=== PATIENT | female | born 1950 | race Caucasian/White ===

== ENCOUNTER → 2017-11-07 07:17 | Outpatient (CLI) | payer BC, SELFPAY ==
--- NOTE | 2017-11-07 07:19 | EKG12_ITS ---
Test Reason : PALPS Blood Pressure : / mmHG Vent. Rate : 070 BPM Atrial Rate : 070 BPM P-R Int : 160 ms QRS Dur : 090 ms QT Int : 410 ms P-R-T Axes : 060 031 083 degrees QTc Int : 442 ms Normal sinus rhythm Normal ECG Confirmed by CHELO FOOTE, KALPESH ([id number]), editor farm journal AMANDA MELÉNDEZ ([id number]) on 11/09/2017 2:32:27 PM Referred By: Shannan Chauhan Confirmed By:KALPESH WHITNEY MD
[2017-11-07 08:51] LABS: Anion Gap 5 (5-15); BUN 19 mg/dL (7-18); BUN/Creat Ratio 23.8 RATIO (10-20); Chloride 104 mmol/L (98-107); Cholesterol 280 mg/dL (200); EST Glomerular Filtration Rate 77 mL/min (>60); Est Glom Filt Rate - Afr Amer 93 mL/min (>60); Glucose 94 mg/dL (74-106); High Density Lipoprotein 59 mg/dL; Potassium 3.8 mmol/L (3.5-5.1); Sodium Level 140 mmol/L (136-145); Triglycerides 159 mg/dL; Very Low Density Lipoprotein 32 mg/dL (5-40)
== END ==
PROVIDERS: Family Provider Internal Medicine; PCP Internal Medicine; Visit Provider Internal Medicine
DX: E87.6 Hypokalemia (principal); E78.5 Hyperlipidemia, unspecified; R00.2 Palpitations
CPT/HCPCS: 36415; 80048; 80061; 93005

== ENCOUNTER → 2017-11-10 12:52 | Outpatient (CLI) | payer BC, SELFPAY ==
--- NOTE | 2017-11-10 12:54 | EKG12_ITS ---
Test Reason : SYNCOPE/NEAR SYNCOPE Blood Pressure : / mmHG Vent. Rate : 066 BPM Atrial Rate : 066 BPM P-R Int : 168 ms QRS Dur : 096 ms QT Int : 442 ms P-R-T Axes : 054 022 087 degrees QTc Int : 463 ms Normal sinus rhythm Normal ECG Confirmed by CHELO FOOTE, KALPESH ([id number]), commissioning editor AMANDA MELÉNDEZ ([id number]) on 11/15/2017 2:52:52 PM Referred By: Chris Martinez Confirmed By:KALPESH WHITNEY MD
== END ==
PROVIDERS: Family Provider Internal Medicine; PCP Internal Medicine; Visit Provider Nurse Practitioner Family
DX: R55 Syncope and collapse (principal)
CPT/HCPCS: 93005

== ENCOUNTER → 2017-11-22 13:47 | Outpatient (CLI) | payer BC, SELFPAY ==
[2017-11-10 13:26] LABS: Absolute Lymphocyte Count 2.15 X10^3/ul (0.83-4.51); Absolute Neutrophil Count 4.7 X10^3/uL (2.0-7.7); Basophil# 0.03 X10^3/uL; Basophil% 0.4 % (0-1); Eosinophil# 0.27 X10^3/uL; Eosinophils% 3.5 % (0-5); Hematocrit 40.6 % (37-47); Hemoglobin 13.5 g/dl (12.0-15.0); Lymphocyte # 2.15 X10^3/ul (4.0); Lymphocyte % 27.6 % (19-41); Mean Corp Hgb Conc 33.3 g/gl (32-36); Mean Corpuscular Hgb 29.1 pg (27.0-32.0); Mean Corpuscular Volume 87.5 fL (81-99); Mean Platelet Vol. 10.1 fl (6.2-12.0); Monocyte# 0.61 X10^3/uL; Monocyte% 7.8 % (0-10); Neutrophil # 4.71 X10^3/uL (2.7-7.7); Neutrophil % 60.6 % (47-70); POSITIVE COUNT NO; POSITIVE DIFFERENTIAL NO; POSITIVE MORPHOLOGY NO; Platelet Count 250 K/mm3 (150-450); RBC Distribution Width CV 12.7 % (11.6-14.6); RBC Distribution Width SD 40.6 fl (35.1-43.9); Red Blood Count 4.64 M/mm3 (4.2-5.4); White Blood Count 7.8 K/mm3 (4.4-11.0)
[2017-11-10 13:56] LABS: Anion Gap 7 (5-15); BUN 15 mg/dL (7-18); BUN/Creat Ratio 20.9 RATIO (10-20); Chloride 100 mmol/L (98-107); Creatinine, Serum 0.72 mg/dL (0.55-1.02); EST Glomerular Filtration Rate 87 mL/min (>60); Est Glom Filt Rate - Afr Amer 105 mL/min (>60); Glucose 86 mg/dL (74-106); Potassium 3.6 mmol/L (3.5-5.1); Sodium Level 137 mmol/L (136-145)
--- NOTE | 2017-11-22 13:53 | CDU_ITS ---
Reason For Study: syncope Rt. Velocities/BP Lt. Velocities/BP Prox CCA 107/31.1 cm/sec. Prox CCA 106/29.3 cm/sec. Mid CCA 97.9/29.9 cm/sec. Mid CCA 96.7/28.1 cm/sec. Dist CCA 86.2/29.3 cm/sec. Dist CCA 96.2/35.8 cm/sec. Prox ICA 53.4/22.3 cm/sec. Prox ICA 60.4/18.2 cm/sec. Mid ICA 89.1/32.2 cm/sec. Mid ICA 93.8/32.2 cm/sec. Dist ICA 60.9/22.5 cm/sec. Dist ICA 73.8/24.9 cm/sec. Rt. ICA/CCA = .9. Lt. ICA/CCA = 1.0. Prox ECA 84.4/21.1 cm/sec. Prox ECA 95.0/18.8 cm/sec. Rt. Vert. 46.3/14.7 cm/sec. Lt. Vert. 47.9/16.5 cm/sec. Right Extracranial There is homogeneous, smooth atherosclerotic plaque noted in the right common carotid artery. There is intimal thickening but no significant atherosclerotic plaque noted in the right internal carotid artery. There is intimal thickening but no significant atherosclerotic plaque noted in the right external carotid artery. Antegrade flow is noted in the right vertebral artery. Left Extracranial There is intimal thickening but no significant atherosclerotic plaque noted in the left common carotid artery. There is heterogeneous, smooth atherosclerotic plaque noted in the left internal carotid artery. There is intimal thickening but no significant atherosclerotic plaque noted in the left external carotid artery. Antegrade flow is noted in the left vertebral artery. Procedure Carotid Duplex 88822. The exam was diagnostic. Exam performed in department. Interpretation Summary No significant atherosclerotic plaque or stenosis noted in the right internal carotid artery. Mild (<50%) stenosis left extracranial internal carotid. Flow within the vertebral arteries is antegrade bilaterally. Ordering Physician: Chris Martinez Performed By: Aftab Donahue RVT
== END ==
PROVIDERS: Family Provider Internal Medicine; PCP Internal Medicine; Visit Provider Nurse Practitioner Family
DX: R55 Syncope and collapse (principal)
CPT/HCPCS: 36415; 80048; 83735; 85025; 93880

== ENCOUNTER → 2018-01-11 11:14 | Outpatient (CLI) | payer BC, SELFPAY ==
[2018-01-11 14:39] LABS: ALB/GLOB Ratio 1.2 RATIO (0.9-2.4); AST(SGOT) 25 U/L (15-37); Alanine Aminotransfer ALT/SGPT 30 U/L (13-56); Albumin, Serum 3.8 g/dL (3.2-5.0); Alkaline Phosphatase 81 U/L (45-117); Anion Gap 7 (5-15); BUN 19 mg/dL (7-18); BUN/Creat Ratio 19.3 RATIO (10-20); Calcium,Total 9.2 mg/dL (8.5-10.1); Chloride 102 mmol/L (98-107); Creatinine, Serum 0.99 mg/dL (0.55-1.02); EST Glomerular Filtration Rate 60 mL/min (>60); Est Glom Filt Rate - Afr Amer 73 mL/min (>60); Globulin 3.2 g/dL (2.2-4.2); Glucose 80 mg/dL (74-106); Sodium Level 136 mmol/L (136-145)
== END ==
PROVIDERS: Family Provider Internal Medicine; PCP Internal Medicine; Visit Provider Nurse Practitioner Family
DX: E78.5 Hyperlipidemia, unspecified (principal)
CPT/HCPCS: 36415; 80053

== ENCOUNTER → 2018-02-23 06:48 | Outpatient (CLI) | payer BC, SELFPAY ==
[2018-02-23 07:39] LABS: Cholesterol 157 mg/dL (200); High Density Lipoprotein 66 mg/dL; Thyroid Stim Hormone (TSH) 1.01 uIU/mL (0.358-3.74); Triglycerides 73 mg/dL; Very Low Density Lipoprotein 15 mg/dL (5-40)
== END ==
PROVIDERS: Family Provider Internal Medicine; PCP Internal Medicine; Visit Provider Nurse Practitioner Family
DX: E78.5 Hyperlipidemia, unspecified (principal); E03.9 Hypothyroidism, unspecified
CPT/HCPCS: 36415; 80061; 84439; 84443

== ENCOUNTER → 2018-05-16 16:19 | Outpatient (CLI) | payer BC, SELFPAY | PROVIDERS: Family Provider Internal Medicine; PCP Internal Medicine; Visit Provider Internal Medicine | DX: Z12.31 Encounter for screening mammogram for malignant neoplasm of breast (principal) | CPT/HCPCS: 77063; 77067 ==

== ENCOUNTER → 2018-05-24 16:33 | Outpatient (CLI) | payer BC, SELFPAY ==
[2018-05-24 18:14] LABS: Anion Gap 8 (5-15); BUN 16 mg/dL (7-18); BUN/Creat Ratio 17.8 RATIO (10-20); Calcium,Total 9.5 mg/dL (8.5-10.1); Chloride 103 mmol/L (98-107); EST Glomerular Filtration Rate 67 mL/min (>60); Est Glom Filt Rate - Afr Amer 81 mL/min (>60); Glucose 93 mg/dL (74-106); Potassium 3.1 mmol/L (3.5-5.1); Sodium Level 139 mmol/L (136-145)
== END ==
PROVIDERS: Family Provider Internal Medicine; PCP Internal Medicine; Visit Provider Internal Medicine
DX: I10 Essential (primary) hypertension (principal)
CPT/HCPCS: 36415; 80048

== ENCOUNTER → 2018-07-10 12:43 | Outpatient (CLI) | payer BC, SELFPAY ==
[2018-07-10 13:21] LABS: Absolute Lymphocyte Count 1.87 X10^3/ul (0.83-4.51); Absolute Neutrophil Count 5.3 X10^3/uL (2.0-7.7); Basophil# 0.03 X10^3/uL; Basophil% 0.4 % (0-1); Eosinophil# 0.24 X10^3/uL; Hematocrit 44.8 % (37-47); Hemoglobin 15.2 g/dl (12.0-15.0); Lymphocyte # 1.87 X10^3/ul (4.0); Mean Corp Hgb Conc 33.9 g/gl (32-36); Mean Corpuscular Hgb 30.1 pg (27.0-32.0); Mean Corpuscular Volume 88.7 fL (81-99); Monocyte# 0.64 X10^3/uL; Monocyte% 7.9 % (0-10); Neutrophil # 5.33 X10^3/uL (2.7-7.7); Neutrophil % 65.5 % (47-70); Platelet Count 283 K/mm3 (150-450); RBC Distribution Width SD 42.2 fl (35.1-43.9); Red Blood Count 5.05 M/mm3 (4.2-5.4); White Blood Count 8.1 K/mm3 (4.4-11.0)
[2018-07-10 13:24] LABS: POSITIVE COUNT NO; POSITIVE DIFFERENTIAL NO; POSITIVE MORPHOLOGY NO
[2018-07-10 13:46] LABS: Anion Gap 8 (5-15); BUN 15 mg/dL (7-18); Calcium,Total 9.5 mg/dL (8.5-10.1); Chloride 103 mmol/L (98-107); Creatinine, Serum 0.88 mg/dL (0.55-1.02); EST Glomerular Filtration Rate 68 mL/min (>60); Est Glom Filt Rate - Afr Amer 82 mL/min (>60); Glucose 100 mg/dL (74-106); Potassium 3.8 mmol/L (3.5-5.1); Sodium Level 141 mmol/L (136-145)
[2018-07-10 13:57] LABS: Thyroid Stim Hormone (TSH) 0.99 uIU/mL (0.358-3.74)
[2018-07-10 14:01] LABS: Vitamin B12 375 pg/mL (211-911); Vitamin D,25 Hydroxy 29.6 ng/mL (29.95-100.01)
== END ==
PROVIDERS: Nurse Practitioner Family; Family Provider Internal Medicine; PCP Internal Medicine; Referring Provider Internal Medicine; Visit Provider Internal Medicine
DX: E87.6 Hypokalemia (principal); E03.9 Hypothyroidism, unspecified; E55.9 Vitamin D deficiency, unspecified; F41.8 Other specified anxiety disorders; R53.83 Other fatigue
CPT/HCPCS: 36415; 80048; 82306; 82607; 84443; 85025

== ENCOUNTER 2018-08-21 15:03 | Emergency (ER) | payer BC, SELFPAY ==
[2018-08-11 09:57] VITALS: BMI 31.1
[2018-08-21 15:04] VITALS: BP 129/91; PULSE 72; RESP 16; TEMP 36.9; O2SAT 97; BMI 32.1
[2018-08-21 15:11] VITALS: PULSE 74; RESP 17; O2SAT 98
--- NOTE | 2018-08-21 15:15 | EKG12_ITS ---
Test Reason : Blood Pressure : / mmHG Vent. Rate : 068 BPM Atrial Rate : 068 BPM P-R Int : 178 ms QRS Dur : 098 ms QT Int : 450 ms P-R-T Axes : 048 008 075 degrees QTc Int : 478 ms Normal sinus rhythm Normal ECG Confirmed by KALPESH WHITNEY MD ([id number]), video effects editor AMANDA MELÉNDEZ ([id number]) on 08/25/2018 10:47:22 AM Referred By: KATRIN Confirmed By:KALPESH WHITNEY MD
--- NOTE | 2018-08-21 15:15 | RAD_ITS ---
STUDY: X-RAY CHEST REASON FOR EXAM: Female, 68 years old. Sternal chest pain. TECHNIQUE: Single AP portable view of the chest. COMPARISON: None. FINDINGS: EKG electrodes are seen. Mild elevation of the right hemidiaphragm. There is no demonstrated pleural abnormality. Normal size heart. Normal mediastinum and brandt. Normal visualized pulmonary arteries. There is atherosclerotic tortuosity of the aortic arch and descending thoracic aorta. There is a levoscoliosis of the thoracic spine. There is degenerative osteoarthritis of the bilateral shoulders. There is no demonstrated abnormality of the visualized soft tissue structures of the upper abdomen. RAD/Chest 1 View (Portable) IMPRESSION: No acute abnormality is seen. Electronically Signed: Aston Cabezas MD at 15:32 EST Tel [phone], Service support ,
--- NOTE | 2018-08-21 15:16 | ED.VISSUMM ---
- ER Visit Summary Date of Service: 08/21/18 Chief Complaint: [] Chest pain today History of Present Illness: The patient is a 68 F [] history of hypertension high cholesterol began having chest pressure today at 230 per suddenly was quite intense pressure discomfort to her chest make her short of breath would not go away per medics were called she was brought and they gave her 4 of aspirin on arrival she is pain-free her vital signs within normal range, she has no history of OR PE DVT no fever no cough or paresthesias this occurred suddenly unexpectedly Physical Examination: [] 122/80 afebrile General, no distress resting comfortably HEENT is generally unremarkable The neck is supple no adenopathy Cardiovascular, regular rate and rhythm Lungs, clear bilateral Abdomen, soft nontender Extremities, no clubbing cyanosis or edema Neurologic, awake alert answering questions appropriately moving all 4 extremities Test Results: [] Emergency Department Course and Treatment: [] EKG shows a sinus rhythm nothing acute this time given all the above screening labs are obtained further management The patient's EKG troponin chest x-ray are all unremarkable on reevaluation during period of observation she is remained pain-free I discussed differential with her and the the concept of occult cardiac disease sudden etc. we recommended admission, however she understands all the above was able to read back to me the concerns but reports she would prefer outpatient management does not feel she would do well if she were admitted, she has agreed to take aspirin every day follow-up with her doctors for the outpatient management return for change in symptoms Treatment Plan: [] Disposition: [] Home stable declined admission Impression: [] Chest pain etiology unclear This note was generated with [employer] dictation software. It may contain incorrect words, spelling, and punctuation that were not noted in review of the chart prior to signing ED Disposition - Plan for ED Patient: Chief Complaint: Chest Pain Referrals: Shannan Chauhan MD [Primary Care Provider] -
[2018-08-21 15:17] VITALS: O2SAT 97
--- NOTE | 2018-08-21 15:19 | ED.DCSUM_ITS ---
- ER Visit Summary Date of Service: 08/21/18 Chief Complaint: [] Chest pain today History of Present Illness: The patient is a 68 F [] history of hypertension high cholesterol began having chest pressure today at 230 per suddenly was quite intense pressure discomfort to her chest make her short of breath would not go away per medics were called she was brought and they gave her 4 of aspirin on arrival she is pain-free her vital signs within normal range, she has no history of NE PE DVT no fever no cough or paresthesias this occurred suddenly unexpectedly Physical Examination: [] 122/80 afebrile General, no distress resting comfortably HEENT is generally unremarkable The neck is supple no adenopathy Cardiovascular, regular rate and rhythm Lungs, clear bilateral Abdomen, soft nontender Extremities, no clubbing cyanosis or edema Neurologic, awake alert answering questions appropriately moving all 4 extremities Test Results: [] Emergency Department Course and Treatment: [] EKG shows a sinus rhythm nothing acute this time given all the above screening labs are obtained further management The patient's EKG troponin chest x-ray are all unremarkable on reevaluation during period of observation she is remained pain-free I discussed differential with her and the the concept of occult cardiac disease sudden etc. we recommended admission, however she understands all the above was able to read back to me the concerns but reports she would prefer outpatient management does not feel she would do well if she were admitted, she has agreed to take aspirin every day follow-up with her doctors for the outpatient management return for change in symptoms Treatment Plan: [] Disposition: [] Home stable declined admission Impression: [] Chest pain etiology unclear This note was generated with [employer] dictation software. It may contain incorrect words, spelling, and punctuation that were not noted in review of the chart prior to signing ED Disposition - Plan for ED Patient: Chief Complaint: Chest Pain Referrals: Shannan Chauhan MD [Primary Care Provider] -
[2018-08-21 15:34] LABS: Absolute Lymphocyte Count 2.17 X10^3/ul (0.83-4.51); Absolute Neutrophil Count 5.4 X10^3/uL (2.0-7.7); Basophil# 0.02 X10^3/uL; Basophil% 0.2 % (0-1); Eosinophil# 0.24 X10^3/uL; Eosinophils% 2.8 % (0-5); Hematocrit 45.4 % (37-47); Hemoglobin 15.3 g/dl (12.0-15.0); Lymphocyte # 2.17 X10^3/ul (4.0); Lymphocyte % 25.3 % (19-41); Mean Corp Hgb Conc 33.7 g/gl (32-36); Mean Corpuscular Hgb 29.4 pg (27.0-32.0); Mean Corpuscular Volume 87.3 fL (81-99); Mean Platelet Vol. 10.1 fl (6.2-12.0); Monocyte# 0.76 X10^3/uL; Monocyte% 8.8 % (0-10); Neutrophil # 5.38 X10^3/uL (2.7-7.7); Neutrophil % 62.7 % (47-70); Platelet Count 261 K/mm3 (150-450); RBC Distribution Width CV 12.7 % (11.6-14.6); White Blood Count 8.6 K/mm3 (4.4-11.0)
[2018-08-21 15:41] LABS: Anion Gap 7 (5-15); BUN 19 mg/dL (7-18); BUN/Creat Ratio 19.8 RATIO (10-20); Calcium,Total 9.5 mg/dL (8.5-10.1); Chloride 104 mmol/L (98-107); Creatinine, Serum 0.96 mg/dL (0.55-1.02); EST Glomerular Filtration Rate 62 mL/min (>60); Est Glom Filt Rate - Afr Amer 75 mL/min (>60); Estimated Creatinine Clearance 53.96 ml/min; Glucose 103 mg/dL (74-106); Potassium 3.5 mmol/L (3.5-5.1); Sodium Level 138 mmol/L (136-145)
[2018-08-21 15:42] LABS: POSITIVE COUNT NO; POSITIVE DIFFERENTIAL NO; POSITIVE MORPHOLOGY NO
[2018-08-21 16:18] LABS: BNP,B-Type NATRIURETIC PEPTIDE 5.1 pg/mL (0-100)
[2018-08-21 17:03] VITALS: BP 158/95; PULSE 68; RESP 19
[2018-08-21 17:15] LABS: D-Dimer Quantitative (DVT/PE) < 0.27 FEU/ug/m (0.27-0.49)
--- NOTE | 2018-08-21 18:52 | ED.DEP ---
ED Disposition - Plan for ED Patient: Chief Complaint: Chest Pain Instructions: ED Chest Pain Atypical Unkn Cause Referrals: Shannan Chauhan MD [Primary Care Provider] - Additional Instructions: Please follow-up with your doctors as soon as possible, please take a full strength adult aspirin or 4 baby aspirin every day until you follow-up with your doctors return immediately for symptoms
[2018-08-21 18:58] VITALS: BP 144/83; PULSE 71; RESP 15; O2SAT 96
--- OUTSIDE RECORDS SUMMARY | 2018-10-07 21:55 | XMS RPT_ITS ---
:1950 Author Organization OHIP Support Name Relationship Address Phone HAMPTONINN Unavailable [address] + [place] [address] ANI TSANG Unavailable [address] + [place] [address] HAMPTONINN Unavailable [address] + [place] [address] ANI TSANG Unavailable [address] + [place] [address] HAMPTONINN Unavailable [address] + [place] [address] ANI TSANG Unavailable [address] + [place] [address] HAMPTONINN Unavailable [address] + [place] [address] ANI TSANG Unavailable [address] + [place] [address] HAMPTONINN Unavailable [address] + [place] [address] ANI TSANG Unavailable [address] + [place] [address] HAMPTONINN Unavailable [address] + [place] [address] ANI TSANG Unavailable [address] + [place] [address] HAMPTONINN Unavailable [address] + [place] [address] ANI TSANG Unavailable [address] + [place] [address] HAMPTONINN Unavailable [address] + [place] [address] SCHWARTFIGURE, ANI Unavailable [address] + [place] [address] HAMPTONINN Unavailable [address] + [place] [address] SCHWARTFIGURE, ANI Unavailable [address] + [place] [address] HAMPTONINN Unavailable [address] + [place] [address] SCHWARTFIGURE, ANI Unavailable [address] + [place] [address] HAMPTONINN Unavailable [address] + [place] [address] SCHWARTFIGURE, ANI Unavailable [address] + [place] [address] HAMPTONINN Unavailable [address] + [place] [address] SCHWARTFIGURE, ANI Unavailable [address] + [place] [address] HAMPTONINN Unavailable [address] + [place] [address] SCHWARTFIGURE, ANI Unavailable [address] + [place] [address] HAMPTONINN Unavailable [address] + [place] [address] SCHWARTFIGURE, ANI Unavailable [address] + [place] [address] HAMPTONINN Unavailable [address] + [place] [address] SCHWARTFIGURE, ANI Unavailable [address] + [place] [address] HAMPTONINN Unavailable [address] + [place] [address] SCHWARTFIGURE, ANI Unavailable [address] + [place] [address] HAMPTONINN Unavailable [address] + [place] [address] SCHWARTFIGURE, ANI Unavailable [address] + [place] [address] HAMPTONINN Unavailable [address] + [place] [address] SCHWARTFIGURE, ANI Unavailable [address] + [place] [address] HAMPTONINN Unavailable [address] + [place] [address] SCHWARTFIGURE, ANI Unavailable [address] + [place] [address] HAMPTONINN Unavailable [address] + [place] [address] SCHWARTFIGURE, ANI Unavailable [address] + [place] [address] HAMPTONINN Unavailable [address] + [place] [address] SCHWARTFIGURE, ANI Unavailable [address] + [place] [address] HAMPTONINN Unavailable [address] + [place] [address] SCHWARTFIGURE, ANI Unavailable [address] + [place] [address] HAMPTONINN Unavailable [address] + [place] [address] SCHWARTFIGURE, ANI Unavailable [address] + [place] [address] HAMPTONINN Unavailable [address] + [place] [address] SCHWARTFIGURE, ANI Unavailable [address] + [place] [address] HAMPTONINN Unavailable [address] + [place] [address] SCHWARTFIGURE, ANI Unavailable [address] + [place] [address] HAMPTONINN Unavailable [address] + [place] [address] SCHWARTFIGURE, ANI Unavailable [address] + [place] [address] HAMPTONINN Unavailable [address] + [place] [address] SCHWARTFIGURE, ANI Unavailable [address] + [place] [address] HAMPTONINN Unavailable [address] + [place] [address] SCHWARTFIGURE, ANI Unavailable [address] + [place] [address] HAMPTONINN Unavailable [address] + [place] [address] SCHWARTFIGURE, ANI Unavailable [address] + [place] [address] HAMPTONINN Unavailable [address] + [place] [address] SCHWARTFIGURE, ANI Unavailable [address] + [place] [address] Care Team Providers Name Role Phone Oleghe, Efewongbe Primary Care Unavailable Truong Marrero Attending Unavailable Oleghe, Efewongbe Attending Unavailable Oleghe, Efewongbe Referring Unavailable Oleghe, Efewongbe Attending Unavailable Oleghe, Efewongbe Referring Unavailable Oleghe, Efewongbe Primary Care Unavailable Oleghe, Efewongbe Attending Unavailable Oleghe, Efewongbe Referring Unavailable Oleghe, Efewongbe Primary Care Unavailable Oleghe, Efewongbe Attending Unavailable Oleghe, Efewongbe Referring Unavailable Oleghe, Efewongbe Primary Care Unavailable Oleghe, Efewongbe Attending Unavailable Oleghe, Efewongbe Referring Unavailable Oleghe, Efewongbe Primary Care Unavailable MartinezChris MACHINE WIPER-C Attending Unavailable Oleghe, Efewongbe Referring Unavailable Oleghe, Efewongbe Primary Care Unavailable MartinezChris MACHINE WIPER-C Attending Unavailable Oleghe, Efewongbe Referring Unavailable MartinezChris MACHINE WIPER-C Attending Unavailable MartinezChris MACHINE WIPER-C Referring Unavailable Oleghe, Efewongbe Primary Care Unavailable Liseth Hernandez Attending Unavailable Oleghe, Efewongbe Referring Unavailable Hussein Cabello Attending Unavailable Truong Marrero Referring Unavailable Kojo Law Attending Unavailable Oleghe, Efewongbe Referring Unavailable Martinez, Chris MACHINE WIPER-C Attending Unavailable Martinez, Chris MACHINE WIPER-C Referring Unavailable Oleghe, Efewongbe Primary Care Unavailable Oleghe, Efewongbe Attending Unavailable Oleghe, Efewongbe Referring Unavailable Oleghe, Efewongbe Primary Care Unavailable Martinez, Chris MACHINE WIPER-C Attending Unavailable Oleghe, Efewongbe Referring Unavailable Martinez, Chris MACHINE WIPER-C Attending Unavailable Oleghe, Efewongbe Referring Unavailable Oleghe, Efewongbe Primary Care Unavailable IrineoLuisitoHussein Attending Unavailable Martinez, Chris MACHINE WIPER-C Referring Unavailable Oleghe, Efewongbe Attending Unavailable Oleghe, Efewongbe Referring Unavailable Oleghe, Efewongbe Primary Care Unavailable Irineo Hussein Attending Unavailable Oleghe, Efewongbe Referring Unavailable Martinez, Chris MACHINE WIPER-C Attending Unavailable Oleghe, Efewongbe Primary Care Unavailable Martinez, Chris MACHINE WIPER-C Attending Unavailable Martinez, Chris MACHINE WIPER-C Referring Unavailable Oleghe, Efewongbe Primary Care Unavailable Oleghe, Efewongbe Attending Unavailable Oleghe, Efewongbe Referring Unavailable Oleghe, Efewongbe Attending Unavailable Oleghe, Efewongbe Referring Unavailable Oleghe, Efewongbe Primary Care Unavailable Oleghe, Efewongbe Attending Unavailable Oleghe, Efewongbe Primary Care Unavailable Oleghe, Efewongbe Attending Unavailable Oleghe, Efewongbe Referring Unavailable Oleghe, Efewongbe Primary Care Unavailable Martinez, Chris MACHINE WIPER-C Attending Unavailable Oleghe, Efewongbe Referring Unavailable Oleghe, Efewongbe Primary Care Unavailable Oleghe, Efewongbe Attending Unavailable Oleghe, Efewongbe Referring Unavailable Oleghe, Efewongbe Primary Care Unavailable Oleghe, Efewongbe Attending Unavailable Oleghe, Efewongbe Referring Unavailable Oleghe, Efewongbe Attending Unavailable Oleghe, Efewongbe Referring Unavailable Oleghe, Efewongbe Attending Unavailable Oleghe, Efewongbe Referring Unavailable PROBLEMS PROBLEMS DATE TYPE CONDITION / CODE ATTENDING STATUS SOURCE 09/15/2018 Unknown G47.33 - Mary, Michel Rangel Obstructive sleep 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[facility]C Community unspecified / Hospital E03.9(ICD-10) Repository 05/26/2018 Unknown F41.8 - Other Martinez, Chris Active [facility] specified anxiety [facility] Community disorders / Hospital F41.8(ICD-10) Repository 05/26/2018 Unknown R53.83 - Other Martinez, Chris Active [facility] fatigue / [facility] Community R53.83(ICD-10) Hospital Repository 05/26/2018 Unknown E55.9 - Vitamin D Martinez, Chris Active [facility] [place] deficiency, [facility] Community unspecified / Hospital E55.9(ICD-10) Repository 05/26/2018 Unknown Z23 - Encounter for MartinezChris newell Active [place] immunization / [facility] Community Z23(ICD-10) Hospital Repository 03/14/2018 Unknown Z12.31 - Encounter Tien, Active [facility] for screening [facility] mammogram for Hospital malignant neoplasm Repository of breast / Z12.31(ICD-10) 02/23/2018 Unknown E78.5 - Martinez, Chris Active [facility] Hyperlipidemia, [facility] Community unspecified / Hospital E78.5(ICD-10) Repository 12/06/2017 Unknown I87.2 - Venous Martinez, Chris Active [facility] insufficiency [facility] Community (chronic) Hospital (peripheral) / Repository I87.2(ICD-10) 12/09/2017 Unknown R55 - Syncope and Irineo, Hussein Active [facility] collapse / Community R55(ICD-10) Hospital Repository 11/07/2017 Unknown E87.6 - Hypokalemia Oleghe, Active [facility] / E87.6(ICD-10) [facility] Hospital Repository 12/19/2017 Unknown R00.2 - Hussein Cabello Active [facility] Palpitations / Community R00.2(ICD-10) Hospital Repository PROCEDURES PROCEDURES No Procedure Records FoundRESULTS RESULTS PULMONARY VISIT REPORT Observed: 09/15/2018 Status: F Source: [place] 1:54 PM [facility] REPOSITORY [facility] [address] [place] [address] OFFICE VISIT Date of Service: 09/15/18 MR#: [id number] Acct: [id number] Name: JASMIN TSANG Rep #: [id number] : 1950 Provider: Liseth Hernandez Age/Sex: 68/F Location: [facility] Status: Signed Assessment AND Plan 1. VIELKA (obstructive sleep apnea) G47.33 Plan New. Lengthy discussion about the pathophysiology of obstructive sleep apnea, the benefits of treatment and the risks of improved sleep apnea. Sending the patient for a titration study. Initial goal will be that when she wear the device at least 4 hours nightly, ultimately the device should be worn anytime spent sleeping. She will follow- up with Dr. Harris in 2 months, at which time anticipate she will be on therapy for 4-6 weeks. She has been encouraged to contact the office with any difficulties acclimating to therapy in the meantime. She is highly motivated to be compliant with therapy, would advise staying away from a full facemask. Orders Orders: 2. Obesity (BMI 30.0-34.9) E66.9 Plan Discussed the relationship between obesity and obstructive sleep apnea. Encourage weight loss. 3. Depression with anxiety F41.8 Plan Complicates exam, plan, care and prognosis. Plan Detail Follow Up 2 Months (DMB) HPI Sleep concern: Chief Complaint: daytime hypersomnia HPI Comments Details: This patient presents the office today for initial consultation regarding concern for obstructive sleep apnea. She is ambulatory and currently in room air. The patient states that approximately 5 years ago she did have a sleep study that recommended that she be treated with CPAP therapy. At the time she was suffering from restless leg syndrome secondary to anemia from an internal blood loss problem. She subsequently had a surgery which corrected the blood loss, therefore correcting the restless leg. At the time she was unable to tolerate the full facemask and was unable to maintain enough compliance for the insurance company to continue to pay for her rental of CPAP. She reports that at the time she was going through a lot of medical problems and the compounding medical problems made it difficult to acclimate to therapy. She is unsure if she snores but she knows that she does not feel rested upon arising in the morning. She is taking naps 5 out of 7 days/week that last between 1 and 2 hours. She is experiencing nocturia approximately once per week. She denies any dry mouth or frequent headaches. 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 Her work requires her to arise about 3 AM on workdays, she typically gets up at 4 AM on nonwork days. 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 STOP-BANG Assessment: 1. Do you snore? Y 2. Are you frequently tired during the day? Y 3. Have you been observed gasping or choking while asleep? N 4. Do you have high blood pressure? Y 5. BMI - greater than 35kg/m2? N 6. Age - over 50 years old? Y 7. Neck Circumference - greater than 37 cm for females or 40 cm for males? N 8. Gender - male? N Total STOP-BANG score = 4 which indicates HIGH risk for obstructive sleep apnea (yes to 3 or more questions = high risk of sleep apnea). Polysomnogram completed on September 01, 2018 showing an overall AHI of 31.8 events per hour, noted to be significantly higher in the supine position at 55.8 events per hour. Impression is severe obstructive sleep apnea. Also noted PLMS index of 0.6 events per hour. A CPAP titration study has been recommended. Intake Vital Signs09/15/18 Height 5 ft 6 in 09/15/18 Weight: 188 lb Intake Visit Reasons: Sleep problems Accompanied by: Self Allergies cefaclor [From Ceclor] Allergy (Verified 09/15/18 12:03) Rash erythromycin base Adverse Reaction (Verified 09/15/18 12:03) Vomiting Fiempjv-Bug-Phh Reductase Inhibitor Adverse Reaction (Verified 09/15/18 12:03) Pain in joints trazodone Adverse Reaction (Verified 09/15/18 12:03) syncope green peppers Allergy (Mild, Uncoded 09/15/18 12:03) Swelling Medications Biotin 5,000 mcg PO DAILY 05/26/15 [History Confirmed 09/15/18] Daylin 1 tab PO DAILY 05/29/15 [History Confirmed 09/15/18] cholecalciferol (vitamin D3) 1,000 unit tablet 2,000 unit PO DAILY tab 08/18/17 [History Confirmed 09/15/18] compression stocking, knee high,regular length,medium See Dose Instructions .ROUTE .MEDSUPPLY #2 ea 12/06/17 [Rx Confirmed 09/15/18] aspirin 81 mg tablet,delayed release 81 mg PO QDAY 03/14/18 [History Confirmed 09/15/18] omeprazole 20 mg capsule,delayed release 20 mg PO QDAY 03/14/18 [History Confirmed 09/15/18] metoprolol succinate ER 50 mg tablet,extended release 24 hr 50 mg PO QDAY #90 tab 04/13/18 [Rx Confirmed 09/15/18] rosuvastatin 10 mg tablet 10 mg PO QDAY #90 tab 04/13/18 [Rx Confirmed 09/15/18] amlodipine 5 mg tablet 5 mg PO QDAY #90 tab 04/14/18 [Rx Confirmed 09/15/18] levothyroxine 75 mcg tablet 75 mcg PO .QD #90 tab 04/18/18 [Rx Confirmed 09/15/18] triamterene 37.5 mg-hydrochlorothiazide 25 mg capsule 1 cap PO QAM #90 cap 04/28/18 [Rx Confirmed 09/15/18] potassium chloride ER 20 mEq tablet,extended release 20 meq PO DAILY #30 tab 05/25/18 [Rx Confirmed 09/15/18] duloxetine 30 mg capsule,delayed release 30 mg PO DAILY #60 cap 08/11/18 [Rx Confirmed 09/15/18] duloxetine 60 mg capsule,delayed release 60 mg PO DAILY #90 cap 08/11/18 [Rx Confirmed 09/15/18] lorazepam 0.5 mg tablet 0.5 mg PO DAILY PRN PRN #30 tab 08/11/18 [Rx Confirmed 09/15/18] [facility] Medical History Anemia (Acute) GERD (gastroesophageal reflux disease) (Acute) H/O: hysterectomy (Acute) Hyperlipidemia (Acute) Hypothyroidism (Acute) Anxiety (Chronic) Depression (Chronic) Hypertension (Chronic) Seasonal allergies (Chronic) Surgical History H/O breast biopsy (Acute) H/O hemorrhoidectomy (Acute) gallbladder removal (Acute) Family History Mother Arthritis Hypertension CVA (cerebral vascular accident) Father Heart disease Myocardial infarction Had his first at 50, lived to be 80. Hypertension Kidney disease Grandfather Cancer stomach CA Social History Smoking Status: Former smoker how long ago did patient quit smokin, 1ppd second hand exposure: Yes alcohol intake: current alcohol intake frequency: holidays/special occasions only Alcohol type: wine substance use type: does not use what type of physical activity do you participate in: none Review of Systems Const CONSTITUTIONAL: Positive daytime sleepiness and fatigue; negative anorexia, body ache, chills, fever(s), night sweats, oral thrush, stops breathing during sleep, weight loss, sleeping in chair, weight loss, weight gain, frequent colds, seasonal allergies, other, headache(s) or orthopnea EETM Ear Nose Throat Mouth: Positive hearing normal; negative hard of hearing, hoarseness, dry mouth in morning, change in vision, itchy eyes, eye pain, swallowing Difficulty, ear pain, nose bleed, headache(s), mouth pain, nasal congestion, nasal discharge, post nasal drip, sinus pain, sinus pressure, sore throat or other Cardio Cardiovascular: Negative chest pain, chest pain at rest, chest pain with activity, irregular heart rhythm, edema, shortness of breath when lying down, palpitations, murmur or other Resp Respiratory: Positive as per HPI; negative shortness of breath, pain with cough, wheezing, chest congestion, cough, chest tightness, pain on inspiration, inhalers, increase use of rescue inhalers, snoring, apnea or other Gastro Gastrointestional: Negative bloody stools, change in appetite, difficulty swallowing, reflux, hematemesis, melena stool, loose stool, constipation or other Genitourinary: Negative blood in urine, nocturia, pain with urination or other Musc Musculoskeletal: Negative body pain, back pain, neck pain or other Skin/Breast Skin/Breast: Negative dry skin, itching, rash, unusual bruising, breast lump or other Neuro Neurological: Negative restless legs, confusion, weakness or other Psych Psychocological: Negative abnormal sleep pattern, anxiety, thoughts of hurting self/others, hopelessness or other Lymph Lymphatic: Negative easy bleeding, easy bruising, swollen lymph nodes or other Exam Const Constitutional: Positive conversant, cooperative, in no acute respiratory distress, healthy appearing, well developed, well nourished and good hygiene Head Head: Positive normocephalic and atraumatic; negative cyanosis of lips/distal nose Eyes Eye: Positive clear conjunctiva; negative nystagmus or scleral abnormality Ears Ear: Positive hearing normal and external ears normal; negative hard of hearing Nose Nose: Positive external nose normal and no nasal discharge; negative epistaxis Mouth Mouth: Positive oral mucosae normal, no lesions, good dentition and crowded posterior oropharynx; negative post nasal drip, malodorous breath or oral thrush present Mallampati Score: III: Mallampati Score Neck Neck: Positive normal visual inspection, full ROM, trachea midline and thick neck; negative lymphadenopathy, JVD or tender Chest Wall Chest: Positive normal inspection of the chest and symmetric chest movement; negative increased A/P diameter Resp lung sounds: Positive clear to auscultation, good air exchange, normal expiratory time and normal respiratory effort; negative diminished, wheezes, rhonchi, rales, dullness to percussion or wheeze present on forced exhalation Cardio Cardiac: Positive regular rate, regular rhythm, S1 normal and S2 normal; negative murmur GI GI: Positive normal to inspection; negative distended Genitourinary: Positive deferred Musc Musculoskeletal: Positive steady gait and ROM normal; negative kyphosis or scoliosis Skin Pulmonary Skin Exam: Positive intact; negative rash Pulses Pulse: Yes pulses normal x4 extremities Extremities Extremities: Yes capillary refill normal, No clubbing, No cyanosis, No edema Neuro Neurologic: Yes conversant, Yes no focal neuro deficits, Yes normal concentration, Yes understands questions, Yes cooperative, Yes normal cognition, Yes normal coordination, No tremor Lymph Lymphatic: No lymphadenopathy, No tenderness, No cervical adenopathy Psych Appearance: Positive grossly normal, eye contact and well kempt Mental Status: Positive mental status grossly normal Mood: Positive congruent mood Affect: Positive normal affect Coding Level of Care Code Off vis,new,level 4 Diagnoses VIELKA (obstructive sleep apnea) G47.33 Obesity (BMI 30.0-34.9) E66.9 Depression with anxiety F41.8 09/15/18 1354 <Electronically signed by Liseth CABEZAS> Date Liseth CABEZAS Cosigner Signature: Date (if applicable) CC: Shannan Chauhan MD STRESS REPORT Observed: 09/08/2018 Status: F Source: [place] 2:40 PM [facility] REPOSITORY [facility] Cardi[facility] Services [address] [place] [id number] MR#: [id number] Acct: [id number] Name: JASMIN TSANG Rep #: [id number] : 1950 68 From: Kojo Law MD Primary Care: Shannan Chauhan MD Status: REG CLI Ordering Dr: Lucero: Irma Treadwell Stress Test Report Date: 09/08/2018 Procedure: Pharmacologic stress nuclear imaging study Indications: Chest pain Consent: Per the patient Procedure: The patient underwent pharmacologic (Regadenoson) evaluation with a peak heart rate of 84 beats per minute (54 predicted maximal heart rate) and a peak blood pressure of 132/74 mmHg. The baseline ECG demonstrated normal sinus rhythm. The peak pharmacologic ECG demonstrated no obvious ECG changes. There were no cardiac dysrhythmias pretest, during pharmacologic infusion, or recovery. There was no complaint of chest discomfort during pharmacologic infusion or recovery. The examination was discontinued secondary to completion of protocol. Impression: 1. Pharmacologic (Regadenoson) evaluation 2. Peak pharmacologic ECG with no obvious ECG changes. 3. There were no cardiac dysrhythmias pretest, during pharmacologic infusion, or recovery. 4. Nuclear images pending Myocardial perfusion imaging study: Technique: The patient was injected with 11.8 millicuries of technetium 99m Cardiolite and subsequently rest SPECT Cardiolite nuclear imaging was obtained in the horizontal long, vertical long, and short axis views. The patient underwent pharmacologic (Regadenoson) evaluation with a peak heart rate of 84 beats per minute (54 % percent predicted maximal heart rate) and a peak blood pressure of 132/74 mmHg. The patient was injected with 33.9 millicuries of technetium 99m Cardiolite and subsequently stress SPECT Cardiolite nuclear imaging was obtained in the horizontal long, vertical long, and short axis views. A gated Cardiolite study at peak stress was obtained. Interpretation: Rest and stress SPECT Cardiolite nuclear imaging status post realignment, normalization, and attenuation correction demonstrate a lot of uniform tracer uptake in myocardial perfusion appearing within normal limits. There is end systolic thickening and brightening. The gated Cardiolite study demonstrates myocardial thickening and inward wall motion. The reported LVEF is 82 %. Impression: 1. Rest and stress SPECT Cardiolite nuclear imaging demonstrate relative uniform tracer uptake and myocardial perfusion appearing within normal limits. 2. The gated Cardiolite study reports an LVEF of 82 %. This note was generated with [employer] software. It may contain incorrect words, spelling, and punctuation that were not noted in checking the note before signing. 09/08/18 1440 <Electronically signed by Kojo Law MD> Date Kojo Law MD CC: Shannan Chauhan MD Date Dictated: 09/08/188 Date Transcribed: 09/08/181437 Cardiology Physician: PM Signed INTERNAL MEDICINE Observed: 08/29/2018 Status: F Source: [place] OFFICE VISIT 8:41 AM [facility] [address] [place], [place] [address] OFFICE VISIT Date of Service: 08/24/18 MR#: [id number] Acct: [id number] Name: JASMIN TSANG Rep #: [id number] : 1950 Provider: Shannan Chauhan MD Age/Sex: 68/F Location: [facility] Status: Signed Intake Vital Signs08/24/18 Body Mass Index (BMI) 32.1 08/24/18 Height 5 ft 6 in 08/24/18 Weight: 187 lb 08/24/18 Body Mass Index (BMI) 30.2 08/24/18 Blood Pressure 129/79 H Intake Visit Reasons: S/P [facility] ED FOR CP Chief Complaint: FU [facility] ER Chest pain Is patient in pain?: No Allergies cefaclor [From Ceclor] Allergy (Verified 08/24/18 15:07) Rash erythromycin base Adverse Reaction (Verified 08/24/18 15:07) Vomiting Ufoxscf-Qci-Zor Reductase Inhibitor Adverse Reaction (Verified 08/24/18 15:07) Pain in joints trazodone Adverse Reaction (Verified 08/24/18 15:07) syncope green peppers Allergy (Mild, Uncoded 08/24/18 15:07) Swelling Medications Biotin 5,000 mcg PO DAILY 05/26/15 [History Confirmed 08/24/18] Daylin 1 tab PO DAILY 05/29/15 [History Confirmed 08/24/18] cholecalciferol (vitamin D3) 1,000 unit tablet 2,000 unit PO DAILY tab 08/18/17 [History Confirmed 08/24/18] compression stocking, knee high,regular length,medium See Dose Instructions .ROUTE .MEDSUPPLY #2 ea 12/06/17 [Rx Confirmed 08/24/18] aspirin 81 mg tablet,delayed release 81 mg PO QDAY 03/14/18 [History Confirmed 08/24/18] omeprazole 20 mg capsule,delayed release 20 mg PO QDAY 03/14/18 [History Confirmed 08/24/18] metoprolol succinate ER 50 mg tablet,extended release 24 hr 50 mg PO QDAY #90 tab 04/13/18 [Rx Confirmed 08/24/18] rosuvastatin 10 mg tablet 10 mg PO QDAY #90 tab 04/13/18 [Rx Confirmed 08/24/18] amlodipine 5 mg tablet 5 mg PO QDAY #90 tab 04/14/18 [Rx Confirmed 08/24/18] levothyroxine 75 mcg tablet 75 mcg PO .QD #90 tab 04/18/18 [Rx Confirmed 08/24/18] triamterene 37.5 mg-hydrochlorothiazide 25 mg capsule 1 cap PO QAM #90 cap 04/28/18 [Rx Confirmed 08/24/18] potassium chloride ER 20 mEq tablet,extended release 20 meq PO DAILY #30 tab 05/25/18 [Rx Confirmed 08/24/18] duloxetine 30 mg capsule,delayed release 30 mg PO DAILY #60 cap 08/11/18 [Rx Confirmed 08/24/18] duloxetine 60 mg capsule,delayed release 60 mg PO DAILY #90 cap 08/11/18 [Rx Confirmed 08/24/18] lorazepam 0.5 mg tablet 0.5 mg PO DAILY PRN PRN #30 tab 08/11/18 [Rx Confirmed 08/24/18] [facility] Medical History Anemia (Acute) GERD (gastroesophageal reflux disease) (Acute) H/O: hysterectomy (Acute) Hyperlipidemia (Acute) Hypothyroidism (Acute) Anxiety (Chronic) Depression (Chronic) Hypertension (Chronic) Seasonal allergies (Chronic) Surgical History H/O breast biopsy (Acute) H/O hemorrhoidectomy (Acute) gallbladder removal (Acute) Family History Mother Arthritis Hypertension CVA (cerebral vascular accident) Father Heart disease Myocardial infarction Had his first at 50, lived to be 80. Hypertension Kidney disease Grandfather Cancer stomach CA Social History Smoking Status: Former smoker alcohol intake: current alcohol intake frequency: holidays/special occasions only Alcohol type: wine substance use type: does not use what type of physical activity do you participate in: none HPI HPI Chief Complaint: [facility] ER Chest pain Details: JASMIN TSANG, is a 68yo F who presents to the office today for follow-up of recent ER visit for chest pain. Patient states she was at rest and noted a sudden onset of crushing midsternal pain with radiation to her back and neck. Pain was said to be over 10 minutes and only improved totally after administration of aspirin in the ER. Denies any similar history in the past. She denied syncopal or near syncopal episodes, palpitations or increased sweating during this episode. She had a stress test about 10 years ago but she states that she can remember the indication for this. Initially started out with a treadmill but this was aborted due to inability to complete subsequently had a pharmacologic stress test. She has felt well since her visit to the ER and denies recurrence of chest pain. ROS Const Constitutional: Positive for fatigue; no chills, fever(s), frequent falls, malaise, weakness, sleep problems or change in appetite Eyes Eyes: No blurry vision, change in vision, double vision, discharge or visual disturbances ENT ENT: No abnormal hearing, ear pain, ear pressure, tinnitus or dizziness/vertigo Resp Respiratory: No cough, shortness of breath or wheezing Cardio Cardiology: No chest pain at rest, chest pain with exertion, shortness of breath, dyspnea on exertion, generalized swelling, irregular heart rhythm, lightheadedness, orthopnea, fast heart rate or palpitations Gastro GI: No abdominal pain, change in bowel habits, constipation, diarrhea, nausea/dyspepsia or vomiting Genitourinary-Female: No difficulty urinating, burning urination, painful urination, urinary incontinence, urinary frequency, urinary urgency, urinary hesitancy, urinary retention, Frequent nighttime urination/ nocturia, sexual problems, genital lesions, abnormal vaginal bleeding, pelvic pain, vaginal dryness, vaginal odor or Vaginal Itching Musc Musculoskeletal: No joint pain, back pain, joint swelling, limited range of motion, numbness or tingling Skin Skin: No change in skin color, itching, rash or wounds Breast Breast: No breast lump or breast pain Neuro Neurology: No frequent falls, weakness, visual disturbances, abnormal hearing, numbness, tingling, unsteady gait/balance, dizziness, loss of vision or memory loss Psych Psychiatric: No change in appetite, No memory loss, No anxiety, No depression, No Thoughts of harming yourself/Others Endo Endocrine: Positive for fatigue; no heat intolerance, increased thirst/drinking, increased hunger or increased urination Aller/Imm Allergy/Immunologic: No wheezing, itchy eyes or seasonal allergy symptoms Benson/Lymp Hematologic/Lymphatic: No easy bleeding, easy bruising or enlarged lymph nodes Exam Const General: cooperative, no acute distress Orientation: alert, awake, oriented x3 HENMT Head: atraumatic, normal to inspection, normocephalic Ears: hearing grossly normal bilaterally Resp Effort AND Inspection: normal respiratory effort, able to speak in complete sentences Auscultation: Bilateral: Clear to Auscultation Cardio Rate: regular rate Rhythm: regular rhythm Heart Sounds: S1 normal, S2 normal GI Palpation: soft, no hepatosplenomegaly Neuro General: alert, awake, oriented x3, moves all extremities, CN's II-XI intact bilaterally Extrem General: no clubbing, cyanosis or edema Psych Appearance: grossly normal Mood: dysthymic mood Affect: sad Speech and Movement: speech and movement normal Assessment AND Plan 1. Chest pain R07.9 Plan Status post recent ER visit. No further episodes. Investigations done during that visit without any significant abnormalities. No known history of coronary artery disease. History of hypertension which is well controlled. Nuclear stress test ordered, has not done well with an exercise stress test in the past. Advised to go to the ER if she notes any recurrence. Otherwise follow-up as previously scheduled. This note was generated with [employer] dictation software. It may contain incorrect words, spelling, and punctuation that were not noted in checking the note before signing. Orders Orders: Coding Level of Care Code Off vis,est,level 3 Diagnoses Chest pain R07.9 08/29/18 0841 <Electronically signed by Shannan Chauhan MD> Date Shannan Chauhan MD Cosigner Signature: Date (if applicable) CC: 12 LEAD ELECTROCARDIOGRAM Observed: 08/25/2018 Status: F Source: [facility] 10:47 AM [facility] REPOSITORY [facility] Cardiovascular Services [address] [place] [address] 12 Lead EKG 08/21/18 1647 MR#: [id number] Acct: [id number] Name: JASMIN TASNG Rep #: [id number] : 1950 68 From: Hussein Cabello MD Attending Dr: Status: DEP ER Ordering Dr: Truong Marrero MD Date: 08/21/18 Location: ED Sex: F C Admitted: Test Reason : Blood Pressure : / mmHG Vent. Rate : 068 BPM Atrial Rate : 068 BPM P-R Int : 178 ms QRS Dur : 098 ms QT Int : 450 ms P-R-T Axes : 048 008 075 degrees QTc Int : 478 ms Normal sinus rhythm Normal ECG Confirmed by HUSSEIN CBAELLO MD ([id number]), editorial manager AMANDA MELÉNDEZ ([id number]) on 08/25/2018 10:47:22 AM Referred By: Confirmed By:HUSSEIN CABELLO MD 08/25/18 1047 Date Hussein Cabello MD CC: MD Javier Marrero; Shannan Chauhan MD Signed EMERGENCY DEPARTMENT Observed: 08/21/2018 Status: F Source: [place] SUMMARY 11:00 PM [facility] REPOSITORY [facility] Medical Records Department [address] [place] [id number] Emergency Department Summary 08/21/18 1516 MR#: [id number] Acct: [id number] Name: JASMIN TSANG Rep #: [id number] : 1950 68 From: Truong Marrero MD PCP: Shannan Chauhan MD Status: DEP ER - ER Visit Summary Date of Service: 08/21/18 Chief Complaint: [] Chest pain today History of Present Illness: The patient is a 68 F [] history of hypertension high cholesterol began having chest pressure today at 230 per suddenly was quite intense pressure discomfort to her chest make her short of breath would not go away per medics were called she was brought and they gave her 4 of aspirin on arrival she is pain-free her vital signs within normal range, she has no history of OK PE DVT no fever no cough or paresthesias this occurred suddenly unexpectedly Physical Examination: [] 122/80 afebrile General, no distress resting comfortably HEENT is generally unremarkable The neck is supple no adenopathy Cardiovascular, regular rate and rhythm Lungs, clear bilateral Abdomen, soft nontender Extremities, no clubbing cyanosis or edema Neurologic, awake alert answering questions appropriately moving all 4 extremities Test Results: [] Emergency Department Course and Treatment: [] EKG shows a sinus rhythm nothing acute this time given all the above screening labs are obtained further management The patient's EKG troponin chest x-ray are all unremarkable on reevaluation during period of observation she is remained pain-free I discussed differential with her and the the concept of occult cardiac disease sudden etc. we recommended admission, however she understands all the above was able to read back to me the concerns but reports she would prefer outpatient management does not feel she would do well if she were admitted, she has agreed to take aspirin every day follow-up with her doctors for the outpatient management return for change in symptoms Treatment Plan: [] Disposition: [] Home stable declined admission Impression: [] Chest pain etiology unclear This note was generated with [employer] dictation software. It may contain incorrect words, spelling, and punctuation that were not noted in review of the chart prior to signing ED Disposition - Plan for ED Patient: Chief Complaint: Chest Pain Referrals: Shannan Chauhan MD [Primary Care Provider] - What to do if you have Problems For any increased pain, shortness of breath, bleeding, nausea or vomiting, chest pain, or any unexpected problems, contact your Primary Care Provider. Call [facility] ([phone]) or report to the closest Emergency Room. Call 911 if necessary. 08/21/18 2300 <Electronically signed by Truong Marrero MD> Date Truong Marrero MD Cosigner Signature (If Indicated): Date CC: Shannan Chauhan MD DISCHARGE INSTRUCTION Observed: 08/21/2018 Status: F Source: [place] 6:53 PM [facility] REPOSITORY [facility] Medical Records Department [address] [place] [address] Discharge Instruction 08/21/18 1852 MR#: [id number] Acct: [id number] Name: JASMIN TSANG Rep #: [id number] : 1950 68 From: Truong Marrero MD PCP: Shannan Chauhan MD Status: REG ER ED Disposition - Plan for ED Patient: Chief Complaint: Chest Pain Instructions: ED Chest Pain Atypical Unkn Cause Referrals: Shannan Chauhan MD [Primary Care Provider] - Additional Instructions: Please follow-up with your doctors as soon as possible, please take a full strength adult aspirin or 4 baby aspirin every day until you follow-up with your doctors return immediately for symptoms What to do if you have Problems For any increased pain, shortness of breath, bleeding, nausea or vomiting, chest pain, or any unexpected problems, contact your Primary Care Provider. Call [facility] ([phone]) or report to the closest Emergency Room. Call 911 if necessary. 08/21/18 1853 <Electronically signed by Truong Marrero MD> Date Truong Marrero MD Cosigner Signature (If Indicated): Date CC: Shannan Chauhan MD D-DIMER QUANTITATIVE Collected: 08/21/2018 Status: F Source: [place] (DVT/PE) 4:10 PM [facility] REPOSITORY TYPE CODE TESTS RESULT OUT OF RANGE REFERENCE UNITS LAB L300.8000 0.27-0.49 FEU/ug/m Low D-DIMER < 0.27 QUANT Result Comment: NORMAL D-Dimer level (<0.50) indicates no DVT or PE. NORMAL D-Dimer level (<0.50) indicates no DVT or PE. Performed By: #### L300.8000 #### [facility] [address] [place], [address] CHEST 1 VIEW Observed: 08/21/2018 Status: F Source: [place] (PORTABLE) 3:16 PM [facility] REPOSITORY [facility] Imaging Services [address] [place] [address] Chest 1 View (Portable) MR#: [id number] Acct: [id number] Name: JASMIN TSANG Rep #: [id number] : 1950 F 68 From: Aston Cabezas MD PCP: Shannan Chauhan MD Status: REG ER Study: Chest 1 View (Portable) Date of Exam: 08/21/18 Exam# [id number] Ordering Dr: Truong Marrero MD STUDY: X-RAY CHEST REASON FOR EXAM: Female, 68 years old. Sternal chest pain. TECHNIQUE: Single AP portable view of the chest. COMPARISON: None. FINDINGS: EKG electrodes are seen. Mild elevation of the right hemidiaphragm. There is no demonstrated pleural abnormality. Normal size heart. Normal mediastinum and brandt. Normal visualized pulmonary arteries. There is atherosclerotic tortuosity of the aortic arch and descending thoracic aorta. There is a levoscoliosis of the thoracic spine. There is degenerative osteoarthritis of the bilateral shoulders. There is no demonstrated abnormality of the visualized soft tissue structures of the upper abdomen. RAD/Chest 1 View (Portable) IMPRESSION: No acute abnormality is seen. Electronically Signed: Aston Cabezas MD at 15:32 EST Tel [phone], Service support , CC: MD Javier Marrero; Shannan Chauhan MD Cardiology Physician: Signed BASIC METABOLIC Collected: 08/21/2018 Status: F Source: [place] PROFILE (BMP) 3:15 PM [facility] REPOSITORY TYPE CODE TESTS RESULT OUT OF RANGE REFERENCE UNITS LAB L501.0100 74-106 mg/dL Normal GLU 103 Result Comment: Fasting Glucose result from 100 to 125 mg/dL suggests IMPAIRED HOMEOSTASIS per A.D.A. criteria. Please note revised GLUCOSE reference range effective 2017. LAB L501.1000 7-18 mg/dL High BUN 19 LAB L501.1100 0.55-1.02 mg/dL Normal CREAT,SERUM 0.96 Result Comment: The validity of the calculated GFR AND GFRAA in patients over 70 years has not been determined. Clinical correlation is essential. LAB L501.1110 >60 mL/min Normal EST GFR 62 Result Comment: Non- GFR Calc LAB L501.1115 >60 mL/min Normal EST GFR - AA 75 Result Comment: GFR Calc LAB L501.1255 ml/min Normal Estimated CRCL 53.96 LAB L501.1300 10-20 RATIO Normal BUN/CRE 19.8 LAB L501.2200 8.5-10 mg/dL Normal .1 CA 9.5 LAB L501.5300 136-14 mmol/L Normal 5 NA 138 LAB L501.5600 3.5-5. mmol/L Normal 1 K 3.5 LAB L501.5900 98-107 mmol/L Normal CL 104 LAB L501.6100 21.0-3 mmol/L Normal 2.0 CO2 27.0 LAB L501.6200 5-15 Normal GAP 7 Performed By: #### L500.2500, L501.4010 #### [facility] [address] [place], [address] TROPONIN-I Collected: 08/21/2018 Status: F Source: [place] 3:15 PM [facility] REPOSITORY TYPE CODE TESTS RESULT OUT OF RANGE REFERENCE UNITS LAB L501.4010 <0.045 ng/mL Normal < 0.015 TROPONIN-I Result Comment: TROPONIN-I EXPECTED VALUES <0.045 Negative 0.045 - 0.590 Consistent with Cardiac Damage > OR = 0.600 Critical Value Not every elevated troponin is indicative of OK. These values should be used with clinical judgement in examining the patient's clinical picture for diagnosis. To establish a diagnosis of OK versus myocardial injury, there must be a demonstrated rise and/or fall in the troponin values, in addition to ischemic symptoms, EKG changes, new regional wall motion abnormality, and/or angiographical evidence. PLEASE NOTE: REFERENCE RANGES EDITED 18 Performed By: #### L500.2500, L501.4010 #### [facility] [address] [place], [address] CBC W/DIFF, AUTOMATED Collected: 08/21/2018 Status: F Source: [place] 3:15 PM [facility] REPOSITORY TYPE CODE TESTS RESULT OUT OF RANGE REFERENCE UNITS LAB L100.1000 4.4-11.0 K/mm3 Normal WBC 8.6 LAB L100.1200 4.2-5.4 M/mm3 Normal RBC 5.20 LAB L100.1300 12.0-15.0 g/dl High HGB 15.3 LAB L100.1400 37-47 % Normal HCT 45.4 LAB L100.1500 81-99 fL Normal MCV 87.3 LAB L100.1600 27.0-32.0 pg Normal MCH 29.4 LAB L100.1700 32-36 g/gl Normal MCHC 33.7 LAB L100.1810 11.6-14.6 % Normal RDW CV 12.7 LAB L100.1820 35.1-43.9 fl Normal RDW SD 40.0 LAB L100.1900 150-450 K/mm3 Normal PLT 261 LAB L100.2000 6.2-12.0 fl Normal MPV 10.1 LAB L100.2100 47-70 % Normal NEUT% 62.7 LAB L100.2200 19-41 % Normal LY% 25.3 LAB L100.2300 0-10 % Normal MONO% 8.8 LAB L100.2400 0-5 % Normal EO% 2.8 LAB L100.2500 0-1 % Normal BASO% 0.2 LAB L100.2550 0.0-0.9 % Normal IM GRAN % 0.200 Result Comment: IG% - Immature Granulocytes (promyelocytes, myelocytes and metamyelocytes) > 1% indicates that a LEFT SHIFT is Present. LAB L100.2620 2.0-7.7 X10 3/uL Normal Absolute Neut 5.4 LAB L100.2720 0.83-4.51 X10 3/ul Normal Absolute Lymph 2.17 Performed By: #### L100.0100 #### [facility] [address] [place], [address] BNP,B-TYPE NATRIURETIC Collected: 08/21/2018 Status: F Source: [place] PEPTIDE 3:15 PM [facility] REPOSITORY TYPE CODE TESTS RESULT OUT OF RANGE REFERENCE UNITS LAB L503.6620 0-100 pg/mL Normal B-TYPE 5.1 TODD PEP Performed By: #### L503.6620 #### [facility] [address] [place], [address] INTERNAL MEDICINE Observed: 08/11/2018 Status: F Source: [place] OFFICE VISIT 1:26 PM [facility] REPOSITORY [facility] [address] [place] [address] OFFICE VISIT Date of Service: 08/11/18 MR#: [id number] Acct: [id number] Name: JASMIN TSANG Rep #: [id number] : 1950 Provider: Shannan Chauhan MD Age/Sex: 68/F Location: [facility] Status: Signed Intake Vital Signs08/11/18 Height 5 ft 5 in Intake Visit Reasons: 4 wk f/u Chief Complaint: Depression. Is patient in pain?: No Allergies cefaclor [From Ceclor] Allergy (Verified 08/11/18 10:01) Rash erythromycin base Adverse Reaction (Verified 08/11/18 10:01) Vomiting Tibtvni-Tez-Oip Reductase Inhibitor Adverse Reaction (Verified 08/11/18 10:01) Pain in joints trazodone Adverse Reaction (Verified 08/11/18 10:01) syncope green peppers Allergy (Mild, Uncoded 08/11/18 10:01) Swelling Medications Biotin 5,000 mcg PO DAILY 05/26/15 [History Confirmed 08/11/18] Daylin 1 tab PO DAILY 05/29/15 [History Confirmed 08/11/18] cholecalciferol (vitamin D3) 1,000 unit tablet 2,000 unit PO DAILY tab 08/18/17 [History Confirmed 08/11/18] compression stocking, knee high,regular length,medium See Dose Instructions .ROUTE .MEDSUPPLY #2 ea 12/06/17 [Rx Confirmed 08/11/18] aspirin 81 mg tablet,delayed release 81 mg PO QDAY 03/14/18 [History Confirmed 08/11/18] lorazepam 0.5 mg tablet 0.5 mg PO DAILY PRN PRN #20 tab 03/14/18 [Rx Confirmed 08/11/18] omeprazole 20 mg capsule,delayed release 20 mg PO QDAY 03/14/18 [History Confirmed 08/11/18] metoprolol succinate ER 50 mg tablet,extended release 24 hr 50 mg PO QDAY #90 tab 04/13/18 [Rx Confirmed 08/11/18] rosuvastatin 10 mg tablet 10 mg PO QDAY #90 tab 04/13/18 [Rx Confirmed 08/11/18] amlodipine 5 mg tablet 5 mg PO QDAY #90 tab 04/14/18 [Rx Confirmed 08/11/18] levothyroxine 75 mcg tablet 75 mcg PO .QD #90 tab 04/18/18 [Rx Confirmed 08/11/18] triamterene 37.5 mg-hydrochlorothiazide 25 mg capsule 1 cap PO QAM #90 cap 04/28/18 [Rx Confirmed 08/11/18] potassium chloride ER 20 mEq tablet,extended release 20 meq PO DAILY #30 tab 05/25/18 [Rx Confirmed 08/11/18] duloxetine 30 mg capsule,delayed release 30 mg PO DAILY #14 cap 07/12/18 [Rx Confirmed 08/11/18] duloxetine 30 mg capsule,delayed release 30 mg PO DAILY #60 cap 08/11/18 [Rx Confirmed 08/11/18] Post menopausal: Yes Nurse's Note: Pt presents today for an evaluation of depression with anxiety. [facility] Medical History Anemia (Acute) GERD (gastroesophageal reflux disease) (Acute) H/O: hysterectomy (Acute) Hyperlipidemia (Acute) Hypothyroidism (Acute) Anxiety (Chronic) Depression (Chronic) Hypertension (Chronic) Seasonal allergies (Chronic) Surgical History H/O breast biopsy (Acute) H/O hemorrhoidectomy (Acute) gallbladder removal (Acute) Family History Mother Arthritis Hypertension CVA (cerebral vascular accident) Father Heart disease Myocardial infarction Had his first at 50, lived to be 80. Hypertension Kidney disease Grandfather Cancer stomach [place] Social History Smoking Status: Former smoker alcohol intake: current alcohol intake frequency: holidays/special occasions only Alcohol type: wine substance use type: does not use what type of physical activity do you participate in: none HPI HPI Chief Complaint: Depression. Details: JASMIN TSANG, is a 68yo F who presents to the office today for follow-up and depression. During her last visit we had attempted to taper off Cymbalta and start Effexor however patient poorly tolerant of infection. She is generally poorly tolerant of a lot of medications. She is back on Cymbalta as previously noted, her depression is poorly controlled with increased lack of interest in previously pleasurable activities. She denies suicidal or homicidal ideations or attempts. ROS Const Constitutional: Positive for abnormal sleep pattern (Excessive sleeping ); no anorexia, body ache, chills, fever(s), decreased energy, malaise, night sweats, weight change, sleep problems, other, snoring, weakness, frequent falls, headache(s), change in appetite, excessive sweating or fatigue Eyes Eyes: No blurry vision, change in vision, double vision, discharge, dry eyes, bulging eyes, floaters, eye pain, light sensitivity, spots in vision, tunnel vision, other or visual disturbances ENT ENT: No ear pain, ear discharge, ear pressure, hearing loss, tinnitus, dizziness/vertigo, balance problems, nosebleed/epistaxis, nasal congestion, nasal obstruction, nose pain, sinus pressure, sinus pain, nasal discharge, post nasal drip, facial pain, dental pain, dry mouth, bad breath, hoarseness, mouth lesions, mouth pain, sore throat, difficulty swallowing, neck pain, abnormal hearing, headache(s), other, lip swelling, throat swelling or tongue swelling Resp Respiratory: No cough, change in phlegm color, chest congestion, excessive phlegm production, hemoptysis, pain on inspiration, shortness of breath, pain with cough, snoring, stridor, other or wheezing Cardio Cardiology: No chest pain at rest, chest pain with exertion, leg pain with exertion, shortness of breath, dyspnea on exertion, generalized swelling, irregular heart rhythm, lightheadedness, orthopnea, radiating jaw, neck or arm pain, fast heart rate, slow heart rate, palpitations, other or excessive sweating Gastro GI: No abdominal pain, belching, bloating, change in bowel habits, change in stool character, coffee ground emesis, constipation, cramping, diarrhea, heartburn, difficulty swallowing, feeling full early, excessive flatus, incontinent of stools, Vomiting blood/hematemesis, blood in stool, loose stools, Black,tarry stools, nausea/dyspepsia, pain with swallowing, vomiting or other Genitourinary-Female: No difficulty urinating, burning urination, painful urination, urinary incontinence, urinary frequency, urinary urgency, urinary hesitancy, urinary retention, blood in urine, Frequent nighttime urination/ nocturia, post void dribbling, suprapubic fullness, side pain, sexual problems, genital lesions, genital itching, hot flashes, abnormal periods, abnormal vaginal bleeding, absent period, painful periods, light periods, heavy periods, difficulty getting , painful intercourse, pelvic pain, vaginal dryness, vaginal odor, Vaginal Itching or other Musc Musculoskeletal: No joint pain, back pain, deformity, joint swelling, limited range of motion, loss of height, muscle cramps, decreased muscle mass, body aches, neck pain, radiating pain into limb, stiffness, other, abnormal walking, numbness or tingling Skin Skin: No acne, hair loss, change in hair, nail changes, boil, change in skin color, dry skin, redness, excessive hair growth, yellowing of the skin, lesions, rash, skin pain, skin ulcer, sores, skin swelling, wounds, other or itching Breast Breast: No change in breast shape, breast lump, breast pain, breast skin changes, breast swelling, nipple discharge or other Neuro Neurology: No abnormal walking, abnormal hearing, abnormal movements, abnormal speech, unsteady gait/balance, dizziness, weakness, frequent falls, headache(s), lack of coordination, loss of vision, numbness, tingling, visual disturbances, restless legs, fainting, tremor(s), other, behavioral changes, confusion or memory loss Psych Psychiatric: Positive for abnormal sleep pattern (Excessive sleeping ), Positive for lack of enjoyment, Positive for anxiety, No behavioral changes, No change in appetite, No confusion, No depression, Positive for difficulty concentrating, No hopelessness, Positive for irritability, No memory loss, No mood swings, No panic attacks, No paranoia, No Thoughts of harming yourself/Others, No hallucinations, No other Endo Endocrine: No change in body appearance, cold intolerance, excessive sweating, fatigue, flushing, heat intolerance, increased thirst/drinking, increased hunger, increased urination or other Aller/Imm Allergy/Immunologic: No food intolerance, itchy eyes, lip swelling, seasonal allergy symptoms, throat swelling, tongue swelling, hives, wheezing or other Benson/Lymp Hematologic/Lymphatic: No easy bleeding, easy bruising, enlarged lymph nodes or other Exam Const General: cooperative, no acute distress Orientation: alert, awake, oriented x3 HENMT Head: atraumatic, normal to inspection, normocephalic Ears: hearing grossly normal bilaterally Resp Effort AND Inspection: normal respiratory effort, able to speak in complete sentences Auscultation: Bilateral: Clear to Auscultation Cardio Rate: regular rate Rhythm: regular rhythm Heart Sounds: S1 normal, S2 normal GI Palpation: soft, no hepatosplenomegaly Neuro General: alert, awake, oriented x3, moves all extremities, CN's II-XI intact bilaterally Extrem General: no clubbing, cyanosis or edema Psych Appearance: grossly normal Mood: dysthymic mood Affect: sad Speech and Movement: speech and movement normal Assessment AND Plan 1. Depression with anxiety F41.8 Plan Poorly controlled. Attempt to switch from Cymbalta to Effexor not very successful. poorly tolerant of a lot of medications. She also discontinued counseling after the months due to perceived poor benefits. Increase Cymbalta to 90 mg daily. Refer to psychiatry. Orders Referrals: 2. Hypersomnolence G47.10 Plan Ongoing with associated fatigue. ? Possibility of sleep apnea which could worsen underlying depression. Sleep study ordered. Orders Orders: 3. Eye abnormality Q15.9 Plan During her last visit she had presented with acute floaters and visual abnormalities. She did follow-up with ophthalmology and no acute concerns. No retinal detachment. Scheduled for another visit in September. This note was generated with Moviestormation software. It may contain incorrect words, spelling, and punctuation that were not noted in checking the note before signing. Plan Detail Other Medications New: duloxetine Take with 60 mg capsule for a daily total of 90m30 mg PO DAILY 60 caps 2RF g of duloxetine. Coding Level of Care Code Off vis,est,level 3 Diagnoses Depression with anxiety F41.8 Hypersomnolence G47.10 Eye abnormality Q15.9 08/11/18 1326 <Electronically signed by Shannan Chauhan MD> Date Shannan Chauhan MD Cosigner Signature: Date (if applicable) CC: INTERNAL MEDICINE Observed: 07/27/2018 Status: F Source: [facility] OFFICE VISIT 2:25 PM [facility] [address] [place] [address] [address] [place] [address] OFFICE VISIT Date of Service: 07/24/18 MR#: [id number] Acct: [id number] Name: JASMIN TSANG Rep #: [id number] : 1950 Provider: Shannan Chauhan MD Age/Sex: 67/F Location: [facility] Status: Signed Intake Vital Signs07/24/18 Height 5 ft 5 in Intake Visit Reasons: lightning bolts in eye Chief Complaint: Flasing light in Rt. eye Is patient in pain?: No Allergies cefaclor [From Ceclor] Allergy (Verified 03/14/18 14:53) Rash erythromycin base Adverse Reaction (Verified 03/14/18 14:53) Vomiting Rpesqkm-Rsv-Yeo Reductase Inhibitor Adverse Reaction (Verified 03/14/18 14:53) Pain in joints trazodone Adverse Reaction (Verified 03/14/18 14:53) syncope green peppers Allergy (Mild, Uncoded 03/14/18 14:53) Swelling Medications Biotin 5,000 mcg PO DAILY 05/26/15 [History Confirmed 03/14/18] Daylin 1 tab PO DAILY 05/29/15 [History Confirmed 03/14/18] cholecalciferol (vitamin D3) 1,000 unit tablet 2,000 unit PO DAILY tab 08/18/17 [History Confirmed 03/14/18] compression stocking, knee high,regular length,medium See Dose Instructions .ROUTE .MEDSUPPLY #2 ea 12/06/17 [Rx Confirmed 03/14/18] aspirin 81 mg tablet,delayed release 81 mg PO QDAY 03/14/18 [History Confirmed 03/14/18] lorazepam 0.5 mg tablet 0.5 mg PO DAILY PRN PRN #20 tab 03/14/18 [Rx Confirmed 03/14/18] omeprazole 20 mg capsule,delayed release 20 mg PO QDAY 03/14/18 [History Confirmed 03/14/18] metoprolol succinate ER 50 mg tablet,extended release 24 hr 50 mg PO QDAY #90 tab 04/13/18 [Rx] rosuvastatin 10 mg tablet 10 mg PO QDAY #90 tab 04/13/18 [Rx] amlodipine 5 mg tablet 5 mg PO QDAY #90 tab 04/14/18 [Rx] levothyroxine 75 mcg tablet 75 mcg PO .QD #90 tab 04/18/18 [Rx] triamterene 37.5 mg-hydrochlorothiazide 25 mg capsule 1 cap PO QAM #90 cap 04/28/18 [Rx] potassium chloride ER 20 mEq tablet,extended release 20 meq PO DAILY #30 tab 05/25/18 [Rx] duloxetine 30 mg capsule,delayed release 30 mg PO DAILY #14 cap 07/12/18 [Rx Confirmed 07/12/18] venlafaxine ER 37.5 mg capsule,extended release 24 hr 37.5 mg PO DAILY #60 cap 07/12/18 [Rx Confirmed 07/12/18] Post menopausal: Yes PFSH Medical History Anemia (Acute) GERD (gastroesophageal reflux disease) (Acute) H/O: hysterectomy (Acute) Hyperlipidemia (Acute) Hypothyroidism (Acute) Anxiety (Chronic) Depression (Chronic) Hypertension (Chronic) Seasonal allergies (Chronic) Surgical History H/O breast biopsy (Acute) H/O hemorrhoidectomy (Acute) gallbladder removal (Acute) Family History Mother Arthritis Hypertension CVA (cerebral vascular accident) Father Heart disease Myocardial infarction Had his first at 50, lived to be 80. Hypertension Kidney disease Grandfather Cancer stomach CA Social History Smoking Status: Former smoker alcohol intake: current alcohol intake frequency: holidays/special occasions only Alcohol type: wine substance use type: does not use what type of physical activity do you participate in: none HPI HPI Chief Complaint: Flasing light in Rt. eye Details: JASMIN TSANG, is a 67yo F who presents to the office today due to concerns about her right eye. She was in a stable state of health until sometime yesterday when she initially noted what she describes as a spider web covering over her right eye which was said to be transient and subsequently has been experiencing flashing lights in her right side. Denies any known similar history. She also denies any known precipitating aggravating or relieving factors. Last eye check was over a year ago. Mild headache which is said to be in the right otherwise denies any change in her mental status, dizziness, nausea, vomiting, weakness of any extremities or otherwise feeling of unwell. ROS Const Constitutional: Positive for headache(s); no weight change, body ache, chills, fatigue, sleep problems, fever(s), change in appetite, snoring, weakness, frequent falls or excessive sweating Eyes Eyes: Positive for floaters and other (Flashing lights in Rt. eye since yesterday. ); no change in vision, eye pain, light sensitivity or blurry vision ENT ENT: Positive for headache(s); no abnormal hearing, ear pain, tinnitus, nasal congestion, sore throat or neck pain Resp Respiratory: No snoring, cough, shortness of breath or wheezing Cardio Cardiology: No excessive sweating, chest pain at rest, chest pain with exertion, shortness of breath, dyspnea on exertion, palpitations, orthopnea or lightheadedness Gastro GI: No abdominal pain, change in bowel habits, constipation, diarrhea, vomiting, nausea/dyspepsia or cramping Genitourinary-Female: No burning urination, painful urination, urinary incontinence, urinary frequency, abnormal vaginal bleeding, pelvic pain or other Musc Musculoskeletal: No neck pain, abnormal walking, joint pain, back pain, limited range of motion, numbness or tingling Skin Skin: No redness, dry skin, itching, lesions, wounds or rash Neuro Neurology: Positive for headache(s); no weakness, frequent falls, abnormal hearing, abnormal walking, numbness, tingling, abnormal speech, dizziness or memory loss Psych Psychiatric: No change in appetite, No memory loss, No anxiety, No depression, No Thoughts of harming yourself/Others Endo Endocrine: No fatigue, excessive sweating, cold intolerance, increased thirst/drinking, heat intolerance, flushing or increased hunger Aller/Imm Allergy/Immunologic: No wheezing, itchy eyes, hives or seasonal allergy symptoms Benson/Lymp Hematologic/Lymphatic: No easy bleeding, easy bruising or enlarged lymph nodes Exam Const General: cooperative, no acute distress Orientation: alert, awake, oriented x3 [facility] Head: atraumatic, normal to inspection, normocephalic Ears: hearing grossly normal bilaterally Eyes General: appearance normal, both eyes and all related structures Periorbital: periorbital findings normal Pupils: PERRL EOM: EOM intact bilaterally Resp Effort AND Inspection: normal respiratory effort, able to speak in complete sentences Auscultation: Bilateral: Clear to Auscultation Cardio Rate: regular rate Rhythm: regular rhythm Heart Sounds: S1 normal, S2 normal GI Palpation: soft, no hepatosplenomegaly Neuro General: alert, awake, oriented x3, moves all extremities, CN's II-XI intact bilaterally Extrem General: no clubbing, cyanosis or edema Psych Appearance: grossly normal Mood: anxious mood Affect: sad Assessment AND Plan 1. Eye abnormality Q15.9 Plan Has noted flashing lights in the right eye. No other visual abnormalities. Mild headache. No other neurological deficits. Vitals within normal. Referred to ophthalmology for an origin her eye examination. Scheduled to see Dr. Nicolas at 330 today. Advised to call or go to the ER with any worsening symptoms. This note was generated with Mark[employer] dictation software. It may contain incorrect words, spelling, and punctuation that were not noted in checking the note before signing. Coding Level of Care Code Off vis,est,level 3 Diagnoses Eye abnormality Q15.9 07/27/18 1425 <Electronically signed by Shannan Chauhan MD> Date Shannan Chauhan MD Cosigner Signature: Date (if applicable) CC: INTERNAL MEDICINE Observed: 07/14/2018 Status: F Source: [facility] OFFICE VISIT 12:13 PM [facility] [address] [place] [address] OFFICE VISIT Date of Service: 07/12/18 MR#: [id number] Acct: [id number] Name: JASMIN TSANG Rep #: [id number] : 1950 Provider: Shannan Chauhan MD Age/Sex: 67/F Location: [facility] Status: Signed Intake Vital Signs07/12/18 Height 5 ft 5 in Intake Visit Reasons: FU Chief Complaint: FU visit Is patient in pain?: Yes (rt wrist with movement) Pain scale (1-10): 7 Allergies cefaclor [From Ceclor] Allergy (Verified 03/14/18 14:53) Rash erythromycin base Adverse Reaction (Verified 03/14/18 14:53) Vomiting Fbybnjr-Fbl-Tyj Reductase Inhibitor Adverse Reaction (Verified 03/14/18 14:53) Pain in joints trazodone Adverse Reaction (Verified 03/14/18 14:53) syncope green peppers Allergy (Mild, Uncoded 03/14/18 14:53) Swelling Medications Biotin 5,000 mcg PO DAILY 05/26/15 [History Confirmed 03/14/18] Daylin 1 tab PO DAILY 05/29/15 [History Confirmed 03/14/18] cholecalciferol (vitamin D3) 1,000 unit tablet 2,000 unit PO DAILY tab 08/18/17 [History Confirmed 03/14/18] compression stocking, knee high,regular length,medium See Dose Instructions .ROUTE .MEDSUPPLY #2 ea 12/06/17 [Rx Confirmed 03/14/18] aspirin 81 mg tablet,delayed release 81 mg PO QDAY 03/14/18 [History Confirmed 03/14/18] lorazepam 0.5 mg tablet 0.5 mg PO DAILY PRN PRN #20 tab 03/14/18 [Rx Confirmed 03/14/18] omeprazole 20 mg capsule,delayed release 20 mg PO QDAY 03/14/18 [History Confirmed 03/14/18] metoprolol succinate ER 50 mg tablet,extended release 24 hr 50 mg PO QDAY #90 tab 04/13/18 [Rx] rosuvastatin 10 mg tablet 10 mg PO QDAY #90 tab 04/13/18 [Rx] amlodipine 5 mg tablet 5 mg PO QDAY #90 tab 04/14/18 [Rx] levothyroxine 75 mcg tablet 75 mcg PO .QD #90 tab 04/18/18 [Rx] triamterene 37.5 mg-hydrochlorothiazide 25 mg capsule 1 cap PO QAM #90 cap 04/28/18 [Rx] potassium chloride ER 20 mEq tablet,extended release 20 meq PO DAILY #30 tab 05/25/18 [Rx] duloxetine 30 mg capsule,delayed release 30 mg PO DAILY #14 cap 07/12/18 [Rx Confirmed 07/12/18] venlafaxine ER 37.5 mg capsule,extended release 24 hr 37.5 mg PO DAILY #60 cap 07/12/18 [Rx Confirmed 07/12/18] Post menopausal: Yes PFSH Medical History Anemia (Acute) GERD (gastroesophageal reflux disease) (Acute) H/O: hysterectomy (Acute) Hyperlipidemia (Acute) Hypothyroidism (Acute) Anxiety (Chronic) Depression (Chronic) Hypertension (Chronic) Seasonal allergies (Chronic) Surgical History H/O breast biopsy (Acute) H/O hemorrhoidectomy (Acute) gallbladder removal (Acute) Family History Mother Arthritis Hypertension CVA (cerebral vascular accident) Father Heart disease Myocardial infarction Had his first at 50, lived to be 80. Hypertension Kidney disease Grandfather Cancer stomach [place] Social History Smoking Status: Former smoker alcohol intake: current alcohol intake frequency: holidays/special occasions only Alcohol type: wine substance use type: does not use what type of physical activity do you participate in: none HPI HPI Chief Complaint: FU visit Details: JASMIN TSANG, is a 67 F who presents to the office today for follow-up of depression management. Wellbutrin was added during her last visit due to concerns for persistent depression however patient did not tolerate this well. She reports significant difficulty with everyday activities due to persistence depression. She denies any suicidal ideations or attempt. She also reports right wrist pain which has been ongoing for some weeks. Said to have been precipitated by mild trauma. She denies numbness or tingling. ROS Const Constitutional: Positive for fatigue; no weight change, body ache, chills, sleep problems, fever(s), change in appetite, snoring, weakness, frequent falls, headache(s) or excessive sweating Eyes Eyes: No change in vision, eye pain, light sensitivity or blurry vision ENT ENT: No headache(s), abnormal hearing, ear pain, tinnitus, nasal congestion, sore throat or neck pain Resp Respiratory: No snoring, cough, shortness of breath or wheezing Cardio Cardiology: No excessive sweating, chest pain at rest, chest pain with exertion, shortness of breath, dyspnea on exertion, palpitations, orthopnea or lightheadedness Gastro GI: No abdominal pain, change in bowel habits, constipation, diarrhea, vomiting, nausea/dyspepsia or cramping Genitourinary-Female: No burning urination, painful urination, urinary incontinence, urinary frequency, abnormal vaginal bleeding, pelvic pain or other Musc Musculoskeletal: Positive for other (right wrist pain); no neck pain, abnormal walking, joint pain, back pain, limited range of motion, numbness or tingling Skin Skin: No redness, dry skin, itching, lesions, wounds or rash Neuro Neurology: No weakness, frequent falls, headache(s), abnormal hearing, abnormal walking, numbness, tingling, abnormal speech, dizziness or memory loss Psych Psychiatric: No change in appetite, No memory loss, No anxiety, Positive for depression (worsening), No Thoughts of harming yourself/Others Endo Endocrine: Positive for fatigue; no excessive sweating, cold intolerance, increased thirst/drinking, heat intolerance, flushing or increased hunger Aller/Imm Allergy/Immunologic: No wheezing, itchy eyes, hives or seasonal allergy symptoms Benson/Lymp Hematologic/Lymphatic: No easy bleeding, easy bruising or enlarged lymph nodes Exam Const General: cooperative, no acute distress Orientation: alert, awake, oriented x3 HENMT Head: atraumatic, normal to inspection, normocephalic Ears: hearing grossly normal bilaterally Resp Effort AND Inspection: normal respiratory effort, able to speak in complete sentences Auscultation: Bilateral: Clear to Auscultation Cardio Rate: regular rate Rhythm: regular rhythm Heart Sounds: S1 normal, S2 normal GI Palpation: soft, no hepatosplenomegaly Neuro General: alert, awake, oriented x3, moves all extremities, CN's II-XI intact bilaterally Extrem General: no clubbing, cyanosis or edema Psych Appearance: grossly normal Mood: anxious mood Affect: sad Immunizations Prevnar 13 (PF) Performing Provider: Shannan Chauhan MD Administered by: Lisa [place] on 07/12/18 18:15 Dose Route Admin Location Lot Number Expiration Date NDC General Ophthalmologist 0.5 mL IM Right Deltoid [id number] 03/01/20 3423-1494-30 [facility] VIS Given Date VIS Publication Date 07/12/18 07/12/18 Eligibility Eligibility Date Assessment AND Plan 1. Depression with anxiety F41.8 Plan Still very poorly controlled. She has used several medications in the past and has had some issues with most. She also reports using Effexor in the past but does not remember having any problems with it. Titrate off Cymbalta and cross taper with Effexor as detailed instructions. Follow-up in 1 month. Advised to call with any questions or concerns. 2. Right wrist pain M25.531 Plan Most likely sprain. Wrist brace recommended. NSAIDs. Follow-up at next visit. 3. Health care maintenance Z00.00 Plan Prevnar 13 given. This note was generated with [employer]etc[employer] dictation software. It may contain incorrect words, spelling, and punctuation that were not noted in checking the note before signing. Plan Detail Other Orders Orders: Other Medications New: Discontinued: Coding Level of Care Code Off vis,est,level 4 Diagnoses Depression with anxiety F41.8 Right wrist pain M25.531 Health care maintenance Z00.00 07/14/18 1213 <Electronically signed by Shannan Chauhan MD> Date Shannan Chauhan MD Cosigner Signature: Date (if applicable) CC: CBC W/DIFF, AUTOMATED Collected: 07/10/2018 Status: F Source: [facility] 12:51 PM [facility] REPOSITORY TYPE CODE TESTS RESULT OUT OF RANGE REFERENCE UNITS LAB L100.1000 4.4-11.0 K/mm3 Normal WBC 8.1 LAB L100.1200 4.2-5.4 M/mm3 Normal RBC 5.05 LAB L100.1300 12.0-15.0 g/dl High HGB 15.2 LAB L100.1400 37-47 % Normal HCT 44.8 LAB L100.1500 81-99 fL Normal MCV 88.7 LAB L100.1600 27.0-32.0 pg Normal MCH 30.1 LAB L100.1700 32-36 g/gl Normal MCHC 33.9 LAB L100.1810 11.6-14.6 % Normal RDW CV 13.0 LAB L100.1820 35.1-43.9 fl Normal RDW SD 42.2 LAB L100.1900 150-450 K/mm3 Normal PLT 283 LAB L100.2000 6.2-12.0 fl Normal MPV 10.0 LAB L100.2100 47-70 % Normal NEUT% 65.5 LAB L100.2200 19-41 % Normal LY% 23.0 LAB L100.2300 0-10 % Normal MONO% 7.9 LAB L100.2400 0-5 % Normal EO% 3.0 LAB L100.2500 0-1 % Normal BASO% 0.4 LAB L100.2550 0.0-0.9 % Normal IM GRAN % 0.200 Result Comment: IG% - Immature Granulocytes (promyelocytes, myelocytes and metamyelocytes) > 1% indicates that a LEFT SHIFT is Present. LAB L100.2620 2.0-7.7 X10 3/uL Normal Absolute Neut 5.3 LAB L100.2720 0.83-4.51 X10 3/ul Normal Absolute Lymph 1.87 Performed By: #### L100.0100 #### [facility] [address] [place], [place], [address] BASIC METABOLIC Collected: 07/10/2018 Status: F Source: [facility] PROFILE (BMP) 12:51 PM [facility] REPOSITORY TYPE CODE TESTS RESULT OUT OF RANGE REFERENCE UNITS LAB L501.0100 74-106 mg/dL Normal GLU 100 Result Comment: Fasting Glucose result from 100 to 125 mg/dL suggests IMPAIRED HOMEOSTASIS per A.D.A. criteria. Please note revised GLUCOSE reference range effective 2017. LAB L501.1000 7-18 mg/dL Normal BUN 15 LAB L501.1100 0.55-1.02 mg/dL Normal CREAT,SERUM 0.88 Result Comment: The validity of the calculated GFR AND GFRAA in patients over 70 years has not been determined. Clinical correlation is essential. LAB L501.1110 >60 mL/min Normal EST GFR 68 Result Comment: Non- GFR Calc LAB L501.1115 >60 mL/min Normal EST GFR - AA 82 Result Comment: GFR Calc LAB L501.1300 10-20 RATIO Normal BUN/CRE 17.0 LAB L501.2200 8.5-10.1 mg/dL CA Normal 9.5 LAB L501.5300 136-145 mmol/L NA Normal 141 LAB L501.5600 3.5-5.1 mmol/L K Normal 3.8 LAB L501.5900 98-107 mmol/L CL Normal 103 LAB L501.6100 21.0-32.0 mmol/L Normal CO2 30.0 LAB L501.6200 5-15 Normal GAP 8 Performed By: #### L500.2500 #### [facility] [address] [facility] [place], [place], [address] THYROID STIM HORMONE Collected: 07/10/2018 Status: F Source: [facility] (TSH) 12:51 PM [facility] REPOSITORY TYPE CODE TESTS RESULT OUT OF RANGE REFERENCE UNITS LAB L501.9520 0.358-3.74 uIU/mL Normal TSH 0.99 Performed By: #### L501.9520 #### [facility] [address] [place], [address] VITAMIN B12 Collected: 07/10/2018 Status: F Source: [facility] 12:51 PM [facility] REPOSITORY TYPE CODE TESTS RESULT OUT OF RANGE REFERENCE UNITS LAB L503.0105 211-911 pg/mL Normal Vitamin B12 375 Performed By: #### L503.0105, L506.1000 #### [facility] [address] [place], [address] VITAMIN D,25 HYDROXY Collected: 07/10/2018 Status: F Source: [facility] 12:51 PM [facility] REPOSITORY TYPE CODE TESTS RESULT OUT OF REFERENCE UNITS RANGE LAB L506.1000 29.95-100.01 ng/mL Low Vitamin D 29.6 25-OH Result Comment: Vitamin D 25(OH) Status Range Deficiency <20 ng/mL (50nmol/L) Insuffciency 20 - 30 ng/mL (50 - 75 nmol/L) Sufficiency 30 - 100 ng/mL (75 - 250 nmol/L) Toxicity >100 ng/mL (>250 nmol/L) Performed By: #### L503.0105, L506.1000 #### [place] [facility] [address] [place], [address] INTERNAL MEDICINE Observed: 05/31/2018 Status: F Source: [facility] OFFICE VISIT 8:50 AM [facility] REPOSITORY [facility] [address] [place] [address] [place] [address] OFFICE VISIT Date of Service: 05/26/18 MR#: [id number] Acct: [id number] Name: JASMIN TSANG Rep #: [id number] : 1950 Provider: Chris Martinez NP Age/Sex: 67/F Location: [facility] Status: Signed Intake Vital Signs05/26/18 Height 5 ft 5 in 05/26/18 Weight: 185 lb 05/26/18 Body Mass Index (BMI) 30.7 05/26/18 Blood Pressure 124/84 05/26/18 Blood Pressure Location Lt brachial Intake Visit Reasons: NOT FEELWING WELL, THYROID ACTING UP? Chief Complaint: low energy Is patient in pain?: No Allergies cefaclor [From Ceclor] Allergy (Verified 03/14/18 14:53) Rash erythromycin base Adverse Reaction (Verified 03/14/18 14:53) Vomiting Ncsowno-Gcr-Ssv Reductase Inhibitor Adverse Reaction (Verified 03/14/18 14:53) Pain in joints trazodone Adverse Reaction (Verified 03/14/18 14:53) syncope green peppers Allergy (Mild, Uncoded 03/14/18 14:53) Swelling Medications Biotin 5,000 mcg PO DAILY 05/26/15 [History Confirmed 03/14/18] Daylin 1 tab PO DAILY 05/29/15 [History Confirmed 03/14/18] cholecalciferol (vitamin D3) 1,000 unit tablet 2,000 unit PO DAILY tab 08/18/17 [History Confirmed 03/14/18] compression stocking, knee high,regular length,medium See Dose Instructions .ROUTE .MEDSUPPLY #2 ea 12/06/17 [Rx Confirmed 03/14/18] aspirin 81 mg tablet,delayed release 81 mg PO QDAY 03/14/18 [History Confirmed 03/14/18] lorazepam 0.5 mg tablet 0.5 mg PO DAILY PRN PRN #20 tab 03/14/18 [Rx Confirmed 03/14/18] omeprazole 20 mg capsule,delayed release 20 mg PO QDAY 03/14/18 [History Confirmed 03/14/18] metoprolol succinate ER 50 mg tablet,extended release 24 hr 50 mg PO QDAY #90 tab 04/13/18 [Rx] rosuvastatin 10 mg tablet 10 mg PO QDAY #90 tab 04/13/18 [Rx] amlodipine 5 mg tablet 5 mg PO QDAY #90 tab 04/14/18 [Rx] levothyroxine 75 mcg tablet 75 mcg PO .QD #90 tab 04/18/18 [Rx] duloxetine 60 mg capsule,delayed release 60 mg PO DAILY #90 cap 04/28/18 [Rx] triamterene 37.5 mg-hydrochlorothiazide 25 mg capsule 1 cap PO QAM #90 cap 04/28/18 [Rx] potassium chloride ER 20 mEq tablet,extended release 20 meq PO DAILY #30 tab 05/25/18 [Rx] Post menopausal: Yes PFSH Medical History Anemia (Acute) GERD (gastroesophageal reflux disease) (Acute) Hyperlipidemia (Acute) Hypothyroidism (Acute) Anxiety (Chronic) Depression (Chronic) Hypertension (Chronic) Seasonal allergies (Chronic) Surgical History H/O breast biopsy (Acute) H/O hemorrhoidectomy (Acute) H/O: hysterectomy (Acute) gallbladder removal (Acute) Family History Mother Arthritis Hypertension CVA (cerebral vascular accident) Father Heart disease Myocardial infarction Had his first at 50, lived to be 80. Hypertension Kidney disease Grandfather Cancer stomach CA Social History Smoking Status: Former smoker alcohol intake: current alcohol intake frequency: holidays/special occasions only Alcohol type: wine substance use type: does not use what type of physical activity do you participate in: none Questionnaire Depression Screen PHQ-2/9 PHQ-2 Over the last 2 weeks, how often have you been bothered by any of the following problems? 1. Little interest or pleasure in doing things: more than half the days 2. Feeling down, depressed, or hopeless: more than half the days Total score: 4 If score is 2 or greater, continue 3. Trouble falling or staying asleep, or sleeping too much: more than half the days 4. Feeling tired or having little energy: more than half the days 5. Poor appetite or overeating: more than half the days 6. Feeling bad about yourself - or that you are a failure or have let yourself and your family down: several days 7. Trouble concentrating on things, such as reading the newspaper or watching television: several days 8. Moving or speaking so slowly that other people could have noticed? - Or the opposite - being so fidgety or restless that you have been moving around a lot more than usual: more than half the days 9. Thoughts that you would be better off or of hurting yourself in some way: not at all Total score: 14 If you checked off any problems, how difficult have these problems made it for you to do your work, take care of things at home, or get along with other people?: somewhat difficult Source: Developed by Drs. Peter Benito, Araseli Bro, Amando Marie and colleagues, with an educational patrick from [employer]. Scoring: Total Score Depression Severity Action 1-4 Minimal depression No action needed 5-9 Mild depression Repeat PHQ-9 at follow up 10-14 Moderate depression Make tx plan,consider counseling, fup, prescription HPI HPI Chief Complaint: low energy Details: JASMIN TSANG, is a 67 F who presents to the office today for nonspecific complaints of increased tiredness, and fatigue over the last couple of weeks. She has a past medical history as listed above. The patient states that she has a underlying condition of depression that often worsens with stressors and season changes. She states that she does well on her Cymbalta, however recently her daughter moved back and and has been living with her. She states that ever since, she has noticed that she is been more tired and fatigued and that she has been more depressed lately as well. She does state that her symptoms of fatigue and depression often go hand in hand. She is receptive to counseling and has not been to counseling in quite some time. She denies any other acute concerns at this time. The patient otherwise denies any fever, chills, nausea, vomiting, shortness of breath, chest pain or pressure, palpitations, orthopnea, lower extremity edema, syncope or presyncopal episodes. ROS Const Constitutional: Positive for fatigue and weakness; no weight change, body ache, chills, sleep problems, fever(s), change in appetite, snoring, frequent falls, headache(s) or excessive sweating Eyes Eyes: No change in vision, eye pain, light sensitivity or blurry vision ENT ENT: No headache(s), abnormal hearing, ear pain, tinnitus, nasal congestion, sore throat or neck pain Resp Respiratory: No snoring, cough, shortness of breath or wheezing Cardio Cardiology: No excessive sweating, chest pain at rest, chest pain with exertion, shortness of breath, dyspnea on exertion, palpitations, orthopnea or lightheadedness Gastro GI: No abdominal pain, change in bowel habits, constipation, diarrhea, vomiting, nausea/dyspepsia or cramping Genitourinary-Female: No burning urination, painful urination, urinary incontinence, urinary frequency, abnormal vaginal bleeding, pelvic pain or other Musc Musculoskeletal: No neck pain, abnormal walking, joint pain, back pain, limited range of motion, numbness, tingling or muscle weakness Skin Skin: No redness, dry skin, itching, lesions, wounds or rash Neuro Neurology: Positive for weakness and other (shakiness, in left hand especially); no frequent falls, headache(s), abnormal hearing, abnormal walking, numbness, tingling, abnormal speech, dizziness or memory loss Psych Psychiatric: No change in appetite, No memory loss, Positive for anxiety, Positive for depression, No Thoughts of harming yourself/Others Endo Endocrine: Positive for fatigue; no excessive sweating, cold intolerance, increased thirst/drinking, heat intolerance, flushing or increased hunger Aller/Imm Allergy/Immunologic: No wheezing, itchy eyes, hives or seasonal allergy symptoms Benson/Lymp Hematologic/Lymphatic: No easy bleeding, easy bruising or enlarged lymph nodes Exam Const General: cooperative, no acute distress Orientation: alert, awake, oriented x3 HENNV Head: atraumatic, normocephalic Ears: hearing grossly normal bilaterally Resp Effort AND Inspection: normal respiratory effort, able to speak in complete sentences Auscultation: Bilateral: Clear to Auscultation Cardio Rate: regular rate Rhythm: regular rhythm Heart Sounds: S1 normal, S2 normal GI Palpation: soft, no hepatosplenomegaly Musc Musculoskeletal: No muscle weakness Neuro General: alert, awake, oriented x3, moves all extremities, CN's II-XI intact bilaterally Extrem General: no clubbing, cyanosis or edema Psych Appearance: grossly normal Mental Status: mental status grossly normal Mood: dysthymic mood Affect: withdrawn Speech and Movement: speech and movement normal Attitude: cooperative Thought Process: normal Thought Content: normal Judgment: judgment good Immunizations flu vacc (65yr up)-MF59C(PF) 45 mcg(15 mcgx3)/0.5 mL IM syringe Performing Provider: JOCELYNN Casey Administered by: Lisa Granger on 05/26/18 10:46 Dose Route Admin Location Lot Number Expiration Date [place] General Ophthalmologist 0.5 mL IM Right Deltoid [id number] 01/09/19 37116-130-18 SEQIRUS VIS Given Date VIS Publication Date 05/26/18 05/26/18 Eligibility Eligibility Date Assessment AND Plan 1. Depression with anxiety F41.8 Plan PHQ 9-14, patient already on Cymbalta. A referral will be made to the counseling center at this time. Patient will follow-up in 6 weeks and if symptoms have not improved then may consider adding Wellbutrin to her medication regimen. She has tried trazodone in the past and did not tolerate this. Denies any current thoughts of harming self or other Orders Orders: Referrals: Medications Discontinued: flu vacc (65yr up)-MF59C(PF) 45 mcg(15 mcgx3)/0.5 mL 0.5 mL IM ONCE Lisa Zimmerly IM syringe Discontinued Reason: Office Medication has be en Documented as given 2. Fatigue R53.83 Plan May be related to depression, will however recheck her thyroid studies given her history of hypothyroidism and will also check a vitamin B12 and a given her history of previous vitamin deficiencies per patient report. Orders Orders: 3. Acquired hypothyroidism E03.9 Plan Plan as above, continue with current Synthroid therapy and recheck thyroid studies Orders Orders: 4. Influenza vaccine needed Z23 Plan Influenza vaccine given during today's office visit, patient verbalized understanding of the risks and benefits of the procedure. Patient monitored for 15 minutes after administration and tolerated the procedure well. No signs of reaction at this time. Patient education given.Patient educated on bxrj-gpg-rafiyni analgesics that may be appropriate for site discomfort. Orders Orders: Medications Discontinued: flu vacc (65yr up)-MF59C(PF) 45 mcg(15 mcgx3)/0.5 mL 0.5 mL IM ONCE Lisa Zimmerly IM syringe Discontinued Reason: Office Medication has be en Documented as given Plan Detail Other Orders Orders: Follow Up 6 weeks or sooner if needed Coding Level of Care Code Off vis,est,level 3 Diagnoses Depression with anxiety F41.8 Fatigue R53.83 Acquired hypothyroidism E03.9 Hypothyroidism type: acquired Influenza vaccine needed Z23 05/31/18 0850 <Electronically signed by Chris CABEZAS> Date Chris CABEZAS Cosigner Signature: Date (if applicable) CC: BASIC METABOLIC Collected: 05/24/2018 Status: F Source: [facility] PROFILE (BMP) 4:39 PM [facility] REPOSITORY TYPE CODE TESTS RESULT OUT OF RANGE REFERENCE UNITS LAB L501.0100 74-106 mg/dL Normal GLU 93 Result Comment: Please note revised GLUCOSE reference range effective 2017. LAB L501.1000 7-18 mg/dL Normal BUN 16 LAB L501.1100 0.55-1.02 mg/dL Normal CREAT,SERUM 0.90 Result Comment: The validity of the calculated GFR AND GFRAA in patients over 70 years has not been determined. Clinical correlation is essential. LAB L501.1110 >60 mL/min Normal EST GFR 67 Result Comment: Non- GFR Calc LAB L501.1115 >60 mL/min Normal EST GFR - AA 81 Result Comment: GFR Calc LAB L501.1300 10-20 RATIO Normal BUN/CRE 17.8 LAB L501.2200 8.5-10.1 mg/dL CA Normal 9.5 LAB L501.5300 136-145 mmol/L NA Normal 139 LAB L501.5600 3.5-5.1 mmol/L Low K 3.1 LAB L501.5900 98-107 mmol/L CL Normal 103 LAB L501.6100 21.0-32.0 mmol/L Normal CO2 28.0 LAB L501.6200 5-15 Normal GAP 8 Performed By: #### L500.2500 #### [facility] [address] [place], [address] SCREENING MAMM (CAD), Observed: 05/16/2018 Status: F Source: HOLDEN BIL 4:47 PM [facility] REPOSITORY [facility] [address] [place] [address] SCREENING MAMM (CAD), BIL MR#: [id number] Acct: [id number] Name: JASMIN TSANG Rep #: [id number] : 1950 F 67 From: Aston Cabezas MD PCP: Shannan Chauhan MD Status: REG CLI Study: SCREENING MAMM (CAD), BILAT Date of Exam: 05/16/18 Exam# [id number] Ordering Dr: Shannan Chauhan MD MAMMOGRAPHY - BILATERAL SCREENING REASON FOR EXAM: Female, 67 years old. Routine annual screening examination. PERTINENT HISTORY: Non-contributory. Remote bilateral excisional breast biopsies. TECHNIQUE: Digital bilateral breast chhaya (3D mammographic acquisition) in the CC and MLO projections. 2-D mediolateral oblique (MLO) and craniocaudad (CC) views of both breasts were obtained. CAD: Full Field Digital Mammography with Computer Added Detection was performed. COMPARISON: Comparison is made with prior study dated March 17, 2017 and May 13, 2017. FINDINGS: Breast Composition: The breasts are extremely dense, which lowers the sensitivity of mammography. There are no dominant masses or suspicious calcifications. A tissue clip marker is seen along the anterior inferior slightly medial aspect of the left breast. Stable scattered calcifications. No other significant abnormalities are identified. Since prior examination, the patient underwent a biopsy of the inferior slightly medial aspect of the breast. BI/SCREENING MAMM (CAD), BILAT IMPRESSION: Stable bilateral screening mammogram. Yearly follow-up mammogram recommended. (A) ASSESSMENT CATEGORY: BIRADS Category 2: Benign. A letter regarding these results will be sent to the patient by the facility within 30 days. Approximately 10% of breast cancers are not detected by mammography. A normal mammogram should not delay biopsy of a clinically suspicious abnormality. [id number] Electronically Signed: Atson Cabezas MD at 8:23 EDT Tel [phone], Service support , CC: Shannan Chauhan MD Cardiology Physician: Signed INTERNAL MEDICINE Observed: 03/17/2018 Status: F Source: JUAN CARLOS OFFICE VISIT 12:43 PM [facility] [address] [place] [address] OFFICE VISIT Date of Service: 03/14/18 MR#: [id number] Acct: [id number] Name: JASMIN TSANG Rep #: [id number] : 1950 Provider: Shannan Chauhan MD Age/Sex: 67/F Location: [facility] Status: Signed Intake Vital Signs03/14/18 Height 5 ft 5 in 03/14/18 Weight: 182 lb 03/14/18 Body Mass Index (BMI) 30.2 03/14/18 Blood Pressure 138/84 Intake Visit Reasons: hi bp Chief Complaint: BP check Is patient in pain?: No Allergies cefaclor [From Ceclor] Allergy (Verified 03/14/18 14:53) Rash erythromycin base Adverse Reaction (Verified 03/14/18 14:53) Vomiting Uhwvpow-Ica-Nzi Reductase Inhibitor Adverse Reaction (Verified 03/14/18 14:53) Pain in joints trazodone Adverse Reaction (Verified 03/14/18 14:53) syncope green peppers Allergy (Mild, Uncoded 03/14/18 14:53) Swelling Medications Biotin 5,000 mcg PO DAILY 05/26/15 [History Confirmed 03/14/18] Duloxetine Hcl [Cymbalta] 60 mg PO DAILY 05/26/15 [History Confirmed 03/14/18] Lorazepam [Ativan] 0.5 mg PO DAILY PRN PRN 05/26/15 [History Confirmed 03/14/18] Daylin 1 tab PO DAILY 05/29/15 [History Confirmed 03/14/18] cholecalciferol (vitamin D3) 1,000 unit tablet 2,000 unit PO DAILY tab 08/18/17 [History Confirmed 03/14/18] levothyroxine 75 mcg tablet 75 mcg PO .QD tab 08/18/17 [History Confirmed 03/14/18] triamterene 37.5 mg-hydrochlorothiazide 25 mg capsule 1 cap PO QAM #60 cap 11/14/17 [Rx Confirmed 03/14/18] compression stocking, knee high,regular length,medium See Dose Instructions .ROUTE .MEDSUPPLY #2 ea 12/06/17 [Rx Confirmed 03/14/18] amlodipine 5 mg tablet 5 mg PO QDAY #90 tab 01/12/18 [Rx Confirmed 03/14/18] rosuvastatin 10 mg tablet 10 mg PO QDAY #30 tab 01/14/18 [Rx Confirmed 03/14/18] metoprolol succinate ER 50 mg tablet,extended release 24 hr 50 mg PO QDAY #30 tab 03/01/18 [Rx Confirmed 03/14/18] aspirin 81 mg tablet,delayed release 81 mg PO QDAY 03/14/18 [History Confirmed 03/14/18] omeprazole 20 mg capsule,delayed release 20 mg PO QDAY 03/14/18 [History Confirmed 03/14/18] PFSH Medical History Anemia (Acute) GERD (gastroesophageal reflux disease) (Acute) Hyperlipidemia (Acute) Hypothyroidism (Acute) Anxiety (Chronic) Depression (Chronic) Hypertension (Chronic) Seasonal allergies (Chronic) Surgical History H/O breast biopsy (Acute) H/O hemorrhoidectomy (Acute) H/O: hysterectomy (Acute) gallbladder removal (Acute) Family History Mother Arthritis Hypertension CVA (cerebral vascular accident) Father Heart disease Myocardial infarction Had his first at 50, lived to be 80. Hypertension Kidney disease Grandfather Cancer stomach CA Social History Smoking Status: Former smoker alcohol intake: current alcohol intake frequency: holidays/special occasions only Alcohol type: wine substance use type: does not use what type of physical activity do you participate in: none HPI HPI Chief Complaint: BP check Details: JASMIN TSANG, is a 67yo F who presents to the office today for follow up of chronic medical conditions. She has no acute complaints at this time. She admits to not being very complaint with her diet and has noted slightly increased numbers of her Bp readings. ROS Const Constitutional: No chills, fatigue, fever(s), frequent falls, malaise, weakness, sleep problems or change in appetite Eyes Eyes: No blurry vision, change in vision, double vision, discharge or visual disturbances ENT ENT: No abnormal hearing, ear pain, ear pressure, tinnitus or dizziness/vertigo Resp Respiratory: No cough, shortness of breath or wheezing Cardio Cardiology: No chest pain at rest, chest pain with exertion, shortness of breath, dyspnea on exertion, generalized swelling, irregular heart rhythm, lightheadedness, orthopnea, fast heart rate or palpitations Gastro GI: No abdominal pain, change in bowel habits, constipation, diarrhea, nausea/dyspepsia or vomiting Genitourinary-Female: No difficulty urinating, burning urination, painful urination, urinary incontinence, urinary frequency, urinary urgency, urinary hesitancy, urinary retention, Frequent nighttime urination/ nocturia, sexual problems, genital lesions, abnormal vaginal bleeding, pelvic pain, vaginal dryness, vaginal odor or Vaginal Itching Musc Musculoskeletal: No joint pain, back pain, joint swelling, limited range of motion, muscle weakness, numbness or tingling Skin Skin: No change in skin color, itching, rash or wounds Breast Breast: No breast lump or breast pain Neuro Neurology: No frequent falls, weakness, abnormal hearing, numbness, tingling, unsteady gait/balance, dizziness, loss of vision, memory loss or visual disturbances Psych Psychiatric: No memory loss, No anxiety, No change in appetite, No depression, No Thoughts of harming yourself/Others Endo Endocrine: No fatigue, heat intolerance, increased thirst/drinking, increased hunger or increased urination Aller/Imm Allergy/Immunologic: No wheezing, itchy eyes or seasonal allergy symptoms Benson/Lymp Hematologic/Lymphatic: No easy bleeding, easy bruising or enlarged lymph nodes Exam Const General: cooperative, no acute distress Orientation: alert, awake, oriented x3 [facility] Head: atraumatic, normocephalic Ears: hearing grossly normal bilaterally Resp Effort AND Inspection: normal respiratory effort, able to speak in complete sentences Auscultation: Bilateral: Clear to Auscultation Cardio Rate: regular rate Rhythm: regular rhythm Heart Sounds: S1 normal, S2 normal GI Palpation: soft, no hepatosplenomegaly Musc Musculoskeletal: No muscle weakness Neuro General: alert, awake, oriented x3, moves all extremities, CN's II-XI intact bilaterally Extrem General: no clubbing, cyanosis or edema Psych Appearance: grossly normal Mood: congruent mood Affect: normal affect Assessment AND Plan 1. Hypertension I10 Plan Stable at this time. Has noted some elevated readings at home however, she admits to not being very compliant with her diet. Dietary modifications recommended. Continue current medications and log. Advised to call with any concerns. 2. Hyperlipidemia E78.5 Plan Better controlled. Continue Crestor. Continue life style modifications. 3. Depression with anxiety F41.8 Plan Stable. Continue current medications. Lorazepam prn for panic attacks. Plan Detail Other Orders Orders: Follow Up 3 Months Coding Level of Care Code Off vis,est,level 3 Diagnoses Hypertension I10 Hyperlipidemia E78.5 Depression with anxiety F41.8 03/17/18 1243 <Electronically signed by Efewongbe Oleghe MD> Date Shannan Chauhan Cosigner Signature: Date (if applicable) CC: LIPID PROFILE Collected: 02/23/2018 Status: F Source: JUAN CARLOS 6:51 AM [facility] REPOSITORY TYPE CODE TESTS RESULT OUT OF RANGE REFERENCE UNITS LAB L501.4900 200 mg/dL Normal CHOL 157 Result Comment: <200 mg/dL Desirable 200-240 mg/dL Borderline >240 mg/dL High Risk LAB L501.5000 mg/dL Normal TRIG 73 Result Comment: The drugs N-Acetylcysteine and Metamizole may falsely depress this assay. Serum Triglycerides Reference Interval Normal <150 mg/dL Borderline high 150 - 199 mg/dL High 200 - 499 mg/dL Very High > or = 500 mg/dL LAB L501.6400 mg/dL Normal HDL 66 Result Comment: The drugs N-Acetylcysteine and Metamizole may falsely depress this assay. Reference Range HDL <40 mg/dL Low HDL Cholesterol HDL >or= 60 mg/dL High HDL Cholesterol LAB L501.6500 0-130 mg/dL Normal LDL 76 LAB L501.6600 5-40 mg/dL Normal VLDL 15 Performed By: #### L500.4100, L501.9520, L506.0400 #### [facility] [address] [place], [place], [id number] THYROID STIM HORMONE Collected: 02/23/2018 Status: F Source: JUAN CARLOS (TSH) 6:51 AM [facility] REPOSITORY TYPE CODE TESTS RESULT OUT OF RANGE REFERENCE UNITS LAB L501.9520 0.358-3.74 uIU/mL Normal TSH 1.01 Performed By: #### L500.4100, L501.9520, L506.0400 #### [facility] [address] [place], [address] T4 FREE DIRECT Collected: 02/23/2018 Status: F Source: JUAN CARLOS 6:51 AM [facility] REPOSITORY TYPE CODE TESTS RESULT OUT OF RANGE REFERENCE UNITS LAB L506.0400 0.76-1.46 ng/dL Normal T4 FREE 1.00 DIRECT Performed By: #### L500.4100, L501.9520, L506.0400 #### [facility] [address] [place], [address] COMPREHENSIVE METABOLIC Collected: 01/11/2018 Status: F Source: [facility]UAN CARLOS PROFIL 11:19 AM [facility] REPOSITORY TYPE CODE TESTS RESULT OUT OF RANGE REFERENCE UNITS LAB L501.0100 74-106 mg/dL Normal GLU 80 Result Comment: Please note revised GLUCOSE reference range effective 2017. LAB L501.1000 7-18 mg/dL High BUN 19 LAB L501.1100 0.55-1.02 mg/dL Normal CREAT,SERUM 0.99 Result Comment: The validity of the calculated GFR AND GFRAA in patients over 70 years has not been determined. Clinical correlation is essential. LAB L501.1110 >60 mL/min Normal EST GFR 60 Result Comment: Non- GFR Calc LAB L501.1115 >60 mL/min Normal EST GFR - AA 73 Result Comment: GFR Calc LAB L501.1300 10-20 RATIO Normal BUN/CRE 19.3 LAB L501.1500 6.4-8.2 g/dL T Normal PROT 7.0 LAB L501.1800 3.2-5.0 g/dL Normal ALB 3.8 LAB L501.1950 2.2-4.2 g/dL Normal GLOB 3.2 LAB L501.2000 0.9-2.4 RATIO Normal A/G 1.2 LAB L501.2200 8.5-10.1 mg/dL CA Normal 9.2 LAB L501.4100 15-37 U/L Normal AST 25 LAB L501.4305 45-117 U/L Normal ALK P 81 LAB L501.4405 13-56 U/L Normal ALT 30 LAB L501.4600 0.20-1.00 mg/dL T Normal BILI 0.60 LAB L501.5300 136-145 mmol/L NA Normal 136 LAB L501.5600 3.5-5.1 mmol/L K Normal 4.0 LAB L501.5900 98-107 mmol/L CL Normal 102 LAB L501.6100 21.0-32.0 mmol/L Normal CO2 27.0 LAB L501.6200 5-15 Normal GAP 7 Performed By: #### L500.4050 #### [facility] [address] [place], [address] OFFICE VISIT REPORT Observed: 12/14/2017 Status: F Source: JUAN CARLOS 2:54 PM [facility] REPOSITORY [facility] [address] [place] [address] OFFICE VISIT Date of Service: 12/14/17 MR#: [id number] Acct: [id number] Patient: JASMIN TSANG Rep #: [id number] : 1950 Provider: Shannan Chauhan MD Age/Sex: 67/F Location: [facility] Status: Signed Intake Vital Signs12/14/17 Blood Pressure 130/84 12/14/17 Blood Pressure Location Lt brachial 12/14/17 Blood Pressure Position Sitting Intake Visit Reasons: BP CK Chief Complaint: BP check Is patient in pain?: No Allergies cefaclor [From Ceclor] Allergy (Verified 12/06/17 14:46) Rash erythromycin base Adverse Reaction (Verified 12/06/17 14:46) Vomiting Qthrlwr-Mht-Xjr Reductase Inhibitor Adverse Reaction (Verified 12/06/17 14:46) Pain in joints trazodone Adverse Reaction (Verified 12/06/17 14:46) syncope green peppers Allergy (Mild, Uncoded 12/06/17 14:46) Swelling Medications Biotin 5,000 mcg PO DAILY 05/26/15 [History Confirmed 12/06/17] Duloxetine Hcl [Cymbalta] 60 mg PO DAILY 05/26/15 [History Confirmed 12/06/17] Lorazepam [Ativan] 0.5 mg PO DAILY PRN PRN 05/26/15 [History Confirmed 12/06/17] Daylin 1 tab PO DAILY 05/29/15 [History Confirmed 12/06/17] Omeprazole 20 mg PO DAILY 08/18/17 [History Confirmed 12/06/17] cholecalciferol (vitamin D3) 1,000 unit tablet 2,000 unit PO DAILY tab 08/18/17 [History Confirmed 12/06/17] levothyroxine 75 mcg tablet 75 mcg PO .QD tab 08/18/17 [History Confirmed 12/06/17] metoprolol succinate ER 50 mg tablet,extended release 24 hr 50 mg PO QDAY #30 tab 10/31/17 [Rx Confirmed 12/06/17] rosuvastatin 5 mg tablet 5 mg PO QDAY #30 tab 11/09/17 [Rx Confirmed 12/06/17] triamterene 37.5 mg-hydrochlorothiazide 25 mg capsule 1 cap PO QAM #60 cap 11/14/17 [Rx Confirmed 12/06/17] amlodipine 5 mg tablet 5 mg PO QDAY #30 tab 11/17/17 [Rx Confirmed 12/06/17] compression stocking, knee high,regular length,medium See Dose Instructions .ROUTE .MEDSUPPLY #2 ea 12/06/17 [Rx Confirmed 12/06/17] Nursing Note Pt arrives in office today for a BP re-check per Chris Martinez NP. She states that she feels well today. Her home machine read 139/92 in office, manual BP was 130/84, and our machine read 128/88. I advised the pt that her home kit was reading within a good range, and that it should be fine. She stated understanding. 12/14/17 1454 <Electronically signed by Shannan Chauhan MD> Date Shannan Chauhan MD Cosigner Signature: Date (if applicable) CC: INTERNAL MEDICINE Observed: 12/06/2017 Status: F Source: [facility] OFFICE VISIT 3:38 PM [facility] [address] [place] [address] [place] [address] OFFICE VISIT Date of Service: 12/06/17 MR#: [id number] Acct: [id number] Name: JASMIN TSANG Rep #: [id number] : 1950 Provider: Chris Martinez NP Age/Sex: 67/F Location: [facility] Status: Signed Intake Vital Signs12/06/17 Height 5 ft 5 in 12/06/17 Weight: 181 lb 12/06/17 Body Mass Index (BMI) 30.1 12/06/17 Blood Pressure 131/82 Intake Visit Reasons: PASSED OUT AT WORK 12/05/17 Chief Complaint: presyncopal at work 12/05/17 Is patient in pain?: No Allergies cefaclor [From Ceclor] Allergy (Verified 12/06/17 14:46) Rash erythromycin base Adverse Reaction (Verified 12/06/17 14:46) Vomiting Ljmmzfw-Jkk-Zwl Reductase Inhibitor Adverse Reaction (Verified 12/06/17 14:46) Pain in joints trazodone Adverse Reaction (Verified 12/06/17 14:46) syncope green peppers Allergy (Mild, Uncoded 12/06/17 14:46) Swelling Medications Biotin 5,000 mcg PO DAILY 05/26/15 [History Confirmed 12/06/17] Duloxetine Hcl [Cymbalta] 60 mg PO DAILY 05/26/15 [History Confirmed 12/06/17] Lorazepam [Ativan] 0.5 mg PO DAILY PRN PRN 05/26/15 [History Confirmed 12/06/17] Daylin 1 tab PO DAILY 05/29/15 [History Confirmed 12/06/17] Omeprazole 20 mg PO DAILY 08/18/17 [History Confirmed 12/06/17] cholecalciferol (vitamin D3) 1,000 unit tablet 2,000 unit PO DAILY tab 08/18/17 [History Confirmed 12/06/17] levothyroxine 75 mcg tablet 75 mcg PO .QD tab 08/18/17 [History Confirmed 12/06/17] metoprolol succinate ER 50 mg tablet,extended release 24 hr 50 mg PO QDAY #30 tab 10/31/17 [Rx Confirmed 12/06/17] rosuvastatin 5 mg tablet 5 mg PO QDAY #30 tab 11/09/17 [Rx Confirmed 12/06/17] triamterene 37.5 mg-hydrochlorothiazide 25 mg capsule 1 cap PO QAM #60 cap 11/14/17 [Rx Confirmed 12/06/17] amlodipine 5 mg tablet 5 mg PO QDAY #30 tab 11/17/17 [Rx Confirmed 12/06/17] compression stocking, knee high,regular length,medium See Dose Instructions .ROUTE .MEDSUPPLY #2 ea 12/06/17 [Rx Confirmed 12/06/17] PFSH Medical History Anemia (Acute) GERD (gastroesophageal reflux disease) (Acute) Hyperlipidemia (Acute) Hypothyroidism (Acute) Anxiety (Chronic) Depression (Chronic) Hypertension (Chronic) Seasonal allergies (Chronic) Surgical History H/O breast biopsy (Acute) H/O hemorrhoidectomy (Acute) H/O: hysterectomy (Acute) gallbladder removal (Acute) Family History Mother Arthritis Hypertension CVA (cerebral vascular accident) Father Heart disease Myocardial infarction Had his first at 50, lived to be 80. Hypertension Kidney disease Grandfather Cancer stomach CA Social History Smoking Status: Former smoker alcohol intake: current alcohol intake frequency: holidays/special occasions only Alcohol type: wine substance use type: does not use what type of physical activity do you participate in: none HPI HPI Chief Complaint: presyncopal at work 12/05/17 Details: JASMIN TSANG, is a 67 F who presents to the office today for an acute visit of presyncopal episode that occurred 12/05/2017. She has a past medical history as listed above. The patient's blood pressures have been improved with her current doses of antihypertensives. However patient states that while at work yesterday, she was cleaning up a spill on the floor and after she stood up and bent over the table to clean up the table, she became very lightheaded and felt flushed and stated that her vision began to go black. However the patient did not have a syncopal episode and had no loss of consciousness. The patient did admit to not drinking much water yesterday. The patient also admits to getting similar symptoms in the morning after waking up when she stands up too abruptly without sitting at the edge of the bed. She does note that she takes all of her antihypertensive medications together in the morning. She denies any complete loss of consciousness, heart racing, or diaphoresis with this presyncopal episode. She otherwise denies any fever, chills, nausea, vomiting, shortness of breath, chest pain or pressure. ROS Const Constitutional: No fever(s), chills, weakness, change in appetite, sleep problems, fatigue, malaise or frequent falls Eyes Eyes: No blurry vision, change in vision, double vision or discharge ENT ENT: No abnormal hearing, ear pain, ear pressure or dizziness/vertigo Resp Respiratory: No cough, wheezing or shortness of breath Cardio Cardiology: Positive for lightheadedness; no chest pain at rest, chest pain with exertion, shortness of breath, dyspnea on exertion, irregular heart rhythm, fast heart rate, palpitations, orthopnea or generalized swelling Gastro GI: No abdominal pain, change in bowel habits, constipation, diarrhea, vomiting or nausea/dyspepsia Musc Musculoskeletal: No joint pain, back pain, limited range of motion, joint swelling, muscle weakness, tingling or numbness Skin Skin: No change in skin color, wounds, rash or itching Neuro Neurology: Positive for fainting and other (Tired); no weakness, frequent falls, abnormal hearing, tingling, numbness or memory loss Psych Psychiatric: No change in appetite, No anxiety, No depression, No memory loss, No Thoughts of harming yourself/Others Endo Endocrine: No fatigue, increased thirst/drinking, increased urination, increased hunger or heat intolerance Aller/Imm Allergy/Immunologic: No wheezing, itchy eyes or seasonal allergy symptoms Benson/Lymp Hematologic/Lymphatic: No easy bleeding, easy bruising or enlarged lymph nodes Exam Const General: cooperative, comfortable, no acute distress Nutritional Appearance: average body habitus, well nourished Orientation: alert, oriented x3 Limitations: mental status not altered Resp Effort AND Inspection: normal respiratory effort, able to speak in complete sentences, normal respiratory pattern, symmetric chest movement, no audible wheezes, no cough Auscultation: Bilateral: Clear to Auscultation Cardio Palpation: normal PMI Rate: regular rate Heart Sounds: S1 normal, S2 normal, normal S1 and S2, no click, no gallops, no murmurs, no rubs Musc Musculoskeletal: No muscle weakness Skin General: no rashes or lesions noted, elasticity normal, turgor normal Lesions: no lesions Rashes: no rashes Neuro General: alert, awake, oriented x3, CN's II-XI intact bilaterally Speech: speech normal Gait: normal gait Motor: muscle tone normal throughout Extrem General: normal to inspection, normal gait, edema Laterality: bilateral Severity: non-pitting and 1+ Psych Appearance: grossly normal Mental Status: mental status grossly normal Affect: normal affect Attitude: cooperative Thought Process: normal Assessment AND Plan 1. Syncope and collapse R55 Plan Given the patient's presyncopal episode and her current use of antihypertensives and presenting signs and symptoms, feel that there is an orthostatic component. However orthostatic vital signs were negative in office Laying 126/81, sitting 121/79, standing 119/75, no adjustment to her current medication regimen as of now. Will trial conservative therapy of compression stockings and increasing her fluid intake. During the orthostatic vitals in office, patient did get somewhat lightheaded from going to sitting to standing. If patient continues to have episodes may need to back off of the metoprolol. Did instruct patient to take her amlodipine and Maxide in the morning and to take her metoprolol at night so that all her medications are not taken together. Patient verbalized understanding. Patient will keep a log of her blood pressures and will call us in 1-2 weeks with her symptoms after she starts increasing her fluids and utilizing the compression stockings. Medications New: compression stocking, knee high,regular lengtwear daily for venous insufficiency 30-40 mmH h,medium g 2. HTN (hypertension) I10 Plan Hypertension: Controlled on current medications, will not make any adjustments at this time. Will continue with current medication regimen, risk factor reduction, and lifestyle modifications. Discussed dietary changes that should be considered which include reducing the amount of sodium intake. 3. Venous insufficiency (chronic) (peripheral) I87.2 Plan Compression stockings for venous insufficiency and also her patient's presyncopal episodes. Patient will otherwise follow-up with her routine appointment at this office. Medications New: compression stocking, knee high,regular lengtwear daily for venous insufficiency 30-40 mmH h,medium g Plan Detail Other Orders Orders: Follow Up As previously scheduled or sooner if needed Coding Level of Care Code Off vis,est,level 3 Diagnoses Syncope and collapse R55 HTN (hypertension) I10 Venous insufficiency (chronic) (peripheral) I87.2 12/06/17 1538 <Electronically signed by Chris CABEZAS> Date Chris CABEZAS Cosigner Signature: Date (if applicable) CC: INTERNAL MEDICINE Observed: 11/30/2017 Status: F Source: [facility] OFFICE VISIT 3:00 PM [facility] [place] [address] [place] [address] OFFICE VISIT Date of Service: 11/30/17 MR#: [id number] Acct: [id number] Name: LENORELISETTEKENNEYJASMIN [place] Rep #: [id number] : 1950 Provider: Chris Martinez NP Age/Sex: 67/F Location: [facility] Status: Signed Intake Vital Signs11/30/17 Height 5 ft 5 in Intake Visit Reasons: 2 WK F/U Chief Complaint: 2 wk FU Is patient in pain?: No Allergies cefaclor [From Ceclor] Allergy (Verified 06/10/16 14:45) Rash erythromycin base Adverse Reaction (Verified 06/10/16 14:45) Vomiting Zfeykgv-Dpd-Sus Reductase Inhibitor Adverse Reaction (Verified 06/10/16 14:45) Pain in joints trazodone Adverse Reaction (Verified 11/30/17 14:33) syncope green peppers Allergy (Mild, Uncoded 08/18/17 13:36) Swelling Medications Biotin 5,000 mcg PO DAILY 05/26/15 [History Confirmed 08/18/17] Duloxetine Hcl [Cymbalta] 60 mg PO DAILY 05/26/15 [History Confirmed 08/18/17] Lorazepam [Ativan] 0.5 mg PO DAILY PRN PRN 05/26/15 [History Confirmed 08/18/17] Daylin 1 tab PO DAILY 05/29/15 [History Confirmed 08/18/17] Omeprazole 20 mg PO DAILY 08/18/17 [History Confirmed 08/18/17] cholecalciferol (vitamin D3) 1,000 unit tablet 2,000 unit PO DAILY tab 08/18/17 [History Confirmed 08/18/17] levothyroxine 75 mcg tablet 75 mcg PO .QD tab 08/18/17 [History Confirmed 08/18/17] metoprolol succinate ER 50 mg tablet,extended release 24 hr 50 mg PO QDAY #30 tab 10/31/17 [Rx Confirmed 10/31/17] rosuvastatin 5 mg tablet 5 mg PO QDAY #30 tab 11/09/17 [Rx] triamterene 37.5 mg-hydrochlorothiazide 25 mg capsule 1 cap PO QAM #60 cap 11/14/17 [Rx] amlodipine 5 mg tablet 5 mg PO QDAY #30 tab 11/17/17 [Rx] PFSH Medical History Anemia (Acute) GERD (gastroesophageal reflux disease) (Acute) Hyperlipidemia (Acute) Hypothyroidism (Acute) Anxiety (Chronic) Depression (Chronic) Hypertension (Chronic) Seasonal allergies (Chronic) Surgical History H/O breast biopsy (Acute) H/O hemorrhoidectomy (Acute) H/O: hysterectomy (Acute) gallbladder removal (Acute) Family History Mother Arthritis Hypertension CVA (cerebral vascular accident) Father Heart disease Myocardial infarction Had his first at 50, lived to be 80. Hypertension Kidney disease Grandfather Cancer stomach CA Social History Smoking Status: Former smoker alcohol intake: current alcohol intake frequency: holidays/special occasions only Alcohol type: wine substance use type: does not use what type of physical activity do you participate in: none HPI HPI Chief Complaint: 2 wk FU Details: JASMIN TSANG, is a 67 F who presents to the office today for a follow-up of her syncope, dizziness, and hypertension. She has a past medical history as listed above. The patient states that since her previous office visit she has been doing well. She states that the lightheadedness and dizziness has completely resolved and she denies any syncopal episodes. Her EKG was reviewed with her and was within normal limits. Her carotid artery duplex was reviewed with her as well and demonstrated left carotid artery stenosis less than 50% and minimal plaque in the right carotid artery. She states that her blood pressure has been doing well with the addition of the amlodipine. She denies any increase in lower extremity edema or shortness of breath. Regarding her hyperlipidemia, she has not started the rosuvastatin yet, and is receptive to starting it now. She wanted to wait to review her most recent test before starting. She does state she has been working on improving her diet and that she has lost 6 pounds over the past month which was intentional. The patient otherwise denies any fever, chills, nausea, vomiting, shortness of breath, chest pain or pressure, palpitations, orthopnea, lower extremity edema, syncope or presyncopal episodes. ROS Const Constitutional: No weight change, body ache, chills, fatigue, sleep problems, fever(s), change in appetite, snoring, weakness, frequent falls, headache(s) or excessive sweating Eyes Eyes: No change in vision, eye pain, light sensitivity or blurry vision ENT ENT: No headache(s), abnormal hearing, ear pain, tinnitus, nasal congestion, sore throat or neck pain Resp Respiratory: No snoring, cough, shortness of breath or wheezing Cardio Cardiology: No excessive sweating, chest pain at rest, chest pain with exertion, shortness of breath, dyspnea on exertion, palpitations, orthopnea or lightheadedness Gastro GI: No abdominal pain, change in bowel habits, constipation, diarrhea, vomiting, nausea/dyspepsia or cramping Musc Musculoskeletal: No neck pain, abnormal walking, joint pain, back pain, limited range of motion, numbness or tingling Skin Skin: No redness, dry skin, itching, lesions, wounds or rash Neuro Neurology: No weakness, frequent falls, headache(s), abnormal hearing, abnormal walking, numbness, tingling, abnormal speech, dizziness or memory loss Psych Psychiatric: No change in appetite, No memory loss, No anxiety, No depression, No Thoughts of harming yourself/Others Endo Endocrine: No fatigue, excessive sweating, cold intolerance, increased thirst/drinking, heat intolerance, flushing or increased hunger Aller/Imm Allergy/Immunologic: No wheezing, itchy eyes, hives or seasonal allergy symptoms Benson/Lymp Hematologic/Lymphatic: No easy bleeding, easy bruising or enlarged lymph nodes Exam Const General: cooperative, comfortable, no acute distress Nutritional Appearance: average body habitus, well nourished Orientation: alert, oriented x3 Limitations: mental status not altered [facility] Head: normal to inspection Ears: hearing grossly normal bilaterally Nose: external nose normal Eyes General: appearance normal, both eyes and all related structures Resp Effort AND Inspection: normal respiratory effort, able to speak in complete sentences, normal respiratory pattern, symmetric chest movement, no audible wheezes, no cough Auscultation: Bilateral: Clear to Auscultation Cardio Palpation: normal PMI Rate: regular rate Heart Sounds: S1 normal, S2 normal, normal S1 and S2, no click, no gallops, no murmurs, no rubs Skin General: no rashes or lesions noted, elasticity normal, turgor normal Lesions: no lesions Rashes: no rashes Neuro General: alert, awake, oriented x3, CN's II-XI intact bilaterally Speech: speech normal Gait: normal gait Motor: muscle tone normal throughout Extrem General: normal to inspection, normal gait, no edema, no pedal edema Psych Appearance: grossly normal Mental Status: mental status grossly normal Affect: normal affect Attitude: cooperative Thought Process: normal Assessment AND Plan 1. Syncope and collapse R55 Plan Patient has not had any episodes of syncope or presyncopal episodes since discontinue the trazodone. Advised patient not to have her take trazodone again in the future. Patient verbalized understanding. Her previous EKG and carotid duplex and blood work was reviewed with her. 2. HTN (hypertension) I10 Plan Hypertension: Controlled on current medications, will not make any adjustments at this time. Will continue with current medication regimen, risk factor reduction, and lifestyle modifications. Discussed dietary changes that should be considered which include reducing the amount of sodium intake. 3. Carotid artery stenosis I65.29 Plan Patient does have left carotid artery stenosis. Discussed risk factor modification and lifestyle changes that should be implemented. She was recently started on rosuvastatin, will start at 5 mg rosuvastatin to start today and will recheck a CMP in 6 weeks. Patient is asymptomatic at 6 weeks and demonstrates no hepatic impairment then will increase her rosuvastatin 10 mg daily. Fasting lipid panel recheck in 3 months. Patient is also on baby aspirin as well. 4. Hyperlipidemia E78.5 Plan Plan as above, the plan is for patient to trial Crestor and gradually increase as necessary. Orders Orders: 5. Depression with anxiety F41.8 Plan No acute complaints at this time, will continue with her duloxetine therapy. Patient scheduled preventative visit at her next follow-up to discuss her Gram, colonoscopy, and bone density. Plan Detail Other Medications Discontinued: trazodone Start 50mg QHS x 1 week then increase to 100mg QHS. Eqnwaxjg40 mg PO QHS nued Reason: Pt no longer taking Follow Up 3 months or sooner if needed. Coding Level of Care Code Off vis,est,level 4 Diagnoses Syncope and collapse R55 HTN (hypertension) I10 Carotid artery stenosis I65.29 Hyperlipidemia E78.5 Depression with anxiety F41.8 11/30/17 1500 <Electronically signed by Chris CABEZAS> Date Chris CABEZAS Cosigner Signature: Date (if applicable) CC: OFFICE VISIT REPORT Observed: 11/25/2017 Status: F Source: [facility] 5:[address] [place] [address] OFFICE VISIT Date of Service: 11/14/17 MR#: [id number] Acct: [id number] Patient: JASMIN TSANG Rep #: [id number] : 1950 Provider: Shannan Chauhan MD Age/Sex: 67/F Location: [facility] Status: Signed Intake Vital Signs11/14/17 Blood Pressure 150/91 11/14/17 Blood Pressure Location Lt brachial 11/14/17 Blood Pressure Position Sitting Intake Visit Reasons: CK BP Chief Complaint: dizzy, faint feeling Allergies cefaclor [From Ceclor] Allergy (Verified 06/10/16 14:45) Rash erythromycin base Adverse Reaction (Verified 06/10/16 14:45) Vomiting Zxoeczt-Thu-Xqe Reductase Inhibitor Adverse Reaction (Verified 06/10/16 14:45) Pain in joints green peppers Allergy (Mild, Uncoded 08/18/17 13:36) Swelling Medications Biotin 5,000 mcg PO DAILY 05/26/15 [History Confirmed 08/18/17] Duloxetine Hcl [Cymbalta] 60 mg PO DAILY 05/26/15 [History Confirmed 08/18/17] Lorazepam [Ativan] 0.5 mg PO DAILY PRN PRN 05/26/15 [History Confirmed 08/18/17] Daylin 1 tab PO DAILY 05/29/15 [History Confirmed 08/18/17] Omeprazole 20 mg PO DAILY 08/18/17 [History Confirmed 08/18/17] cholecalciferol (vitamin D3) 1,000 unit tablet 2,000 unit PO DAILY tab 08/18/17 [History Confirmed 08/18/17] levothyroxine 75 mcg tablet 75 mcg PO .QD tab 08/18/17 [History Confirmed 08/18/17] metoprolol succinate ER 50 mg tablet,extended release 24 hr 50 mg PO QDAY #30 tab 10/31/17 [Rx Confirmed 10/31/17] trazodone 50 mg tablet 50 mg PO QHS #30 tab 10/31/17 [Rx Confirmed 10/31/17] rosuvastatin 5 mg tablet 5 mg PO QDAY #30 tab 11/09/17 [Rx] triamterene 37.5 mg-hydrochlorothiazide 25 mg capsule 1 cap PO QAM #60 cap 11/14/17 [Rx] amlodipine 5 mg tablet 5 mg PO QDAY #30 tab 11/17/17 [Rx] Assessment AND Plan Medications Discontinued: Nursing Note PATIENT WANTED HER BP CHECKED D/T BEING HIGH ON HER MACHINE. RIGHT ARM BP READING WAS 143/87 LEFT ARM READING WAS 150/91 PULSE WAS 69. PATIENTS CUFF READ 143/96 ON THE LEFT ARM. PATIENT WAS TAKING HCTZ 25MG QD AND METOPROLOL [address] CHAUHAN SAID FOR PATIENT TO STOP THE POTASSIUM AND HCTZ, AND SWITCHED PATIENT TO TRIAMTERENE-HCTZ. PATIENT NOTIFIED OF NEW INSTRUCTIONS. 11/25/17 9314 <Electronically signed by Shannan Chauhan MD> Date [facility]ann[facility] Signature: Date (if applicable) CC: CAROTID DUPLEX Observed: 11/22/2017 Status: F Source: [facility] ULTRASOUND 3:59 PM [facility] REPOSITORY [facility] Cardiovascular Services [address] [place] [address] Carotid Duplex Ultrasound 11/22/17 1359 MR#: [id number] Acct: [id number] Name: JASMIN TSANG Rep #: [id number] : 1950 67 From: Micah Sagastume MD Attending Dr: Chris Martinez NP Status: REG CLI Ordering Dr: Chris Martinez MACHINE WIPER-C Date: 11/22/17 Location: [facility] Sex: F C Admitted: Reason For Study: syncope Rt. Velocities/BP Lt. Velocities/BP Prox CCA 107/31.1 cm/sec. Prox CCA 106/29.3 cm/sec. Mid CCA 97.9/29.9 cm/sec. Mid CCA 96.7/28.1 cm/sec. Dist CCA 86.2/29.3 cm/sec. Dist CCA 96.2/35.8 cm/sec. Prox ICA 53.4/22.3 cm/sec. Prox ICA 60.4/18.2 cm/sec. Mid ICA 89.1/32.2 cm/sec. Mid ICA 93.8/32.2 cm/sec. Dist ICA 60.9/22.5 cm/sec. Dist ICA 73.8/24.9 cm/sec. Rt. ICA/CCA = .9. Lt. ICA/CCA = 1.0. Prox ECA 84.4/21.1 cm/sec. Prox ECA 95.0/18.8 cm/sec. Rt. Vert. 46.3/14.7 cm/sec. Lt. Vert. 47.9/16.5 cm/sec. Right Extracranial There is homogeneous, smooth atherosclerotic plaque noted in the right common carotid artery. There is intimal thickening but no significant atherosclerotic plaque noted in the right internal carotid artery. There is intimal thickening but no significant atherosclerotic plaque noted in the right external carotid artery. Antegrade flow is noted in the right vertebral artery. Left Extracranial There is intimal thickening but no significant atherosclerotic plaque noted in the left common carotid artery. There is heterogeneous, smooth atherosclerotic plaque noted in the left internal carotid artery. There is intimal thickening but no significant atherosclerotic plaque noted in the left external carotid artery. Antegrade flow is noted in the left vertebral artery. Procedure Carotid Duplex [id number]. The exam was diagnostic. Exam performed in department. Interpretation Summary No significant atherosclerotic plaque or stenosis noted in the right internal carotid artery. Mild (<50%) stenosis left extracranial internal carotid. Flow within the vertebral arteries is antegrade bilaterally. Ordering Physician: Chris Martinez Performed By: Aftab Donahue RVT 11/22/17 1559 Date Micah Sagastume MD CC: Shannan Chauhan MD; Chris Martinez MACHINE WIPER Date Dictated: 11/22/17 1359 Date Transcribed: 11/22/17 1559 Cardiology Physician: Signed 12 LEAD ELECTROCARDIOGRAM Observed: 11/15/2017 Status: F Source: [facility] 2:53 PM [facility] REPOSITORY [facility] Cardiovascular Services [facility] [place] [address] 12 Lead EKG 11/10/17 1301 MR#: [id number] Acct: [id number] Name: JASMIN TSANG Rep #: [id number] : 1950 67 From: Hussein Cabello MD Attending Dr: Chris Martinez NP Status: REG CLI Ordering Dr: Chris Martinez MACHINE WIPER-C Date: 11/10/17 Location: [facility] Sex: F C Admitted: Test Reason : SYNCOPE/NEAR SYNCOPE Blood Pressure : / mmHG Vent. Rate : 066 BPM Atrial Rate : 066 BPM P-R Int : 168 ms QRS Dur : 096 ms QT Int : 442 ms P-R-T Axes : 054 022 087 degrees QTc Int : 463 ms Normal sinus rhythm Normal ECG Confirmed by HUSSEIN CABELLO MD ([id number]), editorial manager AMANDA MELÉNDEZ ([id number]) on 11/15/2017 2:52:52 PM Referred By: Chris Martinez Confirmed By:HUSSEIN CABELLO MD 11/15/17 1452 Date Hussein Cabello MD CC: Shannan Chauhan MD; Chris Martinez NP Signed INTERNAL MEDICINE Observed: 11/11/2017 Status: F Source: [facility] OFFICE VISIT 8:22 AM [facility] [address] [place] [address] OFFICE VISIT Date of Service: 11/10/17 MR#: [id number] Acct: [id number] Name: JASMIN TSANG Rep #: [id number] : 1950 Provider: Chris Martinez NP Age/Sex: 67/F Location: [facility] Status: Signed Intake Vital Signs11/10/17 Blood Pressure 138/84 11/10/17 Height 5 ft 5 in 11/10/17 Weight: 185 lb 11/10/17 Body Mass Index (BMI) 30.7 11/10/17 Blood Pressure 150/95 11/10/17 Blood Pressure Location Lt brachial Intake Visit Reasons: dizzy/fainted yesterday Chief Complaint: dizzy, faint feeling Is patient in pain?: No Allergies cefaclor [From Ceclor] Allergy (Verified 06/10/16 14:45) Rash erythromycin base Adverse Reaction (Verified 06/10/16 14:45) Vomiting Prxlgbe-Nay-Avn Reductase Inhibitor Adverse Reaction (Verified 06/10/16 14:45) Pain in joints green peppers Allergy (Mild, Uncoded 08/18/17 13:36) Swelling Medications Biotin 5,000 mcg PO DAILY 05/26/15 [History Confirmed 08/18/17] Duloxetine Hcl [Cymbalta] 60 mg PO DAILY 05/26/15 [History Confirmed 08/18/17] Hydrochlorothiazide [Hctz] 25 mg PO DAILY 05/26/15 [History Confirmed 08/18/17] Lorazepam [Ativan] 0.5 mg PO DAILY PRN PRN 05/26/15 [History Confirmed 08/18/17] Daylin 1 tab PO DAILY 05/29/15 [History Confirmed 08/18/17] Omeprazole 20 mg PO DAILY 08/18/17 [History Confirmed 08/18/17] cholecalciferol (vitamin D3) 1,000 unit tablet 2,000 unit PO DAILY tab 08/18/17 [History Confirmed 08/18/17] levothyroxine 75 mcg tablet 75 mcg PO .QD tab 08/18/17 [History Confirmed 08/18/17] potassium chloride ER 10 mEq capsule,extended release 10 meq PO QDAY #30 cap 10/03/17 [Rx] metoprolol succinate ER 50 mg tablet,extended release 24 hr 50 mg PO QDAY #30 tab 10/31/17 [Rx Confirmed 10/31/17] trazodone 50 mg tablet 50 mg PO QHS #30 tab 10/31/17 [Rx Confirmed 10/31/17] rosuvastatin 5 mg tablet 5 mg PO QDAY #30 tab 11/09/17 [Rx] PFS Medical History Anemia (Acute) GERD (gastroesophageal reflux disease) (Acute) Hyperlipidemia (Acute) Hypothyroidism (Acute) Anxiety (Chronic) Depression (Chronic) Hypertension (Chronic) Seasonal allergies (Chronic) Surgical History H/O breast biopsy (Acute) H/O hemorrhoidectomy (Acute) H/O: hysterectomy (Acute) gallbladder removal (Acute) Family History Mother Arthritis Hypertension CVA (cerebral vascular accident) Father Heart disease Myocardial infarction Had his first at 50, lived to be 80. Hypertension Kidney disease Grandfather Cancer stomach CA Social History Smoking Status: Former smoker alcohol intake: current alcohol intake frequency: holidays/special occasions only Alcohol type: wine substance use type: does not use what type of physical activity do you participate in: none HPI HPI Chief Complaint: dizzy, faint feeling Details: JASMIN TSANG, is a 67 F who presents to the office today for an acute visit of syncopal episode that occurred yesterday. She has a past medical history as listed above. The patient states that at her previous office visit she was placed on 2 new medications. She started the metoprolol for her blood pressure immediately after the office visit and had tolerated this medication okay. However the patient states that she started the trazodone for her sleep this past Tuesday night and that afterwards she felt a little bit off. She took the medication again Tuesday and Tuesday night and noted that she was feeling off and lightheaded throughout the day. The patient states that she was shopping at [facility] and became very lightheaded, dizzy, and diaphoretic yesterday and ended up having to sit herself down to the floor. She states that she felt like a black curtain was pulled over her eyes and that she was very dizzy and lightheaded after she sat herself down. She denies any loss of consciousness however and she states that the episode lasted approximately 15 minutes. She states that the employees at [facility] wanted to call the squad for evaluation, however the patient refused emergent evaluation. She presents to the office today and states that although she is still lightheaded and dizzy, this has greatly improved since what it was yesterday. She states that she did not take the trazodone last night. She does also bring up a minor fall that occurred when she was standing up on a chair to rearrange a cookie jar on the top shelf and she became dizzy yesterday and fell somewhat off the chair and hit her right elbow and wrist. She denies any loss of consciousness for this fall as well and states that she just feels a little sore on her right elbow and wrist where she hit the countertop. The patient does state that she is very sensitive to medications and has had to be taken off of medications prior due to causing an increase in her dizziness and lightheadedness. She denies any strokelike symptoms or any temporary weakness, speech slurring, or facial droop. She does note that she has some sinus pressure currently as well and is taking Daylin for this. She does state that she has not ever had her carotid arteries checked as well. She otherwise denies any fever, chills, nausea, vomiting, shortness of breath, chest pain or pressure. ROS Const Constitutional: Positive for fatigue and excessive sweating; no weight change, body ache, chills, sleep problems, fever(s), change in appetite, snoring, weakness, frequent falls or headache(s) Eyes Eyes: No change in vision, eye pain, light sensitivity or blurry vision ENT ENT: Positive for sinus pressure; no headache(s), abnormal hearing, ear pain, tinnitus, nasal congestion, sore throat or neck pain Resp Respiratory: No snoring, cough, shortness of breath or wheezing Cardio Cardiology: Positive for excessive sweating; no chest pain at rest, chest pain with exertion, shortness of breath, dyspnea on exertion, palpitations, orthopnea or lightheadedness Gastro GI: No abdominal pain, change in bowel habits, constipation, diarrhea, vomiting, nausea/dyspepsia or cramping Musc Musculoskeletal: No neck pain, abnormal walking, joint pain, back pain, limited range of motion, numbness or tingling Skin Skin: No redness, dry skin, itching, lesions, wounds or rash Neuro Neurology: Positive for dizziness and fainting; no weakness, frequent falls, headache(s), abnormal hearing, abnormal walking, numbness, tingling, abnormal speech or memory loss Psych Psychiatric: No change in appetite, No memory loss, Positive for anxiety, No depression, No Thoughts of harming yourself/Others Endo Endocrine: Positive for fatigue and excessive sweating; no cold intolerance, increased thirst/drinking, heat intolerance, flushing or increased hunger Aller/Imm Allergy/Immunologic: No wheezing, itchy eyes, hives or seasonal allergy symptoms Benson/Lymp Hematologic/Lymphatic: No easy bleeding, easy bruising or enlarged lymph nodes Exam Const General: comfortable, no acute distress, cooperative Orientation: alert, awake, oriented x3 HENMT Head: atraumatic, normocephalic Ears: hearing grossly normal bilaterally Resp Effort AND Inspection: normal respiratory effort, able to speak in complete sentences Auscultation: Bilateral: Clear to Auscultation Cardio Rate: regular rate Rhythm: regular rhythm Heart Sounds: S1 normal, S2 normal GI Palpation: soft, no hepatosplenomegaly Musc Musculoskeletal: No joint tenderness, joint redness, joint warmth or decreased ROM Thoracic/Lumbar Spine: thoracic and lumbar spine normal to inspection Neuro General: CN's II-XI intact bilaterally, no focal motor deficits, moves all extremities, alert, awake, oriented x3, gait normal, deep tendon reflexes 2+ bilaterally Cranial Nerves: tongue midline, CN's II-XI intact bilaterally, PERRL, facial strength normal Cognition: normal cognition Speech: speech normal Gait: normal gait Motor: strength 5/5 throughout Sensory Exam: no sensory deficits noted Extrem General: no clubbing, cyanosis or edema Assessment AND Plan 1. Syncope and collapse R55 Plan Given the patient's symptoms and duration of symptoms, her syncope was most likely related to her medication changes. Her dizziness is improving since stopping the trazodone for insomnia. Instructed the patient to continue with discontinuation of the trazodone and to ensure that she is remaining hydrated. Given her symptoms of hyperlipidemia as well, will check a carotid ultrasound as she has had dizziness and lightheadedness in the past. Do not feel that her symptoms are orthostatic in nature as her blood pressure was checked in orthostatic vitals were taken which were normal. Will recheck blood work and EKG as well. Orders Orders: 2. Dizziness R42 Plan Plan as above 3. HTN (hypertension) I10 Plan Blood pressure stable today, given her patient symptoms will not make any adjustments to her current medication regimen. Patient to follow-up in 2 weeks or sooner. Patient instructed on any red flag symptoms such as having another syncopal episode or chest pain pressure or vision changes or weakness or strokelike symptoms and that if this occurs she should seek urgent medical attention. Patient verbalized understanding. Larissa disclaimer Coding Level of Care Code Off vis,est,level 3 Diagnoses Syncope and collapse R55 Dizziness R42 HTN (hypertension) I10 11/11/17 0822 <Electronically signed by Chris AVERYC> Date Chris Martinez MACHINE WIPER-C Cosigner Signature: Date (if applicable) CC: CBC W/DIFF, AUTOMATED Collected: 11/10/2017 Status: F Source: JUAN CARLOS 12:38 PM [facility] REPOSITORY TYPE CODE TESTS RESULT OUT OF RANGE REFERENCE UNITS LAB L100.1000 4.4-11.0 K/mm3 Normal WBC 7.8 LAB L100.1200 4.2-5.4 M/mm3 Normal RBC 4.64 LAB L100.1300 12.0-15.0 g/dl Normal HGB 13.5 LAB L100.1400 37-47 % Normal HCT 40.6 LAB L100.1500 81-99 fL Normal MCV 87.5 LAB L100.1600 27.0-32.0 pg Normal MCH 29.1 LAB L100.1700 32-36 g/gl Normal MCHC 33.3 LAB L100.1810 11.6-14.6 % Normal RDW CV 12.7 LAB L100.1820 35.1-43.9 fl Normal RDW SD 40.6 LAB L100.1900 150-450 K/mm3 Normal PLT 250 LAB L100.2000 6.2-12.0 fl Normal MPV 10.1 LAB L100.2100 47-70 % Normal NEUT% 60.6 LAB L100.2200 19-41 % Normal LY% 27.6 LAB L100.2300 0-10 % Normal MONO% 7.8 LAB L100.2400 0-5 % Normal EO% 3.5 LAB L100.2500 0-1 % Normal BASO% 0.4 LAB L100.2550 0.0-0.9 % Normal IM GRAN % 0.100 Result Comment: IG% - Immature Granulocytes (promyelocytes, myelocytes and metamyelocytes) > 1% indicates that a LEFT SHIFT is Present. LAB L100.2620 2.0-7.7 X10 3/uL Normal Absolute Neut 4.7 LAB L100.2720 0.83-4.51 X10 3/ul Normal Absolute Lymph 2.15 Performed By: #### L100.0100 #### [facility] [address] [place], [place], [address] BASIC METABOLIC Collected: 11/10/2017 Status: F Source: JUAN CARLOS PROFILE (BMP) 12:38 PM [facility] REPOSITORY TYPE CODE TESTS RESULT OUT OF RANGE REFERENCE UNITS LAB L501.0100 74-106 mg/dL Normal GLU 86 Result Comment: Please note revised GLUCOSE reference range effective 2017. LAB L501.1000 7-18 mg/dL Normal BUN 15 LAB L501.1100 0.55-1.02 mg/dL Normal CREAT,SERUM 0.72 Result Comment: The validity of the calculated GFR AND GFRAA in patients over 70 years has not been determined. Clinical correlation is essential. LAB L501.1110 >60 mL/min Normal EST GFR 87 Result Comment: Non- GFR Calc LAB L501.1115 >60 mL/min Normal EST GFR - AA 105 Result Comment: GFR Calc LAB L501.1300 10-20 RATIO High BUN/CRE 20.9 LAB L501.2200 8.5-10.1 mg/dL CA Normal 9.0 LAB L501.5300 136-145 mmol/L NA Normal 137 LAB L501.5600 3.5-5.1 mmol/L K Normal 3.6 LAB L501.5900 98-107 mmol/L CL Normal 100 LAB L501.6100 21.0-32.0 mmol/L Normal CO2 30.0 LAB L501.6200 5-15 Normal GAP 7 Performed By: #### L500.2500, L501.5200 #### [facility] [address] [place], [address] MAGNESIUM Collected: 11/10/2017 Status: F Source: HOLDEN 12:38 PM [facility] REPOSITORY TYPE CODE TESTS RESULT OUT OF RANGE REFERENCE UNITS LAB L501.5200 1.6-2.6 mg/dL Normal MG 2.0 Result Comment: Please note revised Magnesium reference range effective 2017. Performed By: #### L500.2500, L501.5200 #### [facility] [address] [place], [address] 12 LEAD ELECTROCARDIOGRAM Observed: 11/09/2017 Status: F Source: JUAN CARLOS 2:32 PM [facility] REPOSITORY [facility] [address] [place] [address] 12 Lead EKG 11/07/17 0758 MR#: [id number] Acct: [id number] Name: JASMIN TSANG Rep #: [id number] : 1950 67 From: Hussein Cabello MD Attending Dr: Shannan Chauhan MD Status: REG CLI Ordering Dr: Shannan Chauhan MD Date: 11/07/17 Location: LAB Sex: F C Admitted: Test Reason : PALPS Blood Pressure : / mmHG Vent. Rate : 070 BPM Atrial Rate : 070 BPM P-R Int : 160 ms QRS Dur : 090 ms QT Int : 410 ms P-R-T Axes : 060 031 083 degrees QTc Int : 442 ms Normal sinus rhythm Normal ECG Confirmed by HUSSEIN CABELLO MD ([id number]), editorial manager AMANDA MELÉNDEZ ([id number]) on 11/09/2017 2:32:27 PM Referred By: Shannan Chauhan Confirmed By:HUSSEIN CABELLO MD 11/09/17 1432 Date Hussein Cabello MD CC: Shannan Chauhan MD Signed BASIC METABOLIC Collected: 11/07/2017 Status: F Source: JUAN CARLOS PROFILE (BMP) 7:21 AM [facility] REPOSITORY TYPE CODE TESTS RESULT OUT OF RANGE REFERENCE UNITS LAB L501.0100 74-106 mg/dL Normal GLU 94 Result Comment: Please note revised GLUCOSE reference range effective 2017. LAB L501.1000 7-18 mg/dL High BUN 19 LAB L501.1100 0.55-1.02 mg/dL Normal CREAT,SERUM 0.80 Result Comment: The validity of the calculated GFR AND GFRAA in patients over 70 years has not been determined. Clinical correlation is essential. LAB L501.1110 >60 mL/min Normal EST GFR 77 Result Comment: Non- GFR Calc LAB L501.1115 >60 mL/min Normal EST GFR - AA 93 Result Comment: GFR Calc LAB L501.1300 10-20 RATIO High BUN/CRE 23.8 LAB L501.2200 8.5-10.1 mg/dL CA Normal 9.0 LAB L501.5300 136-145 mmol/L NA Normal 140 LAB L501.5600 3.5-5.1 mmol/L K Normal 3.8 LAB L501.5900 98-107 mmol/L CL Normal 104 LAB L501.6100 21.0-32.0 mmol/L Normal CO2 31.0 LAB L501.6200 5-15 Normal GAP 5 Performed By: #### L500.2500, L500.4100 #### [facility] [address] [place], [place], [address] LIPID PROFILE Collected: 11/07/2017 Status: F Source: JUAN CARLOS 7:21 AM [facility] REPOSITORY TYPE CODE TESTS RESULT OUT OF RANGE REFERENCE UNITS LAB L501.4900 200 mg/dL High CHOL 280 Result Comment: <200 mg/dL Desirable 200-240 mg/dL Borderline >240 mg/dL High Risk LAB L501.5000 mg/dL Normal TRIG 159 Result Comment: The drugs N-Acetylcysteine and Metamizole may falsely depress this assay. Serum Triglycerides Reference Interval Normal <150 mg/dL Borderline high 150 - 199 mg/dL High 200 - 499 mg/dL Very High > or = 500 mg/dL LAB L501.6400 mg/dL Normal HDL 59 Result Comment: The drugs N-Acetylcysteine and Metamizole may falsely depress this assay. Reference Range HDL <40 mg/dL Low HDL Cholesterol HDL >or= 60 mg/dL High HDL Cholesterol LAB L501.6500 0-130 mg/dL High LDL 189 LAB L501.6600 5-40 mg/dL Normal VLDL 32 Performed By: #### L500.2500, L500.4100 #### [facility] [address] [place], [place], [address] INTERNAL MEDICINE Observed: 10/31/2017 Status: F Source: JUAN CARLOS OFFICE VISIT 4:44 PM [facility] REPOSITORY [facility] [address] [place] [address] OFFICE VISIT Date of Service: 10/31/17 MR#: [id number] Acct: [id number] Name: JASMIN TSANG Rep #: [id number] : 1950 Provider: Shannan Chauhan MD Age/Sex: 67/F Location: [facility] Status: Signed Intake Vital Signs10/31/17 Height 5 ft 5 in 10/31/17 Weight: 182 lb 10/31/17 Body Mass Index (BMI) 30.2 10/31/17 Blood Pressure 144/88 10/31/17 Blood Pressure Location Lt brachial Intake Visit Reasons: 2 mo fu Chief Complaint: follow-up visit Is patient in pain?: Yes (hands) Pain scale (1-10): 3 Allergies cefaclor [From Ceclor] Allergy (Verified 06/10/16 14:45) Rash erythromycin base Adverse Reaction (Verified 06/10/16 14:45) Vomiting Muzqeip-Nts-Cst Reductase Inhibitor Adverse Reaction (Verified 06/10/16 14:45) Pain in joints green peppers Allergy (Mild, Uncoded 08/18/17 13:36) Swelling Medications Biotin 5,000 mcg PO DAILY 05/26/15 [History Confirmed 08/18/17] Duloxetine Hcl [Cymbalta] 60 mg PO DAILY 05/26/15 [History Confirmed 08/18/17] Hydrochlorothiazide [Hctz] 25 mg PO DAILY 05/26/15 [History Confirmed 08/18/17] Lorazepam [Ativan] 0.5 mg PO DAILY PRN PRN 05/26/15 [History Confirmed 08/18/17] Daylin 1 tab PO DAILY 05/29/15 [History Confirmed 08/18/17] Omeprazole 20 mg PO DAILY 08/18/17 [History Confirmed 08/18/17] cholecalciferol (vitamin D3) 1,000 unit tablet 2,000 unit PO DAILY tab 08/18/17 [History Confirmed 08/18/17] levothyroxine 75 mcg tablet 75 mcg PO .QD tab 08/18/17 [History Confirmed 08/18/17] potassium chloride ER 10 mEq capsule,extended release 10 meq PO QDAY #30 cap 10/03/17 [Rx] metoprolol succinate ER 50 mg tablet,extended release 24 hr 50 mg PO QDAY #30 tab 10/31/17 [Rx Confirmed 10/31/17] trazodone 50 mg tablet 50 mg PO QHS #30 tab 10/31/17 [Rx Confirmed 10/31/17] PFSH Medical History Anemia (Acute) GERD (gastroesophageal reflux disease) (Acute) Hyperlipidemia (Acute) Hypothyroidism (Acute) Anxiety (Chronic) Depression (Chronic) Hypertension (Chronic) Seasonal allergies (Chronic) Surgical History H/O breast biopsy (Acute) H/O hemorrhoidectomy (Acute) H/O: hysterectomy (Acute) gallbladder removal (Acute) Family History Mother Arthritis Hypertension CVA (cerebral vascular accident) Father Heart disease Myocardial infarction Had his first at 50, lived to be 80. Hypertension Kidney disease Grandfather Cancer stomach CA Social History Smoking Status: Former smoker alcohol intake: current alcohol intake frequency: holidays/special occasions only Alcohol type: wine substance use type: does not use what type of physical activity do you participate in: none HPI HPI Chief Complaint: follow-up visit Details: JASMIN TSANG, is a 67yo F who presents to the office today for follow-up of her chronic medical conditions. She also has some acute complaints. She reports occasional feeling of palpitations initially especially activity. These episodes are said to be Transient/spontaneously resolve. She denies any prior history of arrhythmias. She also denies chest pain, shortness of breath, leg swelling or easy fatigability. She is still able to function at work. She however is concerned about her depression management. She has noted that during the winter months there seems to worsening of her depression. She is on Cymbalta 60 mg daily and has been for many years. Attempts at other medications have not shown better benefits. She reports compliance with her medication. ROS Const Constitutional: Positive for fatigue and weakness; no weight change, body ache, chills, sleep problems, fever(s), change in appetite, snoring, frequent falls, headache(s) or excessive sweating Eyes Eyes: No change in vision, eye pain, light sensitivity or blurry vision ENT ENT: No headache(s), abnormal hearing, ear pain, tinnitus, nasal congestion, sore throat or neck pain Resp Respiratory: No snoring, cough or wheezing Cardio Cardiology: Positive for palpitations (Occasional and predominantly with activity.); no excessive sweating, chest pain at rest, chest pain with exertion, shortness of breath, dyspnea on exertion, orthopnea or lightheadedness Gastro GI: No abdominal pain, change in bowel habits, constipation, diarrhea, vomiting, nausea/dyspepsia or cramping Musc Musculoskeletal: No neck pain, abnormal walking, back pain, limited range of motion, numbness or tingling Skin Skin: No redness, dry skin, itching, lesions, wounds or rash Neuro Neurology: Positive for weakness; no frequent falls, headache(s), abnormal hearing, abnormal walking, numbness, tingling, abnormal speech, dizziness or memory loss Psych Psychiatric: No change in appetite, No memory loss, Positive for anxiety, Positive for depression, No Thoughts of harming yourself/Others Endo Endocrine: Positive for fatigue; no excessive sweating, cold intolerance, increased thirst/drinking, heat intolerance, flushing or increased hunger Aller/Imm Allergy/Immunologic: No wheezing, itchy eyes, hives or seasonal allergy symptoms Benson/Lymp Hematologic/Lymphatic: No easy bleeding, easy bruising or enlarged lymph nodes Exam Const General: comfortable, no acute distress, cooperative Orientation: alert, awake, oriented x3 HENMT Head: atraumatic, normocephalic Ears: hearing grossly normal bilaterally Resp Effort AND Inspection: normal respiratory effort, able to speak in complete sentences Auscultation: Bilateral: Clear to Auscultation Cardio Rate: regular rate Rhythm: regular rhythm Heart Sounds: S1 normal, S2 normal GI Palpation: soft, no hepatosplenomegaly Neuro General: CN's II-XI intact bilaterally, no focal motor deficits, moves all extremities Extrem General: no clubbing, cyanosis or edema Assessment AND Plan 1. Palpitations R00.2 Plan She has occasional feeling/awareness of her heartbeat. This typically is with exertion and does not linger. She denies any prior history. She also denies worsening shortness of breath or leg swelling. Will get an EKG. BMP also ordered. Switch to lisinopril 5 mg daily to metoprolol 50 mg daily. Patient's blood pressure is not well controlled and she is intolerable to lisinopril at higher doses. Follow-up in 1 month. Orders Orders: 2. Depression with anxiety F41.8 Plan Patient has been on Cymbalta 60 mg daily for many years. She has tried other antidepressants with no significant benefit. Depression for the most part is well controlled except in the winter months. Will add trazodone 50 mg nightly 1 week then increase to 100 mg nightly if symptoms are not better control. Follow-up in 2 weeks. 3. Hyperlipidemia E78.5 Plan Chronic. However patient is currently not on any medication due to joint pain from statins. Last lipid profile done in November 2016 with total cholesterol over 260 and LDL of 160. Will repeat lipid profile. Consider gradually reintroducing statin if still significantly elevated. Baby aspirin daily.. Orders Orders: 4. Hypertension I10 Plan Not optimally controlled. Currently on lisinopril 5 mg daily and hydrochlorothiazide 25 mg daily. Patient is poorly tolerant of lisinopril at higher doses. Will DC lisinopril and start on metoprolol succinate 50 mg daily. Follow-up at next visit. This note was generated with [employer] dictation software. It may contain incorrect words, spelling, and punctuation that were not noted in checking the note before signing. Plan Detail Other Orders Orders: Other Medications New: Follow Up 2 Weeks Coding Level of Care Code Off vis,est,level 3 Diagnoses Palpitations R00.2 Depression with anxiety F41.8 Hyperlipidemia E78.5 Hypertension I10 10/31/17 1644 <Electronically signed by Shannan Chauhan MD> Date Shannan Chauhan MD Cosigner Signature: Date (if applicable) CC: ALLERGIES ALLERGIES DATE TYPE / CODE NAME / CODE REACTION SEVERITY SOURCE Drug Bntbbvn-Znz-Omn Pain in Unknown [facility] Allergy/[id number]( Reductase joints [facility]) Inhibitor/[id number] Hospital 095(RXNORM) Repository Drug cefaclor/[id number] Rash Unknown [facility] Allergy/999372399( 26(RXNORM) [facility] Hospital Repository Drug erythromycin Vomiting Unknown [facility] Allergy/380755011( base/[id number](R [facility] XNORM) Hospital Repository Drug trazodone/[id number] syncope Unknown [facility] Allergy/806304693( 610(RXNORM) [facility] SNOMED [facility]) Hospital Repository Miscellaneous green peppers Swelling OK [facility] Allergy/[id number]( [facility]) Hospital Repository ENCOUNTERS ENCOUNTERS ADMIT/DISCHARGE ACCOUNT ADMITTING ENCOUNTER LOCATION SOURCE NUMBER CLASS 09/15/2018/ [id number] Ambulatory BMSBuilding:B [facility] 0 MS.[facility] [place] [place] Repository 09/08/2018 [id number] Ambulatory [place] [facility] ing:[facility] Repository 09/08/2018 [id number] Ambulatory BMSBuilding:W [facility] 0 [facility] Repository 09/01/2018 [id number] Ambulatory [place] [facility] 8 [facility] ing:[facility] Repository 08/24/2018/ [id number] Ambulatory BMSBuilding:B [facility] 4 [facility] Repository 08/21/2018/ [id number] Emergency [place] [facility] 9 [facility] Hospital ing:ED Repository 08/21/2018 [id number] Ambulatory BMSBuilding:W [place] 0 [facility] Repository 08/11/2018/ [id number] Ambulatory BMSBuilding:B [place] 8 0 [place].[facility] Repository 07/24/2018/ [id number] Ambulatory BMSBuilding:B [place] 8 2 [facility] Repository 07/12/2018/ [id number] Ambulatory BMSBuilding:B [place] 8 6 [facility] Repository 07/10/2018 [id number] Ambulatory [place] 8 [facility] Hospital ing:LAB Repository 05/26/2018/ [id number] Ambulatory BMSBuilding:B [place] 8 2 [facility] Repository 05/24/2018 [id number] Ambulatory [place] 2 [facility] Hospital ing:LAB Repository 05/16/2018 [id number] Ambulatory [place] 2 [facility] ing[facility]OPBI Repository 03/14/2018/ [id number] Ambulatory BMSBuilding:B [place] 8 7 [facility] Repository 03/01/2018 [id number] Ambulatory BMSBuilding:B [place] 0 [facility] Repository 02/23/2018 [id number] Ambulatory [place] 2 [facility] ing:LAB Repository 01/11/2018 [id number] Ambulatory [place] 0 [facility] ing:MTLAB Repository 12/14/2017/ [id number] Ambulatory BMSBuilding:B [place] 8 6 [facility] Repository 12/06/2017/ [id number] Ambulatory BMSBuilding:B [place] 8 7 [facility] Repository 11/30/2017/ [id number] Ambulatory BMSBuilding:B [place] 8 0 [facility] Repository 11/22/2017 [id number] Ambulatory [place] 7 [facility] ing:[facility]S Repository 11/16/2017 [id number] Ambulatory BMSBuilding:B [place] 9 [facility] Repository 11/14/2017/ [id number] Ambulatory BMSBuilding:B [place] 8 5 [facility] Repository 11/10/2017 [id number] Ambulatory [place] 5 [facility] ing:CVS Repository 11/10/2017 [id number] Ambulatory BMSBuilding:W [place] 8 [facility] Repository 11/10/2017/ [id number] Ambulatory BMSBuilding:B [place] 8 2 [facility] Repository 11/07/2017 [id number] Ambulatory [place] 8 [facility] ing:LAB Repository 11/07/2017 [id number] Ambulatory BMSBuilding:W [place] 4 [facility] Repository 10/31/2017/ [id number] Ambulatory BMSBuilding:B [place] 8 5 [facility] Repository PAYERS PAYERS ENCOUNTER GUARANTOR PAYER SUBSCRIBER SOURCE 09/15/2018 ANI Curran ANI J [place] [address] Insurance:[address] [place] Number: B: Hospital [address]Qmv: (330) [id number] Repository [phone] (HP) e Date:4371-51-71GF [address] [place] [address] 72651RC: 09/15/2018 Secondary NOT GIVENUNK [place] Insurance:SELF [facility]Y [facility] Number: Effective Repository Date:2018-09-13 09/08/2018 ANI J Primary ANI J [place] [address] Insurance:[address] cy Number: B: Hospital [id number]: (330) [id number] Repository [phone] () e Date:6541-66-95RV [address] [place] [address] 84124HI: 09/08/2018 Secondary NOT GIVENUNK [place] Insurance:SELF PAY [facility] Number: Effective Repository Date:2018-08-24 09/08/2018 ANI J Primary ANI J [place] [address] Insurance:[address] cy Number: B: Hospital [address]Uqu: (330) [id number] Repository [phone] () e Date:5719-47-09VO [address] [place] [address] 43750EF: 09/08/2018 Secondary NOT GIVENUNK [place] Insurance:SELF PAY [facility] Number: Effective Repository Date:2018-09-08 09/01/2018 ANI J Primary ANI J [place] [address] Insurance:[address] cy Number: B: Hospital [address]Itz: (330) [id number] Repository [phone] (HP) e Date:2479-56-77LL [address] [place] [address] 46362IA: 09/01/2018 Secondary NOT GIVENUNK [place] Insurance:SELF PAY [facility] Number: Effective Repository Date:2018-08-11 08/24/2018 JASMIN Conrad Primary ANI J [place] [address] Insurance:[address] cy Number: B: Hospital [id number]: (330) [id number] Repository [phone] (HP) e Date:7809-99-35ER [id number] [place] [address] 18882PD: 08/24/2018 Secondary NOT GIVENUNK [place] Insurance:SELF PAY [facility] Number: Effective Repository Date:2018-08-22 08/21/2018 ANI J Primary ANI J [place] [address] Insurance:[address] cy Number: B: Hospital [address]Zue: (330) [id number] Repository [phone] (HP) e Date:5606-42-06FA [address] [place] [address] 37450IV: 08/21/2018 Secondary NOT GIVENUNK Juan [place] Insurance:SELF PAY [facility] Number: Effective Repository Date:2018-08-21 08/21/2018 ANI J Primary ANI J [place] [address] Insurance:[address] cy Number: B: Hospital [address]Ijx: (330) [id number] Repository [phone] (HP) e Date:8740-77-26EA [address] [place] [address] 96671JH: 08/21/2018 Secondary NOT GIVENUNK [place] Insurance:SELF PAY [facility] Number: Effective Repository Date:2018-08-21 08/11/2018 ANI J Primary ANI J [place] [address] Insurance:[address] cy Number: B: Hospital [id number]: (330) [id number] Repository [phone] (HP) e Date:8515-09-34QO [address] [address]FQ: 08/11/2018 Secondary NOT GIVENUNK [place] Insurance:SELF PAY [facility] Number: Effective Repository Date:2018-08-10 07/24/2018 JASMIN Conrad Primary ANI J [place] [address] Insurance:[address] cy Number: B: Hospital [address]Hpi: (330) [id number] Repository [phone] () e Date:6834-05-85TW [address] [place] [address] 88114ZN: 07/24/2018 Secondary NOT GIVENUNK [place] Insurance:SELF PAY [facility] Number: Effective Repository Date:2018-07-24 07/12/2018 ANI J Primary ANI J [place] [address] Insurance:[address] cy Number: B: Hospital [address]Hom: (330) [id number] Repository [phone] () e Date:2939-39-41VU [address] [place] [address] 22435YN: 07/12/2018 Secondary NOT GIVENUNK [place] Insurance:SELF PAY [facility] Number: Effective Repository Date:2018-07-12 07/10/2018 ANI J Primary ANI J [place] [address] Insurance:[address] cy Number: B: Hospital [address]Uyh: (330) [id number] Repository [phone] () e Date:3099-95-32UY [address] [place] [address] 49063ST: 07/10/2018 Secondary NOT GIVENUNK [place] Insurance:SELF PAY [facility] Number: Effective Repository Date:2018-07-10 05/26/2018 Ani J Primary ANI J [place] [address] Insurance:[address] cy Number: B: Hospital [address]Tju: (330) [id number] Repository [phone] (HP) e Date:5180-22-38RJ [address] [place] [address] 09220FH: 05/26/2018 Secondary NOT GIVENUNK [place] Insurance:SELF PAY [facility] Number: Effective Repository Date:2018-05-26 05/24/2018 Ani Tinajero Primary ANI J [place] [address] Insurance:[address] cy Number: B: Hospital [address]Ged: (330) [id number] Repository [phone] () e Date:4027-91-54RO [address] 80[address]NH: 05/24/2018 Secondary NOT GIVENUNK [place] Insurance:SELF PAY [facility] Number: Effective Repository Date:2018-05-24 05/16/2018 Ani J Primary ANI J [place] [address] Insurance:[address] cy Number: B: Hospital [id number]: (330) [id number] Repository [phone] () e Date:1503-18-23KV [address] [place] [address] 75680QR: 05/16/2018 Secondary NOT GIVENUNK [place] Insurance:SELF PAY [facility] Number: Effective Repository Date:2018-03-22 03/14/2018 Ani J Primary ANI J [place] [address] Number: B: Hospital [address]Yse: (330) [id number] Repository [phone] (HP) e Date:8142-85-69PU [address] [place] [address] 30772IW: 03/14/2018 Secondary NOT GIVENUNK [place] Insurance:SELF PAY [facility] Number: Effective Repository Date:2018-03-14 03/01/2018 Ani J Primary ANI J [place] [address] Insurance:[address] cy Number: B: Hospital [id number]: (330) [id number] Repository [phone] (HP) e Date:9053-28-39KP [address] [place] [address] 82571UD: 03/01/2018 Secondary NOT GIVENUNK [place] Insurance:SELF PAY [facility] Number: Effective Repository Date:2018-02-27 02/23/2018 Ani J Primary ANI J [place] [address] Insurance:[address] cy Number: B: Hospital [address]Gvr: (330) [id number] Repository [phone] () e Date:5164-26-46NG [address] [place] [address] 43241LR: 02/23/2018 Secondary NOT GIVENUNK [place] Insurance:SELF PAY [facility] Number: Effective Repository Date:2018-02-23 01/11/2018 Ani J Primary ANI J [place] [address] Insurance:[address] cy Number: B: Hospital [address]Hhj: (330) [id number] Repository [phone] (HP) e Date:2163-01-23AK [address] [place] [address] 50904SU: 01/11/2018 Secondary NOT GIVENUNK [place] Insurance:SELF PAY [facility] Number: Effective Repository Date:2018-01-11 12/14/2017 Ani Tinajero Primary ANI [place] [address] Insurance:[address] [place] Number: B: Hospital [address]Wsy: (330) [id number] Repository [phone] () e Date:2118-82-55NZ [address] [place] [address] 21144TV: 12/14/2017 Secondary NOT GIVENUNK [place] Insurance:SELF PAY [facility] Number: Effective Repository Date:2017-12-14 12/06/2017 Ani Tinajero Primary ANI [place] [address] Insurance:[address] [place] Number: B: Hospital [id number]: (330) [id number] Repository [phone] () e Date:1236-71-35MM [address] [place] [address] 03410PV: 12/06/2017 Secondary NOT GIVENUNK [place] Insurance:SELF PAY [facility] Number: Effective Repository Date:2017-12-06 11/30/2017 Ani Tinajero Primary ANI [place] [address] Insurance:[address] [place] Number: B: Hospital [address]83Zsf: (330) [id number] Repository [phone] () e Date:3264-43-96QD [address] [place] [address] 99610XP: 11/30/2017 Secondary NOT GIVENUNK [place] Insurance:SELF PAY [facility] Number: Effective Repository Date:2017-11-30 11/22/2017 Ani Tinajero Primary ANI [place] [address] Insurance:[address] [place] Number: B: Hospital [id number]: (330) [id number] Repository [phone] (HP) e Date:4002-93-33UH [address] [place] [address] 56072ON: 11/22/2017 Secondary NOT GIVENUNK [place] Insurance:SELF PAY [facility] Number: Effective Repository Date:2017-11-10 11/16/2017 Ani Tinajero Primary ANI [place] [address] [facility] [address] cy Number: B: Hospital [address]Jyd: (330) [id number] Repository [phone] (HP) e Date:2971-74-18EG [address] [place] [address] 31742KO: 11/16/2017 Secondary NOT GIVENUNK [place] Insurance:SELF PAY [facility] Number: Effective Repository Date:2017-10-31 11/14/2017 Ani Tinajero Primary ANI [place] [address] [facility] cy Number: B: Hospital [address]Kvt: (330) [id number] Repository [phone] () e Date:7203-51-42EP [address] [place] [address] 36426CI: 11/14/2017 Secondary NOT GIVENUNK [place] Insurance:SELF PAY [facility] Number: Effective Repository Date:2017-11-14 11/10/2017 nAi Tinajero Primary ANI [place] [address] Insurance:[address] cy Number: B: Hospital [id number]: (330) [id number] Repository [phone] () e Date:4105-74-92KF [address] [place] [address] 61911OF: 11/10/2017 Secondary NOT GIVENUNK [place] Insurance:SELF PAY [facility] Number: Effective Repository Date:2017-11-10 11/10/2017 Ani Tinajero Primary ANI [place] [address] Insurance:[address] cy Number: B: Hospital [address]Ujn: (330) [id number] Repository [phone] () e Date:0677-19-82WJ [address] [place] [address] 67590VA: 11/10/2017 Secondary NOT GIVENUNK [place] Insurance:SELF PAY [facility] Number: Effective Repository Date:2017-11-10 11/10/2017 Ani Tinajero Primary ANI [place] [address] Insurance:[address] cy Number: B: Hospital [address]86Zrm: (330) [id number] Repository [phone] () e Date:4745-42-89ZZ [address] [place] [address] 38155AX: 11/10/2017 Secondary NOT GIVENUNK [place] Insurance:SELF PAY [facility] Number: Effective Repository Date:2017-11-10 11/07/2017 Ani Tinajero Primary ANI [place] [address] Insurance:[address] cy Number: B: Hospital [address]Jar: (330) [id number] Repository [phone] () e Date:4212-45-62KB [address] [place] [address] 34439DK: 11/07/2017 Secondary NOT GIVENUNK [place] Insurance:SELF PAY [facility] Number: Effective Repository Date:2017-11-07 11/07/2017 Ani Tinajero Primary ANI [place] [address] Insurance:[address] cy Number: B: Hospital [id number]: (330) [id number] Repository [phone] () e Date:8416-94-07OF [address]GJDWDUE [place] [address]LF: 11/07/2017 Secondary NOT GIVENUNK [place] Insurance:SELF PAY [facility] Number: Effective Repository Date:2017-11-07 10/31/2017 Ani Tanvi Primary ANIJEREMIE Rangel [facility] Insurance:[address] Number: B: [facility] [address]Brd: (098) [id number] Repository [phone] () e Date:0594-03-10HQ [id number] [place] [address] 92879ZW: 10/31/2017 Secondary NOT GIVENUNK [place] Insurance:SELF PAY [facility]: Effective Repository Date:2017-09-01
== END 2018-08-21 19:04 | disposition home or self-care (01) ==
LOC: ED 15:30
PROVIDERS: Emergency Provider Emergency Medicine; Family Provider Internal Medicine; PCP Internal Medicine
DX: R07.9 Chest pain, unspecified (principal); R06.00 Dyspnea, unspecified; I10 Essential (primary) hypertension; E78.00 Pure hypercholesterolemia, unspecified; Z79.82 Long term (current) use of aspirin; Z79.899 Other long term (current) drug therapy
CPT/HCPCS: 71045; 80048; 83880; 84484; 85025; 85379; 93005; 99285; A4216

== ENCOUNTER → 2018-09-01 22:29 | Outpatient (CLI) | payer BC, SELFPAY ==
[2018-08-11 09:57] VITALS: BMI 31.1
== END ==
PROVIDERS: Family Provider Internal Medicine; PCP Internal Medicine; Referring Provider Internal Medicine; Visit Provider Internal Medicine
DX: G47.10 Hypersomnia, unspecified (principal)
CPT/HCPCS: 95810

== ENCOUNTER → 2018-09-08 06:45 | Outpatient (CLI) | payer BC, SELFPAY ==
[2018-08-24 15:08] VITALS: BMI 32.1
--- NOTE | 2018-09-08 14:40 | STRESSREP_ITS ---
Stress Test Report Date: 09/08/2018 Procedure: Pharmacologic stress nuclear imaging study Indications: Chest pain Consent: Per the patient Procedure: The patient underwent pharmacologic (Regadenoson) evaluation with a peak heart rate of 84 beats per minute (54 predicted maximal heart rate) and a peak blood pressure of 132/74 mmHg. The baseline ECG demonstrated normal sinus rhythm. The peak pharmacologic ECG demonstrated no obvious ECG changes. There were no cardiac dysrhythmias pretest, during pharmacologic infusion, or recovery. There was no complaint of chest discomfort during pharmacologic infusion or recovery. The examination was discontinued secondary to completion of protocol. Impression: 1. Pharmacologic (Regadenoson) evaluation 2. Peak pharmacologic ECG with no obvious ECG changes. 3. There were no cardiac dysrhythmias pretest, during pharmacologic infusion, or recovery. 4. Nuclear images pending Myocardial perfusion imaging study: Technique: The patient was injected with 11.8 millicuries of technetium 99m Cardiolite and subsequently rest SPECT Cardiolite nuclear imaging was obtained in the horizontal long, vertical long, and short axis views. The patient underwent pharmacologic (Regadenoson) evaluation with a peak heart rate of 84 beats per minute (54 % percent predicted maximal heart rate) and a peak blood pressure of 132/74 mmHg. The patient was injected with 33.9 millicuries of technetium 99m Cardiolite and subsequently stress SPECT Cardiolite nuclear imaging was obtained in the horizontal long, vertical long, and short axis views. A gated Cardiolite study at peak stress was obtained. Interpretation: Rest and stress SPECT Cardiolite nuclear imaging status post realignment, normalization, and attenuation correction demonstrate a lot of uniform tracer uptake in myocardial perfusion appearing within normal limits. There is end systolic thickening and brightening. The gated Cardiolite study demonstrates myocardial thickening and inward wall motion. The reported LVEF is 82 %. Impression: 1. Rest and stress SPECT Cardiolite nuclear imaging demonstrate relative uniform tracer uptake and myocardial perfusion appearing within normal limits. 2. The gated Cardiolite study reports an LVEF of 82 %. This note was generated with [employer] software. It may contain incorrect words, spelling, and punctuation that were not noted in checking the note before signing.
== END ==
PROVIDERS: Family Provider Internal Medicine; PCP Internal Medicine; Referring Provider Internal Medicine; Visit Provider Internal Medicine
DX: R07.9 Chest pain, unspecified (principal)
CPT/HCPCS: 78452; 93017; A9500; A4216; J2785

== ENCOUNTER → 2018-10-13 15:36 | Outpatient (CLI) | payer BC, SELFPAY ==
[2018-10-13 15:33] VITALS: BMI 32.1
--- NOTE | 2018-10-13 15:37 | RAD_ITS ---
STUDY: X-RAY CHEST REASON FOR EXAM: Female, 68 years old. Fever TECHNIQUE: PA and lateral views of the chest. COMPARISON: August 21, 2018 chest x-ray FINDINGS: There are chronic appearing lung markings without acute focal infiltrate. There is no demonstrated pleural abnormality. Normal size heart. Normal mediastinum and brandt. Normal visualized pulmonary arteries. There is atherosclerotic tortuosity of the aortic arch and descending thoracic aorta. There are diffuse degenerative changes of the visualized thoracic spine. Normal visualized ribs, clavicles, and shoulders. There is no demonstrated abnormality of the visualized soft tissue structures of the upper abdomen. RAD/Chest PA and Lateral IMPRESSION: Chronic appearing lung markings. No evidence of acute focal infiltrate. Electronically Signed: Cookie Canada MD at 16:07 EST Tel , Service support ,
== END ==
PROVIDERS: Family Provider Internal Medicine; PCP Internal Medicine; Referring Provider Physician Assistant Surgical; Visit Provider Physician Assistant Surgical
DX: R05 Cough (principal); R50.9 Fever, unspecified
CPT/HCPCS: 71046

== ENCOUNTER → 2018-10-20 22:32 | Outpatient (CLI) | payer BC, SELFPAY ==
[2018-09-15 13:47] VITALS: BMI 32.1
[2018-10-17 13:08] VITALS: BMI 32.1
== END ==
PROVIDERS: Family Provider Internal Medicine; PCP Internal Medicine; Visit Provider Nurse Practitioner Acute Care
DX: G47.33 Obstructive sleep apnea (adult) (pediatric) (principal)
CPT/HCPCS: 95811

== ENCOUNTER → 2019-04-25 08:02 | Outpatient (CLI) | payer BC, SELFPAY ==
[2019-02-22 08:51] VITALS: BMI 30.4
[2019-04-25 12:40] LABS: AST(SGOT) 22 U/L (15-37); Alanine Aminotransfer ALT/SGPT 30 U/L (13-56); Albumin, Serum 3.5 g/dL (3.2-5.0); Alkaline Phosphatase 86 U/L (45-117); Anion Gap 9 (5-15); BUN 15 mg/dL (7-18); BUN/Creat Ratio 17.2 RATIO (10-20); Chloride 106 mmol/L (98-107); Cholesterol 144 mg/dL (200); Creatinine, Serum 0.87 mg/dL (0.55-1.02); EST Glomerular Filtration Rate 69 mL/min (>60); Est Glom Filt Rate - Afr Amer 83 mL/min (>60); Globulin 3.6 g/dL (2.2-4.2); Glucose 85 mg/dL (74-106); High Density Lipoprotein 52 mg/dL; Potassium 3.9 mmol/L (3.5-5.1); Protein, Total 7.1 g/dL (6.4-8.2); Sodium Level 141 mmol/L (136-145); T4 Free Direct 1.02 ng/dL (0.76-1.46); Thyroid Stim Hormone (TSH) 1.84 uIU/mL (0.358-3.74); Triglycerides 115 mg/dL; Very Low Density Lipoprotein 23 mg/dL (5-40)
== END ==
PROVIDERS: Family Provider Internal Medicine; PCP Internal Medicine; Visit Provider Nurse Practitioner Family
DX: E78.5 Hyperlipidemia, unspecified (principal); E03.9 Hypothyroidism, unspecified
CPT/HCPCS: 36415; 80053; 80061; 84439; 84443

== ENCOUNTER → 2019-05-04 08:51 | Outpatient (CLI) | payer BC, SELFPAY ==
[2019-05-04 08:26] VITALS: BMI 30.4
[2019-05-04 12:38] LABS: Absolute Lymphocyte Count 1.59 X10^3/uL (0.83-4.51); Absolute Neutrophil Count 4.3 X10^3/uL (2.0-7.7); Basophil# 0.05 X10^3/uL; Basophil% 0.7 % (0-1); Eosinophil# 0.16 X10^3/uL; Eosinophils% 2.4 % (0-5); Hematocrit 43.7 % (37-47); Hemoglobin 14.4 g/dL (12.0-15.0); Lymphocyte # 1.59 X10^3/ul (4.0); Lymphocyte % 23.4 % (19-41); Mean Corpuscular Hgb 29.9 pg (27.0-32.0); Mean Corpuscular Volume 90.9 fL (81-99); Mean Platelet Vol. 10.6 fl (6.2-12.0); Monocyte# 0.68 X10^3/uL; NRBC Flagged by Analyzer 0 % (0-5); Neutrophil # 4.27 X10^3/uL (2.7-7.7); Neutrophil % 62.9 % (47-70); Platelet Count 246 K/mm3 (150-450); RBC Distribution Width CV 12.3 % (11.6-14.6); RBC Distribution Width SD 40.2 fl (35.1-43.9); Red Blood Count 4.81 M/mm3 (4.2-5.4); White Blood Count 6.8 K/mm3 (4.4-11.0)
== END ==
PROVIDERS: Family Provider Internal Medicine; PCP Internal Medicine; Visit Provider Internal Medicine
DX: K21.9 Gastro-esophageal reflux disease without esophagitis (principal); F41.8 Other specified anxiety disorders
CPT/HCPCS: 36415; 85025

== ENCOUNTER → 2019-05-23 13:37 | Outpatient (CLI) | payer BC, SELFPAY ==
[2019-05-23 13:05] VITALS: BMI 30.4
--- NOTE | 2019-05-23 13:40 | RAD_ITS ---
STUDY: X-RAY CHEST REASON FOR EXAM: Female, 68 years old. Shortness of breath/dyspnea. TECHNIQUE: PA and lateral views of the chest. COMPARISON: Comparison is made with prior study dated October 13, 2018. FINDINGS: Hyperinflation. Scattered calcified granulomas. The lungs are clear. There is no demonstrated pleural abnormality. Normal size heart. Normal mediastinum and brandt. Normal visualized pulmonary arteries. There is atherosclerotic tortuosity of the aortic arch and descending thoracic aorta. There are diffuse degenerative changes of the visualized thoracic spine. Normal visualized ribs, clavicles, and shoulders. There is no demonstrated abnormality of the visualized soft tissue structures of the upper abdomen. RAD/Chest PA and Lateral IMPRESSION: Hyperinflation. The lungs are clear. Electronically Signed: Aston Cabezas, at 14:22 EDT , Service support ,
== END ==
PROVIDERS: Family Provider Internal Medicine; PCP Internal Medicine; Referring Provider Physician Assistant; Visit Provider Physician Assistant
DX: R06.02 Shortness of breath (principal); R07.89 Other chest pain
CPT/HCPCS: 71046

== ENCOUNTER → 2019-06-05 13:00 | Outpatient (CLI) | payer BC, SELFPAY ==
[2019-05-28 09:26] VITALS: BMI 30.4
== END ==
PROVIDERS: Family Provider Internal Medicine; PCP Internal Medicine; Referring Provider Nurse Practitioner Acute Care; Visit Provider Nurse Practitioner Acute Care
DX: G47.30 Sleep apnea, unspecified (principal)
CPT/HCPCS: 98960; G0463

== ENCOUNTER → 2019-07-19 10:18 | Outpatient (CLI) | payer BC, SELFPAY ==
[2019-06-26 10:07] VITALS: BMI 30.8
--- NOTE | 2019-07-19 10:21 | BI_ITS ---
MAMMOGRAPHY - BILATERAL SCREENING REASON FOR EXAM: Female, 68 years old. Routine annual screening examination. PERTINENT HISTORY: Non-contributory. Remote bilateral breast biopsies. TECHNIQUE: Digital bilateral breast olga (3D mammographic acquisition) in the CC and MLO projections. 2-D mediolateral oblique (MLO) and craniocaudad (CC) views of both breasts were obtained. CAD: Full Field Digital Mammography with Computer Added Detection was performed. COMPARISON: Comparison is made with prior study dated May 16, 2018 and September. FINDINGS: Breast Composition: The breasts are extremely dense, which lowers the sensitivity of mammography. There are no dominant masses or suspicious calcifications. Stable appearance of the small benign-appearing bilateral axillary lymph nodes. A tissue clip marker is once again seen along the anterior inferior slightly medial aspect of the left breast. Stable scattered calcifications bilaterally. No other significant abnormalities are identified. There has been no significant change since the prior study. BI/SCREEN MAMM (CAD) W/OLGA BILAT IMPRESSION: Stable bilateral screening mammogram. Yearly follow-up mammogram recommended. (A) ASSESSMENT CATEGORY: BIRADS Category 2: Benign. A letter regarding these results will be sent to the patient by the facility within 30 days. Approximately 10% of breast cancers are not detected by mammography. A normal mammogram should not delay biopsy of a clinically suspicious abnormality. [id number] Electronically Signed: Aston Cabezas, at 12:33 EST , Service support ,
--- NOTE | 2019-07-19 10:25 | BD_ITS ---
STUDY: DUAL ENERGY X-RAY ABSORPTIOMETRY / DXA REASON FOR EXAM: Female, 68 years old. The patient is postmenopausal. Loss of height. TECHNIQUE: Bone Mineral Density (BMD) measurements of lumbar spine and bilateral hips were obtained. COMPARISON: None. FINDINGS: Lumbar Spine (L1-L4): g/cm2 (1.057) / T-score (-1.2) / Z-score (0.4) Findings are suggestive of osteopenia with a low fracture risk. Left Femur Total: g/cm2 (0.969) / T-score (-0.3) / Z-score (1.0) Left Femoral Neck: g/cm2 (0.929) / T-score (-0.8) / Z-score (0.8) Right Femur Total: g/cm2 (0.955) / T-score (-0.4) / Z-score (0.9) Right Femoral Neck: g/cm2 (0.935) / T-score (-0.7) / Z-score (0.8) BD/Dexa Bone Density Study IMPRESSION: The patient is considered osteopenic as outlined below according to World [employer] Organization (WHO) criteria with a low fracture risk. Reference Information: The T-score is the number of standard deviations above or below the standard which is normal for young adults at their peak bone mineral density. The World Health Organization (WHO) interprets the T-scores as follows: Above -1 Normal bone density Between -1 and -2.5 Osteopenia Equal to / or below -2.5 Osteoporosis As a practical clinical guideline, osteopenia may be graded as follows: Mild -1 through -1.5 Moderate -1.6 through -2.0 Severe -2.1 through -2.4 The Z-score is the number of standard deviations above or below age-matched controls. A Z-score of less than -1.5 would be considered abnormal. References: 1. NIH Osteoporosis and Related Bone Diseases http://www.osteo.org 2. International Society for Clinical Densitometry http://www.iscd.org 3. National Osteoporosis Foundation http://www.nof.org Electronically Signed: Aston Cabezas, at 15:38 EST , Service support ,
== END ==
PROVIDERS: Family Provider Internal Medicine; PCP Internal Medicine; Referring Provider Internal Medicine; Visit Provider Internal Medicine
DX: Z12.31 Encounter for screening mammogram for malignant neoplasm of breast (principal); Z78.0 Asymptomatic menopausal state; M85.80 Other specified disorders of bone density and structure, unspecified site
CPT/HCPCS: 77063; 77067; 77080

== ENCOUNTER → 2019-09-25 09:54 | Outpatient (CLI) | payer BC, SELFPAY ==
[2019-09-25 09:32] VITALS: BMI 31.3
--- NOTE | 2019-09-25 10:23 | RAD_ITS ---
STUDY: X-RAY - RIGHT KNEE REASON FOR EXAM: Bilateral knee pain. TECHNIQUE: 2 view(s) of the knee. COMPARISON: None. FINDINGS: Normal visualized distal femur. Normal visualized proximal tibia and fibula. Normal proximal tibiofibular articulation. There are small marginal osteophytes and severe joint space narrowing of the medial femorotibial compartment. Normal lateral femorotibial compartment. There is a small osteophyte of the inferior patella and mild joint space narrowing of the patellofemoral articulation. The soft tissue structures are unremarkable. RAD/Knee 1 or 2 Views IMPRESSION: Arthrosis of the medial femorotibial and patellofemoral compartments. Electronically Signed: Merrill Garcia MD at 14:53 EST Tel , Service support ,
--- NOTE | 2019-09-25 10:24 | RAD_ITS ---
STUDY: X-RAY - LEFT KNEE REASON FOR EXAM: Female, 69 years old. BILATERAL KNEE PAIN TECHNIQUE: AP and lateral view(s) of the knee. COMPARISON: None. FINDINGS: Normal visualized distal femur. Normal visualized proximal tibia and fibula. Normal proximal tibiofibular articulation. There is severe degenerative arthrosis of the medial femorotibial compartment with severe joint space narrowing. Normal lateral femorotibial compartment. Normal patellofemoral articulation. The soft tissue structures are unremarkable. RAD/Knee 1 or 2 Views IMPRESSION: Marked degree of joint space narrowing involving the medial compartment of the knee joint. Electronically Signed: Aston Cabezas, at 14:39 EST , Service support ,
[2019-09-25 12:45] LABS: ALB/GLOB Ratio 1.1 RATIO (0.9-2.4); AST(SGOT) 23 U/L (15-37); Alanine Aminotransfer ALT/SGPT 36 U/L (13-56); Albumin, Serum 3.9 g/dL (3.2-5.0); Alkaline Phosphatase 89 U/L (45-117); Anion Gap 3 (5-15); BUN 16 mg/dL (7-18); Calcium,Total 9.8 mg/dL (8.5-10.1); Chloride 105 mmol/L (98-107); Creatinine, Serum 1.07 mg/dL (0.55-1.02); EST Glomerular Filtration Rate 54 mL/min (>60); Est Glom Filt Rate - Afr Amer 66 mL/min (>60); Globulin 3.5 g/dL (2.2-4.2); Glucose 88 mg/dL (74-106); Potassium 4.1 mmol/L (3.5-5.1); Protein, Total 7.4 g/dL (6.4-8.2); Sodium Level 138 mmol/L (136-145)
== END ==
PROVIDERS: Family Provider Internal Medicine; PCP Internal Medicine; Referring Provider Internal Medicine; Visit Provider Internal Medicine
DX: M25.561 Pain in right knee (principal); M25.562 Pain in left knee; F41.8 Other specified anxiety disorders; I10 Essential (primary) hypertension
CPT/HCPCS: 36415; 73560; 80053

== ENCOUNTER → 2020-03-25 11:27 | Outpatient (CLI) | payer BC, SELFPAY ==
[2020-03-25 11:03] VITALS: BMI 31.3
[2020-03-25 12:27] LABS: Hematocrit 46.6 % (37-47); Mean Corp Hgb Conc 32.2 g/dL (32-36); Mean Corpuscular Hgb 29.9 pg (27.0-32.0); Mean Corpuscular Volume 92.8 fL (81-99); Platelet Count 272 K/mm3 (150-450); RBC Distribution Width CV 12.6 % (11.6-14.6); RBC Distribution Width SD 42.7 fl (35.1-43.9); Red Blood Count 5.02 M/mm3 (4.2-5.4); White Blood Count 8.8 K/mm3 (4.4-11.0)
[2020-03-25 13:17] LABS: ALB/GLOB Ratio 1.1 RATIO (0.9-2.4); AST(SGOT) 22 U/L (15-37); Alanine Aminotransfer ALT/SGPT 35 U/L (13-56); Albumin, Serum 3.9 g/dL (3.2-5.0); Alkaline Phosphatase 91 U/L (45-117); Anion Gap 7 (5-15); BUN 17 mg/dL (7-18); BUN/Creat Ratio 17.4 RATIO (10-20); Calcium,Total 9.6 mg/dL (8.5-10.1); Chloride 102 mmol/L (98-107); Cholesterol 161 mg/dL (200); Creatinine, Serum 0.98 mg/dL (0.55-1.02); EST Glomerular Filtration Rate 60 mL/min (>60); Est Glom Filt Rate - Afr Amer 73 mL/min (>60); Globulin 3.7 g/dL (2.2-4.2); Glucose 96 mg/dL (74-106); High Density Lipoprotein 60 mg/dL; Potassium 4.1 mmol/L (3.5-5.1); Protein, Total 7.6 g/dL (6.4-8.2); Sodium Level 137 mmol/L (136-145); Triglycerides 127 mg/dL; Very Low Density Lipoprotein 25 mg/dL (5-40)
== END ==
PROVIDERS: PCP Internal Medicine; Referring Provider Nurse Practitioner Family; Visit Provider Nurse Practitioner Family
DX: I10 Essential (primary) hypertension (principal); E78.5 Hyperlipidemia, unspecified; F32.9 Major depressive disorder, single episode, unspecified; F41.9 Anxiety disorder, unspecified
CPT/HCPCS: 36415; 80053; 80061; 84443; 85027

== ENCOUNTER 2020-05-21 10:37 | Emergency (ER) | payer BC, SELFPAY ==
[2020-03-25 11:03] VITALS: BMI 31.3
[2020-05-21 10:38] VITALS: BP 137/81; PULSE 69; RESP 18; TEMP 36.7; O2SAT 94; BMI 33.5
--- NOTE | 2020-05-21 10:40 | EKG12_ITS ---
Test Reason : SYNCOPE Blood Pressure : / mmHG Vent. Rate : 067 BPM Atrial Rate : 067 BPM P-R Int : 180 ms QRS Dur : 098 ms QT Int : 442 ms P-R-T Axes : 049 012 083 degrees QTc Int : 467 ms Normal sinus rhythm Normal ECG Confirmed by CHELO FOOTE, KALPESH ([id number]), acquisitions editor REBEL PEMBERTON ([id number]) on 05/26/2020 12:50:26 PM Referred By: LUCINA Confirmed By:KALPESH WHITNEY MD
--- NOTE | 2020-05-21 10:43 | ED.VIS.GEN ---
History of Present Illness Chief Complaint: Syncope Informant: Patient Onset: Today Context: Sudden Onset Timing: Continuous Current Severity: Mild Maximum Severity: Moderate Narrative: The patient is a 69-year-old female that presents to the emergency department after near syncopal episode. 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 She was standing at the desk waiting to go back. She states suddenly, she became acutely lightheaded and had tunnel vision. She states she felt nauseated like she was going to pass out. They helped her to the chair. She never fully lost consciousness, was not feeling herself. On squad arrival, she was mildly hypotensive. She denies chest pain or shortness of breath. She states that she has had syncope before in the past. She denies any other systemic complaints. She states now, she does feel mildly improved. Prior similar symptoms: Yes Recent Illness/Hospitalization: No Past Medical History - Allergies and Home Meds Allergies/Adverse Reactions: Allergies cefaclor [From Ceclor] Allergy (Verified 05/21/20 10:44) Rash ropinirole Adverse Reaction (Severe, Verified 05/21/20 10:44) nightmares and nausea erythromycin base Adverse Reaction (Verified 05/21/20 10:44) Vomiting trazodone Adverse Reaction (Verified 05/21/20 10:44) syncope green peppers Allergy (Mild, Uncoded 05/21/20 10:44) Swelling Primary Care Physician: Shannan Chauhan MD [Primary Care Provider] - Prior records reviewed: Yes Past Medical History: - - Hypertension, hyperlipidemia Surgical History: noncontributory Smoking Status: Former smoker Review of Systems General: Denies: Chills, Fever, Sweats Eyes: Denies: Visual changes - bilaterally, Diplopia ENT: Denies: Rhinorrhea, Sore throat Cardiovascular: Denies: Chest pain, Palpitations Respiratory: Denies: Dyspnea, Cough, Dyspnea on exertion Gastrointestinal: Reports: Nausea. Denies: Abdominal pain, Vomiting, Diarrhea, Melena, Hematochezia Genitourinary: Denies: Dysuria, Hematuria, Frequency Musculoskeletal: Denies: Back pain, Extremity Pain Skin: Denies: Rash, Wounds Neurological: Denies: Headache, Weakness, Numbness Physical Exam Vital Signs/Narrative: Vital Signs Temp Pulse Resp BP Pulse Ox 05/21/20 10:38 98.1 F 69 18 137/81 H 94 Inital Vital Signs reviewed: Yes General: Well nourished, Well developed, No Acute Distress Head: Normocephalic, Atraumatic Eyes: Perrl, EOMI ENT: Moist mucous membranes, No rhinorrhea Neck: Supple, Nontender Cardiovascular: Regular rate, Regular rhythm, No murmurs Respiratory: No distress, CTA bilaterally, Chest nontender Abdomen: Soft, Nontender, Nondistended, Normal bowel sounds Back: Nontender, Normal Inspection Extremities: Nontender, No edema Skin: Normal color, No rash Neurological: Alert, Oriented x3, Cranial nerves II-XII grossly intact, Normal Strength, Normal Sensation Psychological: Normal affect, Normal Mood Diagnostic/Tx/Re-eval Abnormal Lab Results 05/21/20 05/21/20 10:20 10:20 WBC 7.8 RBC 4.56 Hgb 13.6 Hct 40.7 MCV 89.3 MCH 29.8 MCHC 33.4 RDW Std Deviation 40.1 RDW Coeff of Laci 12.3 Plt Count 292 MPV 9.8 Immature Gran % (Auto) 0.500 Neut % (Auto) 66.9 Lymph % (Auto) 22.8 [place] % (Auto) 9.3 Eos % (Auto) 0.0 Baso % (Auto) 0.5 Absolute Neuts (auto) 5.2 Absolute Lymphs (auto) 1.78 Nucleated RBC % 0 Sodium 139 Potassium 3.8 Chloride 106 Carbon Dioxide 26.0 Anion Gap 7 BUN 14 Creatinine 1.07 H Estim Creat Clear Calc 47.76 Est GFR (MDRD) Af Amer 66 Est GFR (MDRD) Non-Af 54 L BUN/Creatinine Ratio 13.1 Glucose 86 Calcium 9.2 Total Bilirubin 0.40 AST 23 ALT 27 Alkaline Phosphatase 92 Total Protein 7.1 Albumin 3.8 Globulin 3.3 Albumin/Globulin Ratio 1.2 - Rhythm Strip Rhythm Strip: Sinus Rhythm Rate: 80 Ectopy: None - EKG Initial EKG Interpretation: Sinus Rhythm, No Acute Injury Pattern Prior: Unchanged - Medical Decision Making The patient presents after near syncopal episode. She never fully lost consciousness. She does have a history of syncope. EKG was obtained on arrival. There is no evidence of acute ischemic change, prolonged QT, or dysrhythmia. Patient was kept on a monitor. She was given fluids. Metabolic work-up was pursued and was unremarkable. Orthostatics were negative. On reevaluation, she is feeling improved. At this point, I do feel that she is safe for outpatient follow-up. She is comfortable with this plan of care. Impression 1. Vasovagal near syncope ED Disposition - Plan for ED Patient: Instructions: ED Near Syncope Vasovagal Referrals: Shannan Chauhan MD [Primary Care Provider] -
--- NOTE | 2020-05-21 10:45 | NURSING ---
MED SURG TRANG TOSCANO, ELEVATED LFT
[2020-05-21 10:53] LABS: Absolute Lymphocyte Count 1.78 X10^3/uL (0.83-4.51); Absolute Neutrophil Count 5.2 X10^3/uL (2.0-7.7); Basophil# 0.04 X10^3/uL; Basophil% 0.5 % (0-1); Hematocrit 40.7 % (37-47); Hemoglobin 13.6 g/dL (12.0-15.0); Lymphocyte # 1.78 X10^3/ul (4.0); Lymphocyte % 22.8 % (19-41); Mean Corp Hgb Conc 33.4 g/dL (32-36); Mean Corpuscular Hgb 29.8 pg (27.0-32.0); Mean Corpuscular Volume 89.3 fL (81-99); Mean Platelet Vol. 9.8 fl (6.2-12.0); Monocyte# 0.73 X10^3/uL; Monocyte% 9.3 % (0-10); NRBC Flagged by Analyzer 0 % (0-5); Neutrophil # 5.23 X10^3/uL (2.7-7.7); Neutrophil % 66.9 % (47-70); Platelet Count 292 K/mm3 (150-450); RBC Distribution Width CV 12.3 % (11.6-14.6); RBC Distribution Width SD 40.1 fl (35.1-43.9); Red Blood Count 4.56 M/mm3 (4.2-5.4); White Blood Count 7.8 K/mm3 (4.4-11.0)
[2020-05-21] MEDS: 0.9% Normal Saline 1,000 ML 1000 ML IV (11:02)
--- NOTE | 2020-05-21 11:06 | RAD_ITS ---
STUDY: X-RAY CHEST REASON FOR EXAM: Female, 69 years old. HOT FLASH, SOB, NAUSEA TECHNIQUE: Single AP portable view of the chest. COMPARISON: Comparison is made with prior study dated 05/23/2019. FINDINGS: EKG electrodes are seen. The lungs are clear and expanded. There is no demonstrated pleural abnormality. Normal size heart. Normal mediastinum and brandt. Normal visualized pulmonary arteries. There is atherosclerotic tortuosity of the aortic arch and descending thoracic aorta. There are diffuse degenerative changes of the visualized thoracic spine. Dextro scoliosis. Normal visualized ribs, clavicles, and shoulders. There is no demonstrated abnormality of the visualized soft tissue structures of the upper abdomen. RAD/Chest 1 View (Portable) IMPRESSION: Nothing acute Electronically Signed: Aston Cabezas, at 12:08 EDT , Service support ,
[2020-05-21 11:08] LABS: ALB/GLOB Ratio 1.2 RATIO (0.9-2.4); AST(SGOT) 23 U/L (15-37); Alanine Aminotransfer ALT/SGPT 27 U/L (13-56); Albumin, Serum 3.8 g/dL (3.2-5.0); Alkaline Phosphatase 92 U/L (45-117); Anion Gap 7 (5-15); BUN 14 mg/dL (7-18); BUN/Creat Ratio 13.1 RATIO (10-20); Calcium,Total 9.2 mg/dL (8.5-10.1); Chloride 106 mmol/L (98-107); Creatinine, Serum 1.07 mg/dL (0.55-1.02); EST Glomerular Filtration Rate 54 mL/min (>60); Est Glom Filt Rate - Afr Amer 66 mL/min (>60); Estimated Creatinine Clearance 47.76 ml/min; Globulin 3.3 g/dL (2.2-4.2); Glucose 86 mg/dL (74-106); Potassium 3.8 mmol/L (3.5-5.1); Protein, Total 7.1 g/dL (6.4-8.2); Sodium Level 139 mmol/L (136-145)
[2020-05-21] MEDS: Ondansetron 4 MG/2 ML Vial IV (11:44)
[2020-05-21 11:46] VITALS: BP 120/78; BP 125/78; BP 139/93; PULSE 66; PULSE 70; PULSE 78
[2020-05-21 12:09] VITALS: BP 137/71; PULSE 68; RESP 19; O2SAT 97
== END 2020-05-21 12:14 | disposition home or self-care (01) ==
LOC: ED 11:10
PROVIDERS: Emergency Provider Emergency Medicine; PCP Internal Medicine
DX: R55 Syncope and collapse (principal); I95.9 Hypotension, unspecified; I10 Essential (primary) hypertension; E78.5 Hyperlipidemia, unspecified; R11.0 Nausea; Z79.82 Long term (current) use of aspirin; Z79.899 Other long term (current) drug therapy; Z87.891 Personal history of nicotine dependence
CPT/HCPCS: 71045; 80053; 85025; 93005; 96361; 96374; 99285; J7030; A4216; J2405

== ENCOUNTER 2020-09-24 09:01 | Inpatient (IN) | payer BC, MEDICARE, SELFPAY ==
[2020-09-24] VITALS (11 sets, daily range): BP systolic 108–141; BP diastolic 78–89; PULSE 74–84; RESP 16–21; TEMP 36.2–36.9; O2SAT 91–97; BMI 31.5; BMI 30.6
--- NOTE | 2020-09-24 09:22 | ED.VISSUMM ---
- ER Visit Summary Date of Service: 09/24/20 Chief Complaint: Tested Covid positive on September 19 and complaining of increased weakness History of Present Illness: The patient is a 70 F history of hypertension and tested Covid positive on September 19. Patient states she has had symptoms since August after [place]. Probably symptomatic for the last 2 weeks. Complaining of mild nausea. Limited vomiting. Mild diarrhea. No dysuria. She states she feels weak all over. Really does not complain of shortness of breath. Says she has had fevers around 100-1 01. Physical Examination: Older female no acute distress. Vital signs are stable. Pulse ox 92% on room air no signs of hypoxia. H EENT exam dry mucous membranes. Neck nontender no lymphadenopathy. Lungs clear to auscultation bilaterally. Heart regular rhythm rate about 80 no murmur. Abdomen soft nontender normal bowel sounds no peritoneal signs. Patient is moving all 4 extremities. Calves are nontender without edema or cords. Neurologically she is awake and alert with no focal motor deficits. Test Results: CBC shows a white count of 4.5. Hemoglobin 15. Electrolytes sodium 132. Potassium 3.1. Gap of 8. Normal creatinine. Lactate is 1.0. Chest x-ray portable 1 view interpreted by myself shows early right upper lobe infiltrates also read by the radiologist and agrees. Repeat exam no change. Patient will be given p.o. Decadron. Emergency Department Course and Treatment: Older female Covid positive and is generally weak. We treated with IV fluids. Treatment Plan: Discussed with the patient all of her test results. I spoke to the hospitalist about admission. Disposition: Admission Impression: Acute generalized weakness Acute Covid 19 pneumonitis Mild hyponatremia This note was generated with [employer] dictation software. It may contain incorrect words, spelling, and punctuation that were not noted in review of the chart prior to signing ED Disposition - Plan for ED Patient: Referrals: Shannan Chauhan MD [Primary Care Provider] -
[2020-09-24] MEDS: 0.9% Normal Saline 1,000 ML 1000 ML IV (09:27)
[2020-09-24 09:36] LABS: Absolute Lymphocyte Count 0.66 X10^3/uL (0.83-4.51); Absolute Neutrophil Count 3.1 X10^3/uL (2.0-7.7); Basophil# 0.01 X10^3/uL; Basophil% 0.2 % (0-1); Hematocrit 44.2 % (37-47); Hemoglobin 15.5 g/dL (12.0-15.0); Lymphocyte # 0.66 X10^3/ul (4.0); Lymphocyte % 14.8 % (19-41); Mean Corp Hgb Conc 35.1 g/dL (32-36); Mean Corpuscular Hgb 29.7 pg (27.0-32.0); Mean Corpuscular Volume 84.7 fL (81-99); Mean Platelet Vol. 9.4 fl (6.2-12.0); Monocyte# 0.63 X10^3/uL; Monocyte% 14.2 % (0-10); NRBC Flagged by Analyzer 0 % (0-5); Neutrophil # 3.11 X10^3/uL (2.7-7.7); Neutrophil % 69.9 % (47-70); Platelet Count 224 K/mm3 (150-450); RBC Distribution Width CV 12.7 % (11.6-14.6); RBC Distribution Width SD 38.8 fl (35.1-43.9); Red Blood Count 5.22 M/mm3 (4.2-5.4); White Blood Count 4.5 K/mm3 (4.4-11.0)
--- NOTE | 2020-09-24 09:40 | RAD_ITS ---
STUDY: X-RAY CHEST REASON FOR EXAM: Female, 70 years old. Weakness and fatigue. POSITIVE COVID ON 09/19 TECHNIQUE: Single AP portable view of the chest. COMPARISON: Comparison is made with prior chest radiograph dated 05/21/2020. FINDINGS: EKG electrodes are seen. Early infiltrate is seen in the right upper lobe as well as in the left lower lung. There is no demonstrated pleural abnormality. Normal size heart. Normal mediastinum and brandt. Normal visualized pulmonary arteries. There is atherosclerotic tortuosity of the aortic arch and descending thoracic aorta. There are diffuse degenerative changes of the visualized thoracic spine. Normal visualized ribs, clavicles, and shoulders. There is no demonstrated abnormality of the visualized soft tissue structures of the upper abdomen. RAD/Chest 1 View (Portable) IMPRESSION: Early right upper and left lower lobe infiltrates. Electronically Signed: Aston Cabezas, at 10:02 EST , Service support ,
[2020-09-24 09:45] LABS: Anion Gap 8 (5-15); BUN 14 mg/dL (7-18); BUN/Creat Ratio 15.8 RATIO (10-20); Calcium,Total 8.7 mg/dL (8.5-10.1); Chloride 98 mmol/L (98-107); Creatinine, Serum 0.88 mg/dL (0.55-1.02); EST Glomerular Filtration Rate 67 mL/min (>60); Est Glom Filt Rate - Afr Amer 82 mL/min (>60); Estimated Creatinine Clearance 57.28 ml/min; Glucose 107 mg/dL (74-106); Potassium 3.1 mmol/L (3.5-5.1); Sodium Level 132 mmol/L (136-145)
--- NOTE | 2020-09-24 10:19 | PCM.HP.STD ---
Problem List (1) COVID-19 Status: Acute (2) Vertigo Status: Chronic (3) Sleep apnea Status: Chronic (4) Seasonal allergies Status: Chronic (5) Anemia Status: Chronic (6) Hypertension Status: Chronic (7) Hyperlipidemia Status: Chronic (8) GERD (gastroesophageal reflux disease) Status: Chronic (9) Hypothyroidism Status: Chronic (10) H/O: hysterectomy Status: Acute (11) Depression Status: Chronic (12) Anxiety Status: Chronic (13) Restless legs syndrome Status: Chronic (14) Acute bronchitis Status: Resolved Qualifiers: Bronchitis organism: unspecified organism Qualified Code(s): J20.9 - Acute bronchitis, unspecified (15) Cough with fever Status: Resolved (16) Obesity (BMI 30.0-34.9) Status: Chronic (17) VIELKA (obstructive sleep apnea) Status: Chronic (18) Chest pain Status: Resolved (19) Hypersomnolence Status: Chronic (20) Eye abnormality Status: Resolved (21) Right wrist pain Status: Resolved (22) Venous insufficiency (chronic) (peripheral) Status: Chronic (23) Carotid artery stenosis Status: Chronic (24) Dizziness Status: Resolved (25) Syncope and collapse Status: Resolved (26) Hypertension Status: Chronic (27) Hyperlipidemia Status: Chronic (28) Depression with anxiety Status: Chronic (29) Hypothyroidism Status: Chronic Qualifiers: Hypothyroidism type: acquired Qualified Code(s): E03.9 - Hypothyroidism, unspecified History of Present Illness Date of Admission: 09/24/20 Chief Complaint: Shortness of breath Patient is a 70-year-old lady diagnosed with COVID-19 on 09/19/2020 who presented to the emergency department with shortness of breath generalized fatigue and weakness. Patient states shortly had mild symptoms however has since experienced the above symptoms mentioned. Presented to the emergency department as a result. Imaging studies obtained in the ED demonstrated pneumonia involving both upper lungs. Started on Decadron and admitted to the COVID-19 cohort floor for subsequent management Past Medical History Past Medical History (Chronic Problems): Chronic Problems (Last Reviewed 05/30/20 @ 15:55 by Lew Sanchez) Vertigo (Chronic) Sleep apnea (Chronic) Seasonal allergies (Chronic) Anemia (Chronic) Hypertension (Chronic) Hyperlipidemia (Chronic) GERD (gastroesophageal reflux disease) (Chronic) Hypothyroidism (Chronic) Depression (Chronic) Anxiety (Chronic) Restless legs syndrome (Chronic) Obesity (BMI 30.0-34.9) (Chronic) VIELKA (obstructive sleep apnea) (Chronic) Hypersomnolence (Chronic) Venous insufficiency (chronic) (peripheral) (Chronic) Carotid artery stenosis (Chronic) Hypertension (Chronic) Hyperlipidemia (Chronic) Depression with anxiety (Chronic) Hypothyroidism (Chronic) Medical History: Medical History (Last Reviewed 09/24/20 @ 11:[address] Christ Treviño MD) Sleep apnea (Chronic) G47.30 Seasonal allergies (Chronic) J30.2 Anemia (Chronic) D64.9 Hypertension (Chronic) I10 Hyperlipidemia (Chronic) E78.5 GERD (gastroesophageal reflux disease) (Chronic) K21.9 Hypothyroidism (Chronic) E03.9 Depression (Chronic) F32.9 Anxiety (Chronic) F41.9 Allergies cefaclor [From Ceclor] Allergy (Verified 09/24/20 09:11) Rash ropinirole Adverse Reaction (Severe, Verified 09/24/20 09:11) nightmares and nausea erythromycin base Adverse Reaction (Verified 09/24/20 09:11) Vomiting trazodone Adverse Reaction (Verified 09/24/20 09:11) syncope green peppers Allergy (Mild, Uncoded 09/24/20 09:11) Swelling Home Medications: Ambulatory Orders Medication Instructions Recorded Biotin 5,000 mcg PO DAILY 05/26/15 [place] 1 tab PO DAILY 05/29/15 cholecalciferol (vitamin D3) 25 2,000 unit PO DAILY tab 08/18/17 mcg (1,000 unit) tablet compress.stocking,knee,reg,med See Dose Instructions .ROUTE 12/06/17 .MEDSUPPLY #2 ea aspirin 81 mg tablet,delayed 81 mg PO QDAY 03/14/18 release potassium chloride 20 mEq 20 meq PO DAILY #90 tab 01/16/20 tablet,extended release brexpiprazole 1 mg tablet ea PO 01/23/20 amlodipine 5 mg tablet 5 mg PO QDAY #90 tab 03/25/20 duloxetine 60 mg capsule,delayed 60 mg PO DAILY #90 cap 03/25/20 release lamotrigine 100 mg tablet 150 mg PO BID tab 03/25/20 levothyroxine 75 mcg tablet 75 mcg PO .QD #90 tab 03/25/20 lorazepam 0.5 mg tablet 0.5 mg PO QHS PRN #30 tab 03/25/20 metoprolol succinate 50 mg 50 mg PO QDAY #90 tab 03/25/20 tablet,extended release 24 hr rosuvastatin 10 mg tablet 10 mg PO QDAY #90 tab 03/25/20 triamterene 37.5 1 cap PO QAM #90 cap 03/25/20 mg-hydrochlorothiazide 25 mg capsule omeprazole 20 mg capsule,delayed 20 mg PO QDAY #90 cap 04/16/20 release meclizine 25 mg tablet 25 mg PO TID PRN #20 tab 05/30/20 Bupropion HCl 100 mg PO DAILY 09/24/20 Surgical History: Surgical History (Last Reviewed 05/30/20 @ 15:55 by Lew Sanchez) H/O: hysterectomy (Acute) Z90.710 H/O breast biopsy Z98.890 5x, all begnign H/O hemorrhoidectomy Z98.890 gallbladder removal Surgical History: noncontributory Smoking Status: Former smoker - *Family History Paternal Family History: Family History (Last Reviewed 09/24/20 @ 11:[address] Christ Treviño MD) Mother Arthritis Hypertension CVA (cerebral vascular accident) Father Heart disease Myocardial infarction Hypertension Kidney disease Grandfather Cancer Review of Systems Constitutional: Reports: Fever, Weakness, Fatigue HEENT: Denies: Head Aches, Sinus Congestion, Sinus Drainage Cardiovascular: Denies: Chest Pressure Respiratory: Reports: Cough, Shortness of Breath Gastrointestinal: Denies: Abdominal Pain, Hematemesis, Hematochezia, Nausea, Melena, Vomiting Genitourinary: Denies: Dysuria, Frequency, Hematuria, Urgency Musculoskeletal: Denies: Joint Pain, Joint Tenderness Psychiatric: Denies: Homicidal Ideations, Suicidal Ideations Hematologic/ Lymphatic: Denies: Easy Bruising, Easy Bleeding VTE Information - Inpt Only VTE Present on Admission: No VTE Mechan Device Prophylaxis: None VTE Pharm Prophylaxis ordered?: Yes Patient Problems: Active and Suspected Problems (Last Reviewed 05/30/20 @ 15:55 by Lew Sanchez) COVID-19 (Acute) H/O: hysterectomy (Acute) Objective: GENERAL: cooperative HEENT: Atraumatic; EYES; Anicteric, Normal Conjunctiva NECK; supple, normal thyroid, RESPIRATORY: Diminished to auscultation CARDIOVASCULAR: Regular S1 S2, GI: soft, normoactive bowel sounds, : No Renal angle tenderness; EXTREMITIES: No edema, no clubbing, MUSCULOSKELETAL: no muscle waisting NEURO: Awake; no lateralizing signs. SKIN: No Rash PSYCH; Flat affect - Physical Exam Vitals/I&O's: Vital Signs Temp Pulse Resp BP Pulse Ox 98.4 F 84 20 H 133/85 H 91 09/24/20 09:15 09/24/20 09:15 09/24/20 09:15 09/24/20 09:15 09/24/20 09:15 Oxygen Delivery Method Room Air Weight: 88.7 kg Body Mass Index (BMI) 31.5 Laboratory Results 09/24/20 09:21: WBC 4.5, RBC 5.22, Hgb 15.5 H, Hct 44.2, MCV 84.7, MCH 29.7, MCHC 35.1, RDW Std Deviation 38.8, RDW Coeff of Laci 12.7, Plt Count 224, MPV 9.4, Immature Gran % (Auto) 0.900, Neut % (Auto) 69.9, Lymph % (Auto) 14.8 L, [place] % (Auto) 14.2 H, Eos % (Auto) 0.0, Baso % (Auto) 0.2, Absolute Neuts (auto) 3.1, Absolute Lymphs (auto) 0.66 L, Nucleated RBC % 0 09/24/20 09:21: Sodium 132 L, Potassium 3.1 L, Chloride 98, Carbon Dioxide 26.0, Anion Gap 8, BUN 14, Creatinine 0.88, Estim Creat Clear Calc 57.28, Est GFR (MDRD) Af Amer 82, Est GFR (MDRD) Non-Af 67, BUN/Creatinine Ratio 15.8, Glucose 107 H, Calcium 8.7 09/24/20 09:21: Lactic Acid 1.0 Assessment/Plan All Active Problems (Last Reviewed 05/30/20 @ 15:55 by Lew Sanchez) COVID-19 (Acute) H/O: hysterectomy (Acute) Acute bronchitis (Resolved) Cough with fever (Resolved) Chest pain (Resolved) Eye abnormality (Resolved) Right wrist pain (Resolved) Dizziness (Resolved) Syncope and collapse (Resolved) Patient is a 70-year-old lady admitted with shortness of breath 6 days after being diagnosed with COVID-19 imaging studies on admission demonstrated bilateral (right upper and left lower lobe infiltrate Acute COVID-19 pneumonia ?Patient has been admitted to the cohort floor. Placed on supplemental oxygen aerosol treatment as well as Decadron with consultation placed to infectious disease. 2. Hypertension - Blood pressure controlled, home medications continued with dose adjustment as needed 3. Hypothyroidism - Patient is on levothyroxine home dose continued 4. Hypokalemia ?Corrected per protocol 5. Depression with anxiety ?Discontinue patient antidepressants from home 7. GERD ?Patient is on PPI at home did continue 8. Obesity with BMI of 30.6 ?Weight loss advised 9. DVT prophylaxis ?Lovenox 30 mg SC twice daily Advance planning; did discuss with the patient and family regarding advanced directives as well as CODE STATUS. Did explain the various scenarios involved ( FULL CODE, DNR CCA, DNR CCA with no intubation, and DNR CC and what each meant) elected to remain full code with CPR and intubation if warranted. Order was placed. Time spent on discussion 18 minutes. Inpatient E&M: 80342 Init Hosp L3 Procedures: 03013 Advncd Care Plan 30 Min
--- NOTE | 2020-09-24 10:21 | NURSING ---
DR YUDELKA BASS
[2020-09-24] MEDS: dexAMETHasone 4 MG Tablet 6 MG PO (10:24)
--- NOTE | 2020-09-24 10:27 | ED.RN ---
CALLED AND LEFT MESSAGE FOR REGARDING ADMISSION PER PT REQUEST
--- NOTE | 2020-09-24 10:27 | NURSING ---
MED SURG [facility]E COVID PNEUMONITIS, WEAKNESS
--- NOTE | 2020-09-24 10:32 | NURSING ---
DR JHA IN ROOM
[2020-09-24 13:24] LABS: Prothrombin Time (Protime)PT. 13.1 SECONDS (11.7-14.9)
[2020-09-24 13:25] LABS: Fibrinogen 587 mg/dl (203-444)
[2020-09-24 13:41] LABS: BNP,B-Type NATRIURETIC PEPTIDE 8.8 pg/mL (0-100)
[2020-09-24 13:45] LABS: CPK Total, Creatine Kinase 94 U/L (26-192); LDH 245 U/L (84-246)
[2020-09-24 13:50] LABS: AST(SGOT) 24 U/L (15-37); Alanine Aminotransfer ALT/SGPT 21 U/L (13-56); Albumin, Serum 2.9 g/dL (3.2-5.0); Alkaline Phosphatase 78 U/L (45-117); Bilirubin, Direct 0.21 mg/dL (0.00-0.30); Globulin 3.3 g/dL (2.2-4.2); Protein, Total 6.2 g/dL (6.4-8.2)
[2020-09-24 13:50] LABS: Procalcitonin 0.08 ng/mL (0.00-0.09)
--- NOTE | 2020-09-24 15:32 | PCM.HP.ID ---
Problem List (1) COVID-19 Status: Acute Reason for Consult: covid Consulted by: Dr. Treviño History of Present Illness: The patient is a 70 year old F developed chills, fever, headache on 09/07. had been sick with covid. Had changes with taste and smell, new cough, and severe fatigue. Came to ED due to worsening sx. Started on dex, O2. Full ROS performed and neg except as noted above. - Medical History Past Medical History (Chronic Problems): Chronic Problems (Last Reviewed 09/24/20 @ 11:[address] Christ Treviño MD) Vertigo (Chronic) Sleep apnea (Chronic) Seasonal allergies (Chronic) Anemia (Chronic) Hypertension (Chronic) Hyperlipidemia (Chronic) GERD (gastroesophageal reflux disease) (Chronic) Hypothyroidism (Chronic) Depression (Chronic) Anxiety (Chronic) Restless legs syndrome (Chronic) Obesity (BMI 30.0-34.9) (Chronic) VIELKA (obstructive sleep apnea) (Chronic) Hypersomnolence (Chronic) Venous insufficiency (chronic) (peripheral) (Chronic) Carotid artery stenosis (Chronic) Hypertension (Chronic) Hyperlipidemia (Chronic) Depression with anxiety (Chronic) Hypothyroidism (Chronic) Allergies/Adverse Reactions: Allergies cefaclor [From Ceclor] Allergy (Verified 09/24/20 09:11) Rash ropinirole Adverse Reaction (Severe, Verified 09/24/20 09:11) nightmares and nausea erythromycin base Adverse Reaction (Verified 09/24/20 09:11) Vomiting trazodone Adverse Reaction (Verified 09/24/20 09:11) syncope green peppers Allergy (Mild, Uncoded 09/24/20 09:11) Swelling Home Medications: Ambulatory Orders Medication Instructions Recorded Biotin 5,000 mcg PO DAILY 05/26/15 Daylin 1 tab PO DAILY 05/29/15 cholecalciferol (vitamin D3) 25 2,000 unit PO DAILY tab 08/18/17 mcg (1,000 unit) tablet compress.stocking,knee,reg,med See Dose Instructions .ROUTE 12/06/17 .MEDSUPPLY #2 ea aspirin 81 mg tablet,delayed 81 mg PO QDAY 03/14/18 release potassium chloride 20 mEq 20 meq PO DAILY #90 tab 01/16/20 tablet,extended release brexpiprazole 1 mg tablet ea PO 01/23/20 amlodipine 5 mg tablet 5 mg PO QDAY #90 tab 03/25/20 duloxetine 60 mg capsule,delayed 60 mg PO DAILY #90 cap 03/25/20 release lamotrigine 100 mg tablet 150 mg PO BID tab 03/25/20 levothyroxine 75 mcg tablet 75 mcg PO .QD #90 tab 03/25/20 lorazepam 0.5 mg tablet 0.5 mg PO QHS PRN #30 tab 03/25/20 metoprolol succinate 50 mg 50 mg PO QDAY #90 tab 03/25/20 tablet,extended release 24 hr rosuvastatin 10 mg tablet 10 mg PO QDAY #90 tab 03/25/20 triamterene 37.5 1 cap PO QAM #90 cap 03/25/20 mg-hydrochlorothiazide 25 mg capsule omeprazole 20 mg capsule,delayed 20 mg PO QDAY #90 cap 04/16/20 release meclizine 25 mg tablet 25 mg PO TID PRN #20 tab 05/30/20 Bupropion HCl 100 mg PO BID 09/24/20 - Social History SMOKING STATUS:: Former smoker Vital Signs Temp Pulse Resp BP Pulse Ox 98.3 F 79 18 131/81 H 97 09/24/20 12:03 09/24/20 12:03 09/24/20 12:03 09/24/20 12:03 09/24/20 14:00 Oxygen Flow Rate (L/min) 2 Oxygen Delivery Method Nasal Cannula Weight: 86.092 kg Body Mass Index (BMI) 30.6 Laboratory Tests Past 24 Hrs 09/24/20 09/24/20 09/24/20 09:21 09:21 09:21 WBC 4.5 RBC 5.22 Hgb 15.5 H Hct 44.2 MCV 84.7 MCH 29.7 MCHC 35.1 RDW Std Deviation 38.8 RDW Coeff of Laci 12.7 Plt Count 224 MPV 9.4 Immature Gran % (Auto) 0.900 Neut % (Auto) 69.9 Lymph % (Auto) 14.8 L [place] % (Auto) 14.2 H Eos % (Auto) 0.0 Baso % (Auto) 0.2 Absolute Neuts (auto) 3.1 Absolute Lymphs (auto) 0.66 L Nucleated RBC % 0 PT INR Fibrinogen D-Dimer Quant (PE/DVT) Sodium 132 L Potassium 3.1 L Chloride 98 Carbon Dioxide 26.0 Anion Gap 8 BUN 14 Creatinine 0.88 Estim Creat Clear Calc 57.28 Est GFR (MDRD) Af Amer 82 Est GFR (MDRD) Non-Af 67 BUN/Creatinine Ratio 15.8 Glucose 107 H Lactic Acid 1.0 Calcium 8.7 Total Bilirubin Direct Bilirubin AST ALT Alkaline Phosphatase Lactate Dehydrogenase Total Creatine Kinase Troponin I C-React Prot Ext Range B-Natriuretic Peptide Total Protein Albumin Globulin Procalcitonin 09/24/20 09/24/20 09/24/20 09:21 09:21 13:00 WBC RBC Hgb Hct MCV MCH MCHC RDW Std Deviation RDW Coeff of Laci Plt Count MPV Immature Gran % (Auto) Neut % (Auto) Lymph % (Auto) [place] % (Auto) Eos % (Auto) Baso % (Auto) Absolute Neuts (auto) Absolute Lymphs (auto) Nucleated RBC % PT INR Fibrinogen D-Dimer Quant (PE/DVT) Sodium Potassium Chloride Carbon Dioxide Anion Gap BUN Creatinine Estim Creat Clear Calc Est GFR (MDRD) Af Amer Est GFR (MDRD) Non-Af BUN/Creatinine Ratio Glucose Lactic Acid Calcium Total Bilirubin 0.60 Direct Bilirubin 0.21 AST 24 ALT 21 Alkaline Phosphatase 78 Lactate Dehydrogenase 245 Total Creatine Kinase 94 Troponin I < 0.015 C-React Prot Ext Range 31.50 H B-Natriuretic Peptide 8.8 Total Protein 6.2 L Albumin 2.9 L Globulin 3.3 Procalcitonin 09/24/20 09/24/20 13:00 13:00 WBC RBC Hgb Hct MCV MCH MCHC RDW Std Deviation RDW Coeff of Laci Plt Count MPV Immature Gran % (Auto) Neut % (Auto) Lymph % (Auto) [place] % (Auto) Eos % (Auto) Baso % (Auto) Absolute Neuts (auto) Absolute Lymphs (auto) Nucleated RBC % PT 13.1 INR 1.0 Fibrinogen 587 H D-Dimer Quant (PE/DVT) 0.90 H* Sodium Potassium Chloride Carbon Dioxide Anion Gap BUN Creatinine Estim Creat Clear Calc Est GFR (MDRD) Af Amer Est GFR (MDRD) Non-Af BUN/Creatinine Ratio Glucose Lactic Acid Calcium Total Bilirubin Direct Bilirubin AST ALT Alkaline Phosphatase Lactate Dehydrogenase Total Creatine Kinase Troponin I C-React Prot Ext Range B-Natriuretic Peptide Total Protein Albumin Globulin Procalcitonin 0.08 - Other Studies Radiology: [] reviewed Other Studies: [] Route of nutrition/ use of supplements: [] Nutritional Intake: [] IV Site: [] [place] Catheter: [] - Physical Exam General: Alert, Oriented x3, Cooperative, No apparent distress HEENT: Atraumatic, PERRLA, EOMI Neck: Supple, No Nodes Lungs: Clear to auscultation, Diminished Cardiovascular: Regular rate, Regular Rhythm Abdomen: Soft, Non Tender, Non-Distended Extremities: No edema Skin: No rashes IV Site: Peripheral, without redness Musculoskeletal: No Tenderness to Palpation of Joints or Extremities Neurological: Cranial nerves II-XII grossly intact - Assessment/Plan Antibiotics: [] Assessment/Plan: [] Active and Suspected Problems (Last Reviewed 05/30/20 @ 15:55 by Lew Sanchez) COVID-19 (Acute) H/O: hysterectomy (Acute) covid with hypoxia- sx started 09/07. On dex, will start remdesivir. Lovenox 30mg bid, d-dimer 0.9. Will follow, thank you
[2020-09-24] MEDS: lamoTRIgine 150 MG Tablet PO (20:03)
[2020-09-24] MEDS: buPROPion (SR) 100 MG TABLET.SA PO (20:04)
[2020-09-24] MEDS: Atorvastatin Calcium 20 MG Tablet PO (20:04)
[2020-09-24] MEDS: Enoxaparin 30 MG/0.3 ML Syringe SC (20:04)
[2020-09-25] VITALS (8 sets, daily range): BP systolic 129–149; BP diastolic 77–84; PULSE 76–99; RESP 18–19; TEMP 36.3–38.1; O2SAT 94–98
[2020-09-25 05:42] LABS: Absolute Lymphocyte Count 0.68 X10^3/uL (0.83-4.51); Absolute Neutrophil Count 4.4 X10^3/uL (2.0-7.7); Basophil# 0.01 X10^3/uL; Basophil% 0.2 % (0-1); Hematocrit 42.3 % (37-47); Hemoglobin 14.3 g/dL (12.0-15.0); Lymphocyte # 0.68 X10^3/ul (4.0); Lymphocyte % 11.6 % (19-41); Mean Corp Hgb Conc 33.8 g/dL (32-36); Mean Corpuscular Hgb 29.2 pg (27.0-32.0); Mean Corpuscular Volume 86.5 fL (81-99); Mean Platelet Vol. 9.3 fl (6.2-12.0); Monocyte# 0.67 X10^3/uL; Monocyte% 11.5 % (0-10); NRBC Flagged by Analyzer 0 % (0-5); Neutrophil # 4.41 X10^3/uL (2.7-7.7); Neutrophil % 75.3 % (47-70); Platelet Count 216 K/mm3 (150-450); RBC Distribution Width CV 12.3 % (11.6-14.6); RBC Distribution Width SD 39.2 fl (35.1-43.9); Red Blood Count 4.89 M/mm3 (4.2-5.4); White Blood Count 5.9 K/mm3 (4.4-11.0)
[2020-09-25 06:03] LABS: AST(SGOT) 38 U/L (15-37); Alanine Aminotransfer ALT/SGPT 28 U/L (13-56); Alkaline Phosphatase 81 U/L (45-117); Anion Gap 5 (5-15); BUN 16 mg/dL (7-18); BUN/Creat Ratio 18.5 RATIO (10-20); Bilirubin, Direct 0.21 mg/dL (0.00-0.30); Calcium,Total 8.2 mg/dL (8.5-10.1); Chloride 102 mmol/L (98-107); Creatinine, Serum 0.86 mg/dL (0.55-1.02); EST Glomerular Filtration Rate 69 mL/min (>60); Est Glom Filt Rate - Afr Amer 84 mL/min (>60); Estimated Creatinine Clearance 58.61 ml/min; Glucose 106 mg/dL (74-106); Magnesium 2.1 mg/dL (1.6-2.6); Potassium 3.8 mmol/L (3.5-5.1); Sodium Level 135 mmol/L (136-145)
--- NOTE | 2020-09-25 07:31 | PN_ITS ---
Patient Problems: Active and Suspected Problems (Last Reviewed 05/30/20 @ 15:55 by Lew Sanchez) COVID-19 (Acute) H/O: hysterectomy (Acute) Reason for Visit: Acute COVID-19 pneumonia Subjective: Patient is a 70-year-old lady admitted with shortness of breath 6 days after being diagnosed with COVID-19 imaging studies on admission demonstrated bilateral (right upper and left lower lobe infiltrate) ?09/25/2020; patient was seen in consultation by infectious disease the day prior remdesivir added to patient's therapy Objective: GENERAL: cooperative HEENT: Atraumatic; EYES; Anicteric, Normal Conjunctiva NECK; supple, normal thyroid, RESPIRATORY: Diminished to auscultation CARDIOVASCULAR: Regular S1 S2, GI: soft, normoactive bowel sounds, : No Renal angle tenderness; EXTREMITIES: No edema, no clubbing, MUSCULOSKELETAL: no muscle waisting NEURO: Awake; no lateralizing signs. SKIN: No Rash PSYCH; Flat affect Vitals/I&O's: Vital Signs Temp Pulse Resp BP Pulse Ox 99.6 F H 86 18 142/83 H 97 09/25/20 06:46 09/25/20 06:46 09/25/20 06:46 09/25/20 06:46 09/25/20 06:46 Oxygen Flow Rate (L/min) 2 Oxygen Delivery Method Nasal Cannula Weight: 86.092 kg Body Mass Index (BMI) 30.6 Intake and Output for Last 24 Hours 09/23/20 09/24/20 09/25/20 23:59 23:59 23:59 Intake Total 1690 / 1930 360 / 360 Balance 1690 / 1930 360 / 360 Microbiology Past 72 Hours 09/24/20 15:45 Urine, Clean Catch Legionella Antigen - Final 09/24/20 15:45 Urine, Clean Catch Streptococcus pneumoniae Antigen (M - Final Laboratory Results 09/24/20 09:21: WBC 4.5, RBC 5.22, Hgb 15.5 H, Hct 44.2, MCV 84.7, MCH 29.7, MCHC 35.1, RDW Std Deviation 38.8, RDW Coeff of Laci 12.7, Plt Count 224, MPV 9.4, Immature Gran % (Auto) 0.900, Neut % (Auto) 69.9, Lymph % (Auto) 14.8 L, Dukes % (Auto) 14.2 H, Eos % (Auto) 0.0, Baso % (Auto) 0.2, Absolute Neuts (auto) 3.1, Absolute Lymphs (auto) 0.66 L, Nucleated RBC % 0 09/24/20 09:21: Sodium 132 L, Potassium 3.1 L, Chloride 98, Carbon Dioxide 26.0, Anion Gap 8, BUN 14, Creatinine 0.88, Estim Creat Clear Calc 57.28, Est GFR (MDRD) Af Amer 82, Est GFR (MDRD) Non-Af 67, BUN/Creatinine Ratio 15.8, Glucose 107 H, Calcium 8.7 09/24/20 09:21: Lactic Acid 1.0 09/24/20 09:21: Lactate Dehydrogenase 245, Total Creatine Kinase 94, Troponin I < 0.015, C-React Prot Ext Range 31.50 H 09/24/20 09:21: Total Bilirubin 0.60, Direct Bilirubin 0.21, AST 24, ALT 21, Alkaline Phosphatase 78, Total Protein 6.2 L, Albumin 2.9 L, Globulin 3.3 09/24/20 13:00: B-Natriuretic Peptide 8.8 09/24/20 13:00: PT 13.1, INR 1.0, Fibrinogen 587 H, D-Dimer Quant (PE/DVT) 0.90 H* 09/24/20 13:00: Procalcitonin 0.08 09/25/20 05:20: Sodium 135 L, Potassium 3.8, Chloride 102, Carbon Dioxide 28.0, Anion Gap 5, BUN 16, Creatinine 0.86, Estim Creat Clear Calc 58.61, Est GFR (MDRD) Af Amer 84, Est GFR (MDRD) Non-Af 69, BUN/Creatinine Ratio 18.5, Glucose 106, Calcium 8.2 L, Magnesium 2.1, Total Bilirubin 0.50, Direct Bilirubin 0.21, AST 38 H, ALT 28, Alkaline Phosphatase 81, Total Protein 6.0 L, Albumin 3.0 L, Globulin 3.0 09/25/20 05:20: WBC 5.9, RBC 4.89, Hgb 14.3, Hct 42.3, MCV 86.5, MCH 29.2, MCHC 33.8, RDW Std Deviation 39.2, RDW Coeff of Laci 12.3, Plt Count 216, MPV 9.3, Immature Gran % (Auto) 1.400 H, Neut % (Auto) 75.3 H, Lymph % (Auto) 11.6 L, Dukes % (Auto) 11.5 H, Eos % (Auto) 0.0, Baso % (Auto) 0.2, Absolute Neuts (auto) 4.4, Absolute Lymphs (auto) 0.68 L, Nucleated RBC % 0 Current Medications Acetaminophen (Acetaminophen 325 Mg Tablet) 650 mg PO Q6H PRN PRN PRN Reason: Pain Score 1-10/Temp > 100.7 F Al Hydroxide/Mg Hydroxide (Mag Hydrox/Al Hydrox/Simeth 30 Ml Udc) 30 ml PO Q6H PRN PRN PRN Reason: Gastric Burning Albuterol Sulfate (Albuterol 2.5 Mg/3 Ml Vial.Neb.) 2.5 mg INHALATION Q2H PRN PRN PRN Reason: Shortness of Breath/Wheezing Amlodipine Besylate (Amlodipine 5 Mg Tablet) 5 mg PO DAILY [facility] Aspirin (Aspirin E.C. 81 Mg Tablet) 81 mg PO DAILY [facility] Atorvastatin Calcium (Atorvastatin Calcium 20 Mg Tablet) 20 mg PO QHS [facility] Last Admin: 09/24/20 20:04 Dose: 20 mg Documented by: Bupropion HCl (Bupropion (Sr) 100 Mg Tablet.Sa) 100 mg PO BID [facility] Last Admin: 09/24/20 20:04 Dose: 100 mg Documented by: Cholecalciferol (Cholecalciferol (Vit D3) 1,000 Unit (25mcg)) 2,000 unit PO DAILY [facility] Dexamethasone (Dexamethasone 4 Mg Tablet) 6 mg PO DAILY [facility] Stop: 10/03/20 10:01 Duloxetine HCl (Duloxetine Hcl 60 Mg Capsule) 60 mg PO DAILY [facility] Enoxaparin Sodium (Enoxaparin 30 Mg/0.3 Ml Syringe) 30 mg SC BID [facility] Last Admin: 09/24/20 20:04 Dose: 30 mg Documented by: Guaifenesin (Guaifenesin 10 Ml Udc (200mg/10ml)) 20 ml PO Q4H PRN PRN PRN Reason: COUGH Remdesivir 100 mg/ Sodium (Chloride) 250 mls @ 125 mls/hr IV DAILY [facility]; Protocol Stop: 01/17/21 11:59 Influenza Virus Vaccine Quadrival (Influenza Vaccine (6mos+)/Pf 0.5 Ml Syringe) 0.5 ml IM .ONCE ONE Stop: 09/25/20 10:01 Lamotrigine (Lamotrigine 150 Mg Tablet) 150 mg PO BID [facility] Last Admin: 09/24/20 20:03 Dose: 150 mg Documented by: Levothyroxine Sodium (Levothyroxine 75 Mcg Tablet) 75 mcg PO DAILY [facility] Loratadine (Loratadine 10 Mg Tablet) 10 mg PO DAILY [facility] Lorazepam (Lorazepam 0.5 Mg Tablet) 0.5 mg PO QHS PRN PRN Reason: anxiety Magnesium Hydroxide (Magnesium Hydroxide 30 Ml Udc) 30 ml PO DAILY PRN PRN PRN Reason: Constipation Meclizine HCl (Meclizine Hcl 25 Mg Tablet) 25 mg PO TID PRN PRN Reason: dizziness Melatonin (Melatonin 3 Mg Tablet) 3 mg PO QHS PRN PRN PRN Reason: INSOMNIA Metoprolol Succinate (Metoprolol(Xl)Succ 50 Mg Tablet) 50 mg PO DAILY [facility] Nitroglycerin (Nitroglycerin (Inpatient Use) 0.4 Mg Tab.Subl) 0.4 mg SUBLINGUAL Q5M PRN PRN Reason: CARDIAC/CHEST PAIN Ondansetron HCl (Ondansetron 4 Mg/2 Ml Vial) 4 mg IV Q8H PRN PRN PRN Reason: NAUSEA/VOMITING Oxycodone HCl (Oxycodone 5 Mg Tablet) 10 mg PO Q4H PRN PRN PRN Reason: Pain Score 6-10 Pantoprazole Sodium (Pantoprazole Sodium 20 Mg Tablet) 20 mg PO DAILY [facility] Potassium Chloride (Potassium Chloride 20 Meq Tablet) 20 meq PO DAILY [facility] Promethazine HCl (Promethazine 25 Mg/Ml Syringe) 25 mg IM Q6H PRN PRN PRN Reason: Breakthrough nausea/vomiting Sodium Chloride (0.9% Saline Lock 10 Ml Syringe) 10 - 40 ml IV UD PRN PRN Reason: SALINE FLUSH Triamterene/Hydrochlorothiazide (Triamterene 37.5mg/Hctz 25mg Capsule) 1 cap PO QAM [facility] STROKE Vital Signs/Narrative: Vital Signs Temp Pulse Resp BP Pulse Ox 09/25/20 06:46 99.6 F H 86 18 142/83 H 97 Medical Necessity - Tobacco Use Smoking Status: Former smoker Assessment/Plan All Active Problems (Last Reviewed 09/24/20 @ 11:[address] Christ Treviño MD) COVID-19 (Acute) H/O: hysterectomy (Acute) Acute bronchitis (Resolved) Cough with fever (Resolved) Chest pain (Resolved) Eye abnormality (Resolved) Right wrist pain (Resolved) Dizziness (Resolved) Syncope and collapse (Resolved) Patient is a 70-year-old lady admitted with shortness of breath 6 days after being diagnosed with COVID-19 imaging studies on admission demonstrated bilateral (right upper and left lower lobe infiltrate) 1. Acute COVID-19 pneumonia ?Patient has been admitted to the cohort floor. Placed on supplemental oxygen aerosol treatment as well as Decadron with consultation placed to infectious disease. ?09/25/2020; patient was seen in consultation by infectious disease the day prior remdesivir added to patient's therapy 2. Hypertension - Blood pressure controlled, home medications continued with dose adjustment as needed 3. Hypothyroidism - Patient is on levothyroxine home dose continued 4. Hypokalemia ?Corrected per protocol 5. Depression with anxiety ?Discontinue patient antidepressants from home 7. GERD ?Patient is on PPI at home did continue 8. Obesity with BMI of 30.6 ?Weight loss advised 9. DVT prophylaxis ?Lovenox 30 mg SC twice daily Inpatient E&M: [id number] [facility] L3
[2020-09-25] MEDS: Metoprolol(XL)Succ 50 MG Tablet PO (09:47)
[2020-09-25] MEDS: Pantoprazole Sodium 20 MG Tablet PO (09:47)
[2020-09-25] MEDS: amLODIPine 5 MG Tablet PO (09:47)
[2020-09-25] MEDS: lamoTRIgine 150 MG Tablet PO ×2 (09:47→22:29)
[2020-09-25] MEDS: dexAMETHasone 4 MG Tablet 6 MG PO (09:47)
[2020-09-25] MEDS: Aspirin E.C. 81 MG Tablet PO (09:47)
[2020-09-25] MEDS: Loratadine 10 MG Tablet PO (09:47)
[2020-09-25] MEDS: buPROPion (SR) 100 MG TABLET.SA PO (09:47)
[2020-09-25] MEDS: Triamterene 37.5MG/Hctz 25MG Capsule 1 CAP PO (09:47)
[2020-09-25] MEDS: Levothyroxine 75 MCG Tablet PO (09:47)
[2020-09-25] MEDS: DULoxetine Hcl 60 MG Capsule PO (09:48)
[2020-09-25] MEDS: Enoxaparin 30 MG/0.3 ML Syringe SC ×2 (09:48→21:52)
--- NOTE | 2020-09-25 12:14 | CASEMGMT ---
Attempted calls to patient's room, cell phone and to . No answer. Unable to complete assessment @ this time. Seferino REGALADON RN ACM
--- NOTE | 2020-09-25 13:20 | CASEMGMT ---
RN CM Assessment Note Introduced role of CM to patient's via phone. Patient is not feeling well and not able to participate in assessment. Demographics, PCP verified. Per , patient is very independent at home until past 2 weeks. Now with weakness fatigue and shortness of breath. has had COVID and received treatment. He is recovering. No concerns re: dc. RN CM did let know pt is feeling weak and tired and cm would be available if DC needs arise. -COVID testing- @ [facility] 09/19/20 Diagnosis: COVID 19 PCP:Dr. Chauhan Specialists: no Insurance: Lennie [facility] Pres[facility] Benefit: yes LNOK: , Maxi Fields Living Arrangements: Lives independently at home with her . Prior to illness, pt did not have care needs. described her as running around, cleaning the house and chasing the grandkids. Tranportation: drives or can drive DME: none. states she had a cpap that she did not wear. He believes she sent it back. Reviewed list of oxygen DME suppliers in area with verbally over phone. He prefers [facility] as he uses this provider for his cpap supplies. aware they are affiliated with the hospital. HHC: none SNF: none Patient DC Goals: home DC Plan: anticipate home on dc. CM available for discharge planning coordination. Contact CM for any concerns/needs that may arise. Seferino COLEY RN ACM
[2020-09-25] MEDS: Ondansetron 4 MG/2 ML Vial IV ×2 (14:06→21:54)
[2020-09-25] MEDS: Acetaminophen 325 MG Tablet 650 MG PO (21:52)
[2020-09-26] VITALS (7 sets, daily range): BP systolic 122–134; BP diastolic 73–84; PULSE 62–78; RESP 18; TEMP 36.2–36.6; O2SAT 94–96
[2020-09-26 06:59] LABS: Absolute Lymphocyte Count 0.74 X10^3/uL (0.83-4.51); Absolute Neutrophil Count 2.5 X10^3/uL (2.0-7.7); Basophil# 0.01 X10^3/uL; Basophil% 0.3 % (0-1); Hematocrit 39.7 % (37-47); Hemoglobin 13.4 g/dL (12.0-15.0); Lymphocyte # 0.74 X10^3/ul (4.0); Lymphocyte % 18.8 % (19-41); Mean Corp Hgb Conc 33.8 g/dL (32-36); Mean Corpuscular Hgb 29.4 pg (27.0-32.0); Mean Corpuscular Volume 87.1 fL (81-99); Mean Platelet Vol. 9.5 fl (6.2-12.0); Monocyte# 0.66 X10^3/uL; Monocyte% 16.8 % (0-10); NRBC Flagged by Analyzer 0 % (0-5); Neutrophil # 2.46 X10^3/uL (2.7-7.7); Neutrophil % 62.6 % (47-70); Platelet Count 198 K/mm3 (150-450); RBC Distribution Width CV 12.7 % (11.6-14.6); RBC Distribution Width SD 40.3 fl (35.1-43.9); Red Blood Count 4.56 M/mm3 (4.2-5.4); White Blood Count 3.9 K/mm3 (4.4-11.0)
[2020-09-26 07:29] LABS: AST(SGOT) 25 U/L (15-37); Alanine Aminotransfer ALT/SGPT 21 U/L (13-56); Albumin, Serum 2.7 g/dL (3.2-5.0); Alkaline Phosphatase 66 U/L (45-117); Anion Gap 6 (5-15); BUN 14 mg/dL (7-18); BUN/Creat Ratio 18.4 RATIO (10-20); Bilirubin, Direct 0.18 mg/dL (0.00-0.30); Calcium,Total 8.1 mg/dL (8.5-10.1); Chloride 103 mmol/L (98-107); Creatinine, Serum 0.76 mg/dL (0.55-1.02); EST Glomerular Filtration Rate 80 mL/min (>60); Est Glom Filt Rate - Afr Amer 97 mL/min (>60); Estimated Creatinine Clearance 50.41 ml/min; Globulin 2.5 g/dL (2.2-4.2); Glucose 90 mg/dL (74-106); Potassium 3.2 mmol/L (3.5-5.1); Protein, Total 5.2 g/dL (6.4-8.2); Sodium Level 138 mmol/L (136-145)
--- NOTE | 2020-09-26 08:23 | PCM.PN.HOSP ---
Patient Problems: Active and Suspected Problems (Last Reviewed 05/30/20 @ 15:55 by Lew Sanchez) COVID-19 (Acute) H/O: hysterectomy (Acute) Reason for Visit: Acute COVID-19 pneumonia Subjective: Patient is a 70-year-old lady admitted with shortness of breath 6 days after being diagnosed with COVID-19 imaging studies on admission demonstrated bilateral (right upper and left lower lobe infiltrate) ?09/25/2020; patient was seen in consultation by infectious disease the day prior remdesivir added to patient's therapy 09/26/2020; seen clinical condition continues to improve. Do anticipate possible discharge on 09/27/2020 Objective: GENERAL: cooperative HEENT: Atraumatic; EYES; Anicteric, Normal Conjunctiva NECK; supple, normal thyroid, RESPIRATORY: Diminished to auscultation CARDIOVASCULAR: Regular S1 S2, GI: soft, normoactive bowel sounds, : No Renal angle tenderness; EXTREMITIES: No edema, no clubbing, MUSCULOSKELETAL: no muscle waisting NEURO: Awake; no lateralizing signs. SKIN: No Rash PSYCH; Flat affect Vitals/I&O's: Vital Signs Temp Pulse Resp BP Pulse Ox 97.7 F L 78 18 134/75 H 95 09/26/20 03:27 09/26/20 03:27 09/26/20 03:27 09/26/20 03:27 09/26/20 03:27 Oxygen Flow Rate (L/min) 2 Oxygen Delivery Method Nasal Cannula Weight: 86.092 kg Body Mass Index (BMI) 30.6 Intake and Output for Last 24 Hours 09/24/20 09/25/20 09/26/20 23:59 23:59 23:59 Intake Total 1690 / 1930 1210 / 1210 150 / 150 Output Total 520 / 520 Balance 1690 / 1930 690 / 690 150 / 150 Microbiology Past 72 Hours 09/24/20 17:30 Sputum, Expectorated/Coughed Gram Stain - Final 09/24/20 17:30 Sputum, Expectorated/Coughed Respiratory Culture - Preliminary Appears to be normal respiratory carlos. Further studies to follow. 09/24/20 15:45 Urine, Clean Catch Legionella Antigen - Final 09/24/20 15:45 Urine, Clean Catch Streptococcus pneumoniae Antigen (M - Final Laboratory Results 09/26/20 06:10: Sodium 138, Potassium 3.2 L, Chloride 103, Carbon Dioxide 29.0, Anion Gap 6, BUN 14, Creatinine 0.76, Estim Creat Clear Calc 50.41, Est GFR (MDRD) Af Amer 97, Est GFR (MDRD) Non-Af 80, BUN/Creatinine Ratio 18.4, Glucose 90, Calcium 8.1 L, Total Bilirubin 0.50, Direct Bilirubin 0.18, AST 25, ALT 21, Alkaline Phosphatase 66, Total Protein 5.2 L, Albumin 2.7 L, Globulin 2.5 09/26/20 06:10: WBC 3.9 L, RBC 4.56, Hgb 13.4, Hct 39.7, MCV 87.1, MCH 29.4, MCHC 33.8, RDW Std Deviation 40.3, RDW Coeff of Laci 12.7, Plt Count 198, MPV 9.5, Immature Gran % (Auto) 1.500 H, Neut % (Auto) 62.6, Lymph % (Auto) 18.8 L, [place] % (Auto) 16.8 H, Eos % (Auto) 0.0, Baso % (Auto) 0.3, Absolute Neuts (auto) 2.5, Absolute Lymphs (auto) 0.74 L, Nucleated RBC % 0 Current Medications Acetaminophen (Acetaminophen 325 Mg Tablet) 650 mg PO Q6H PRN PRN PRN Reason: Pain Score 1-10/Temp > 100.7 F Last Admin: 09/25/20 21:52 Dose: 650 mg Documented by: Al Hydroxide/Mg Hydroxide (Mag Hydrox/Al Hydrox/Simeth 30 Ml Udc) 30 ml PO Q6H PRN PRN PRN Reason: Gastric Burning Albuterol Sulfate (Albuterol 2.5 Mg/3 Ml Vial.Neb.) 2.5 mg INHALATION Q2H PRN PRN PRN Reason: Shortness of Breath/Wheezing Amlodipine Besylate (Amlodipine 5 Mg Tablet) 5 mg PO DAILY [facility] Last Admin: 09/25/20 09:47 Dose: 5 mg Documented by: Aspirin (Aspirin E.C. 81 Mg Tablet) 81 mg PO DAILY [facility] Last Admin: 09/25/20 09:47 Dose: 81 mg Documented by: Atorvastatin Calcium (Atorvastatin Calcium 20 Mg Tablet) 20 mg PO QHS [facility] Last Admin: 09/25/20 22:29 Dose: Not Given Documented by: Bupropion HCl (Bupropion (Sr) 100 Mg Tablet.Sa) 100 mg PO BID [facility] Last Admin: 09/25/20 22:29 Dose: Not Given Documented by: Cholecalciferol (Cholecalciferol (Vit D3) 1,000 Unit (25mcg)) 2,000 unit PO DAILY [facility] Last Admin: 09/25/20 09:47 Dose: 2,000 unit Documented by: Dexamethasone (Dexamethasone 4 Mg Tablet) 6 mg PO DAILY [facility] Stop: 10/03/20 10:01 Last Admin: 09/25/20 09:47 Dose: 6 mg Documented by: Duloxetine HCl (Duloxetine Hcl 60 Mg Capsule) 60 mg PO DAILY [facility] Last Admin: 09/25/20 09:48 Dose: 60 mg Documented by: Enoxaparin Sodium (Enoxaparin 30 Mg/0.3 Ml Syringe) 30 mg SC BID [facility] Last Admin: 09/25/20 21:52 Dose: 30 mg Documented by: Guaifenesin (Guaifenesin 10 Ml Udc (200mg/10ml)) 20 ml PO Q4H PRN PRN PRN Reason: COUGH Remdesivir 100 mg/ Sodium (Chloride) 250 mls @ 125 mls/hr IV DAILY [facility]; Protocol Stop: 09/28/20 11:59 Last Infusion: 09/25/20 13:46 Dose: Infused Documented by: Lamotrigine (Lamotrigine 150 Mg Tablet) 150 mg PO BID [facility] Last Admin: 09/25/20 22:29 Dose: 150 mg Documented by: Levothyroxine Sodium (Levothyroxine 75 Mcg Tablet) 75 mcg PO DAILY [facility] Last Admin: 09/25/20 09:47 Dose: 75 mcg Documented by: Loratadine (Loratadine 10 Mg Tablet) 10 mg PO DAILY [facility] Last Admin: 09/25/20 09:47 Dose: 10 mg Documented by: Lorazepam (Lorazepam 0.5 Mg Tablet) 0.5 mg PO QHS PRN PRN Reason: anxiety Magnesium Hydroxide (Magnesium Hydroxide 30 Ml Udc) 30 ml PO DAILY PRN PRN PRN Reason: Constipation Meclizine HCl (Meclizine Hcl 25 Mg Tablet) 25 mg PO TID PRN PRN Reason: dizziness Melatonin (Melatonin 3 Mg Tablet) 3 mg PO QHS PRN PRN PRN Reason: INSOMNIA Metoprolol Succinate (Metoprolol(Xl)Succ 50 Mg Tablet) 50 mg PO DAILY [facility] Last Admin: 09/25/20 09:47 Dose: 50 mg Documented by: Nitroglycerin (Nitroglycerin (Inpatient Use) 0.4 Mg Tab.Subl) 0.4 mg SUBLINGUAL Q5M PRN PRN Reason: CARDIAC/CHEST PAIN Ondansetron HCl (Ondansetron 4 Mg/2 Ml Vial) 4 mg IV Q8H PRN PRN PRN Reason: NAUSEA/VOMITING Last Admin: 09/25/20 21:54 Dose: 4 mg Documented by: Oxycodone HCl (Oxycodone 5 Mg Tablet) 10 mg PO Q4H PRN PRN PRN Reason: Pain Score 6-10 Pantoprazole Sodium (Pantoprazole Sodium 20 Mg Tablet) 20 mg PO DAILY [facility] Last Admin: 09/25/20 09:47 Dose: 20 mg Documented by: Potassium Chloride (Potassium Chloride 20 Meq Tablet) 20 meq PO DAILY [facility] Last Admin: 09/25/20 09:47 Dose: 20 meq Documented by: Promethazine HCl (Promethazine 25 Mg/Ml Syringe) 25 mg IM Q6H PRN PRN PRN Reason: Breakthrough nausea/vomiting Sodium Chloride (0.9% Saline Lock 10 Ml Syringe) 10 - 40 ml IV UD PRN PRN Reason: SALINE FLUSH Triamterene/Hydrochlorothiazide (Triamterene 37.5mg/Hctz 25mg Capsule) 1 cap PO QAM [facility] Last Admin: 09/25/20 09:47 Dose: 1 cap Documented by: Medical Necessity - Tobacco Use Smoking Status: Former smoker Assessment/Plan All Active Problems (Last Reviewed 09/24/20 @ 11:[address] Christ Treviño MD) COVID-19 (Acute) H/O: hysterectomy (Acute) Acute bronchitis (Resolved) Cough with fever (Resolved) Chest pain (Resolved) Eye abnormality (Resolved) Right wrist pain (Resolved) Dizziness (Resolved) Syncope and collapse (Resolved) Patient is a 70-year-old lady admitted with shortness of breath 6 days after being diagnosed with COVID-19 imaging studies on admission demonstrated bilateral (right upper and left lower lobe infiltrate) 1. Acute COVID-19 pneumonia ?Patient has been admitted to the cohort floor. Placed on supplemental oxygen aerosol treatment as well as Decadron with consultation placed to infectious disease. ?09/25/2020; patient was seen in consultation by infectious disease the day prior remdesivir added to patient's therapy - 09/26/2020; seen clinical condition continues to improve. Do anticipate possible discharge on 09/27/2020 2. Hypertension - Blood pressure controlled, home medications continued with dose adjustment as needed 3. Hypothyroidism - Patient is on levothyroxine home dose continued 4. Hypokalemia ?Corrected per protocol 5. Depression with anxiety ?Discontinue patient antidepressants from home 7. GERD ?Patient is on PPI at home did continue 8. Obesity with BMI of 30.6 ?Weight loss advised 9. DVT prophylaxis ?Lovenox 30 mg SC twice daily Inpatient E&M: [id number] [facility] Hosp L2
[2020-09-26] MEDS: Levothyroxine 75 MCG Tablet PO (09:57)
[2020-09-26] MEDS: DULoxetine Hcl 60 MG Capsule PO (09:57)
[2020-09-26] MEDS: Pantoprazole Sodium 20 MG Tablet PO (09:57)
[2020-09-26] MEDS: lamoTRIgine 150 MG Tablet PO ×2 (09:57→22:25)
[2020-09-26] MEDS: Aspirin E.C. 81 MG Tablet PO (09:57)
[2020-09-26] MEDS: Metoprolol(XL)Succ 50 MG Tablet PO (09:57)
[2020-09-26] MEDS: amLODIPine 5 MG Tablet PO (09:57)
[2020-09-26] MEDS: Loratadine 10 MG Tablet PO (09:58)
[2020-09-26] MEDS: Triamterene 37.5MG/Hctz 25MG Capsule 1 CAP PO (09:58)
[2020-09-26] MEDS: buPROPion (SR) 100 MG TABLET.SA PO ×2 (09:58→22:25)
[2020-09-26] MEDS: Enoxaparin 30 MG/0.3 ML Syringe SC ×2 (09:58→22:25)
[2020-09-26] MEDS: dexAMETHasone 4 MG Tablet 6 MG PO (09:58)
[2020-09-26] MEDS: 0.9% Saline Lock 10 ML Syringe IV ×3 (09:59→22:25)
[2020-09-26] MEDS: Ondansetron 4 MG/2 ML Vial IV ×2 (09:59→17:35)
--- NOTE | 2020-09-26 14:56 | PCM.PN.ID ---
Patient Problems: Active and Suspected Problems (Last Reviewed 05/30/20 @ 15:55 by Lew Sanchez) COVID-19 (Acute) H/O: hysterectomy (Acute) Subjective: Feeling better, no fever, breathing improved - Physical Exam Vitals/I&O's: Vital Signs Temp Pulse Resp BP Pulse Ox 97.8 F 76 18 122/76 H 95 09/26/20 09:30 09/26/20 09:57 09/26/20 09:30 09/26/20 09:30 09/26/20 14:21 Oxygen Flow Rate (L/min) 2 Oxygen Delivery Method Nasal Cannula Weight: 86.092 kg Body Mass Index (BMI) 30.6 Intake and Output for Last 24 Hours 09/24/20 09/25/20 09/26/20 23:59 23:59 23:59 Intake Total 1690 / 1930 1210 / 1210 150 / 150 Output Total 520 / 520 Balance 1690 / 1930 690 / 690 150 / 150 General: Alert, Cooperative, No apparent distress Lungs: Clear to auscultation, Diminished Cardiovascular: Regular rate, Regular Rhythm Abdomen: Soft, Non Tender, Non-Distended Skin: No rashes Microbiology Past 72 Hours 09/24/20 12:50 Blood Culture (Wb) - Left Hand Blood Culture - Preliminary No growth in 48 hours. 09/24/20 13:00 Blood Culture (Wb) - Anticubital Right Blood Culture - Preliminary No growth in 48 hours. 09/24/20 17:30 Sputum, Expectorated/Coughed Gram Stain - Final 09/24/20 17:30 Sputum, Expectorated/Coughed Respiratory Culture - Preliminary Appears to be normal respiratory carlos. Further studies to follow. 09/24/20 15:45 Urine, Clean Catch Legionella Antigen - Final 09/24/20 15:45 Urine, Clean Catch Streptococcus pneumoniae Antigen (M - Final Laboratory Results 09/26/20 06:10: Sodium 138, Potassium 3.2 L, Chloride 103, Carbon Dioxide 29.0, Anion Gap 6, BUN 14, Creatinine 0.76, Estim Creat Clear Calc 50.41, Est GFR (MDRD) Af Amer 97, Est GFR (MDRD) Non-Af 80, BUN/Creatinine Ratio 18.4, Glucose 90, Calcium 8.1 L, Total Bilirubin 0.50, Direct Bilirubin 0.18, AST 25, ALT 21, Alkaline Phosphatase 66, Total Protein 5.2 L, Albumin 2.7 L, Globulin 2.5 09/26/20 06:10: WBC 3.9 L, RBC 4.56, Hgb 13.4, Hct 39.7, MCV 87.1, MCH 29.4, MCHC 33.8, RDW Std Deviation 40.3, RDW Coeff of Laci 12.7, Plt Count 198, MPV 9.5, Immature Gran % (Auto) 1.500 H, Neut % (Auto) 62.6, Lymph % (Auto) 18.8 L, [place] % (Auto) 16.8 H, Eos % (Auto) 0.0, Baso % (Auto) 0.3, Absolute Neuts (auto) 2.5, Absolute Lymphs (auto) 0.74 L, Nucleated RBC % 0 Current Medications Acetaminophen (Acetaminophen 325 Mg Tablet) 650 mg PO Q6H PRN PRN PRN Reason: Pain Score 1-10/Temp > 100.7 F Last Admin: 09/25/20 21:52 Dose: 650 mg Documented by: Al Hydroxide/Mg Hydroxide (Mag Hydrox/Al Hydrox/Simeth 30 Ml Udc) 30 ml PO Q6H PRN PRN PRN Reason: Gastric Burning Albuterol Sulfate (Albuterol 2.5 Mg/3 Ml Vial.Neb.) 2.5 mg INHALATION Q2H PRN PRN PRN Reason: Shortness of Breath/Wheezing Amlodipine Besylate (Amlodipine 5 Mg Tablet) 5 mg PO DAILY [facility] Last Admin: 09/26/20 09:57 Dose: 5 mg Documented by: Aspirin (Aspirin E.C. 81 Mg Tablet) 81 mg PO DAILY [facility] Last Admin: 09/26/20 09:57 Dose: 81 mg Documented by: Atorvastatin Calcium (Atorvastatin Calcium 20 Mg Tablet) 20 mg PO QHS [facility] Last Admin: 09/25/20 22:29 Dose: Not Given Documented by: Bupropion HCl (Bupropion (Sr) 100 Mg Tablet.Sa) 100 mg PO BID [facility] Last Admin: 09/26/20 09:58 Dose: 100 mg Documented by: Cholecalciferol (Cholecalciferol (Vit D3) 1,000 Unit (25mcg)) 2,000 unit PO DAILY [facility] Last Admin: 09/26/20 09:58 Dose: 2,000 unit Documented by: Dexamethasone (Dexamethasone 4 Mg Tablet) 6 mg PO DAILY [facility] Stop: 10/03/20 10:01 Last Admin: 09/26/20 09:58 Dose: 6 mg Documented by: Duloxetine HCl (Duloxetine Hcl 60 Mg Capsule) 60 mg PO DAILY [facility] Last Admin: 09/26/20 09:57 Dose: 60 mg Documented by: Enoxaparin Sodium (Enoxaparin 30 Mg/0.3 Ml Syringe) 30 mg SC BID [facility] Last Admin: 09/26/20 09:58 Dose: 30 mg Documented by: Guaifenesin (Guaifenesin 10 Ml Udc (200mg/10ml)) 20 ml PO Q4H PRN PRN PRN Reason: COUGH Remdesivir 100 mg/ Sodium (Chloride) 250 mls @ 125 mls/hr IV DAILY [facility]; Protocol Stop: 09/28/20 11:59 Last Admin: 09/26/20 09:59 Dose: 125 mls/hr Documented by: Lamotrigine (Lamotrigine 150 Mg Tablet) 150 mg PO BID [facility] Last Admin: 09/26/20 09:57 Dose: 150 mg Documented by: Levothyroxine Sodium (Levothyroxine 75 Mcg Tablet) 75 mcg PO DAILY [facility] Last Admin: 09/26/20 09:57 Dose: 75 mcg Documented by: Loratadine (Loratadine 10 Mg Tablet) 10 mg PO DAILY [facility] Last Admin: 09/26/20 09:58 Dose: 10 mg Documented by: Lorazepam (Lorazepam 0.5 Mg Tablet) 0.5 mg PO QHS PRN PRN Reason: anxiety Magnesium Hydroxide (Magnesium Hydroxide 30 Ml Udc) 30 ml PO DAILY PRN PRN PRN Reason: Constipation Meclizine HCl (Meclizine Hcl 25 Mg Tablet) 25 mg PO TID PRN PRN Reason: dizziness Melatonin (Melatonin 3 Mg Tablet) 3 mg PO QHS PRN PRN PRN Reason: INSOMNIA Metoprolol Succinate (Metoprolol(Xl)Succ 50 Mg Tablet) 50 mg PO DAILY [facility] Last Admin: 09/26/20 09:57 Dose: 50 mg Documented by: Nitroglycerin (Nitroglycerin (Inpatient Use) 0.4 Mg Tab.Subl) 0.4 mg SUBLINGUAL Q5M PRN PRN Reason: CARDIAC/CHEST PAIN Ondansetron HCl (Ondansetron 4 Mg/2 Ml Vial) 4 mg IV Q8H PRN PRN PRN Reason: NAUSEA/VOMITING Last Admin: 09/26/20 09:59 Dose: 4 mg Documented by: Oxycodone HCl (Oxycodone 5 Mg Tablet) 10 mg PO Q4H PRN PRN PRN Reason: Pain Score 6-10 Pantoprazole Sodium (Pantoprazole Sodium 20 Mg Tablet) 20 mg PO DAILY [facility] Last Admin: 09/26/20 09:57 Dose: 20 mg Documented by: Potassium Chloride (Potassium Chloride 20 Meq Tablet) 20 meq PO DAILY [facility] Last Admin: 09/26/20 09:58 Dose: 20 meq Documented by: Potassium Chloride (Potassium Chloride 20 Meq Tablet) [facility] Promethazine HCl (Promethazine 25 Mg/Ml Syringe) 25 mg IM Q6H PRN PRN PRN Reason: Breakthrough nausea/vomiting Sodium Chloride (0.9% Saline Lock 10 Ml Syringe) 10 - 40 ml IV UD PRN PRN Reason: SALINE FLUSH Last Admin: 09/26/20 09:59 Dose: 10 ml Documented by: Triamterene/Hydrochlorothiazide (Triamterene 37.5mg/Hctz 25mg Capsule) 1 cap PO QAM [facility] Last Admin: 09/26/20 09:58 Dose: 1 cap Documented by: Medical Necessity - Tobacco Use Smoking Status: Former smoker Route of nutrition/ use of supplements: [] Nutritional Intake: [] IV Site: [] [place] Catheter: [] - Assessment/Plan Antibiotics: [] Assessment/Plan: [] Active and Suspected Problems (Last Reviewed 05/30/20 @ 15:55 by Lew Sanchez) COVID-19 (Acute) H/O: hysterectomy (Acute) covid with hypoxia - sx started 09/07. On dex, remdesivir. Lovenox 30mg bid, d-dimer 0.9. Feeling better. On 2L. Per urgent care 09/19, sx started 09/11. Plan on quarantine until 10/01. Discharge on dex to complete 10 days total. Would do 2 weeks at discharge of low dose anticoag like xarelto 10mg daily or eliquis 2.5mg bid. Will follow
[2020-09-27 03:23] VITALS: BP 125/84; PULSE 62; RESP 18; TEMP 36.2; O2SAT 93
[2020-09-27 03:26] VITALS: RESP 18
[2020-09-27] MEDS: Ondansetron 4 MG/2 ML Vial IV (06:36)
[2020-09-27] MEDS: 0.9% Saline Lock 10 ML Syringe IV (06:42)
[2020-09-27 07:20] VITALS: O2SAT 91
--- NOTE | 2020-09-27 07:26 | PCM.DC ---
- Discharge Diagnoses Current Active Problems: Current Active and Chronic Problems (Last Reviewed 09/24/20 @ 11:[address] Christ Treviño MD) COVID-19 (Acute) Vertigo (Chronic) Sleep apnea (Chronic) Seasonal allergies (Chronic) Anemia (Chronic) Hypertension (Chronic) Hyperlipidemia (Chronic) GERD (gastroesophageal reflux disease) (Chronic) Hypothyroidism (Chronic) H/O: hysterectomy (Acute) Depression (Chronic) Anxiety (Chronic) Restless legs syndrome (Chronic) Obesity (BMI 30.0-34.9) (Chronic) VIELKA (obstructive sleep apnea) (Chronic) Hypersomnolence (Chronic) Venous insufficiency (chronic) (peripheral) (Chronic) Carotid artery stenosis (Chronic) Hypertension (Chronic) Hyperlipidemia (Chronic) Depression with anxiety (Chronic) Hypothyroidism (Chronic) You will use the following diet at home:: No restrictions Your food should be the consistency of: Regular Discharge Activity: - - Patient to continue current time until 10/01/2020 Allergies/Adverse Reactions: Allergies cefaclor [From Ceclor] Allergy (Verified 09/24/20 09:11) Rash ropinirole Adverse Reaction (Severe, Verified 09/24/20 09:11) nightmares and nausea erythromycin base Adverse Reaction (Verified 09/24/20 09:11) Vomiting trazodone Adverse Reaction (Verified 09/24/20 09:11) syncope green peppers Allergy (Mild, Uncoded 09/24/20 09:11) Swelling Medications to take at Discharge Biotin 5,000 mcg PO DAILY 05/26/15 [place] 1 tab PO DAILY 05/29/15 cholecalciferol (vitamin D3) 25 mcg (1,000 unit) tablet 2,000 unit PO DAILY tab 08/18/17 compress.stocking,knee,reg,med See Dose Instructions .ROUTE .MEDSUPPLY #2 ea 12/06/17 aspirin 81 mg tablet,delayed release 81 mg PO QDAY 03/14/18 brexpiprazole 1 mg tablet ea PO 01/23/20 amlodipine 5 mg tablet 5 mg PO QDAY #90 tab 03/25/20 duloxetine 60 mg capsule,delayed release 60 mg PO DAILY #90 cap 03/25/20 lamotrigine 100 mg tablet 150 mg PO BID tab 03/25/20 levothyroxine 75 mcg tablet 75 mcg PO .QD #90 tab 03/25/20 lorazepam 0.5 mg tablet 0.5 mg PO QHS PRN #30 tab 03/25/20 metoprolol succinate 50 mg tablet,extended release 24 hr 50 mg PO QDAY #90 tab 03/25/20 rosuvastatin 10 mg tablet 10 mg PO QDAY #90 tab 03/25/20 triamterene 37.5 mg-hydrochlorothiazide 25 mg capsule 1 cap PO QAM #90 cap 03/25/20 omeprazole 20 mg capsule,delayed release 20 mg PO QDAY #90 cap 04/16/20 meclizine 25 mg tablet 25 mg PO TID PRN #20 tab 05/30/20 Bupropion HCl 100 mg PO BID 09/24/20 Acetaminophen [Tylenol Tablet] 650 mg PO Q6H PRN PRN tab 09/27/20 Dexamethasone [Decadron] 6 mg PO DAILY #7 tab 09/27/20 Potassium Chloride [K-Tab ER] 20 meq PO BIDCM #90 tab 09/27/20 Rivaroxaban [Xarelto] 10 mg PO DAILY #14 tab 09/27/20 The following prescriptions were given: Dexamethasone [Decadron] 6 mg PO DAILY #7 tab [facility] Status[id number] Rivaroxaban [Xarelto] 10 mg PO DAILY #14 tab Transmission Status: Received by [id number] Primary Care Physician: Shannan Chauhan MD [Primary Care Provider] - Please follow up with your Primary Care Physician in: To schedule appointment after your quarantine Test Results: Test results from this visit will be discussed in further detail at your follow-up appointment, if applicable. Proposed Discharge Date: 09/27/20
--- NOTE | 2020-09-27 07:27 | DS.PCM_ITS ---
Discharge Date and Diagnosis - Problem List Patient Problems: Active and Suspected Problems (Last Reviewed 05/30/20 @ 15:55 by Lew Sanchez) COVID-19 (Acute) H/O: hysterectomy (Acute) Date of Admission: 09/24/20 Date of Discharge: 09/27/20 - Primary Discharge Diagnosis Acute Problems: Active Problems (Last Reviewed 05/30/20 @ 15:55 by Lew Sanchez) COVID-19 (Acute) H/O: hysterectomy (Acute) - Secondary Discharge Diagnosis Chronic Problems: Chronic Problems (Last Reviewed 09/24/20 @ 11:[address] Christ Treviño MD) Vertigo (Chronic) Sleep apnea (Chronic) Seasonal allergies (Chronic) Anemia (Chronic) Hypertension (Chronic) Hyperlipidemia (Chronic) GERD (gastroesophageal reflux disease) (Chronic) Hypothyroidism (Chronic) Depression (Chronic) Anxiety (Chronic) Restless legs syndrome (Chronic) Obesity (BMI 30.0-34.9) (Chronic) VIELKA (obstructive sleep apnea) (Chronic) Hypersomnolence (Chronic) Venous insufficiency (chronic) (peripheral) (Chronic) Carotid artery stenosis (Chronic) Hypertension (Chronic) Hyperlipidemia (Chronic) Depression with anxiety (Chronic) Hypothyroidism (Chronic) Hospital Course and Treatment Imaging Results: Clinical Impression(s) from Imaging Studies Chest X-Ray 09/24/20 09:40 IMPRESSION: Early right upper and left lower lobe infiltrates. Electronically Signed: Aston Cabezas, at 10:02 EST , Service support , Summary of Care Provided: Patient is a 70-year-old lady admitted with shortness of breath 6 days after being diagnosed with COVID-19 imaging studies on admission demonstrated bilateral (right upper and left lower lobe infiltrate) 1. Acute COVID-19 pneumonia ?Patient has been admitted to the cohort floor. Placed on supplemental oxygen aerosol treatment as well as Decadron with consultation placed to infectious disease. ?09/25/2020; patient was seen in consultation by infectious disease the day prior remdesivir added to patient's therapy - 09/26/2020; seen clinical condition continues to improve. Do anticipate possible discharge on 09/27/2020 ?09/27/2020. Patient seen with a significant improvement in overall clinical condition. Plan is for patient to be discharged home to complete a 10-day course of Decadron. Prescription was also written for Xarelto 10 mg p.o. daily for 2 weeks. He was instructed to current time till 10/01/2020 2. Hypertension - Blood pressure controlled, home medications continued with dose adjustment as needed 3. Hypothyroidism - Patient is on levothyroxine home dose continued 4. Hypokalemia ?Corrected per protocol 5. Depression with anxiety ?Discontinue patient antidepressants from home 7. GERD ?Patient is on PPI at home did continue 8. Obesity with BMI of 30.6 ?Weight loss advised 9. DVT prophylaxis ?Lovenox 30 mg SC twice daily Patient Problems: Active and Suspected Problems (Last Reviewed 05/30/20 @ 15:55 by Lew Sanchez) COVID-19 (Acute) H/O: hysterectomy (Acute) Objective: GENERAL: cooperative HEENT: Atraumatic; EYES; Anicteric, Normal Conjunctiva NECK; supple, normal thyroid, RESPIRATORY: Diminished to auscultation CARDIOVASCULAR: Regular S1 S2, GI: soft, normoactive bowel sounds, : No Renal angle tenderness; EXTREMITIES: No edema, no clubbing, MUSCULOSKELETAL: no muscle waisting NEURO: Awake; no lateralizing signs. SKIN: No Rash PSYCH; Flat affect - Physical Exam Vitals/I&O's: Vital Signs Temp Pulse Resp BP Pulse Ox 97.1 F L 62 18 125/84 H 93 09/27/20 03:23 09/27/20 03:23 09/27/20 03:26 09/27/20 03:23 09/27/20 03:23 Oxygen Flow Rate (L/min) 2 Oxygen Delivery Method Room Air Weight: 86.092 kg Body Mass Index (BMI) 30.6 Intake and Output for Last 24 Hours 09/25/20 09/26/20 09/27/20 23:59 23:59 23:59 Intake Total 1210 / 1210 400 / 600 200 / 200 Output Total 520 / 520 400 / 400 Balance 690 / 690 0 / 200 200 / 200 Microbiology Past 72 Hours 09/24/20 12:50 Blood Culture (Wb) - Left Hand Blood Culture - Preliminary No growth in 48 hours. 09/24/20 13:00 Blood Culture (Wb) - Anticubital Right Blood Culture - Preliminary No growth in 48 hours. 09/24/20 17:30 Sputum, Expectorated/Coughed Gram Stain - Final 09/24/20 17:30 Sputum, Expectorated/Coughed Respiratory Culture - Preliminary Appears to be normal respiratory carlos. Further studies to follow. 09/24/20 15:45 Urine, Clean Catch Legionella Antigen - Final 09/24/20 15:45 Urine, Clean Catch Streptococcus pneumoniae Antigen (M - Final Laboratory Results 09/26/20 06:10: Sodium 138, Potassium 3.2 L, Chloride 103, Carbon Dioxide 29.0, Anion Gap 6, BUN 14, Creatinine 0.76, Estim Creat Clear Calc 50.41, Est GFR (MDRD) Af Amer 97, Est GFR (MDRD) Non-Af 80, BUN/Creatinine Ratio 18.4, Glucose 90, Calcium 8.1 L, Total Bilirubin 0.50, Direct Bilirubin 0.18, AST 25, ALT 21, Alkaline Phosphatase 66, Total Protein 5.2 L, Albumin 2.7 L, Globulin 2.5 Current Medications Acetaminophen (Acetaminophen 325 Mg Tablet) 650 mg PO Q6H PRN PRN PRN Reason: Pain Score 1-10/Temp > 100.7 F Last Admin: 09/25/20 21:52 Dose: 650 mg Documented by: Al Hydroxide/Mg Hydroxide (Mag Hydrox/Al Hydrox/Simeth 30 Ml Udc) 30 ml PO Q6H PRN PRN PRN Reason: Gastric Burning Albuterol Sulfate (Albuterol 2.5 Mg/3 Ml Vial.Neb.) 2.5 mg INHALATION Q2H PRN PRN PRN Reason: Shortness of Breath/Wheezing Amlodipine Besylate (Amlodipine 5 Mg Tablet) 5 mg PO DAILY [facility] Last Admin: 09/26/20 09:57 Dose: 5 mg Documented by: Aspirin (Aspirin E.C. 81 Mg Tablet) 81 mg PO DAILY [facility] Last Admin: 09/26/20 09:57 Dose: 81 mg Documented by: Atorvastatin Calcium (Atorvastatin Calcium 20 Mg Tablet) 20 mg PO QHS [facility] Last Admin: 09/26/20 22:26 Dose: Not Given Documented by: Bupropion HCl (Bupropion (Sr) 100 Mg Tablet.Sa) 100 mg PO BID [facility] Last Admin: 09/26/20 22:25 Dose: 100 mg Documented by: Cholecalciferol (Cholecalciferol (Vit D3) 1,000 Unit (25mcg)) 2,000 unit PO DAILY [facility] Last Admin: 09/26/20 09:58 Dose: 2,000 unit Documented by: Dexamethasone (Dexamethasone 4 Mg Tablet) 6 mg PO DAILY [facility] Stop: 10/03/20 10:01 Last Admin: 09/26/20 09:58 Dose: 6 mg Documented by: Duloxetine HCl (Duloxetine Hcl 60 Mg Capsule) 60 mg PO DAILY [facility] Last Admin: 09/26/20 09:57 Dose: 60 mg Documented by: Enoxaparin Sodium (Enoxaparin 30 Mg/0.3 Ml Syringe) 30 mg SC BID [facility] Last Admin: 09/26/20 22:25 Dose: 30 mg Documented by: Guaifenesin (Guaifenesin 10 Ml Udc (200mg/10ml)) 20 ml PO Q4H PRN PRN PRN Reason: COUGH Remdesivir 100 mg/ Sodium (Chloride) 250 mls @ 125 mls/hr IV DAILY [facility]; Protocol Stop: 09/28/20 11:59 Last Infusion: 09/26/20 11:59 Dose: Infused Documented by: Lamotrigine (Lamotrigine 150 Mg Tablet) 150 mg PO BID [facility] Last Admin: 09/26/20 22:25 Dose: 150 mg Documented by: Levothyroxine Sodium (Levothyroxine 75 Mcg Tablet) 75 mcg PO DAILY [facility] Last Admin: 09/26/20 09:57 Dose: 75 mcg Documented by: Loratadine (Loratadine 10 Mg Tablet) 10 mg PO DAILY [facility] Last Admin: 09/26/20 09:58 Dose: 10 mg Documented by: Lorazepam (Lorazepam 0.5 Mg Tablet) 0.5 mg PO QHS PRN PRN Reason: anxiety Magnesium Hydroxide (Magnesium Hydroxide 30 Ml Udc) 30 ml PO DAILY PRN PRN PRN Reason: Constipation Meclizine HCl (Meclizine Hcl 25 Mg Tablet) 25 mg PO TID PRN PRN Reason: dizziness Melatonin (Melatonin 3 Mg Tablet) 3 mg PO QHS PRN PRN PRN Reason: INSOMNIA Metoprolol Succinate (Metoprolol(Xl)Succ 50 Mg Tablet) 50 mg PO DAILY [facility] Last Admin: 09/26/20 09:57 Dose: 50 mg Documented by: Nitroglycerin (Nitroglycerin (Inpatient Use) 0.4 Mg Tab.Subl) 0.4 mg SUBLINGUAL Q5M PRN PRN Reason: CARDIAC/CHEST PAIN Ondansetron HCl (Ondansetron 4 Mg/2 Ml Vial) 4 mg IV Q8H PRN PRN PRN Reason: NAUSEA/VOMITING Last Admin: 09/27/20 06:36 Dose: 4 mg Documented by: Oxycodone HCl (Oxycodone 5 Mg Tablet) 10 mg PO Q4H PRN PRN PRN Reason: Pain Score 6-10 Pantoprazole Sodium (Pantoprazole Sodium 20 Mg Tablet) 20 mg PO DAILY [facility] Last Admin: 09/26/20 09:57 Dose: 20 mg Documented by: Potassium Chloride (Potassium Chloride 20 Meq Tablet) 20 meq PO DAILY [facility] Last Admin: 09/26/20 09:58 Dose: 20 meq Documented by: Potassium Chloride (Potassium Chloride 20 Meq Tablet) 20 meq PO BIDCM [facility] Last Admin: 09/26/20 17:36 Dose: Not Given Documented by: Promethazine HCl (Promethazine 25 Mg/Ml Syringe) 25 mg IM Q6H PRN PRN PRN Reason: Breakthrough nausea/vomiting Sodium Chloride (0.9% Saline Lock 10 Ml Syringe) 10 - 40 ml IV UD PRN PRN Reason: SALINE FLUSH Last Admin: 09/27/20 06:42 Dose: 10 ml Documented by: Triamterene/Hydrochlorothiazide (Triamterene 37.5mg/Hctz 25mg Capsule) 1 cap PO QAM [facility] Last Admin: 09/26/20 09:58 Dose: 1 cap Documented by: Discharge Diet: No Restrictions Discharge Activity: - - Patient to continue current time until 10/01/2020 Home Medications: Medications to take at Discharge Biotin 5,000 mcg PO DAILY 05/26/15 Daylin 1 tab PO DAILY 05/29/15 cholecalciferol (vitamin D3) 25 mcg (1,000 unit) tablet 2,000 unit PO DAILY tab 08/18/17 compress.stocking,knee,reg,med See Dose Instructions .ROUTE .MEDSUPPLY #2 ea 12/06/17 aspirin 81 mg tablet,delayed release 81 mg PO QDAY 03/14/18 brexpiprazole 1 mg tablet ea PO 01/23/20 amlodipine 5 mg tablet 5 mg PO QDAY #90 tab 03/25/20 duloxetine 60 mg capsule,delayed release 60 mg PO DAILY #90 cap 03/25/20 lamotrigine 100 mg tablet 150 mg PO BID tab 03/25/20 levothyroxine 75 mcg tablet 75 mcg PO .QD #90 tab 03/25/20 lorazepam 0.5 mg tablet 0.5 mg PO QHS PRN #30 tab 03/25/20 metoprolol succinate 50 mg tablet,extended release 24 hr 50 mg PO QDAY #90 tab 03/25/20 rosuvastatin 10 mg tablet 10 mg PO QDAY #90 tab 03/25/20 triamterene 37.5 mg-hydrochlorothiazide 25 mg capsule 1 cap PO QAM #90 cap 03/25/20 omeprazole 20 mg capsule,delayed release 20 mg PO QDAY #90 cap 04/16/20 meclizine 25 mg tablet 25 mg PO TID PRN #20 tab 05/30/20 Bupropion HCl 100 mg PO BID 09/24/20 Acetaminophen [Tylenol Tablet] 650 mg PO Q6H PRN PRN tab 09/27/20 Dexamethasone [Decadron] 6 mg PO DAILY #7 tab 09/27/20 Potassium Chloride [K-Tab ER] 20 meq PO BIDCM #90 tab 09/27/20 Rivaroxaban [Xarelto] 10 mg PO DAILY #14 tab 09/27/20 Following Prescriptions Were Given to Patient: Dexamethasone [Decadron] 6 mg PO DAILY #7 tab Transmission Status: Received by [facility] Rivaroxaban [Xarelto] 10 mg PO DAILY #14 tab Transmission Status: Received by [facility] Primary Care Physician: Shannan Chauhan MD [Primary Care Provider] - Please follow up with your Primary Care Physician in: To schedule appointment after your quarantine Disposition: Home Minutes spent on discharge:: 35 Patient Condition:: Stable Medical Necessity - Tobacco Use Smoking Status: Former smoker Meaningful Use Info Meaningful Use Diagnoses (Choose all that apply): None applicable Inpatient E&M: [address] [facility]
[2020-09-27 07:52] LABS: Absolute Lymphocyte Count 0.75 X10^3/uL (0.83-4.51); Basophil# 0.01 X10^3/uL; Basophil% 0.2 % (0-1); Hematocrit 39.3 % (37-47); Hemoglobin 13.7 g/dL (12.0-15.0); Lymphocyte # 0.75 X10^3/ul (4.0); Mean Corp Hgb Conc 34.9 g/dL (32-36); Mean Corpuscular Hgb 29.8 pg (27.0-32.0); Mean Corpuscular Volume 85.4 fL (81-99); Mean Platelet Vol. 9.8 fl (6.2-12.0); Monocyte# 0.54 X10^3/uL; Monocyte% 12.3 % (0-10); NRBC Flagged by Analyzer 0.9 % (0-5); Neutrophil # 3.04 X10^3/uL (2.7-7.7); Neutrophil % 69.1 % (47-70); Platelet Count 249 K/mm3 (150-450); RBC Distribution Width CV 12.7 % (11.6-14.6); RBC Distribution Width SD 39.2 fl (35.1-43.9); White Blood Count 4.4 K/mm3 (4.4-11.0)
[2020-09-27 08:16] LABS: AST(SGOT) 25 U/L (15-37); Alanine Aminotransfer ALT/SGPT 23 U/L (13-56); Albumin, Serum 2.7 g/dL (3.2-5.0); Alkaline Phosphatase 65 U/L (45-117); Anion Gap 8 (5-15); BUN 14 mg/dL (7-18); BUN/Creat Ratio 18.8 RATIO (10-20); Bilirubin, Direct 0.12 mg/dL (0.00-0.30); Calcium,Total 8.7 mg/dL (8.5-10.1); Chloride 104 mmol/L (98-107); Creatinine, Serum 0.74 mg/dL (0.55-1.02); EST Glomerular Filtration Rate 83 mL/min (>60); Est Glom Filt Rate - Afr Amer 100 mL/min (>60); Estimated Creatinine Clearance 50.41 ml/min; Globulin 3.3 g/dL (2.2-4.2); Glucose 100 mg/dL (74-106); Potassium 3.9 mmol/L (3.5-5.1); Sodium Level 136 mmol/L (136-145)
[2020-09-27] MEDS: Enoxaparin 30 MG/0.3 ML Syringe SC (08:51)
[2020-09-27] MEDS: Loratadine 10 MG Tablet PO (08:51)
[2020-09-27] MEDS: dexAMETHasone 4 MG Tablet 6 MG PO (08:52)
[2020-09-27] MEDS: DULoxetine Hcl 60 MG Capsule PO (08:52)
[2020-09-27] MEDS: amLODIPine 5 MG Tablet PO (08:53)
[2020-09-27] MEDS: Triamterene 37.5MG/Hctz 25MG Capsule 1 CAP PO (08:53)
[2020-09-27] MEDS: lamoTRIgine 150 MG Tablet PO (08:53)
[2020-09-27] MEDS: Aspirin E.C. 81 MG Tablet PO (08:53)
[2020-09-27] MEDS: Pantoprazole Sodium 20 MG Tablet PO (08:54)
[2020-09-27] MEDS: Levothyroxine 75 MCG Tablet PO (08:54)
[2020-09-27 08:56] VITALS: PULSE 79
[2020-09-27] MEDS: buPROPion (SR) 100 MG TABLET.SA PO (08:56)
[2020-09-27] MEDS: Metoprolol(XL)Succ 50 MG Tablet PO (08:56)
[2020-09-27 09:06] VITALS: BP 120/96; PULSE 74; RESP 18; TEMP 36.6; O2SAT 95
--- NOTE | 2020-09-27 10:27 | CM.UR ---
Was alerted this patient is being discharged. Currently 95% on Room air. No home o2 needed. Not alerted to any other needs at this time. Removed green sheet from chart and instructed Roselia Sexton RN charge nurse to alert me should anything change. Verb understanding and agreement. Jossie Marie RN.
--- NOTE | 2020-09-29 13:00 | CASEMGMT ---
HARJIT CM DC PHONE CALL DC DATE: 09/27/2020 DC DISPOSITION: Home DC DIAGNOSIS: SARS COVID 2 Attempted call to patient's phone. Messaging had name identifier. Message left with call back information if pt had questions. Seferino COLEY RN AC
== END 2020-09-27 13:52 | disposition home or self-care (01) | DRG 177 ==
LOC: ED 10:39 → MS2 10:49
PROVIDERS: Internal Medicine Infectious Disease; Admitting Provider Internal Medicine; Emergency Provider Emergency Medicine; PCP Internal Medicine; Visit Provider Internal Medicine
DX: U07.1 COVID-19 (principal); J12.82 Pneumonia due to coronavirus disease 2019; R09.02 Hypoxemia; E87.1 Hypo-osmolality and hyponatremia; E87.6 Hypokalemia; I10 Essential (primary) hypertension; E78.5 Hyperlipidemia, unspecified; E03.9 Hypothyroidism, unspecified; G25.81 Restless legs syndrome; G47.33 Obstructive sleep apnea (adult) (pediatric); K21.9 Gastro-esophageal reflux disease without esophagitis; F32.9 Major depressive disorder, single episode, unspecified; F41.9 Anxiety disorder, unspecified; E66.9 Obesity, unspecified; Z68.31 Body mass index [BMI] 31.0-31.9, adult; Z79.01 Long term (current) use of anticoagulants; Z79.82 Long term (current) use of aspirin; Z79.890 Hormone replacement therapy; Z79.899 Other long term (current) drug therapy; Z87.891 Personal history of nicotine dependence
CPT/HCPCS: 36415; 71045; 80048; 80076; 82550; 83605; 83615; 83735; 83880; 84145; 84484; 85025; 85379; 85384; 85610; 86140; 87040; 87070; 87205; 87449; 97162; 97166; 99251; 99285; J7030; J7040; J7050; 90686; A4216; G0463; J2405

== ENCOUNTER → 2020-11-11 14:01 | Outpatient (CLI) | payer BC, SELFPAY ==
[2020-11-11 13:30] VITALS: BMI 31.6
[2020-11-11 15:37] LABS: Bacteria 0 SEEN /hpf (None Seen); Mucous, Urine 0 SEEN /hpf (<or=2+); Red Blood Cells-Urine 0 SEEN /hpf (0-5)
[2020-11-11 15:48] LABS: T4 Free Direct 1.18 ng/dL (0.76-1.46)
[2020-11-11 15:50] LABS: Thyroid Stim Hormone (TSH) 0.62 uIU/mL (0.358-3.74)
[2020-11-11 17:54] LABS: Color, Urine Yellow (Yellow); Glucose, Dipstick Normal (Normal); Ketone-Dipstick Negative (Negative); Leukocyte Esterase-Dipstick 500 /ul (Negative); Nitrite-Dipstick Negative (Negative); Occult Blood-Urine Negative /ul (Negative); Protein-Dipstick 15 mg/dl (Negative); Urine Bilirubin Dipstick Negative (Negative); Urine Clarity Sl. Cloudy (Clear); Urine Urobilinogen Normal (Normal)
[2020-11-11 18:12] LABS: Hyaline Cast 0-5 SEEN /lpf (0-5); Squamous Epithelial Cells - UA 0-5 SEEN /hpf (5-10); White Blood Cells 5-10 SEEN /hpf (0-5)
== END ==
PROVIDERS: PCP Internal Medicine; Visit Provider Nurse Practitioner Family
DX: R30.0 Dysuria (principal); L65.9 Nonscarring hair loss, unspecified
CPT/HCPCS: 36415; 81001; 84439; 84443; 87086; 87088

== ENCOUNTER → 2021-03-24 05:56 | Outpatient (CLI) | payer BC, SELFPAY ==
[2021-03-23 08:18] VITALS: BMI 34.0
[2021-03-24 06:31] LABS: Hematocrit 44.1 % (37-47); Hemoglobin 14.6 g/dL (12.0-15.0); Mean Corp Hgb Conc 33.1 g/dL (32-36); Mean Corpuscular Volume 87.5 fL (81-99); Mean Platelet Vol. 9.7 fl (6.2-12.0); Platelet Count 279 K/mm3 (150-450); RBC Distribution Width SD 41.1 fl (35.1-43.9); Red Blood Count 5.04 M/mm3 (4.2-5.4); White Blood Count 7.8 K/mm3 (4.4-11.0)
[2021-03-24 08:29] LABS: ALB/GLOB Ratio 1.2 RATIO (0.9-2.4); AST(SGOT) 20 U/L (15-37); Alanine Aminotransfer ALT/SGPT 30 U/L (13-56); Albumin, Serum 3.7 g/dL (3.2-5.0); Alkaline Phosphatase 88 U/L (45-117); Anion Gap 5 (5-15); BUN 17 mg/dL (7-18); BUN/Creat Ratio 15.7 RATIO (10-20); Calcium,Total 9.3 mg/dL (8.5-10.1); Chloride 107 mmol/L (98-107); Creatinine, Serum 1.08 mg/dL (0.55-1.02); EST Glomerular Filtration Rate 54 mL/min (>60); Est Glom Filt Rate - Afr Amer 65 mL/min (>60); Globulin 3.2 g/dL (2.2-4.2); Glucose 109 mg/dL (74-106); Potassium 3.9 mmol/L (3.5-5.1); Protein, Total 6.9 g/dL (6.4-8.2); Sodium Level 139 mmol/L (136-145)
[2021-03-24 09:27] LABS: Vitamin B12 470 pg/mL (211-911)
[2021-03-26 16:54] LABS: Lamotrigine (Lamictal) Level 5.6 ug/mL (2.0-20.0)
== END ==
PROVIDERS: PCP Internal Medicine; Referring Provider Psychiatry & Neurology Neurology; Visit Provider Psychiatry & Neurology Neurology
DX: G25.0 Essential tremor (principal); G31.84 Mild cognitive impairment of uncertain or unknown etiology; F32.9 Major depressive disorder, single episode, unspecified; E55.9 Vitamin D deficiency, unspecified
CPT/HCPCS: 36415; 80053; 82140; 82542; 82607; 82652; 82746; 85027

== ENCOUNTER → 2021-03-31 10:57 | Outpatient (CLI) | payer BC, SELFPAY ==
[2021-03-23 08:18] VITALS: BMI 34.0
--- NOTE | 2021-03-31 10:57 | MRI_ITS ---
STUDY: MRI BRAIN WITH AND WITHOUT CONTRAST REASON FOR EXAM: Female, 70 years old. [facility]CI -- TECHNIQUE: Standardized multiplanar fat and water weighted pulse sequences were obtained. IV 19ml Dotarem was administered for the contrast portion of the examination. COMPARISON: None FINDINGS: No evidence for shift of midline structures, mass effect or compression of ventricles noted. No acute intracranial hemorrhage. No abnormal intracranial fluid collections. The basal cisterns are patent. Ventricular system appears unremarkable. No evidence for cerebellar tonsillar herniation. No abnormal restricted diffusion. Skull base vascular flow voids are patent. Nonspecific foci of T2/FLAIR hyperintensity in the periventricular and subcortical white matter seen likely chronic small vessel disease. Skull base vascular flow voids are patent. No abnormal enhancing intracranial mass. No pathologic enhancement. IMPRESSION: No evidence for acute or subacute ischemic infarction. No evidence for intracranial enhancing mass, acute hemorrhage or hydrocephalus. Mild chronic small vessel disease and age-related involutional changes. Electronically Signed: Sukh Vaughan MD at 12:31 EDT Tel , Service support , MRI/Brain W/WO Contrast
== END ==
PROVIDERS: PCP Internal Medicine; Referring Provider Psychiatry & Neurology Neurology; Visit Provider Psychiatry & Neurology Neurology
DX: G31.84 Mild cognitive impairment of uncertain or unknown etiology (principal); G25.0 Essential tremor
CPT/HCPCS: 70553; A9575

== ENCOUNTER → 2021-06-05 | Outpatient (CLI) | payer BC, SELFPAY | END | disposition home or self-care (01) | PROVIDERS: PCP Internal Medicine; Visit Provider Physician Assistant | DX: R50.9 Fever, unspecified (principal) | CPT/HCPCS: 87635; U0005; U0003 ==

== ENCOUNTER → 2021-06-29 09:56 | Outpatient (CLI) | payer BC, SELFPAY ==
[2021-06-29 12:48] LABS: AST(SGOT) 25 U/L (15-37); Alanine Aminotransfer ALT/SGPT 34 U/L (13-56); Albumin, Serum 3.4 g/dL (3.2-5.0); Alkaline Phosphatase 89 U/L (45-117); Anion Gap 8 (5-15); BUN 18 mg/dL (7-18); BUN/Creat Ratio 18.1 RATIO (10-20); Calcium,Total 9.2 mg/dL (8.5-10.1); Chloride 105 mmol/L (98-107); Cholesterol 164 mg/dL (200); EST Glomerular Filtration Rate 59 mL/min (>60); Est Glom Filt Rate - Afr Amer 71 mL/min (>60); Globulin 3.4 g/dL (2.2-4.2); Glucose 78 mg/dL (74-106); High Density Lipoprotein 54 mg/dL; Protein, Total 6.8 g/dL (6.4-8.2); Sodium Level 140 mmol/L (136-145); Thyroid Stim Hormone (TSH) 1.59 uIU/mL (0.358-3.74); Triglycerides 200 mg/dL; Very Low Density Lipoprotein 40 mg/dL (5-40)
== END ==
PROVIDERS: PCP Internal Medicine; Referring Provider Internal Medicine; Visit Provider Internal Medicine
DX: I10 Essential (primary) hypertension (principal); E03.9 Hypothyroidism, unspecified; E78.5 Hyperlipidemia, unspecified
CPT/HCPCS: 36415; 80053; 80061; 84443

== ENCOUNTER → 2021-08-25 10:21 | Outpatient (CLI) | payer BC, SELFPAY ==
--- NOTE | 2021-08-25 10:27 | BI_ITS ---
MAMMOGRAPHY - BILATERAL SCREENING REASON FOR EXAM: Female, 71 years old. Routine annual screening examination. PERTINENT HISTORY: Non-contributory. Remote left and right excisional breast biopsies. TECHNIQUE: Digital bilateral breast olga (3D mammographic acquisition) in the CC and MLO projections. 2-D mediolateral oblique (MLO) and craniocaudad (CC) views of both breasts were obtained. CAD: Full Field Digital Mammography with Computer Added Detection was performed. COMPARISON: Comparison is made with prior study dated 07/19/2019 and 05/16/2018. FINDINGS: Breast Composition: The breasts are extremely dense, which lowers the sensitivity of mammography. There are no dominant masses or suspicious calcifications. Stable benign-appearing bilateral axillary lymph nodes. A tissue clip marker is once again seen along the anterior inferior medial aspect of the left breast. No other significant abnormalities are identified. There has been no significant change since the prior study. BI/SCRN MAMM (CAD)W/OLGA BILAT IMPRESSION: Stable bilateral screening mammogram. Yearly follow-up mammogram recommended. (A) ASSESSMENT CATEGORY: BIRADS Category 2: Benign. A letter regarding these results will be sent to the patient by the facility within 30 days. Approximately 10% of breast cancers are not detected by mammography. A normal mammogram should not delay biopsy of a clinically suspicious abnormality. [id number] Electronically Signed: Aston Cabezas MD at 12:24 EST , Service support ,
--- NOTE | 2021-08-25 10:30 | BD_ITS ---
STUDY: DUAL ENERGY X-RAY ABSORPTIOMETRY / DXA REASON FOR EXAM: Female, 71 years old. Post Menopausal TECHNIQUE: Bone Mineral Density (BMD) measurements of lumbar spine and bilateral hips were obtained. COMPARISON: Comparison is made with prior study dated 07/19/2019. FINDINGS: Lumbar Spine (L1-L4): g/cm2 (0.905) / T-score (-1.3) / Z-score (0.8) Findings are suggestive of osteopenia with a low fracture risk. Left Femur Total: g/cm2 (0.893) / T-score (-0.4) / Z-score (1.0) Left Femoral Neck: g/cm2 (0.698) / T-score (-1.4) / Z-score (0.4) Right Femur Total: g/cm2 (0.884) / T-score (-0.5) / Z-score (1.0) Right Femoral Neck: g/cm2 (0.748) / T-score (-0.9) / Z-score (0.8) The T-Scores on the most recent prior examination were: Lumbar Spine (L1-L4): There has been worsening of bone density since the previous examination. Left Femur Total: which represents a worsening of 1.2%. Right Femur Total: which represents a worsening of 0.7%. BD/Dexa Bone Density Study IMPRESSION: The patient is considered osteopenic as outlined below according to World [place] Organization (WHO) criteria with a low fracture risk. There has been worsening of bone density since the previous examination. Reference Information: The T-score is the number of standard deviations above or below the standard which is normal for young adults at their peak bone mineral density. The World Health Organization (WHO) interprets the T-scores as follows: Above -1 Normal bone density Between -1 and -2.5 Osteopenia Equal to / or below -2.5 Osteoporosis As a practical clinical guideline, osteopenia may be graded as follows: Mild -1 through -1.5 Moderate -1.6 through -2.0 Severe -2.1 through -2.4 The Z-score is the number of standard deviations above or below age-matched controls. A Z-score of less than -1.5 would be considered abnormal. References: 1. NIH Osteoporosis and Related Bone Diseases www osteo.org 2. International Society for Clinical Densitometry www iscd.org 3. National Osteoporosis Foundation www nof.org Electronically Signed: Aston Cabezas MD at 15:20 EST , Service support ,
== END ==
PROVIDERS: PCP Internal Medicine; Visit Provider Internal Medicine
DX: Z12.31 Encounter for screening mammogram for malignant neoplasm of breast (principal); Z78.0 Asymptomatic menopausal state; M85.80 Other specified disorders of bone density and structure, unspecified site
CPT/HCPCS: 77063; 77067; 77080

== ENCOUNTER 2021-10-12 10:00 | Outpatient (CLI) | payer MEDICARE, OTHER, SELFPAY ==
[2021-10-12 12:36] LABS: Absolute Lymphocyte Count 2.65 X10^3/uL (0.83-4.51); Absolute Neutrophil Count 5.2 X10^3/uL (2.0-7.7); Basophil# 0.05 X10^3/uL; Basophil% 0.6 % (0-1); Hematocrit 43.4 % (37-47); Hemoglobin 14.5 g/dL (12.0-15.0); Lymphocyte # 2.65 X10^3/ul (0.83-4.51); Lymphocyte % 30.1 % (19-41); Mean Corp Hgb Conc 33.4 g/dL (32-36); Mean Corpuscular Hgb 29.2 pg (27.0-32.0); Mean Corpuscular Volume 87.5 fL (81-99); Mean Platelet Vol. 10.1 fl (6.2-12.0); Monocyte# 0.83 X10^3/uL; Monocyte% 9.4 % (0-10); NRBC Flagged by Analyzer 0 % (0-5); Neutrophil # 5.22 X10^3/uL (2.7-7.7); Neutrophil % 59.4 % (47-70); Platelet Count 313 K/mm3 (150-450); RBC Distribution Width CV 12.6 % (11.6-14.6); RBC Distribution Width SD 39.8 fl (35.1-43.9); Red Blood Count 4.96 M/mm3 (4.2-5.4); White Blood Count 8.8 K/mm3 (4.4-11.0)
[2021-10-12 12:58] LABS: Vitamin D,25 Hydroxy 42.5 ng/mL
[2021-10-12 13:01] LABS: Anion Gap 6 (5-15); BUN 13 mg/dL (7-18); BUN/Creat Ratio 15.3 RATIO (10-20); Calcium,Total 9.5 mg/dL (8.5-10.1); Chloride 106 mmol/L (98-107); Creatinine, Serum 0.85 mg/dL (0.55-1.02); EST Glomerular Filtration Rate 70 mL/min (>60); Est Glom Filt Rate - Afr Amer 85 mL/min (>60); Glucose 104 mg/dL (74-106); Potassium 3.8 mmol/L (3.5-5.1); Sodium Level 137 mmol/L (136-145); Thyroid Stim Hormone (TSH) 1.48 uIU/mL (0.358-3.74)
== END 2021-10-12 23:59 | disposition short-term general hospital (02) ==
LOC: LAB.FUTURE 10:01 → BIMLAB 10-13 11:16
PROVIDERS: PCP Internal Medicine; Visit Provider Internal Medicine
DX: G25.0 Essential tremor (principal); I10 Essential (primary) hypertension; D64.9 Anemia, unspecified; R53.83 Other fatigue; E55.9 Vitamin D deficiency, unspecified
CPT/HCPCS: 36415; 80048; 82306; 84443; 85025

== ENCOUNTER → 2022-01-29 | Outpatient (CLI) | payer MEDICARE, OTHER, SELFPAY ==
[2022-01-29 16:36] LABS: Absolute Lymphocyte Count 1.99 X10^3/uL (0.83-4.51); Absolute Neutrophil Count 5.7 X10^3/uL (2.0-7.7); Basophil# 0.05 X10^3/uL; Basophil% 0.6 % (0-1); Hematocrit 45.2 % (37-47); Hemoglobin 15.1 g/dL (12.0-15.0); Lymphocyte # 1.99 X10^3/ul (0.83-4.51); Lymphocyte % 23.3 % (19-41); Mean Corp Hgb Conc 33.4 g/dL (32-36); Mean Corpuscular Hgb 29.4 pg (27.0-32.0); Mean Corpuscular Volume 87.9 fL (81-99); Mean Platelet Vol. 10.3 fl (6.2-12.0); Monocyte# 0.76 X10^3/uL; Monocyte% 8.9 % (0-10); NRBC Flagged by Analyzer 0 % (0-5); Neutrophil # 5.71 X10^3/uL (2.7-7.7); Neutrophil % 66.8 % (47-70); Platelet Count 265 K/mm3 (150-450); RBC Distribution Width CV 12.4 % (11.6-14.6); RBC Distribution Width SD 40.4 fl (35.1-43.9); Red Blood Count 5.14 M/mm3 (4.2-5.4); White Blood Count 8.5 K/mm3 (4.4-11.0)
[2022-01-29 16:51] LABS: ALB/GLOB Ratio 1.1 RATIO (0.9-2.4); AST(SGOT) 26 U/L (15-37); Alanine Aminotransfer ALT/SGPT 34 U/L (13-56); Albumin, Serum 3.8 g/dL (3.2-5.0); Alkaline Phosphatase 92 U/L (45-117); Anion Gap 7 (5-15); BUN 19 mg/dL (7-18); BUN/Creat Ratio 19.5 RATIO (10-20); Calcium,Total 9.5 mg/dL (8.5-10.1); Chloride 104 mmol/L (98-107); Creatinine, Serum 0.98 mg/dL (0.55-1.02); EST Glomerular Filtration Rate 60 mL/min (>60); Est Glom Filt Rate - Afr Amer 73 mL/min (>60); Globulin 3.5 g/dL (2.2-4.2); Glucose 101 mg/dL (74-106); Potassium 3.7 mmol/L (3.5-5.1); Protein, Total 7.3 g/dL (6.4-8.2); Sodium Level 140 mmol/L (136-145); Thyroid Stim Hormone (TSH) 0.62 uIU/mL (0.358-3.74)
== END | disposition home or self-care (01) ==
LOC: BIMLAB 14:42
PROVIDERS: PCP Internal Medicine; Referring Provider Internal Medicine; Visit Provider Internal Medicine
DX: E03.9 Hypothyroidism, unspecified (principal); F41.8 Other specified anxiety disorders; I10 Essential (primary) hypertension
CPT/HCPCS: 36415; 80053; 84443; 85025

== ENCOUNTER → 2022-08-09 | Outpatient (CLI) | payer MEDICARE, OTHER, SELFPAY ==
[2022-08-09 13:24] LABS: ALB/GLOB Ratio 1.2 RATIO (0.9-2.4); AST(SGOT) 22 U/L (15-37); Alanine Aminotransfer ALT/SGPT 30 U/L (13-56); Albumin, Serum 3.7 g/dL (3.2-5.0); Alkaline Phosphatase 86 U/L (45-117); Anion Gap 7 (5-15); BUN 17 mg/dL (7-18); BUN/Creat Ratio 17.5 RATIO (10-20); Calcium,Total 9.5 mg/dL (8.5-10.1); Chloride 106 mmol/L (98-107); Cholesterol 158 mg/dL (200); Creatinine, Serum 0.97 mg/dL (0.55-1.02); EST Glomerular Filtration Rate 60 mL/min (>60); Est Glom Filt Rate - Afr Amer 73 mL/min (>60); Globulin 3.2 g/dL (2.2-4.2); Glucose 90 mg/dL (74-106); High Density Lipoprotein 60 mg/dL; Potassium 4.2 mmol/L (3.5-5.1); Protein, Total 6.9 g/dL (6.4-8.2); Sodium Level 139 mmol/L (136-145); Triglycerides 157 mg/dL; Very Low Density Lipoprotein 31 mg/dL (5-40)
== END | disposition home or self-care (01) ==
LOC: BIMLAB 11:10
PROVIDERS: PCP Internal Medicine; Referring Provider Internal Medicine; Visit Provider Internal Medicine
DX: I10 Essential (primary) hypertension (principal); E78.5 Hyperlipidemia, unspecified
CPT/HCPCS: 36415; 80053; 80061

== ENCOUNTER → 2022-08-26 | Outpatient (CLI) | payer MEDICARE, OTHER, SELFPAY ==
--- NOTE | 2022-08-26 12:05 | BI_ITS ---
MAMMOGRAPHY - BILATERAL SCREENING REASON FOR EXAM: Female, 72 years old. Routine annual screening examination. PERTINENT HISTORY: Non-contributory. TECHNIQUE: Digital bilateral breast olga (3D mammographic acquisition) in the CC and MLO projections. 2-D mediolateral oblique (MLO) and craniocaudad (CC) views of both breasts were obtained. CAD: Full Field Digital Mammography with Computer Added Detection was performed. COMPARISON: Comparison is made with prior study dated 08/25/2021 and 07/19/2019. FINDINGS: Breast Composition: The breasts are extremely dense, which lowers the sensitivity of mammography. There are no dominant masses or suspicious calcifications. A tissue clip marker is once again seen in the inferior anterior medial aspect of the left breast. No other significant abnormalities are identified. There has been no significant change since the prior study. BI/SCRN MAMM (CAD)W/OLGA BILAT IMPRESSION: Stable bilateral screening mammogram. Yearly follow-up mammogram recommended. (A) ASSESSMENT CATEGORY: BIRADS Category 2: Benign. A letter regarding these results will be sent to the patient by the facility within 30 days. Approximately 10% of breast cancers are not detected by mammography. A normal mammogram should not delay biopsy of a clinically suspicious abnormality. [id number] Electronically Signed: Aston Cabezas MD at 8:04 EST ,
== END | disposition home or self-care (01) ==
LOC: OPBI 12:03
PROVIDERS: PCP Internal Medicine; Visit Provider Internal Medicine
DX: Z12.31 Encounter for screening mammogram for malignant neoplasm of breast (principal)
CPT/HCPCS: 77063; 77067

== ENCOUNTER → 2022-11-24 | Outpatient (CLI) | payer MEDICARE, OTHER, SELFPAY | END | disposition home or self-care (01) | LOC: SL 10:16 | PROVIDERS: PCP Internal Medicine; Referring Provider Internal Medicine; Visit Provider Internal Medicine | DX: G47.33 Obstructive sleep apnea (adult) (pediatric) (principal) | CPT/HCPCS: 95806 ==

== ENCOUNTER → 2023-01-12 | Outpatient (CLI) | payer MEDICARE, OTHER, SELFPAY ==
[2023-01-12 12:22] LABS: Absolute Lymphocyte Count 1.91 X10^3/uL (0.83-4.51); Absolute Neutrophil Count 5.1 X10^3/uL (2.0-7.7); Basophil# 0.04 X10^3/uL; Basophil% 0.5 % (0-1); Hematocrit 42.1 % (37-47); Hemoglobin 13.8 g/dL (12.0-15.0); Lymphocyte # 1.91 X10^3/ul (0.83-4.51); Lymphocyte % 24.6 % (19-41); Mean Corp Hgb Conc 32.8 g/dL (32-36); Mean Corpuscular Hgb 29.2 pg (27.0-32.0); Mean Platelet Vol. 10.1 fl (6.2-12.0); Monocyte# 0.66 X10^3/uL; Monocyte% 8.5 % (0-10); NRBC Flagged by Analyzer 0 % (0-5); Neutrophil # 5.11 X10^3/uL (2.7-7.7); Platelet Count 277 K/mm3 (150-450); RBC Distribution Width CV 12.7 % (11.6-14.6); RBC Distribution Width SD 41.4 fl (35.1-43.9); Red Blood Count 4.73 M/mm3 (4.2-5.4); White Blood Count 7.8 K/mm3 (4.4-11.0)
[2023-01-12 12:49] LABS: Vitamin D,25 Hydroxy 53.9 ng/mL
[2023-01-12 13:07] LABS: ALB/GLOB Ratio 1.1 RATIO (0.9-2.4); AST(SGOT) 27 U/L (15-37); Alanine Aminotransfer ALT/SGPT 32 U/L (13-56); Albumin, Serum 3.6 g/dL (3.2-5.0); Alkaline Phosphatase 83 U/L (45-117); Anion Gap 7 (5-15); BUN 19 mg/dL (7-18); BUN/Creat Ratio 19.8 RATIO (10-20); Calcium,Total 9.3 mg/dL (8.5-10.1); Chloride 107 mmol/L (98-107); Creatinine, Serum 0.96 mg/dL (0.55-1.02); EST Glomerular Filtration Rate 61 mL/min (>60); Est Glom Filt Rate - Afr Amer 74 mL/min (>60); Globulin 3.2 g/dL (2.2-4.2); Glucose 91 mg/dL (74-106); Potassium 4.2 mmol/L (3.5-5.1); Protein, Total 6.8 g/dL (6.4-8.2); Sodium Level 140 mmol/L (136-145); Thyroid Stim Hormone (TSH) 0.89 uIU/mL (0.358-3.74)
== END | disposition home or self-care (01) ==
LOC: BIMLAB 11:22
PROVIDERS: PCP Internal Medicine; Referring Provider Internal Medicine; Visit Provider Internal Medicine
DX: I10 Essential (primary) hypertension (principal); E03.9 Hypothyroidism, unspecified; E55.9 Vitamin D deficiency, unspecified
CPT/HCPCS: 36415; 80053; 82306; 84443; 85025

== ENCOUNTER → 2023-07-08 | Outpatient (CLI) | payer MEDICARE, OTHER, SELFPAY ==
[2023-07-08 15:39] LABS: Absolute Lymphocyte Count 2.12 X10^3/uL (0.83-4.51); Absolute Neutrophil Count 4.6 X10^3/uL (2.0-7.7); Basophil# 0.06 X10^3/uL; Basophil% 0.7 % (0-1); Eosinophil# 0.53 X10^3/uL; Eosinophils% 6.5 % (0-5); Hematocrit 44.9 % (37-47); Hemoglobin 14.5 g/dL (12.0-15.0); Lymphocyte # 2.12 X10^3/ul (0.83-4.51); Lymphocyte % 26.1 % (19-41); Mean Corp Hgb Conc 32.3 g/dL (32-36); Mean Corpuscular Hgb 29.4 pg (27.0-32.0); Mean Corpuscular Volume 90.9 fL (81-99); Monocyte# 0.81 X10^3/uL; NRBC Flagged by Analyzer 0 % (0-5); Neutrophil # 4.57 X10^3/uL (2.7-7.7); Neutrophil % 56.3 % (47-70); Platelet Count 265 K/mm3 (150-450); RBC Distribution Width CV 12.7 % (11.6-14.6); RBC Distribution Width SD 41.7 fl (35.1-43.9); Red Blood Count 4.94 M/mm3 (4.2-5.4); White Blood Count 8.1 K/mm3 (4.4-11.0)
[2023-07-08 16:32] LABS: ALB/GLOB Ratio 1.1 RATIO (0.9-2.4); AST(SGOT) 22 U/L (15-37); Alanine Aminotransfer ALT/SGPT 30 U/L (13-56); Albumin, Serum 3.7 g/dL (3.2-5.0); Alkaline Phosphatase 79 U/L (45-117); Anion Gap 8 (5-15); BUN 25 mg/dL (7-18); BUN/Creat Ratio 24.3 RATIO (10-20); Calcium,Total 9.5 mg/dL (8.5-10.1); Chloride 103 mmol/L (98-107); Cholesterol 150 mg/dL (200); Creatinine, Serum 1.03 mg/dL (0.55-1.02); EST Glomerular Filtration Rate 56 mL/min (>60); Est Glom Filt Rate - Afr Amer 68 mL/min (>60); Globulin 3.4 g/dL (2.2-4.2); Glucose 90 mg/dL (74-106); High Density Lipoprotein 53 mg/dL; Potassium 4.1 mmol/L (3.5-5.1); Protein, Total 7.1 g/dL (6.4-8.2); Sodium Level 137 mmol/L (136-145); Thyroid Stim Hormone (TSH) 0.89 uIU/mL (0.358-3.74); Triglycerides 156 mg/dL; Very Low Density Lipoprotein 31 mg/dL (5-40)
== END | disposition home or self-care (01) ==
LOC: BIMLAB 11:43
PROVIDERS: PCP Internal Medicine; Referring Provider Internal Medicine; Visit Provider Internal Medicine
DX: E78.5 Hyperlipidemia, unspecified (principal); E03.9 Hypothyroidism, unspecified
CPT/HCPCS: 36415; 80053; 80061; 84443; 85025

== ENCOUNTER 2023-08-25 10:00 | Outpatient (RCR) | payer MEDICARE, OTHER, SELFPAY ==
--- NOTE | 2023-08-02 11:10 | HP.PTEVAL ---
Patient's Visit Information Visit Information Visit Information: JASMIN TSANG is a 73 year old F referred to Physical Therapy by Dr. Javad Valdez DO with a diagnosis of B knee OA. Date of Evaluation: 08/02/23 Physical Therapist: Aman Carlson, PT, ATC Visit Plan Frequency: 2-3x /Week Duration: 4-6 Weeks Plan: B LE strengthening, core stab ex's, balance and proprio, bike, and HEP Subjective Subjective: Pt reports she has had B knee pain for several years. Pt notes she worked at [employer] and had to stand or walk on a hard floor every day. Pt believes this is what caused her pain. Pt reports her doctor told her she was a prime candidate for TKA, but wants to hold off on that for as long as possible. Pain is about the same in both knees, but her L knee clicks and locks up. Pt reports recent x-rays which reveled severe degenerative changes. pain is always worst first thing in the morning, when she attempts to stand after sitting for a while, and when she performs prolonged standing and ambulation. Pt reports she had to move to a ranch style setting secondary to not being able to negotiate stairs secondary to pain. Pt reports occasional sleep difficulty secondary to pain. 0/10 pain while at rest, 7/10 pain at worst Pain B knees: Pain Intensity (Out of 10): 0 Pain Intensity Range: 7 Objective Objective: Neuro: B LE sensation is WNL to light touch. Palpation: Pt is very sore with palpation to B medial joint lines. Significant crepitus with AROM. No obvious deformity. ROM: R knee 0-5-135 degrees; L knee 0-10-115 degrees MMT: L knee flex= 34, ext= 34 #F; R knee flex= 17, ext= 17 #F Gait: Pt is able to ambulate 510 feet until needing to rest secondary to pain Balance/Special Test Scores Lower Extremity Functional Score: 31 Goals Goal 1:: Decrease B knee pain x 50% to aid with sleep Goal Time Frame: 4-6 Weeks Goal 2:: Increase B knee strength x 5-10 #F to aid with stair negotiation Goal Time Frame: 4-6 Weeks Goal 3:: Pt will be able to ambulate greater than 1000 feet to aid with community ambulation Goal Time Frame: 4-6 Weeks Goal 4:: I with HEP Goal Time Frame: 4-6 Weeks Rehabilitation Potential Physical Therapy Diagnosis: Pt has B knee pain, weakness, and difficulty with prolonged ambulation secondary to B knee OA Rehabilitation Potential: Good Anticipated Interventions Patient/Client Instruction: Educate patient on: Condition and Plan of Care For the Purpose of:: To improve self management Therapeutic Exercise to Include: Strength training, Endurance training, Balance training, Flexibilty training, Active ROM and Dynamic Lumbar Stabilization For the Purpose of:: To decrease pain, To increase ROM and To improve muscle performance and motor function Text: Thank you for the opportunity to evaluate your patient. For Medicare and Medicare HMO plans, please review the plan of care and approve it. It will need to be FAXED BACK to us at [phone] for Medicare purposes. For Medicare only, by signing this I certify the plan of care. Please let me know if there are questions or concerns regarding this plan of care. Physician Signature: Date:
== END 2023-08-25 19:00 | disposition home or self-care (01) ==
LOC: PT 10:00
PROVIDERS: PCP Internal Medicine; Referring Provider Orthopaedic Surgery; Visit Provider Orthopaedic Surgery
DX: M17.0 Bilateral primary osteoarthritis of knee (principal)
CPT/HCPCS: 97110; 97161

== ENCOUNTER → 2023-08-29 | Outpatient (CLI) | payer MEDICARE, OTHER, SELFPAY ==
--- NOTE | 2023-08-29 09:59 | BI_ITS ---
MAMMOGRAPHY - BILATERAL SCREENING REASON FOR EXAM: Female, 73 years old. Routine annual screening examination. PERTINENT HISTORY: Non-contributory. Remote bilateral excisional breast biopsies. TECHNIQUE: Digital bilateral breast olga (3D mammographic acquisition) in the CC and MLO projections. 2-D mediolateral oblique (MLO) and craniocaudad (CC) views of both breasts were obtained. CAD: Full Field Digital Mammography with Computer Added Detection was performed. COMPARISON: Comparison is made with prior study August 26, 2022 and August 25, 2021. FINDINGS: Breast Composition: The breasts are extremely dense, which lowers the sensitivity of mammography. There are no dominant masses or suspicious calcifications. A tissue clip marker is once again seen in the inferior anterior medial aspect of the left breast. No other significant abnormalities are identified. There has been no significant change since the prior study. BI/SCRN MAMM (CAD)W/OLGA BILAT IMPRESSION: Stable bilateral screening mammogram. Yearly follow-up mammogram recommended. (A) ASSESSMENT CATEGORY: BIRADS Category 2: Benign. A letter regarding these results will be sent to the patient by the facility within 30 days. Approximately 10% of breast cancers are not detected by mammography. A normal mammogram should not delay biopsy of a clinically suspicious abnormality. [id number] Electronically Signed: Aston Cabezas MD at 10:47 EST ,
== END | disposition home or self-care (01) ==
LOC: OPBI 09:58
PROVIDERS: PCP Internal Medicine; Referring Provider Internal Medicine; Visit Provider Internal Medicine
DX: Z12.31 Encounter for screening mammogram for malignant neoplasm of breast (principal)
CPT/HCPCS: 77063; 77067

== ENCOUNTER → 2023-11-21 | Outpatient (CLI) | payer MEDICARE, OTHER, SELFPAY ==
[2023-11-21 15:47] LABS: Anion Gap 5 (5-15); BUN 21 mg/dL (7-18); BUN/Creat Ratio 18.6 RATIO (10-20); Calcium,Total 9.9 mg/dL (8.5-10.1); Chloride 105 mmol/L (98-107); Creatinine, Serum 1.13 mg/dL (0.55-1.02); EST Glomerular Filtration Rate 50 mL/min (>60); Est Glom Filt Rate - Afr Amer 61 mL/min (>60); Glucose 103 mg/dL (74-106); Potassium 4.5 mmol/L (3.5-5.1); Sodium Level 140 mmol/L (136-145)
== END | disposition home or self-care (01) ==
LOC: BIMLAB 11:46
PROVIDERS: PCP Internal Medicine; Referring Provider Internal Medicine; Visit Provider Internal Medicine
DX: I10 Essential (primary) hypertension (principal)
CPT/HCPCS: 36415; 80048

== ENCOUNTER → 2023-11-29 | Outpatient (CLI) | payer MEDICARE, OTHER, SELFPAY ==
--- NOTE | 2023-11-29 12:39 | CT_ITS ---
STUDY: LOW DOSE CT LUNG CANCER SCREENING REASON FOR EXAM: Female, 73 years old. Lung cancer screening -- 38 pk yr hx;former smoker;asymptomatic RADIATION DOSAGE (If Supplied By Facility): CTDIvol = ( 4.02 ) mGy, DLP = ( 127.88 ) mGycm TECHNIQUE: No contrast was administered. Low dose technique was utilized (average mAS-38 and kVp 120). 1.25 mm axial source images with a slice interval of 1.25-mm were reconstructed in lung windows. 2.5 mm axial source images with a slice interval of 2.5-mm were reconstructed in lung windows. 5.0 mm axial source images with a slice interval of 5.0-mm were reconstructed in soft tissue windows. COMPARISON: Comparison is made with prior chest radiograph dated November 18, 2022. NODULES: Partially calcified 4.3 mm nodule in the inferior aspect of the right upper lobe abutting the minor fissure. Emphysema: Emphysematous changes. Scarring at the right lung apex. Mild scarring in the anterior medial aspect of the right middle lobe as well as in the lingular segment of the left upper lobe. Mild scarring at the right lung base. Endobronchial lesion: None Aorta: Atherosclerotic plaque formation of the aortic arch. CORONARY ARTERIES: Coronary artery calcification is seen. Heart: Unremarkable Pulmonary artery: Unremarkable Mediastinal nodes: Small mediastinal lymph nodes. Other chest and abdominal findings: CT/Low Dose CT Lung Screening IMPRESSION: Lung-RADS category 2 - Continue annual screening with LDCT in 12 months. IMPORTANT NOTES FOR USE: ACR Lung-RADS Version 1.1 Assessment Categories Release Date: 2018 Category: Coded 0-4 bases on nodule(s) with highest degree of suspicion. Negative screen is defined as categories 1 and 2; a positive screen is defined as categories 3 and 4. Category 3 and 4A nodules that are unchanged on interval CT should be coded as category 2, and individuals returned to screening in 12 months. Category 4X: Category 3 or 4 nodules with additional imaging findings that increase the suspicion of lung cancer, such as spiculation, GGN that doubles in size in 1 year, enlarged lymph notes, etc. Category Modifiers: S (significant finding unrelated to lung cancer) Electronically Signed: Aston Cabezas MD at 19:20 EDT ,
== END | disposition home or self-care (01) ==
LOC: CT 12:37
PROVIDERS: PCP Internal Medicine; Referring Provider Nurse Practitioner Family; Visit Provider Nurse Practitioner Family
DX: Z12.2 Encounter for screening for malignant neoplasm of respiratory organs (principal); Z87.891 Personal history of nicotine dependence
CPT/HCPCS: 71271

== ENCOUNTER → 2024-01-03 | Outpatient (CLI) | payer MEDICARE, OTHER, SELFPAY ==
--- NOTE | 2024-01-03 09:04 | BD_ITS ---
STUDY: DUAL ENERGY X-RAY ABSORPTIOMETRY / DXA REASON FOR EXAM: Female, 73 years old. Post Menopausal TECHNIQUE: Bone Mineral Density (BMD) measurements of lumbar spine and bilateral hips were obtained. COMPARISON: Comparison is made with prior study August 25, 2021. FINDINGS: Lumbar Spine (L1-L4): g/cm2 (0.883) / T-score (-1.5) / Z-score (0.7) Findings are suggestive of osteopenia with a low fracture risk. Left Femur Total: g/cm2 (0.908) / T-score (-0.3) / Z-score (1.3) Left Femoral Neck: g/cm2 (0.747) / T-score (-0.9) / Z-score (1.0) Right Femur Total: g/cm2 (0.881) / T-score (-0.5) / Z-score (1.1) Right Femoral Neck: g/cm2 (0.745) / T-score (-0.9) / Z-score (0.9) The T-Scores on the most recent prior examination were: Lumbar Spine (L1-L4): There has been worsening of bone density since the previous examination. Left Femur Total: which represents an improvement of 1.7%. Right Femur Total: which represents a worsening of 0.4%. BD/Dexa Bone Density Study IMPRESSION: The patient is considered osteopenic as outlined below according to World [place] Organization (WHO) criteria with a low fracture risk. There has been worsening of bone density since the previous examination. Reference Information: The T-score is the number of standard deviations above or below the standard which is normal for young adults at their peak bone mineral density. The World Health Organization (WHO) interprets the T-scores as follows: Above -1 Normal bone density Between -1 and -2.5 Osteopenia Equal to / or below -2.5 Osteoporosis As a practical clinical guideline, osteopenia may be graded as follows: Mild -1 through -1.5 Moderate -1.6 through -2.0 Severe -2.1 through -2.4 The Z-score is the number of standard deviations above or below age-matched controls. A Z-score of less than -1.5 would be considered abnormal. References: 1. NIH Osteoporosis and Related Bone Diseases www osteo.org 2. International Society for Clinical Densitometry www iscd.org 3. National Osteoporosis Foundation www nof.org Electronically Signed: Aston Cabezas MD at 8:39 EDT ,
== END | disposition home or self-care (01) ==
LOC: OPBD 08:58
PROVIDERS: PCP Internal Medicine; Referring Provider Internal Medicine; Visit Provider Internal Medicine
DX: Z78.0 Asymptomatic menopausal state (principal)
CPT/HCPCS: 77080

== ENCOUNTER → 2024-03-27 | Outpatient (CLI) | payer MEDICARE, OTHER, SELFPAY ==
[2024-03-27 12:23] LABS: Vitamin B12 346 pg/mL (211-911)
[2024-03-27 13:02] LABS: ALB/GLOB Ratio 1.1 RATIO (0.9-2.4); AST(SGOT) 23 U/L (15-37); Alanine Aminotransfer ALT/SGPT 27 U/L (13-56); Albumin, Serum 3.6 g/dL (3.2-5.0); Alkaline Phosphatase 83 U/L (45-117); Anion Gap 7 (5-15); BUN 16 mg/dL (7-18); BUN/Creat Ratio 16.5 RATIO (10-20); Calcium,Total 9.8 mg/dL (8.5-10.1); Chloride 105 mmol/L (98-107); Creatinine, Serum 0.97 mg/dL (0.55-1.02); EST Glomerular Filtration Rate 60 mL/min (>60); Est Glom Filt Rate - Afr Amer 73 mL/min (>60); Globulin 3.4 g/dL (2.2-4.2); Glucose 91 mg/dL (74-106); Potassium 4.1 mmol/L (3.5-5.1); Sodium Level 138 mmol/L (136-145); Thyroid Stim Hormone (TSH) 1.29 uIU/mL (0.358-3.74)
== END | disposition home or self-care (01) ==
LOC: BIMLAB 10:07
PROVIDERS: PCP Internal Medicine; Referring Provider Nurse Practitioner; Visit Provider Nurse Practitioner
DX: R53.82 Chronic fatigue, unspecified (principal); E78.5 Hyperlipidemia, unspecified; I10 Essential (primary) hypertension; E03.9 Hypothyroidism, unspecified
CPT/HCPCS: 36415; 80053; 82607; 84443

== ENCOUNTER 2024-06-28 16:00 | Emergency (ER) | payer MEDICARE, OTHER, SELFPAY ==
[2024-06-28 16:02] VITALS: BP 136/91; PULSE 78; RESP 16; TEMP 36.6; O2SAT 98; BMI 35.6
--- NOTE | 2024-06-28 17:15 | RAD_ITS ---
STUDY: X-RAY - LEFT KNEE REASON FOR EXAM: Female, 73 years old. injury TECHNIQUE: 4 view(s) of the knee. COMPARISON: Left knee July 20, 2023 FINDINGS: Normal visualized distal femur. Normal visualized proximal tibia and fibula. Normal proximal tibiofibular articulation. There is severe degenerative arthrosis of the medial femorotibial compartment with severe joint space narrowing. Normal lateral femorotibial compartment. Normal patellofemoral articulation. The soft tissue structures are unremarkable. RAD/Knee 4 or More Views IMPRESSION: Severe DJD medial joint demonstrates slight interval progression Electronically Signed: Jasmeet Yuen MD at 17:47 EDT ,
--- NOTE | 2024-06-28 17:15 | RAD_ITS ---
STUDY: X-RAY - LEFT ELBOW REASON FOR EXAM: Female, 73 years old. injury TECHNIQUE: 3 view(s) of the elbow. COMPARISON: None. FINDINGS: Normal visualized humerus, radius and ulna. Normal radiocapitellar and ulnotrochlear articulations. The soft tissue structures are unremarkable. RAD/Elbow min 3 Views IMPRESSION: Normal x-ray examination of the elbow. Electronically Signed: Jasmeet Yuen MD at 17:48 EDT ,
--- NOTE | 2024-06-28 17:15 | RAD_ITS ---
STUDY: X-RAY - RIGHT HAND REASON FOR EXAM: Female, 73 years old. injury TECHNIQUE: 3 view(s) of the hand. COMPARISON: None. FINDINGS: Normal radiocarpal articulation. Normal distal radioulnar joint. Normal visualized carpal bones. Normal carpal articulations Normal carpometacarpal articulation of the thumb. Normal second through fifth carpometacarpal joints. Normal metacarpi. There is degenerative arthrosis of the metacarpophalangeal (MCP) joints. Normal interphalangeal joint of the thumb. Normal proximal and distal phalanges of the thumb. Normal metacarpophalangeal joints of the second through fifth fingers. Normal proximal and distal interphalangeal joints of the second through fifth fingers. Intra-articular Avulsion fracture trochlea distal middle phalanx index finger ulnar aspect. The soft tissue structures are unremarkable. RAD/Hand Min 3 Views IMPRESSION: Avulsion fracture middle phalanx index finger, age indeterminate Electronically Signed: Jasmeet Yuen MD at 17:55 EDT ,
--- NOTE | 2024-06-28 17:15 | ED.VIS.FALL ---
HPI HPI - Fall History of Present Illness Chief Complaint: Fall Informant: patient Narrative Narrative: 73-year-old female states she missed stepped on a curb causing her to fall to her left anterior knee and left elbow. She states she then, after falling to these areas, scraped her face on the ground. She has no facial pain or headache she had no loss of consciousness because she had no epistaxis she has no vision trouble. No nausea or vomiting. She takes no anticoagulants or antiplatelets other than a baby aspirin. She did not try to ambulate, EMS was called to transport her here. [facility] Medical History (Updated 06/28/24 @ 18:[address] Alan Walker MD) Macular degeneration of both eyes History of tobacco use Encounter for screening for malignant neoplasm of lung Osteoarthritis Osteopenia Acute bronchitis, unspecified Fatigue Health care maintenance Encounter for screening for COVID-19 Essential tremor Tremor Sleep apnea Anxiety Depression Hypothyroidism GERD (gastroesophageal reflux disease) Hyperlipidemia Hypertension Anemia Seasonal allergies Home Medications ?Medication ?Instructions ?Recorded ?Last Taken ?Type biotin 2,500 mcg capsule 5,000 mcg PO DAILY 05/26/15 Unknown History cholecalciferol (vitamin D3) 25 2,000 unit PO DAILY 08/18/17 Unknown History mcg (1,000 unit) tablet aspirin 81 mg tablet,delayed 81 mg PO QDAY 03/14/18 Unknown History release acetaminophen 325 mg tablet 650 mg (2 x 325 mg) PO Q6H PRN PRN 09/27/20 Unknown Rx Pain Score 1-10/Temp > 100.7 F vit C 250 mg-vit E 90 mg-zinc 40 1 tab PO QAM AND QHS 05/07/22 Unknown History mg-copper 1 [id number] capsule (PreserVision AREDS-2) Oral sleep appliance #1 ea 05/14/22 Unknown Rx cetirizine 5 mg tablet 5 mg PO DAILY PRN 01/12/23 Unknown History omeprazole 40 mg capsule,delayed See Rx Instructions .Route 08/19/23 Unknown Rx release .COMPLEX #90 caps duloxetine 60 mg capsule,delayed 60 mg PO DAILY #90 caps 10/24/23 Unknown Rx release rosuvastatin 10 mg tablet (Crestor) 10 mg PO QDAY #90 tabs 10/24/23 Unknown Rx potassium chloride 20 mEq 20 meq PO BID #90 TABLETS 11/28/23 Unknown Rx tablet,extended release amlodipine 5 mg tablet 5 mg PO QDAY #90 tabs 03/27/24 Unknown Rx levothyroxine 75 mcg tablet 75 mcg PO .QD #90 tabs 03/27/24 Unknown Rx (Synthroid) metoprolol succinate 50 mg 50 mg PO QDAY #90 tabs 03/27/24 Unknown Rx tablet,extended release 24 hr triamterene 37.5 1 cap PO QAM #90 caps 03/27/24 Unknown Rx mg-hydrochlorothiazide 25 mg capsule lorazepam 0.5 mg tablet 0.5 mg PO QHS PRN anxiety #30 tabs 05/10/24 Unknown Rx cariprazine 1.5 mg capsule 1.5 mg PO QDAY #30 caps 06/27/24 Unknown Rx (Vraylar) Allergy/AdvReac Type Severity Reaction Status Date / Time baird pepper (green pepper) Allergy Mild Swelling Verified 06/28/24 16:01 cefaclor ([facility]) Allergy Rash Verified 06/28/24 16:01 ropinirole AdvReac Severe nightmares Verified 06/28/24 16:01 and nausea erythromycin base AdvReac Vomiting Verified 06/28/24 16:01 trazodone AdvReac syncope Verified 06/28/24 16:01 Family History Mother Arthritis Hypertension CVA (cerebral vascular accident) Father Heart disease Myocardial infarction Had his first at 50, lived to be 80. Hypertension Kidney disease Grandfather Cancer stomach CA Surgical History H/O breast biopsy H/O hemorrhoidectomy gallbladder removal H/O: hysterectomy Social History Smoking Status: Former smoker how long ago did patient quit smokin, 1ppd second hand exposure: Yes alcohol intake: never substance use type: does not use what type of physical activity do you participate in: none ROS ROS ED Constitutional Constitutional ED: Denies chills or fever(s) Eyes Eyes: Denies change in vision or diplopia ENT ENT ED: Denies ear pain, epistaxis, facial pain or rhinorrhea Cardiovascular Cardiovascular: Denies chest pain or palpitations Respiratory/Chest Respiratory/Chest: Denies cough or dyspnea Gastrointestinal Gastrointestinal: Denies abdominal pain, diarrhea, melena, nausea or vomiting Genitourinary Genitourinary ED: Denies dysuria or hematuria Musculoskeletal Musculoskeletal: Denies back pain, extremity pain or neck pain Integumentary Denies abscess, Abrasions, laceration or rash Neurologic Neurologic: Denies confusion, headache(s), paresthesias or weakness EXAM Physical Exam Const Vital Signs: 06/28/24 16:01 06/28/24 16:02 06/28/24 18:01 Temperature 97.8 F 97.8 F Temperature Source Temporal Temporal Pulse Rate 78 78 Respiratory Rate 16 16 Respiratory Effort Normal Respiratory Depth Normal Respiratory Pattern Normal Blood Pressure 136/91 H 132/61 H Blood Pressure Mean 106 84 Pulse Ox 98 98 Oxygen Delivery Method Room Air Room Air Room Air Positive well nourished and well developed General Appearance ED: well developed and NAD HEENT Reports nasal mucous membranes and turbinates normal HEENT Narrative: Very mild tenderness in the right temporal area, normal on inspection, no hematoma, no crepitus or depression or any other tenderness including the nose where there is superficial abrasion. No episodes of recent epistaxis. No CSF otorhinorrhea. No Grimm sign, no periorbital ecchymosis. atraumatic; Negative for trauma Eyes PERRL and EOMs intact bilaterally Visual Acuity: other Other Details: no entrapment or pain with extraocular movements Neck full ROM and supple General: Negative for tenderness Chest Wall inspection of chest normal and palpation of chest normal Chest: symmetrical chest wall rise; Negative for crepitus or tenderness Resp normal respiratory effort and clear to auscultation bilaterally Percussion: other equal BS bilat Cardio no murmurs Rate: regular rate Rhythm: regular rhythm GI normal to inspection, nondistended, normoactive bowel sounds, soft to palpation and non-tender Back/Spine normal ROM Cervical Spine: Negative for cervical spine tenderness Thoracic Spine / Upper Back: Negative for thoracic spinal tenderness Lumbar Spine / Lower Back: Negative for lumbar spinal tenderness Extremity normal to inspection and full ROM Extremity Narrative: Tender left patella, mild swelling without knee effusion, full range of motion, all ligaments stable with short endpoints on stressing including negative anterior and posterior drawer signs, extensor mechanism is intact. There is also some mild tenderness at the fibular head but not the tibial tuberosity or anywhere else around that area. She has some mild tenderness at the right fifth MTPJ where there is an abrasion and contusion. There is no deformity including rotational. She can move it fully. There is an abrasion at the dorsal aspect of the right distal ulna without any bony tenderness or limited range of motion of the wrist. She has tenderness at the left olecranon process, her extensor mechanism is intact and she is able to fully extend, she can pronate and supinate without any difficulty, she can fully bend without any difficulty, and there are no other areas of bony prominence tenderness including the proximal radius. Otherwise extremity exam including clavicles benign nontender. General Extremety ED: Yes tenderness Neuro oriented x3, CN's II-XII intact bilaterally, moves all extremities, no focal motor deficits and no sensory deficits noted Rosa Maria Coma Scale: document GCS findings Spontaneous Obeys Commands Oriented 15 Sensorium / Orientation: awake and alert Psych mental status grossly normal and thought process normal Skin no wounds Lesions: no lesions Rashes: no rashes Trauma: abrasion MDM MDM MDM Narrative Medical decision making narrative: Obtained x-rays of the patient's injured areas. 4 view x-ray series of the left knee negative on my interpretation, 3 view x-ray series of the left elbow negative on my interpretation, 3 view x-ray series of the right hand negative on my interpretation for any acute fracture of the area of interest, as noted by radiology there is a small avulsion fracture of the middle phalanx of the index finger, I reevaluated the patient after seeing this, patient has no pain or tenderness or limited range of motion to this area, she states she has a chronic swelling there. This is likely an old fracture. She is ambulatory without difficulty after we placed an Clint wrap around her knee, and stable for discharge home after being given Tylenol. With regards to her face and head, she has no signs of trauma except for an abrasion on her nose, I think the majority of the forces/trauma occurred on her left upper and lower extremities, and I do not think she needs a CT of the head she is in agreement with that. We discussed reasons to return. Radiography Diagnostic Testing: Clinical Impression(s) from Imaging Studies Elbow X-Ray 06/28/24 17:15 IMPRESSION: Normal x-ray examination of the elbow. Electronically Signed: Jasmeet Yuen MD at 17:48 EDT , Hand X-Ray 06/28/24 17:15 IMPRESSION: Avulsion fracture middle phalanx index finger, age indeterminate Electronically Signed: Jasmeet Yuen MD at 17:55 EDT Reading Location ID and State: [facility] / [place] Tel , Service support , Knee X-Ray 06/28/24 17:15 IMPRESSION: Severe DJD medial joint demonstrates slight interval progression Electronically Signed: Jasmeet Yuen MD at 17:47 EDT Reading Location ID and State: [facility] / [place] Tel , Service support , Discharge Plan Triage Chief Complaint: Fall ED Provider: Alan Walker Dx/Rx/DC Orders Clinical Impression: Contusion of left knee, Contusion of left elbow, Contusion of hand, right, Fall from slip, trip, or stumble, Abrasion of nose Instructions: ED Contusion, Lower Extremity, ED Contusion, Upper Extremity Prescriptions: No Action aspirin 81 mg tablet,delayed release (DR/EC) 81 mg PO QDAY PreserVision AREDS-2 250-90-40-1 mg capsule 1 tab PO QAM AND QHS cetirizine 5 mg tablet 5 mg PO DAILY PRN triamterene-hydrochlorothiazid 37.5-25 mg capsule 1 cap PO QAM Qty: 90 3RF Rx Instructions: administer after a meal metoprolol succinate 50 mg tablet extended release 24 hr 50 mg PO QDAY Qty: 90 3RF amlodipine 5 mg tablet 5 mg PO QDAY Qty: 90 3RF levothyroxine [Synthroid] 75 mcg tablet 75 mcg PO .QD Qty: 90 3RF Vraylar 1.5 mg capsule 1.5 mg PO QDAY Qty: 30 1RF biotin 2,500 MCG capsule 5,000 mcg PO DAILY cholecalciferol (vitamin D3) 1,000 UNIT tablet 2,000 unit PO DAILY acetaminophen 325 MG tablet 650 mg PO Q6H PRN PRN (Reason: Pain Score 1-10/Temp > 100.7 F) 0RF (DME) Oral sleep appliance See Rx Instructions .Route .MEDSUPPLY Qty: 1 0RF Rx Instructions: As directed omeprazole 40 mg capsule,delayed release(DR/EC) See Rx Instructions .ROUTE .COMPLEX Qty: 90 2RF Dose Instruction: TAKE 1 CAPSULE DAILY 4 HOURS AFTER DINNER Rx Instructions: TAKE 1 CAPSULE DAILY 4 HOURS AFTER DINNER duloxetine 60 mg capsule,delayed release(DR/EC) 60 mg PO DAILY Qty: 90 3RF rosuvastatin [Crestor] 10 mg tablet 10 mg PO QDAY Qty: 90 3RF potassium chloride 20 mEq tablet extended release 20 meq PO BID Qty: 90 3RF lorazepam 0.5 mg tablet 0.5 mg PO QHS PRN (Reason: anxiety) Qty: 30 0RF Primary Care Provider: Shannan Chauhan Referrals: Shannan Chauhan MD [Primary Care Provider] - As Needed Print Language: German Disposition Disposition: Home, Self Care
[2024-06-28] MEDS: Acetaminophen 500 MG Tablet 1000 MG PO (17:18)
[2024-06-28 18:01] VITALS: BP 132/61; PULSE 78; RESP 16; TEMP 36.6; O2SAT 98
[2024-06-28 18:44] VITALS: BP 134/64; PULSE 64; RESP 18; TEMP 36.4; O2SAT 99
== END 2024-06-28 18:45 | disposition home or self-care (01) ==
PROVIDERS: Emergency Provider Emergency Medicine; PCP Internal Medicine; Referring Provider Emergency Medicine; Visit Provider Emergency Medicine
DX: S80.02XA Contusion of left knee, initial encounter (principal); S50.02XA Contusion of left elbow, initial encounter; S60.221A Contusion of right hand, initial encounter; S00.31XA Abrasion of nose, initial encounter; W10.1XXA Fall (on)(from) sidewalk curb, initial encounter; I10 Essential (primary) hypertension; E78.5 Hyperlipidemia, unspecified; E03.9 Hypothyroidism, unspecified; H35.30 Unspecified macular degeneration; K21.9 Gastro-esophageal reflux disease without esophagitis; Z79.82 Long term (current) use of aspirin; Z79.890 Hormone replacement therapy; Z87.891 Personal history of nicotine dependence; Z90.710 Acquired absence of both cervix and uterus
CPT/HCPCS: 73080; 73130; 73564; 99282

== ENCOUNTER → 2024-09-03 | Outpatient (CLI) | payer MEDICARE, OTHER, SELFPAY ==
[2024-09-03 12:14] LABS: Absolute Lymphocyte Count 2.23 X10^3/uL (0.83-4.51); Absolute Neutrophil Count 5.1 X10^3/uL (2.0-7.7); Basophil# 0.05 X10^3/uL; Basophil% 0.6 % (0-1); Hematocrit 40.5 % (37-47); Hemoglobin 12.4 g/dL (12.0-15.0); Lymphocyte # 2.23 X10^3/ul (0.83-4.51); Lymphocyte % 27.3 % (19-41); Mean Corp Hgb Conc 30.6 g/dL (32-36); Mean Corpuscular Hgb 24.4 pg (27.0-32.0); Mean Corpuscular Volume 79.6 fL (81-99); Mean Platelet Vol. 10.4 fl (6.2-12.0); Monocyte# 0.81 X10^3/uL; Monocyte% 9.9 % (0-10); NRBC Flagged by Analyzer 0 % (0-5); Neutrophil # 5.06 X10^3/uL (2.7-7.7); Neutrophil % 61.8 % (47-70); Platelet Count 283 K/mm3 (150-450); RBC Distribution Width CV 14.2 % (11.6-14.6); RBC Distribution Width SD 40.8 fl (35.1-43.9); Red Blood Count 5.09 M/mm3 (4.2-5.4); White Blood Count 8.2 K/mm3 (4.4-11.0)
[2024-09-03 12:25] LABS: ALB/GLOB Ratio 1.1 RATIO (0.9-2.4); AST(SGOT) 21 U/L (15-37); Alanine Aminotransfer ALT/SGPT 26 U/L (13-56); Albumin, Serum 3.6 g/dL (3.2-5.0); Alkaline Phosphatase 94 U/L (45-117); Anion Gap 5 (5-15); BUN 15 mg/dL (7-18); BUN/Creat Ratio 15.7 RATIO (10-20); Calcium,Total 9.6 mg/dL (8.5-10.1); Chloride 106 mmol/L (98-107); Cholesterol 150 mg/dL (200); Creatinine, Serum 0.95 mg/dL (0.55-1.02); EST Glomerular Filtration Rate 61 mL/min (>60); Est Glom Filt Rate - Afr Amer 74 mL/min (>60); Globulin 3.4 g/dL (2.2-4.2); Glucose 76 mg/dL (74-106); High Density Lipoprotein 56 mg/dL; Sodium Level 138 mmol/L (136-145); Triglycerides 201 mg/dL; Very Low Density Lipoprotein 40 mg/dL (5-40)
[2024-09-03 12:32] LABS: Vitamin D,25 Hydroxy 63.8 ng/mL
== END | disposition home or self-care (01) ==
LOC: BIMLAB 10:42
PROVIDERS: PCP Internal Medicine; Referring Provider Internal Medicine; Visit Provider Internal Medicine
DX: I10 Essential (primary) hypertension (principal); M85.80 Other specified disorders of bone density and structure, unspecified site; E03.9 Hypothyroidism, unspecified
CPT/HCPCS: 36415; 80053; 80061; 82306; 84443; 85025

== ENCOUNTER → 2024-09-19 | Outpatient (CLI) | payer MEDICARE, OTHER, SELFPAY ==
--- NOTE | 2024-09-19 10:18 | BI_ITS ---
MAMMOGRAPHY - BILATERAL SCREENING REASON FOR EXAM: Female, 74 years old. Routine annual screening examination. PERTINENT HISTORY: Non-contributory. History of bilateral excisional breast biopsies. TECHNIQUE: Digital bilateral breast olga (3D mammographic acquisition) in the CC and MLO projections. 2-D mediolateral oblique (MLO) and craniocaudad (CC) views of both breasts were obtained. CAD: Full Field Digital Mammography with Computer Added Detection was performed. COMPARISON: Comparison is made with prior study dated August 29, 2023 and August 26, 2022. FINDINGS: Breast Composition: The breasts are extremely dense, which lowers the sensitivity of mammography. There are no dominant masses or suspicious calcifications. A tissue clip marker is once again seen in the inferior anterior medial aspect of the left breast. No other significant abnormalities are identified. There has been no significant change since the prior study. BI/SCRN MAMM (CAD)W/OLGA BILAT IMPRESSION: Stable bilateral screening mammogram. Yearly follow-up mammogram recommended. (A) ASSESSMENT CATEGORY: BIRADS Category 2: Benign. A letter regarding these results will be sent to the patient by the facility within 30 days. Approximately 10% of breast cancers are not detected by mammography. A normal mammogram should not delay biopsy of a clinically suspicious abnormality. [id number] Electronically Signed: Aston Cabezas MD at 10:55 EST ,
== END | disposition home or self-care (01) ==
LOC: OPBI 10:17
PROVIDERS: PCP Internal Medicine; Referring Provider Internal Medicine; Visit Provider Internal Medicine
DX: Z12.31 Encounter for screening mammogram for malignant neoplasm of breast (principal)
CPT/HCPCS: 77063; 77067

== ENCOUNTER → 2025-04-08 | Outpatient (CLI) | payer MEDICARE, OTHER, SELFPAY ==
[2025-04-08 15:20] LABS: Hematocrit 40.9 % (37-47); Hemoglobin 12.8 g/dL (12.0-15.0); Immature Granulocytes Count 0.030 X10^3/uL (0.0-0.0); Mean Corp Hgb Conc 31.3 g/dL (32-36); Mean Corpuscular Volume 85.6 fL (81-99); Mean Platelet Vol. 11.0 fl (6.2-12.0); NRBC Flagged by Analyzer 0 % (0-5); Platelet Count 279 K/mm3 (150-450); RBC Distribution Width CV 13.4 % (11.6-14.6); RBC Distribution Width SD 41.8 fl (35.1-43.9); Red Blood Count 4.78 M/mm3 (4.2-5.4); White Blood Count 8.3 K/mm3 (4.4-11.0)
[2025-04-08 15:49] LABS: AST(SGOT) 25 U/L (<=31); Alanine Aminotransfer ALT/SGPT 20 U/L (<=34); Albumin, Serum 4.3 g/dL (3.4-4.8); Alkaline Phosphatase 97 U/L (35-104); Anion Gap 12 (5-15); BUN 16 mg/dL (4-19); BUN/Creat Ratio 16.1 RATIO (10-20); Calcium,Total 9.7 mg/dL (7.6-11.0); Carbon Dioxide 25.1 mmol/L (21.0-32.0); Chloride 102 mmol/L (98-108); Globulin 2.5 g/dL (2.2-4.2); Glucose 92 mg/dL (70-99); Potassium 4.4 mmol/L (3.3-5.1)
--- OUTSIDE RECORDS SUMMARY | 2025-04-08 22:10 | XMS RPT_ITS | CCD ---
Author Organization [facility] [place] [facility] Care Team Providers Care Tractor Operator Battery Name Role Phone Vineet Orlando Unavailable Dr. Shannan Chauhan Primary Care Provider [phone] Dr. Shannan Chauhan Attending Provider [phone] Dr. Shannan Chauhan Referring Provider [phone] Tien, Dr. Campbell Primary Care Provider [phone] Dr. Shannan Chauhan Attending Provider [phone] Dr. Shannan Chauhan Referring Provider [phone] MARY Hicks Attending Provider Dr. Hussein Cabello Attending Provider [phone] Shannan Chauhan Primary Care Provider [phone] Dr. Shannan Chauhan Attending Provider [phone] Dr. Shannan Chauhan Referring Provider [phone] Dr. Shannan Chauhan Primary Care Provider [phone] Dr. Shannan Chauhan Attending Provider [phone] Dr. Shannan Chauhan Referring Provider [phone] Dr. Javad Valdez Attending Provider [phone] Dr. Hussein Cabello Attending Provider MARY Mazariegos Attending Provider [phone] Dr. Shannan Chauhan Primary Care Provider [phone] Dr. Shannan Chauhan Referring Provider [phone] Dr. Javad Valdez Attending Provider [phone] MARY Mazariegos Attending Provider [phone] Dr. Shannan Chauhan Attending Provider [phone] Cherelle WEB OPERATIONS MANAGER, WEB OPERATIONS MANAGER-C Mariluz Attending Provider Cherelle WEB OPERATIONS MANAGER, WEB OPERATIONS MANAGER-C Mariluz Referring Provider Dr. Shannan Chauhan Primary Care Provider [phone] Dr. Shannan Chauhan Referring Provider [phone] Dr. Javad Valdez Attending Provider [phone] Dr. Shannan Chauhan Primary Care Provider [phone] Dr. Shannan Chauhan Referring Provider [phone] Sushma Ballard DO Primary Care Provider Roselia Bergman Primary Care Provider Unavail Kojo Wilson MD Primary Care Provider Ghazal Rivera Attending Unavailable Oleghe, Efewongbe Primary Care Unavailable Oleghe, Efewongbe Primary Care Unavailable Josephine Carter Attending Unavailable Ferullo Josephine Referring Unavailable Oleghe, Efewongbe Attending Unavailable Oleghe, Efewongbe Referring Unavailable Oleghe, Efewongbe Primary Care Unavailable Oleghe, Efewongbe Primary Care Unavailable Oleghe, Efewongbe Attending Unavailable Oleghe, Efewongbe Referring Unavailable Oleghe, Efewongbe Primary Care Unavailable Alan Walker Attending Unavailable Alan Walker Referring Unavailable Oleghe, Efewongbe Primary Care Unavailable KwesiulloJosephine Attending Unavailable Oleghe, Efewongbe Referring Unavailable Oleghe, Efewongbe Attending Unavailable Oleghe, Efewongbe Referring Unavailable Oleghe, Efewongbe Primary Care Unavailable Oleghe, Efewongbe Primary Care Unavailable Oleghe, Efewongbe Attending Unavailable Oleghe, Efewongbe Referring Unavailable Oleghe, Efewongbe Primary Care Unavailable Ghazal Rivera Attending Unavailable Javad Valdez Attending Unavailable Oleghe, Efewongbe Primary Care Unavailable Oleghe, Efewongbe Referring Unavailable Javad Valdez Attending Unavailable Oleghe, Efewongbe Primary Care Unavailable Oleghe, Efewongbe Referring Unavailable Oleghe, Efewongbe Primary Care Unavailable Mirna Delatorre Attending Unavailable Oleghe, Efewongbe Referring Unavailable Allergies Allergy Classification Reported Allergen(s) Allergy Type Date of Onset Reaction(s) Facility (2 sources) atorvastatin Drug Allergy 4 [facility] Work Phone: (2 sources) buPROPion Drug Allergy 4 [facility] Work Phone: (5 sources) erythromycin Drug Allergy 7 Hives [facility] Work Phone: (2 sources) moxifloxacin Drug Allergy 4 [facility] Work Phone: (2 sources) pitavastatin Drug Allergy 4 [facility] Work Phone: (2 sources) rosuvastatin Drug Allergy 4 [facility] Work Phone: (2 sources) simvastatin Drug Allergy 4 [facility] Work Phone: (2 sources) VIBRYD drug allergy 4 [facility] Work Phone: (2 sources) DEPLIN drug allergy 4 [facility] Work Phone: (12 sources) Cefaclor Drug Allergy 6 Rash [facility] (9 sources) Erythromycin Drug Allergy 2 Vomiting [facility] (9 sources) rOPINIRole Drug Allergy 2 nightmares and nausea [facility] (9 sources) traZODone Drug Allergy 2 syncope [facility] (2 sources) green peppers Allergy to substance 2 Swelling [facility] Work Phone: (2 sources) green pepper Allergy to substance 3 Swelling [facility] (6 sources) rivera pepper; Translations: [rivera pepper] Allergy to substance 3 Swelling [facility] (3 sources) Acetaminophen / oxyCODONE Drug Allergy 6 Itching [facility] Work Phone: (3 sources) HMG-CoA reductase inhibitor Drug Allergy 6 Other: See Comments [facility] (1 source) Cefaclor Drug Allergy 5 [facility] (1 source) Erythromycin Drug Allergy 5 [facility] (1 source) rOPINIRole Drug Allergy 5 [facility] (1 source) traZODone Drug Allergy 5 [facility] Medications Current Medications Medication Drug Class(es) Dates Sig (Normalized) Sig (Original) acetaminophen 325 mg oral tablet (9 sources) Start: 09-27-2020 take 650 mg by mouth every six hours as needed Acetaminophen Active 650 MG PO EVERY 6 HOURS NEEDED September 27, 2020 1:00am aspirin 81 mg delayed release oral tablet (13 sources) Nonsteroidal Anti-inflammatory Drug Start: 03-14-2018 take 81 mg by mouth once daily Aspirin Active 81 MG PO daily March 14, 2018 12:00am End: 05-21-2015 take 1 tablet by mouth once daily ASPIRIN 81 MG TABS One tablet by mouth daily ASPIRIN [id number] Tyshawn Cutler cetirizine hydrochloride 5 mg oral tablet (6 sources) Histamine-1 Receptor Antagonist Start: 01-12-2023 take 5 mg by mouth once daily Cetirizine Active 5 MG PO DAILY January 12, 2023 12:00am cholecalciferol 0.025 mg oral tablet (20 sources) Vitamin D Start: 08-18-2017 take 2000 [IU] by mouth once daily Cholecalciferol (Vitamin D3) Active 2000 UNIT PO DAILY August 18, 2017 2:38pm Start: 05-04-2017 take 1 tablet by sanchez once daily VITAMIN D3 2000 UNIT TABS One tablet by mouth daily CHOLECALCIFEROL [id number] Lucy Morales NP Start: 05-26-2015 End: 08-18-2017 take 1000 [IU] by mouth once daily Cholecalciferol (Vitamin D3) Discontinued 1000 UNIT PO DAILY May 26, 2015 12:00am August 18, 2017 2:43pm mirtazapine 7.5 mg oral tablet (20 sources) Start: 11-23-2022 End: 09-26-2023 take 1 tablet by mouth once daily at bedtime Mirtazapine Active 0 .ROUTE .COMPLEX September 26, 2023 12:37pm TAKE ONE TABLET BY MOUTH EVERY DAY AT BEDTIME Start: 01-29-2022 End: 11-23-2022 take 7.5 mg by mouth at bedtime Mirtazapine Discontinu ed 7.5 MG PO AT BEDTIME March 01, 2022 11:01am November 23, 2022 9:11am omeprazole 40 mg delayed release oral capsule (20 sources) Proton Pump Inhibitor Start: 01-12-2023 End: 08-19-2023 Omeprazole Active 0 .ROUTE .COMPLEX August 19, 2023 2:12pm TAKE 1 CAPSULE DAILY 4 HOURS AFTER DINNER Start: 03-14-2018 End: 05-25-2021 take 20 mg by mouth once daily Omeprazole Discontinued 20 MG PO daily April 16, 2020 4:16pm May 25, 2021 3:07pm Start: 08-18-2017 End: 03-14-2018 take 20 mg by mouth once daily Omeprazole Discontinued 20 MG PO DAILY August 18, 2017 2:37pm March 14, 2018 2:55pm Start: 05-04-2017 take 1 tablet by sanchez th once daily OMEPRAZOLE 20 MG [facility] One tablet by mouth daily OMEPRAZOLE [id number] Lucy Morales NP Start: 06-10-2016 End: 08-18-2017 take 40 mg by mouth once daily Omeprazole Discontinued 40 MG PO DAILY June 10, 2016 12:00am August 18, 2017 2:43pm Oral sleep appliance (9 sources) Start: 05-14-2022 Oral sleep kike liance Active 0 .Route .MEDSUPPLY May 14, 2022 12:00am As directed Start: 05-14-2022 Oral sleep kike liance Active 0 .Route .MEDSUPPLY May 13, 2022 11:00pm As directed Vit C,N-Hz-Chvgl-Lutein-Zeax an (Preservision Areds-2) 250-90-40-1 mg capsule (9 sources) Start: 05-07-2022 Vit C,A-Fb-Phzeu-Lutein-Zeax an (Preservision Areds-2) 250-90-40-1 mg capsule Active 1 TABLET PO every day in the morning and at bedtime May 07, 2022 12:00am Start: 05-07-2022 Vit C,E-Zn-Graduate Assistant vt-Vgqksw-Spryjt (Preservision Areds-2) 250-90-40-1 mg capsule Active 1 TABLET PO every day in the morning and at bedtime May 06, 2022 11:00pm Completed/Discontinued Medications Medication Drug Class(es) Dates Sig (Normalized) Sig (Original) acetaminophen 325 mg / oxyCODONE hydrochloride 5 mg oral tablet (9 sources) Opioid Agonist Start: 06-14-2016 End: 08-18-2017 take 1 tablet by mouth every six hours as needed Oxycodone-Acetami nophen Discontinued 1 - 2 TABLET PO EVERY 6 HOURS NEEDED June 14, 2016 12:00am August 18, 2017 2:41pm amLODIPine 5 mg oral tablet (20 sources) Dihydropyridine Calcium Channel Serge Start: 11-17-2017 End: 04-18-2023 take 5 mg by mouth once daily Amlodipine Discontinued 5 MG PO daily April 18, 2023 1:01pm April 18, 2023 1:03pm amoxicillin 875 mg / clavulanate 125 mg oral tablet (7 sources) Penicillin-class Antibacterial Start: 11-18-2022 End: 01-12-2023 take 1 tablet by mouth twice daily Amoxicillin-Pot Clavulanate Discontinued 1 TABLET PO TWICE A DAY November 18, 2022 1:00am January 12, 2023 10:55am ARIPiprazole 5 mg oral tablet (9 sources) Atypical Antipsychotic Start: 05-04-2019 End: 05-28-2019 take 1 tablet by mouth once daily Aripiprazole (Abilify) 5 mg tablet Discontinued 5 MG PO DAILY May 04, 2019 12:00am May 28, 2019 9:38am azithromycin 250 mg oral tablet (20 sources) Macrolide Antimicrobial Start: 06-04-2021 End: 06-17-2021 Azithromycin Discontinued 250 MG PO daily June 04, 2021 12:00am June 17, 2021 3:06pm 2 tablets today, then 1 tablet daily on days 2 through 5 Start: 10-13-2018 End: 10-17-2018 Azithromycin Discontinued 0 PO .COMPLEX October 13, 2018 1:00am October 17, 2018 2:05pm take 500 mg today (day 1), then 250 mg for 4 days (days 2-5) PO Start: 07-17-2017 End: 07-22-2017 ZITHROMAX Z-LUAN 250 MG TABS Take 2 pills on day 1 then 1 pill days 2 through 5 AZITHROMYCIN [id number] Vineet HERNANDEZ benzonatate 200 mg oral capsule (18 sources) Non-narcotic Antitussive Start: 11-18-2022 End: 01-12-2023 take 200 mg by mouth three times daily Benzonatate Discontinued 200 MG PO THREE TIMES A DAY November 18, 2022 1:00am January 12, 2023 10:55am Start: 10-18-2018 End: 02-14-2019 take 1 capsule by mouth three times daily Benzonatate (Tessalon Perles) 100 mg capsule Discontinued 100 MG PO THREE TIMES A DAY October 18, 2018 1:00am February 14, 2019 3:33pm Start: 07-17-2017 End: 07-27-2017 BENZONATATE 200 MG CAPS Take 1 capsule every 8 hours as needed for cough BENZONATATE [id number] Vineet HERNANDEZ biotin 5 mg oral capsule (11 sources) Start: 05-04-2017 take 1 tablet by mouth once daily BIOTIN 5000 5 MG CAPS One tablet by mouth daily BIOTIN [id number] Lucy Morales WEB OPERATIONS MANAGER Start: 05-26-2015 take 5000 ug by mouth once kelsie ly Biotin Active 5000 MCG PO DAILY May 26, 2015 12:00am brexpiprazole 1 mg oral tablet (9 sources) Atypical Antipsychotic Start: 01-23-2020 End: 01-08-2021 Brexpiprazole Discontinued EACH PO January 23, 2020 12:00am January 08, 2021 3:20pm buPROPion hydrochloride 100 mg oral tablet (18 sources) Aminoketone Start: 09-24-2020 End: 01-08-2021 take 100 mg by mouth twice daily Bupropion HCl Discontinued 100 MG PO TWICE A DAY September 24, 2020 1:00am January 08, 2021 3:20pm Start: 06-02-2018 End: 07-12-2018 Bupropion Hcl (Wellbutrin Sr ) 100 mg tablet extended release 12 hr Discontinued 100 MG PO TWICE A DAY 60 June 02, 2018 12:00am July 12, 2018 2:40pm Start once daily for two weeks and if tolerating, may go up to twice daily afterwards calcium citrate 950 mg oral tablet (2 sources) take 1 tablet by mouth once daily CALCIUM CITRATE 950 MG TABS One tablet by mouth daily CALCIUM CITRATE [id number] Tyshawn Rai He Compress.Stocking,Knee ,Reg,Med (9 sources) Start: 12-06-2017 End: 05-07-2022 Compress.Stocking,Knee,Reg, Med Discontinued 0 .ROUTE .MEDSUPPLY 2 December 06, 2017 12:00am May 07, 2022 1:22pm wear daily for venous insufficiency 30-40 mmHg Start: 12-06-2017 End: 05-07-2022 Compress.Stocking,Knee,Reg,M ed Discontinued 0 .ROUTE .MEDSUPPLY 2 December 05, 2017 11:00pm May 07, 2022 12:22pm wear daily for venous insufficiency 30-40 mmHg dexamethasone 4 mg oral tablet (18 sources) Corticosteroid Start: 06-04-2021 End: 10-12-2021 take 1 tablet by mouth once daily Dexamethasone (Decadron) 4 mg tablet Discontinued 4 MG PO DAILY June 04, 2021 12:00am October 12, 2021 10:43am Start: 09-27-2020 End: 01-08-2021 take 6 mg by mouth once daily Dexamethasone Discontinu ed 6 MG PO DAILY September 27, 2020 1:00am January 08, 2021 3:21pm dibucaine 0.01 mg/mg rectal ointment (9 sources) Standardized Chemical Allergen Start: 06-14-2016 End: 08-18-2017 Dibucaine Discontinued 56.7 GM RC EVERY 2 HOURS NEEDED June 14, 2016 11:33am August 18, 2017 2:41pm use as needed and before bowel movements DULoxetine 60 mg delayed release oral capsule (20 sources) Serotonin and Norepinephrine Reuptake Inhibitor Start: 05-28-2021 End: 10-24-2023 take 60 mg by mouth once daily Duloxetine Discontinued 60 MG PO DAILY November 29, 2022 12:15pm October 24, 2023 5:31pm Start: 05-25-2021 End: 05-28-2021 take 30 mg by mouth once daily Duloxetine Discontinued 30 MG PO DAILY May 25, 2021 12:00am May 28, 2021 3:27pm Start: 08-11-2018 End: 02-14-2019 Duloxetine Discontinued 30 M G PO DAILY October 23, 2018 5:19pm February 14, 2019 3:34pm Take with 60 mg capsule for a daily total of 90mg of duloxetine. Start: 08-11-2018 End: 05-25-2021 take 60 mg by mouth once daily Duloxetine Discontinued 60 MG PO DAILY May 13, 2021 2:29pm May 25, 2021 3:06pm Start: 07-12-2018 End: 08-11-2018 take 30 mg by mouth once daily Duloxetine Discontinued 30 MG PO DAILY July 12, 2018 12:00am August 11, 2018 2:13pm Start: 05-26-2015 End: 07-12-2018 take 60 mg by mouth once daily Duloxetine Discontinued 60 MG PO DAILY April 28, 2018 1:04pm July 12, 2018 3:09pm End: 05-21-2015 take 1 tablet by mouth once daily CYMBALTA 30 MG CPEP One tablet by mouth daily DULOXETINE HCL [id number] Tyshawn Cutler ferrous gluconate 324 mg oral tablet (9 sources) Start: 06-10-2016 End: 08-18-2017 take 325 mg by mouth three times daily at mealtime Ferrous Gluconate Discontinued 325 MG PO 3 TIMES DAILY WITH MEALS June 10, 2016 12:00am August 18, 2017 2:40pm ferrous sulfate (4 sources) End: 05-21-2015 take 1 tablet by mouth once daily IRON 325 (65 Fe) MG TABS One tablet by mouth daily FERROUS SULFATE [id number] Tyshawn Cutler take 1 tablet by mouth once rashad y IRON 325 (65 Fe) MG TABS One tablet by mouth daily FERROUS SULFATE [id number] Tyshawn Cutler fexofenadine hydrochloride 180 mg oral tablet (13 sources) Histamine-1 Receptor Antagonist Start: 05-04-2017 take 1 tablet by mouth once daily DAYLIN ALLERGY 180 MG TABS One tablet by mouth daily FEXOFENADINE HCL [id number] Lucy Morales DANIA Start: 05-29-2015 End: 01-12-2023 take 1 tablet by mouth once daily Daylin Discontinued 1 TABLET PO DAILY May 28, 2015 11:00pm January 12, 2023 9:55am Start: 05-29-2015 End: 01-12-2023 take 1 tablet by mouth once daily Daylin Discontinued 1 TABLET PO DAILY May 29, 2015 12:00am January 12, 2023 10:55am Start: 05-29-2015 take 1 tablet by sanchez th once daily Daylin Active 1 TABLET PO DAILY May 29, 2015 12:00am Start: 05-29-2015 take 1 tablet by sanchez th once daily Daylin Active 1 TABLET PO DAILY May 28, 2015 11:00pm FLUoxetine 10 mg oral capsule (9 sources) Serotonin Reuptake Inhibitor Start: 01-08-2021 End: 05-25-2021 take 1 capsule by mouth once daily Fluoxetine (Prozac) 10 mg capsule Discontinued 10 MG PO DAILY January 08, 2021 12:00am May 25, 2021 3:07pm hydroCHLOROthiazide 25 mg oral tablet (13 sources) Thiazide Diuretic Start: 05-26-2015 End: 11-14-2017 take 25 mg by mouth once daily Hydrochlorothiazide Discontinued 25 MG PO DAILY May 26, 2015 12:00am November 14, 2017 1:04pm hydroCHLOROthiazide 25 mg / triamterene 37.5 mg oral capsule (20 sources) Potassium-sparing Diuretic, Thiazide Diuretic Start: 11-14-2017 End: 04-18-2023 take 1 capsule by mouth once daily after mealtime Triamterene-Hydrochlo rothiazid Discontinued 1 CAP PO EVERY MORNING April 18, 2023 1:01pm April 18, 2023 1:03pm administer after a meal ipratropium bromide 0.042 mg/actuat metered dose nasal spray (9 sources) Anticholinergic Start: 06-17-2021 End: 01-29-2022 take 1 spray(s) nasal route three times daily Ipratropium [place] Discontinued 2 SPRAY INTRANASAL THREE TIMES A DAY June 17, 2021 12:00am January 29, 2022 1:59pm administer into each nostril lamoTRIgine 200 mg oral tablet (20 sources) Mood Stabilizer, Anti-epileptic Agent Start: 03-23-2021 End: 05-25-2021 take 200 mg by mouth twice daily Lamotrigine Discontinued 200 MG PO TWICE A DAY March 23, 2021 12:00am May 25, 2021 3:06pm Start: 03-25-2020 End: 03-23-2021 Lamotrigine (Lamictal) 100 m g tablet Discontinued 150 MG PO TWICE A DAY March 25, 2020 11:00am March 23, 2021 8:16am Start: 09-25-2019 End: 03-25-2020 take 1 tablet by mouth once daily Lamotrigine (Lamictal) 100 mg tablet Discontinued 100 MG PO DAILY September 25, 2019 1:00am March 25, 2020 11:00am lisinopril 10 mg oral tablet (15 sources) Angiotensin Converting Enzyme Inhibitor Start: 05-04-2017 take 1 tablet by mouth once daily LISINOPRIL 10 MG TABS One tablet by mouth daily LISINOPRIL [id number] Lucy Morales WEB OPERATIONS MANAGER Start: 05-26-2015 End: 10-31-2017 take 5 mg by mouth once daily Lisinopril Discontinued 5 MG PO DAILY May 26, 2015 12:00am October 31, 2017 4:13pm take 1 tablet by sanchez th once daily LISINOPRIL 5 MG TABS One tablet by mouth daily LISINOPRIL [id number] Tyshawn Cutler LORazepam 0.5 mg oral tablet (20 sources) Benzodiazepine Start: 05-26-2015 End: 07-08-2023 take 0.5 mg by mouth at bedtime Lorazepam Discontinued 0.5 MG PO AT BEDTIME May 07, 2022 2:01pm July 08, 2023 12:16pm ATIVAN 1 MG TABS as needed LORAZEPAM [id number] Tyshawn Cutler meclizine hydrochloride 25 mg oral tablet (9 sources) Antiemetic Start: 05-30-2020 End: 01-08-2021 take 25 mg by mouth three times daily Meclizine Discontinued 25 MG PO THREE TIMES A DAY May 30, 2020 12:00am January 08, 2021 3:22pm methylPREDNISolone 4 mg oral tablet (9 sources) Corticosteroid Start: 10-13-2018 End: 10-18-2018 take 1 tablet by mouth once Methylprednisolone (Medrol (Luan)) 4 mg tablets,dose pack Discontinued 4 MG PO per package directions 30 01October 13, 2018 1:00am October 18, 2018 1:09am 24 hr metoprolol succinate 50 mg extended release oral tablet (20 sources) beta-Adrenergic Serge Start: 10-31-2017 End: 04-18-2023 take 50 mg by mouth once daily Metoprolol Succinate Discontinued 50 MG PO daily April 18, 2023 1:01pm April 18, 2023 1:03pm 24 hr nicotine 0.292 mg/hr transdermal system (18 sources) Cholinergic Nicotinic Agonist Start: 02-14-2019 End: 01-23-2020 apply 1 dose transdermal route every twenty-four hours Nicotine Discontinued 1 PATCH TD Q24H January 16, 2020 1:55pm January 23, 2020 8:58am potassium chloride 20 meq extended release oral tablet (20 sources) Start: 09-27-2020 End: 11-28-2023 take 20 mEq by mouth twice daily at mealtime Potassium Chloride Discontinued 20 MEQ PO TWICE DAILY WITH MEALS July 02, 2022 9:13am July 08, 2023 12:16pm Start: 05-25-2018 End: 09-27-2020 take 20 mEq by mouth once daily Potassium Chloride Discontinued 20 MEQ PO DAILY January 16, 2020 1:56pm September 27, 2020 8:24am Start: 09-01-2017 End: 11-14-2017 take 10 mEq by mouth once daily Potassium Chloride Discontinued 10 MEQ PO daily October 03, 2017 3:36pm November 14, 2017 1:03pm primidone 50 mg oral tablet (9 sources) Anti-epileptic Agent Start: 03-23-2021 End: 05-25-2021 take 0.5 tablet by mouth once daily, then take 0.5 tablet by mouth twice daily, then take 1 tablet by mouth twice daily Primidone Discontinued 0 .Route .COMPLEX 60 March 23, 2021 12:00am May 25, 2021 3:07pm One-half tablet PO daily for one week then one-half tablet BID for one week then one tablet BID thereafter rivaroxaban 10 mg oral tablet (9 sources) Factor Xa Inhibitor Start: 09-27-2020 End: 01-08-2021 take 10 mg by mouth once daily Rivaroxaban Discontinued 10 MG PO DAILY September 27, 2020 1:00am January 08, 2021 3:23pm rOPINIRole 0.25 mg oral tablet (18 sources) Nonergot Dopamine Agonist Start: 02-14-2019 End: 02-22-2019 take 0.25 mg by mouth at bedtime Ropinirole Discontinued 0.25 MG PO AT BEDTIME February 14, 2019 12:00am February 22, 2019 8:53am administer 1-3 hours before bedtime Start: 01-25-2019 End: 02-14-2019 take 1 mg by mouth at bedtime Ropinirole Discontinued 1 MG PO AT BEDTIME January 25, 2019 12:00am February 14, 2019 3:35pm administer 1-3 hours before bedtime rosuvastatin calcium 10 mg oral tablet (20 sources) HMG-CoA Reductase Inhibitor Start: 01-14-2018 End: 10-24-2023 take 1 tablet by mouth once daily Rosuvastatin (Crestor) 10 mg tablet Discontinued 10 MG PO daily August 19, 2022 10:25am October 24, 2023 5:31pm Start: 11-09-2017 End: 01-14-2018 take 5 mg by mouth once daily Rosuvastatin Discontinue d 5 MG PO daily November 09, 2017 1:00am January 14, 2018 9:06am 72 hr scopolamine 0.0139 mg/hr transdermal system (9 sources) Anticholinergic Start: 10-18-2018 End: 02-14-2019 Scopolamine Base Discontinued 1 PATCH TD Every 3 Days October 18, 2018 1:00am February 14, 2019 3:35pm levothyroxine sodium 0.075 mg oral tablet (20 sources) l-Thyroxine Start: 08-18-2017 End: 04-18-2023 take 1 tablet by mouth once daily Levothyroxine (Synthroid) 75 mcg tablet Discontinued 75 MCG PO .QD April 18, 2023 1:01pm April 18, 2023 1:03pm Start: 05-04-2017 take 1 tablet by sanchez once daily SYNTHROID 75 MCG TABS One tablet by mouth daily LEVOTHYROXINE SODIUM [id number] Lucy Morales NP Start: 05-26-2015 End: 08-18-2017 take 50 ug by mouth once daily Levothyroxine Discontin ued 50 MCG PO DAILY May 26, 2015 12:00am August 18, 2017 2:38pm traZODone hydrochloride 50 mg oral tablet (9 sources) Serotonin Reuptake Inhibitor Start: 10-31-2017 End: 11-30-2017 take 50 mg by mouth once daily at bedtime, then take 100 mg by mouth once daily at bedtime Trazodone Discontinued 50 MG PO AT BEDTIME October 31, 2017 1:00am November 30, 2017 2:33pm Start 50mg QHS x 1 week then increase to 100mg QHS. 24 hr venlafaxine 37.5 mg extended release oral capsule (9 sources) Serotonin and Norepinephrine Reuptake Inhibitor Start: 07-12-2018 End: 08-11-2018 take 37.5 mg by mouth once daily Venlafaxine Discontinued 37.5 MG PO DAILY 60 July 12, 2018 12:00am August 11, 2018 11:02am Vit A-Vit C-Vit M-Aech-Sjieti (9 sources) Start: 05-25-2021 End: 06-29-2021 Vit A-Vit C-Vit E-Njvi-Opsvzb Discontinued TABLET PO May 25, 2021 12:00am June 29, 2021 9:32am Start: 05-25-2021 End: 06-29-2021 Vit A-Vit C-Vit K-Hitw-Wgyrw r Discontinued TABLET PO May 24, 2021 11:00pm June 29, 2021 8:32am Vit C,H-Oh-Vbfjp-Lutein-Zeax an (Preservision Areds-2) 388-651-89-1 oo-wmyb-qi-mg capsule (9 sources) Start: 02-14-2019 End: 05-04-2019 take 1 tablet by mouth twice daily Vit C,V-Vg-Mecpu-Lutein-Zeaxan (Preservision Areds-2) 531-245-22-1 lq-uxco-cn-mg capsule Discontinued 1 TABLET PO TWICE A DAY February 14, 2019 12:00am May 04, 2019 8:25am Start: 02-14-2019 End: 05-04-2019 take 1 tablet by mouth twice daily Vit C,M-Pg-Iarwy-Lutein-Zeaxan (Preservision Areds-2) 794-771-02-1 il-vdef-jg-mg capsule Discontinued 1 TABLET PO TWICE A DAY February 13, 2019 11:00pm May 04, 2019 7:25am CHOLECALCIFEROL TABS (2 sources) take 1 tablet by mouth once daily VITAMIN D TABS One tablet by mouth daily CHOLECALCIFEROL TABS [id number] Tyshawn Cutler vitamin e 1000 unt oral tablet (4 sources) End: 05-21-2015 take 1 tablet by mouth once daily VITAMIN E 1000 UNIT CAPS One tablet by mouth daily VITAMIN E [id number] Tyshawn Cutler Problems Active Problems Problem Classification Problem Date Documented Date Episodic/Chronic Acute bronchitis (18 sources) Acute bronchitis; Translations: [Acute bronchitis, unspecified] 11-18-2022 Episodic Anxiety disorders (20 sources) Mixed anxiety and depressive disorder; Translations: [Other specified anxiety disorders] Onset: 06-28-2024 Chronic Conditions associated with dizziness or vertigo (18 sources) Dizziness; Translations: [Dizziness and giddiness] 09-24-2020 Episodic Deficiency and other anemia (9 sources) Anemia; Translations: [Anemia, unspecified] 09-24-2020 Episodic Disorders of lipid metabolism (20 sources) Hyperlipidemia; Translations: [Hyperlipidemia, unspecified] Onset: 03-27-2024 Chronic Esophageal disorders (10 sources) Gastroesophageal reflux disease; Translations: [Gastro-esophageal reflux disease without esophagitis] 09-24-2020 Chronic Essential hypertension (20 sources) Hypertensive disorder; Translations: [Essential (primary) hypertension] Onset: 10-04-2024 Chronic Fever of unknown origin (9 sources) Fever; Translations: [Fever, unspecified] 06-04-2021 Episodic Immunizations and screening for infectious disease (9 sources) Patient encounter status; Translations: [Encounter for screening for COVID-19] 06-04-2021 Episodic Malaise and fatigue (1 source) Chronic fatigue, unspecified; Translations: [Chronic fatigue, unspecified] Onset: 04-12-2024 Chronic Malaise and fatigue (10 sources) Fatigue; Translations: [Other fatigue] 10-12-2021 Episodic Mood disorders (10 sources) Depressive disorder; Translations: [Depression] Onset: 06-28-2024 09-24-2020 Chronic Nonspecific chest pain (18 sources) Atypical chest pain; Translations: [Other chest pain] 09-24-2020 Episodic Nutritional deficiencies (9 sources) Vitamin D deficiency; Translations: [Vitamin D deficiency, unspecified] 10-12-2021 Chronic Occlusion or stenosis of precerebral arteries (9 sources) Carotid artery stenosis; Translations: [Occlusion and stenosis of unspecified carotid artery] 09-24-2020 Chronic Osteoarthritis (20 sources) Bilateral osteoarthritis of knees; Translations: [Bilateral primary osteoarthritis of knee] Onset: 06-06-2024 07-20-2023 Chronic Other and ill-defined cerebrovascular disease (9 sources) Cerebrovascular disease; Translations: [Cerebrovascular disease, unspecified] 05-25-2021 Chronic Other bone disease and musculoskeletal deformities (6 sources) Osteopenia; Translations: [Other specified disorders of bone density and structure, unspecified site] 01-12-2023 Episodic Other congenital anomalies (9 sources) Congenital anomaly of eye; 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, unspecified] 09-24-2020 Chronic Other diseases of veins and lymphatics (9 sources) Peripheral venous insufficiency; Translations: [Venous insufficiency (chronic) (peripheral)] 12-06-2017 Episodic Other hereditary and degenerative nervous system conditions (9 sources) Essential tremor; Translations: [Essential tremor] 10-12-2021 Chronic Other hereditary and degenerative nervous system conditions (9 sources) Impaired cognition; Translations: [Mild cognitive impairment, so stated] 03-23-2021 Chronic Other hereditary and degenerative nervous system conditions (9 sources) Restless legs; Translations: [Restless legs syndrome] 02-22-2019 Chronic Other lower respiratory disease (9 sources) Cough with fever; Translations: [Cough with fever] 09-24-2020 Episodic Other nervous system disorders (9 sources) Tremor; Translations: [Tremor, unspecified] 01-08-2021 Episodic Other non-traumatic joint disorders (9 sources) Pain in wrist; Translations: [Pain in right wrist] 09-24-2020 Episodic Other non-traumatic joint disorders (5 sources) Pain in right knee; Translations: [Pain in both knees] 07-20-2023 Episodic Other nutritional; endocrine; and metabolic disorders (9 sources) Obese class I; Translations: [Obesity, unspecified] 09-24-2020 Chronic Other upper respiratory disease (9 sources) Seasonal allergic rhinitis; Translations: [Other seasonal allergic rhinitis] 09-24-2020 Chronic Residual codes; unclassified (9 sources) Obstructive sleep apnea syndrome; Translations: [Obstructive sleep apnea (adult) (pediatric)] 12-13-2018 Chronic Residual codes; unclassified (9 sources) Sleep apnea; Translations: [Sleep apnea, unspecified] 09-24-2020 Chronic Residual codes; unclassified (9 sources) Hypersomnia; Translations: [Hypersomnia, unspecified] 08-11-2018 Chronic Residual codes; unclassified (2 sources) Hypersomnia, unspecified; Translations: [Hypersomnia, unspecified] 10-13-2022 Chronic Residual codes; unclassified (4 sources) Obstructive sleep apnea (adult) (pediatric); Translations: [Obstructive sleep apnea (adult)(pediatric)] 10-13-2022 Chronic Screening and history of mental health and substance abuse codes (6 sources) Tobacco use and exposure - finding; Translations: [Personal history of nicotine dependence] 11-29-2023 Episodic Syncope (9 sources) Syncope and collapse; Translations: [Syncope and collapse] 09-24-2020 Episodic Thyroid disorders (20 sources) Hypothyroidism; Translations: [Hypothyroidism, unspecified] Onset: 09-03-2024 Chronic Unclassified (9 sources) Mammography abnormal; Translations: [Patient encounter status] Onset: 05-26-2017 05-26-2017 Episodic Viral infection (9 sources) Disease caused by 2019-nCoV; Translations: [COVID-19] 09-19-2020 Episodic Past or Other Problems Problem Classification Problem Date Documented Da te Episodic/Chronic Biliary tract disease (2 sources) Biliary calculus; Translations: [Cholelithiasis] Onset: 05-21-2015 05-22-2015 Episodic Chronic obstructive pulmonary disease and bronchiectasis (2 sources) Bronchitis; Translations: [Bronchitis, not specified as acute or chronic] Onset: 07-17-2017 07-17-2017 Episodic Gastrointestinal hemorrhage (3 sources) Blood-tinged feces; Translations: [Melena] Onset: 05-25-2016 05-25-2016 Episodic Hemorrhoids (5 sources) Internal hemorrhoids; Translations: [Internal hemorrhoids grade II] Onset: 06-11-2016 01-03-2014 Episodic Nonmalignant breast conditions (4 sources) Breast lump; Translations: [Other signs and symptoms in breast] Onset: 05-04-2017 05-04-2017 Episodic Other bone disease and musculoskeletal deformities (2 sources) Other specified disorders of bone density and structure, unspecified site; Translations: [Disorder of bone and cartilage, unspecified] Onset: 09-03-2024 01-12-2023 Episodic Other injuries and conditions due to external causes (1 source) Encounter for examination and observation following other accident; Translations: [Encounter for examination and observation following other accident] Onset: 07-23-2024 Episodic Unclassified (9 sources) gallbladder removal 04-10-2022 Results Test Name Value Interpretation Reference Range Facility Internal Medicine Office Vis itomarco 01-07-2025 Internal Medicine Office Visit [facility] [address] [place] [address] OFFICE VISIT Date of Service: 01/07/25 MR#: [id number] Acct: [id number] Name: JASMIN TSANG Rep #: [id number] : 1950 Provider: Dr. Shannan swan MD Age/Sex: 74/F Location: [facility] Status: Signed Intake Vital Signs 09/03/24 10:17 01/07/25 13:54 Height 5 ft 5 in 5 ft 5 in Weight: 207 lb BMI 34.4 BP 118/72 Blood Pressure Location Lt brachial Position Sitting Respiration 16 Pulse 69 Pulse Source Monitor Temp 97 F L Temp Source Temporal Pulse Oximetry (%) 92 Oxygen Delivery Method room air Intake Visit Reasons: 4 M FU Chief Complaint: Follow-up chronic conditions [employer] Required: No Accompanied by: Self Is patient in pain?: No Allergies rivera pepper (green pepper) Allergy (Mild, Verified 01/07/25 13:53) Swelling cefaclor (From Ceclor) Allergy (Verified 01/07/25 13:53) Rash ropinirole Adverse Reaction (Severe, Verified 01/07/25 13:53) nightmares and nausea erythromycin base Adverse Reaction (Verified 01/07/25 13:53) Vomiting trazodone Adverse Reaction (Verified 01/07/25 13:53) syncope Medications ???Medication ???Instructions ???Recorded ???Confirmed ???Type biotin 2,500 mcg capsule 5,000 mcg PO DAILY 05/26/15 History cholecalciferol (vitamin D3) 25 2,000 unit PO DAILY 08/18/1701/07 History mcg (1,000 unit) tablet aspirin 81 mg tablet,delayed 81 mg PO QDAY 03/14/18 01/07/25 Hi story release acetaminophen 325 mg tablet 650 mg (2 x 325 mg) PO Q6H PRN PRN 09/27/20 01/07/25 Rx Pain Score 1-10/Temp > 100.7 F vit C 250 mg-vit E 90 mg-zinc 40 1 tab PO QAM AND QHS 05/07/2212/12 History mg-copper 1 [id number]-rosbtx capsule (PreserVision AREDS-2) Oral sleep appliance #1 ea 05/14/22 01/07/25 Rx cetirizine 5 mg tablet 5 mg PO DAILY PRN 01/12/23 5 History omeprazole 40 mg capsule,delayed See Rx Instructions .Route 3 01/07/25 Rx release .COMPLEX #90 caps amlodipine 5 mg tablet 5 mg PO QDAY #90 tabs 11/06/24 Rx duloxetine 60 mg capsule,delayed 60 mg PO DAILY #90 caps 11/06/24 0 01/07/25 Rx release levothyroxine 75 mcg tablet 75 mcg PO QDAY #90 tabs 11/06/24 0 01/07/25 Rx (Synthroid) metoprolol succinate 50 mg 50 mg PO QDAY #90 tabs 11/06/24 Rx tablet,extended release 24 hr potassium chloride 20 mEq 20 meq PO BID #180 TABLETS 5 01/07/25 Rx tablet,extended release rosuvastatin 10 mg tablet (Crestor) 10 mg PO QDAY #90 tabs 11/06/24 01/07/25 Rx triamterene 37.5 1 cap PO QAM #90 caps 11/06/24 Rx mg-hydrochlorothiazide 25 mg capsule mirtazapine 7.5 mg tablet 7.5 mg PO QHS #90 tabs 11/08/24 Rx lorazepam 0.5 mg tablet 0.5 mg PO QHS PRN anxiety #30 tabs 01/07/25 01/07/25 Rx Have you fallen in the past year?: No PFSH Medical History (Updated 01/07/25 @ 14:[address] Shannan Chauhan MD) Anxiety and depression Fall Macular degeneration of both eyes History of tobacco use Encounter for screening for malignant neoplasm of lung Osteoarthritis Osteopenia Acute bronchitis, unspecified Fatigue Health care maintenance Encounter for screening for COVID-19 Essential tremor Tremor Sleep apnea Anxiety Depression Hypothyroidism GERD (gastroesophageal reflux disease) Hyperlipidemia Hypertension Anemia Seasonal allergies Surgical History H/O breast biopsy H/O hemorrhoidectomy gallbladder removal H/O: hysterectomy Family History Mother Arthritis Hypertension CVA (cerebral vascular accident) Father Heart disease Myocardial infarction Had his first at 50, lived to be 80. Hypertension Kidney disease Grandfather Cancer stomach CA Social History Smoking Status: Former smoker how long ago did patient quit smokin, 1ppd second hand exposure: Yes alcohol intake: never substance use type: does not use what type of physical activity do you participate in: none HPI HPI Chief Complaint: Follow-up chronic conditions Details: JASMIN TSANG, is a 74 F who presents to the office today for follow-up of her chronic medical conditions. Chronic history of anxiety and depression. Also had episodes of increased anxiety/panic attacks, has used lorazepam as needed and she would like a refill. No concerning side effects on it. History of hypertension, blood pressure today at 118/72 mmHg. Currently on amlodipine, triamterene hydrochlorothiazide and metoprolol which she states that she is taking consistently. No chest pain, palpitation or shortness of breath. Other chronic (more content not included)... Normal [facility] SCRN MAMM (CAD)W/OLGA Live n 09-19-2024 SCRN MAMM (CAD)W/OLGA [facility] Services [address] [place] [address] SCRN MAMM (CAD)W/OLGA BILAT MR#: [id number] Acct: [id number] Name: JASMIN TSANG Rep #: [id number] : 1950 F 74 From: Aston chandra MD PCP: Dr. Shannan Chauhan MD Status: [facility] Study: SCRN MAMM (CAD)W/OLGA BILAT Date of Exam: 05/06 Exam# [id number] Ordering Dr: Shannan Chauhan MD [id number] MAMMOGRAPHY - BILATERAL SCREENING REASON FOR EXAM: Female, 74 years old. Routine annual screening examination. PERTINENT HISTORY: Non-contributory. History of bilateral excisional breast biopsies. TECHNIQUE: Digital bilateral breast olga (3D mammographic acquisition) in the CC and MLO projections. 2-D mediolateral oblique (MLO) and craniocaudad (CC) views of both breasts were obtained. CAD: Full Field Digital Mammography with Computer Added Detection was performed. COMPARISON: Comparison is made with prior study dated August 29, 2023 and August 26, 2022. FINDINGS: Breast Composition: The breasts are extremely dense, which lowers the sensitivity of mammography. There are no dominant masses or suspicious calcifications. A tissue clip marker is once again seen in the inferior anterior medial aspect of the left breast. No other significant abnormalities are identified. There has been no significant change since the prior study. BI/SCRN MAMM (CAD)W/OLGA BILAT IMPRESSION: Stable bilateral screening mammogram. Yearly follow-up mammogram recommended. (A) ASSESSMENT CATEGORY: BIRADS Category 2: Benign. A letter regarding these results will be sent to the patient by the facility within 30 days. Approximately 10% of breast cancers are not detected by mammography. A normal mammogram should not delay biopsy of a clinically suspicious abnormality. [id number] Electronically Signed: Aston Cabezas MD at 10:55 EST Reading Location ID and State: [facility] [place] , Service support , CC: Dr. Shannan Chauhan MD [place] Hearing Officer: Signed Normal [facility] CBC W/Diff, Automatedon 12-2 Absolute Lymph 2.23 X10 3/uL Normal 0.83-4.51 [facility] Comment on above: Performed By: #### L 501.9520, L506.1000, L500.4100, L100.0100, L500.4050 #### [facility] [address] [place], [address] Absolute Neut 5.1 X10 3/uL Normal 2.0-7.7 [facility] Comment on above: Performed By: #### L 501.9520, L506.1000, L500.4100, L100.0100, L500.4050 #### [facility] [address] [place], [address] Basophils/100 WBC (Bld) 0.6 % Normal 0-1 [facility] Comment on above: Performed By: #### L 501.9520, L506.1000, L500.4100, L100.0100, L500.4050 #### [facility] [address] [place], [address] Eosinophils/100 WBC (Bld) 0.0 % Normal 0-5 [facility] Comment on above: Performed By: #### L 501.9520, L506.1000, L500.4100, L100.0100, L500.4050 #### [facility] [address] [place], [address] Erythrocyte distribution width (RBC) [Ratio] 14.2 % Normal 11.6-14.6 [facility] Comment on above: Performed By: #### L 501.9520, L506.1000, L500.4100, L100.0100, L500.4050 #### [facility] [address] [place], [address] Hematocrit (Bld) [Volume fraction] 40.5 % Normal 37-47 [facility] Comment on above: Performed By: #### L 501.9520, L506.1000, L500.4100, L100.0100, L500.4050 #### [facility] [address] [place], [address] Hemoglobin (Bld) [Mass/Vol] 12.4 g/dL Normal 12.0-15.0 [facility] Comment on above: Performed By: #### L 501.9520, L506.1000, L500.4100, L100.0100, L500.4050 #### [facility] [address] [place], [address] IG% 0.400 Normal 0.0-0.9 [facility] Comment on above: Result Comment: IG% - Immature Granulocytes (promyelocytes, myelocytes and metamyelocytes) > 1% indicates that a LEFT SHIFT is Present. Performed By: #### L 501.9520, L506.1000, L500.4100, L100.0100, L500.4050 #### [facility] [address] [place], [address] Lymphocytes/100 WBC (Bld) 27.3 % Normal 19-41 [facility] Comment on above: Performed By: #### L 501.9520, L506.1000, L500.4100, L100.0100, L500.4050 #### [facility] [address] [place], [address] MCH (RBC) [Entitic mass] 24.4 pg Low 27.0-32.0 [facility] Comment on above: Performed By: #### L 501.9520, L506.1000, L500.4100, L100.0100, L500.4050 #### [facility] [address] [place], [address] MCHC (RBC) [Mass/Vol] 30.6 g/dL Low 32-36 [facility] Comment on above: Performed By: #### L 501.9520, L506.1000, L500.4100, L100.0100, L500.4050 #### [facility] [address] [place], [address] MCV (RBC) [Entitic vol] 79.6 fL Low 81-99 [facility] Comment on above: Performed By: #### L 501.9520, L506.1000, L500.4100, L100.0100, L500.4050 #### [facility] [address] [place], [address] Monocytes/100 WBC (Bld) 9.9 % Normal 0-10 [facility] Comment on above: Performed By: #### L 501.9520, L506.1000, L500.4100, L100.0100, L500.4050 #### [facility] [address] [place], [address] Neutrophils/100 WBC (Bld) 61.8 % Normal 47-70 [facility] Comment on above: Performed By: #### L 501.9520, L506.1000, L500.4100, L100.0100, L500.4050 #### [facility] [address] [place], [address] Nucleated RBC (Bld) [#/Vol] 0 10*3/uL Normal 0-5 [facility] Comment on above: Performed By: #### L 501.9520, L506.1000, L500.4100, L100.0100, L500.4050 #### [facility] [address] [place], [address] Platelet mean volume (Bld) [Entitic vol] 10.4 fL Normal 6.2-12.0 [facility] Comment on above: Performed By: #### L 501.9520, L506.1000, L500.4100, L100.0100, L500.4050 #### [facility] [address] [place], [address] Platelets (Bld) [#/Vol] 283 10*3/uL Normal 150-450 [facility] Comment on above: Performed By: #### L 501.9520, L506.1000, L500.4100, L100.0100, L500.4050 #### [facility] [address] [place], [address] RBC (Bld) [#/Vol] 5.09 10*6/uL Normal 4.2-5.4 [facility] Comment on above: Performed By: #### L 501.9520, L506.1000, L500.4100, L100.0100, L500.4050 #### [facility] [address] [place], [address] RDW SD 40.8 fl Normal 35.1-43.9 [facility] Comment on above: Performed By: #### L 501.9520, L506.1000, L500.4100, L100.0100, L500.4050 #### [facility] [address] [place], [address] WBC (Bld) [#/Vol] 8.2 10*3/uL Normal 4.4-11.0 [facility] Comment on above: Performed By: #### L 501.9520, L506.1000, L500.4100, L100.0100, L500.4050 #### [facility] [address] [place], [address] Comprehensive Metabolic Prof txon 09-03-2024 Albumin [Mass/Vol] 3.6 g/dL Normal 3.2-5.0 [facility] Comment on above: Performed By: #### L 501.9520, L506.1000, L500.4100, L100.0100, L500.4050 #### [facility] [address] [place], [address] Albumin/Globulin [Mass ratio] 1.1 {ratio} Normal 0.9-2.4 [facility] Comment on above: Performed By: #### L 501.9520, L506.1000, L500.4100, L100.0100, L500.4050 #### [facility] [address] [place], [address] ALK P 94 U/L Normal 45-117 [facility] Comment on above: Performed By: #### L 501.9520, L506.1000, L500.4100, L100.0100, L500.4050 #### [facility] [address] [place], [address] ALT [Catalytic activity/Vol] 26 U/L Normal 13-56 [facility] Comment on above: Performed By: #### L 501.9520, L506.1000, L500.4100, L100.0100, L500.4050 #### [facility] [address] [place], [address] AST [Catalytic activity/Vol] 21 U/L Normal 15-37 [facility] Comment on above: Performed By: #### L 501.9520, L506.1000, L500.4100, L100.0100, L500.4050 #### [facility] [address] [place], [address] Bilirubin [Mass/Vol] 0.40 mg/dL Normal 0.20-1.00 [facility] Comment on above: Result Comment: For patients on eltrombopag therapy, use of Dimension [place] TBIL is not recommended. Performed By: #### L 501.9520, L506.1000, L500.4100, L100.0100, L500.4050 #### [facility] [address] [place], [address] BUN/CRE 15.7 RATIO Normal 10-20 [facility] Comment on above: Performed By: #### L 501.9520, L506.1000, L500.4100, L100.0100, L500.4050 #### [facility] [address] [place], [address] CA,Total 9.6 mg/dL Normal 8.5-10.1 [facility] Comment on above: Performed By: #### L 501.9520, L506.1000, L500.4100, L100.0100, L500.4050 #### [facility] [address] [place], [address] Chloride [Moles/Vol] 106 mmol/L Normal 98-107 [facility] Comment on above: Performed By: #### L 501.9520, L506.1000, L500.4100, L100.0100, L500.4050 #### [facility] [address] [place], [address] CO2 [Moles/Vol] 26.0 mmol/L Normal 21.0-32.0 [facility] Comment on above: Performed By: #### L 501.9520, L506.1000, L500.4100, L100.0100, L500.4050 #### [facility] [address] [place], [address] Creatinine [Mass/Vol] 0.95 mg/dL Normal 0.55-1.02 [facility] Comment on above: Result Comment: The validity of the calculated GFR GFRAA in patients over 70 years has not been determined. Clinical correlation is essential. Performed By: #### L 501.9520, L506.1000, L500.4100, L100.0100, L500.4050 #### [facility] [address] [place], [address] EST GFR - AA 74 mL/min Normal >60 [facility] Comment on above: Result Comment: Afri can Syrian GFR Calc Performed By: #### L 501.9520, L506.1000, L500.4100, L100.0100, L500.4050 #### [facility] [address] [place], [address] GAP 5 Normal 5-15 [facility] Comment on above: Performed By: #### L 501.9520, L506.1000, L500.4100, L100.0100, L500.4050 #### [facility] [address] [place], [address] GFR/1.73 sq M.predicted among non-blacks MDRD (S/P/Bld) [Vol rate/Area] 61 mL/min/{1.73_m2} Normal >60 [facility] Comment on above: Result Comment: Non- GFR Calc Performed By: #### L 501.9520, L506.1000, L500.4100, L100.0100, L500.4050 #### [facility] [address] [place], [address] Globulin (S) [Mass/Vol] 3.4 g/dL Normal 2.2-4.2 [facility] Comment on above: Performed By: #### L 501.9520, L506.1000, L500.4100, L100.0100, L500.4050 #### [facility] [address] [place], [address] Glucose [Mass/Vol] 76 mg/dL Normal 74-106 [facility] Comment on above: Performed By: #### L 501.9520, L506.1000, L500.4100, L100.0100, L500.4050 #### [facility] [address] [place], [address] Potassium [Moles/Vol] 4.0 mmol/L Normal 3.5-5.1 [facility] Comment on above: Performed By: #### L 501.9520, L506.1000, L500.4100, L100.0100, L500.4050 #### [facility] [address] [place], [address] Sodium [Moles/Vol] 138 mmol/L Normal 136-145 [facility] Comment on above: Performed By: #### L 501.9520, L506.1000, L500.4100, L100.0100, L500.4050 #### [facility] [address] [place], [address] T PROT 7.0 g/dL Normal 6.4-8.2 [facility] Comment on above: Performed By: #### L 501.9520, L506.1000, L500.4100, L100.0100, L500.4050 #### [facility] [address] [place], [address] Urea nitrogen [Mass/Vol] 15 mg/dL Normal 7-18 [facility] Comment on above: Performed By: #### L 501.9520, L506.1000, L500.4100, L100.0100, L500.4050 #### [facility] [address] [place], [address] Internal Medicine Office Vis camilla 09-03-2024 Internal Medicine Office Visit [facility] [address] [place] [address] OFFICE VISIT Date of Service: 09/03/24 MR#: [id number] Acct: [id number] Name: JASMIN TSANG Rep #: [id number] : 1950 Provider: Dr. Shannan swan MD Age/Sex: 74/F Location: [facility] Status: Signed Intake Vital Signs 06/28/24 16:02 09/03/24 10:17 Height 5 ft 5 in 5 ft 5 in Weight: 212 lb BMI 35.2 BP 124/78 H Blood Pressure Location Lt brachial Position Sitting Respiration 16 Pulse 70 Pulse Source Monitor Temp 97.4 F L Temp Source Temporal Pulse Oximetry (%) 97 Oxygen Delivery Method room air Intake Visit Reasons: ACUTE - MED FU Chief Complaint: Follow-up chronic condition. Follow-up ER. [employer] Required: No Is patient in pain?: No Allergies rivera pepper (green pepper) Allergy (Mild, Verified 09/03/24 10:07) Swelling cefaclor (From Ceclor) Allergy (Verified 09/03/24 10:07) Rash ropinirole Adverse Reaction (Severe, Verified 09/03/24 10:07) nightmares and nausea erythromycin base Adverse Reaction (Verified 09/03/24 10:07) Vomiting trazodone Adverse Reaction (Verified 09/03/24 10:07) syncope Medications ???Medication ???Instructions ???Recorded ???Confirmed ???Type biotin 2,500 mcg capsule 5,000 mcg PO DAILY 05/26/15 09/03/24 History cholecalciferol (vitamin D3) 25 2,000 unit PO DAILY 08/18/17 09/03/24 History mcg (1,000 unit) tablet aspirin 81 mg tablet,delayed 81 mg PO QDAY 03/14/18 09/03/24 History release acetaminophen 325 mg tablet 650 mg (2 x 325 mg) PO Q6H PRN PRN 09/27/20 09/03/24 Rx Pain Score 1-10/Temp > 100.7 F vit C 250 mg-vit E 90 mg-zinc 40 1 tab PO QAM AND QHS 05/07/22 09/03/24 History mg-copper 1 [id number]-tcjbpb capsule (PreserVision AREDS-2) Oral sleep appliance #1 ea 05/14/22 09/03/24 Rx cetirizine 5 mg tablet 5 mg PO DAILY PRN 01/12/23 09/03/24 History omeprazole 40 mg capsule,delayed See Rx Instructions .Route 08/19/23 09/03/24 Rx release .COMPLEX #90 caps duloxetine 60 mg capsule,delayed 60 mg PO DAILY #90 caps 10/24/23 09/03/24 Rx release rosuvastatin 10 mg tablet (Crestor) 10 mg PO QDAY #90 tabs 10/24/23 09/03/24 Rx amlodipine 5 mg tablet 5 mg PO QDAY #90 tabs 03/27/24 09/03/24 Rx levothyroxine 75 mcg tablet 75 mcg PO .QD #90 tabs 03/27/24 09/03/24 Rx (Synthroid) metoprolol succinate 50 mg 50 mg PO QDAY #90 tabs 03/27/24 09/03/24 Rx tablet,extended release 24 hr triamterene 37.5 1 cap PO QAM #90 caps 03/27/24 09/03/24 Rx mg-hydrochlorothiazide 25 mg capsule lorazepam 0.5 mg tablet 0.5 mg PO QHS PRN anxiety #30 tabs 05/10/24 09/03/24 Rx mirtazapine 7.5 mg tablet 7.5 mg PO QHS #30 tabs 07/04/24 09/03/24 Rx potassium chloride 20 mEq 20 meq PO BID #90 TABLETS 08/07/24 09/03/24 Rx tablet,extended release Have you fallen in the past year?: Yes (06/2024) [facility] Medical History (Updated 09/03/24 @ 12:[address] Shannan Chauhan MD) Fall Macular degeneration of both eyes History of tobacco use Encounter for screening for malignant neoplasm of lung Osteoarthritis Osteopenia Acute bronchitis, unspecified Fatigue Health care maintenance Encounter for screening for COVID-19 Essential tremor Tremor Sleep apnea Anxiety Depression Hypothyroidism GERD (gastroesophageal reflux disease) Hyperlipidemia Hypertension Anemia Seasonal allergies Surgical History H/O breast biopsy H/O hemorrhoidectomy gallbladder removal H/O: hysterectomy Family History Mother Arthritis Hypertension CVA (cerebral vascular accident) Father Heart disease Myocardial infarction Had his first at 50, lived to be 80. Hypertension Kidney disease Grandfather Cancer stomach CA Social History Smoking Status: Former smoker how long ago did patient quit smokin, 1ppd second hand exposure: Yes alcohol intake: never substance use type: does not use what type of physical activity do you participate in: none HPI HPI Chief Complaint: Follow-up chronic condition. Follow-up ER. Details: JASMIN TSANG, is a 74 F who presents to the office today for follow-up. No acute concerns at this time. Recent ER visit following a mechanical fall. Woke up with no significant/acute concerns. Diagnosed with bruising/abrasion. These areas have healed. No concerns reported in that regard. History of hypertension, blood pressure today at 124/78 mmHg. No chest pain, palpitation or shortness of breath. Also history of hypothyroidism on levothyroxine, no heat or cold intolerance or unintentional weight changes. She states that she is taking her medicatio (more content not included)... Normal [facility] Lipid Profileon 09-03-2024 Cholesterol [Mass/Vol] 150 mg/dL Normal 200 [facility] Comment on above: Result Comment: <200 mg/dL Desirable 200-240 mg/dL Borderline >240 mg/dL High Risk Performed By: #### L 501.9520, L506.1000, L500.4100, L100.0100, L500.4050 #### [facility] [address] [place], [address] Cholesterol in HDL [Mass/Vol] 56 mg/dL Normal [facility] Comment on above: Result Comment: The drugs N-Acetylcysteine and Metamizole may falsely depress this assay. Reference Range HDL <40 mg/dL Low HDL Cholesterol HDL >or= 60 mg/dL High HDL Cholesterol Performed By: #### L 501.9520, L506.1000, L500.4100, L100.0100, L500.4050 #### [facility] [address] [place], [address] Cholesterol in LDL [Mass/Vol] 54 mg/dL Normal 0-130 [facility] Comment on above: Performed By: #### L 501.9520, L506.1000, L500.4100, L100.0100, L500.4050 #### [facility] [address] [place], [address] Cholesterol in VLDL [Mass/Vol] 40 mg/dL Normal 5-40 [facility] Comment on above: Performed By: #### L 501.9520, L506.1000, L500.4100, L100.0100, L500.4050 #### [facility] [address] [place], [address] Triglyceride [Mass/Vol] 201 mg/dL High [facility] Comment on above: Result Comment: The drugs N-Acetylcysteine and Metamizole may falsely depress this assay. Serum Triglycerides Reference Interval Normal <150 mg/dL Borderline high 150 - 199 mg/dL High 200 - 499 mg/dL Very High > or = 500 mg/dL Performed By: #### L 501.9520, L506.1000, L500.4100, L100.0100, L500.4050 #### [facility] [address] [place], [address] Thyroid Stim Hormone (TSH)on 09-03-2024 TSH 1.900 uIU/mL Normal 0.358-3.740 [facility] Comment on above: Performed By: #### L 501.9520, L506.1000, L500.4100, L100.0100, L500.4050 ####[facility] [address] [place], [address] Vitamin D,25 Hydroxyon 09-03 Vitamin D 25-OH 63.8 ng/mL Normal [facility] Comment on above: Result Comment: Imelda min D 25(OH) Status Range Deficiency <20 ng/mL (50nmol/L) Insufficiency 20 - 30 ng/mL (50 - 75 nmol/L) Sufficiency 30 - 100 ng/mL (75 - 250 nmol/L) Toxicity >100 ng/mL (>250 nmol/L) Performed By: #### L 501.9520, L506.1000, L500.4100, L100.0100, L500.4050 #### [facility] [address] [place], [address] Elbow min 3 Viewson 06-28-20 Elbow min 3 Views [facility] Imaging Services [address] [place] [address] Elbow min 3 Views MR#: [id number] Acct: [id number] Name: JASMIN TSANG Rep #: [id number] : 1950 F 73 From: Jasmeet Herman PCP: Dr. Shannan Chauhan MD Status: REG ER Study: Elbow min 3 Views Date of Exam: 06/28/24 Exam# [id number] Ordering Dr: Alan Walker MD [id number] STUDY: X-RAY - LEFT ELBOW REASON FOR EXAM: Female, 73 years old. injury TECHNIQUE: 3 view(s) of the elbow. COMPARISON: None. FINDINGS: Normal visualized humerus, radius and ulna. Normal radiocapitellar and ulnotrochlear articulations. The soft tissue structures are unremarkable. RAD/Elbow min 3 Views IMPRESSION: Normal x-ray examination of the elbow. Electronically Signed: Jasmeet Yuen MD at 17:48 EDT , CC: Dr. Alan Walker MD; Dr. Shannan Chauhan MD Parole Hearing Officer: Signed Normal [facility] Emergency Department Summary on 06-28-2024 Emergency Department Summary [facility] Medical Records Department [address] [place] [address] Emergency Department Summary 06/28/24 MR#: [id number] Acct: [id number] Name: JASMIN TSANG Rep #: [id number] : 1950 73 From: Alan Walker MD PCP: Dr. Shannan Chauhan MD Status:REG ER Location: ED HPI HPI - Fall History of Present Illness Chief Complaint: Fall Informant: patient Narrative Narrative: 73-year-old female states she missed stepped on a curb causing her to fall to her left anterior knee and left elbow. She states she then, after falling to these areas, scraped her face on the ground. She has no facial pain or headache she had no loss of consciousness because she had no epistaxis she has no vision trouble. No nausea or vomiting. She takes no anticoagulants or antiplatelets other than a baby aspirin. She did not try to ambulate, EMS was called to transport her here. [facility] Medical History (Updated 06/28/24 @ 18:[address] Alan Walker MD) Macular degeneration of both eyes History of tobacco use Encounter for screening for malignant neoplasm of lung Osteoarthritis Osteopenia Acute bronchitis, unspecified Fatigue Health care maintenance Encounter for screening for COVID-19 Essential tremor Tremor Sleep apnea Anxiety Depression Hypothyroidism GERD (gastroesophageal reflux disease) Hyperlipidemia Hypertension Anemia Seasonal allergies Home Medications ???Medication ???Instructions ???Recorded ???Last Taken ???Type biotin 2,500 mcg capsule 5,000 mcg PO DAILY 05/26/15 Unknown History cholecalciferol (vitamin D3) 25 2,000 unit PO DAILY 08/18/17 Unknown History mcg (1,000 unit) tablet aspirin 81 mg tablet,delayed 81 mg PO QDAY 03/14/18 Unknown History release acetaminophen 325 mg tablet 650 mg (2 x 325 mg) PO Q6H PRN PRN 09/27/20 Unknown Rx Pain Score 1-10/Temp > 100.7 F vit C 250 mg-vit E 90 mg-zinc 40 1 tab PO QAM AND QHS 05/07/22 Unknown History mg-copper 1 [id number]-naekyy-xkbprh capsule (PreserVision AREDS-2) Oral sleep appliance #1 ea 05/14/22 Unknown Rx cetirizine 5 mg tablet 5 mg PO DAILY PRN 01/12/23 Unknown History omeprazole 40 mg capsule,delayed See Rx Instructions .Route 08/19/23 Unknown Rx release .COMPLEX #90 caps duloxetine 60 mg capsule,delayed 60 mg PO DAILY #90 caps 10/24/23 Unknown Rx release rosuvastatin 10 mg tablet (Crestor) 10 mg PO QDAY #90 tabs 10/24/23 Unknown Rx potassium chloride 20 mEq 20 meq PO BID #90 TABLETS 11/28/23 Unknown Rx tablet,extended release amlodipine 5 mg tablet 5 mg PO QDAY #90 tabs 03/27/24 Unknown Rx levothyroxine 75 mcg tablet 75 mcg PO .QD #90 tabs 03/27/24 Unknown Rx (Synthroid) metoprolol succinate 50 mg 50 mg PO QDAY #90 tabs 03/27/24 Unknown Rx tablet,extended release 24 hr triamterene 37.5 1 cap PO QAM #90 caps 03/27/24 Unknown Rx mg-hydrochlorothiazide 25 mg capsule lorazepam 0.5 mg tablet 0.5 mg PO QHS PRN anxiety #30 tabs 05/10/24 Unknown Rx cariprazine 1.5 mg capsule 1.5 mg PO QDAY #30 caps 06/27/24 Unknown Rx (Vraylar) Allergy/AdvReac Type Severity Reaction Status Date / Time rivera pepper (green pepper) Allergy Mild Swelling Verified 06/28/24 16:01 cefaclor (From [facility]) Allergy Rash Verified 06/28/24 16:01 ropinirole AdvReac Severe nightmares Verified 06/28/24 16:01 and nausea erythromycin base AdvReac Vomiting Verified 06/28/24 16:01 trazodone AdvReac syncope Verified 06/28/24 16:01 Family History Mother Arthritis Hypertension CVA (cerebral vascular accident) Father Heart disease Myocardial infarction Had his first at 50, lived to be 80. Hypertension Kidney disease Grandfather Cancer stomach CA Surgical History H/O breast biopsy H/O hemorrhoidectomy gallbladder removal H/O: hysterectomy Social History Smoking Status: Former smoker how long ago did patient quit smokin, 1ppd second hand exposure: Yes alcohol intake: never substance use type: does not use what type of physical activity do you participate in: none ROS ROS ED Constitutional Constitutional ED: Denies chills or fever(s) Eyes Eyes: Denies change in vision or diplopia ENT ENT ED: Denies ear pain, epistaxis, facial pain or rhinorrhea Cardiovascular Cardiovascular: Denies chest pain or palpitations Respiratory/Chest Respiratory/Chest: Denies cough or dyspnea Gastrointestinal Gastrointestinal: Denies abdominal pain, diarrhea, melena, nausea or vomiting Genitourinary Genitourinary ED: Denies dysuria or hematuria Musculoskeletal Musculoskeletal: Denies back pain, extremity pain or neck pain Integumentary Denies abscess, Abrasions, lace (more content not included)... Normal [facility] Hand Min 3 Viewson 4 Hand Min 3 Views [facility] Imaging Services [address] [place], [place] [id number] Hand Min 3 Views MR#: [id number] Acct: [id number] Name: JASMIN TSANG Rep #: [id number] : 1950 F 73 From: Jasmeet Herman PCP: Dr. Shannan Chauhan MD Status: REG ER Study: Hand Min 3 Views Date of Exam: 06/28/24 Exam# [id number] Ordering Dr: Alan Walker MD [id number] STUDY: X-RAY - RIGHT HAND REASON FOR EXAM: Female, 73 years old. injury TECHNIQUE: 3 view(s) of the hand. COMPARISON: None. FINDINGS: Normal radiocarpal articulation. Normal distal radioulnar joint. Normal visualized carpal bones. Normal carpal articulations Normal carpometacarpal articulation of the thumb. Normal second through fifth carpometacarpal joints. Normal metacarpi. There is degenerative arthrosis of the metacarpophalangeal (MCP) joints. Normal interphalangeal joint of the thumb. Normal proximal and distal phalanges of the thumb. Normal metacarpophalangeal joints of the second through fifth fingers. Normal proximal and distal interphalangeal joints of the second through fifth fingers. Intra-articular Avulsion fracture trochlea distal middle phalanx index finger ulnar aspect. The soft tissue structures are unremarkable. RAD/Hand Min 3 Views IMPRESSION: Avulsion fracture middle phalanx index finger, age indeterminate Electronically Signed: Jasmeet Yuen MD at 17:55 EDT , CC: Dr. Alan Walker MD; Dr. Shannan Chauhan MD Parole Hearing Officer: Signed Normal [facility] Knee 4 or More Viewson 06-28 Knee 4 or More Views [facility] Imaging Services [address] [place] [id number] Knee 4 or More Views MR#: [id number] Acct: [id number] Name: JASMIN TSANG Rep #: [id number] : 1950 F 73 From: Jasmeet Herman PCP: Dr. Shannan Chauhan MD Status: REG ER Study: Knee 4 or More Views Date of Exam: 06/28/24 Exam# [id number] Ordering Dr: Alan Walker MD [id number] STUDY: X-RAY - LEFT KNEE REASON FOR EXAM: Female, 73 years old. injury TECHNIQUE: 4 view(s) of the knee. COMPARISON: Left knee July 20, 2023 FINDINGS: Normal visualized distal femur. Normal visualized proximal tibia and fibula. Normal proximal tibiofibular articulation. There is severe degenerative arthrosis of the medial femorotibial compartment with severe joint space narrowing. Normal lateral femorotibial compartment. Normal patellofemoral articulation. The soft tissue structures are unremarkable. RAD/Knee 4 or More Views IMPRESSION: Severe DJD medial joint demonstrates slight interval progression Electronically Signed: Jasmeet Yuen MD at 17:47 EDT , CC: Dr. Alan Walker MD; Dr. Shannan Chauhan MD Parole Hearing Officer: Signed Normal [facility] MR/BMS.BPon 06-27-2024 MR/BMS.BP [address], [address] [place] [address] OFFICE VISIT Date of Service: 06/27/24 MR#: [id number] Acct: [id number] Name: JASMIN TSANG Rep #: [id number] : 1950 Provider: JOCELYNN tran Age/Sex: 73/F Location: [facility] Status: Signed Intake Vital Signs 05/17/24 10:19 06/27/24 10:56 Height 5 ft 4 in 5 ft 4 in Weight: 208 lb BMI 35.6 BP 116/83 H 119/76 Blood Pressure Location Rt brachial Rt brachial Position Sitting Sitting Respiration 18 Pulse 72 69 Pulse Source Monitor Monitor Pulse Oximetry (%) 94 Oxygen Delivery Method room air BP Intake Visit Reasons: 6 week anxiety f/u Accompanied by: Self Is patient in pain?: No Allergies rivera pepper (green pepper) Allergy (Mild, Verified 06/27/24 10:58) Swelling cefaclor (From Ceclor) Allergy (Verified 06/27/24 10:58) Rash ropinirole Adverse Reaction (Severe, Verified 06/27/24 10:58) nightmares and nausea erythromycin base Adverse Reaction (Verified 06/27/24 10:58) Vomiting trazodone Adverse Reaction (Verified 06/27/24 10:58) syncope Medications ???Medication ???Instructions ???Recorded ???Confirmed ???Type biotin 2,500 mcg capsule 5,000 mcg PO DAILY 05/26/15 06/27/24 History cholecalciferol (vitamin D3) 25 2,000 unit PO DAILY 08/18/17 06/27/24 History mcg (1,000 unit) tablet aspirin 81 mg tablet,delayed 81 mg PO QDAY 03/14/18 06/27/24 History release acetaminophen 325 mg tablet 650 mg (2 x 325 mg) PO Q6H PRN PRN 09/27/20 06/27/24 Rx Pain Score 1-10/Temp > 100.7 F vit C 250 mg-vit E 90 mg-zinc 40 1 tab PO QAM AND QHS 05/07/22 06/27/24 History mg-copper 1 [id number]-eecwpf capsule (PreserVision AREDS-2) Oral sleep appliance #1 ea 05/14/22 06/13/24 Rx cetirizine 5 mg tablet 5 mg PO DAILY PRN 01/12/23 06/27/24 History omeprazole 40 mg capsule,delayed See Rx Instructions .Route 08/19/23 06/27/24 Rx release .COMPLEX #90 caps duloxetine 60 mg capsule,delayed 60 mg PO DAILY #90 caps 10/24/23 06/27/24 Rx release rosuvastatin 10 mg tablet (Crestor) 10 mg PO QDAY #90 tabs 10/24/23 06/27/24 Rx potassium chloride 20 mEq 20 meq PO BID #90 TABLETS 11/28/23 06/27/24 Rx tablet,extended release amlodipine 5 mg tablet 5 mg PO QDAY #90 tabs 03/27/24 06/27/24 Rx levothyroxine 75 mcg tablet 75 mcg PO .QD #90 tabs 03/27/24 06/27/24 Rx (Synthroid) metoprolol succinate 50 mg 50 mg PO QDAY #90 tabs 03/27/24 06/27/24 Rx tablet,extended release 24 hr triamterene 37.5 1 cap PO QAM #90 caps 03/27/24 06/27/24 Rx mg-hydrochlorothiazide 25 mg capsule lorazepam 0.5 mg tablet 0.5 mg PO QHS PRN anxiety #30 tabs 05/10/24 06/27/24 Rx cariprazine 1.5 mg capsule 1.5 mg PO QDAY #30 caps 06/27/24 06/27/24 Rx (Vraylar) Have you fallen in the past year?: No [facility] Medical History (Updated 06/27/24 @ 11:02 by Melisa Bazan) Macular degeneration of both eyes History of tobacco use Encounter for screening for malignant neoplasm of lung Osteoarthritis Osteopenia Acute bronchitis, unspecified Fatigue Health care maintenance Encounter for screening for COVID-19 Essential tremor Tremor Sleep apnea Anxiety Depression Hypothyroidism GERD (gastroesophageal reflux disease) Hyperlipidemia Hypertension Anemia Seasonal allergies Surgical History H/O breast biopsy H/O hemorrhoidectomy gallbladder removal H/O: hysterectomy Family History Mother Arthritis Hypertension CVA (cerebral vascular accident) Father Heart disease Myocardial infarction Had his first at 50, lived to be 80. Hypertension Kidney disease Grandfather Cancer stomach CA Social History Smoking Status: Former smoker (09/2018) how long ago did patient quit smokin, 1ppd second hand exposure: Yes alcohol intake: never substance use type: does not use what type of physical activity do you participate in: none HPI History of Present Illness History provided by: patient HPI: Jasmin Tsang is a 73 year old female patient presenting today for a follow up evaluation. Does state she has been feeling better with the use of aripiprazole but does feel she has been experiencing side effects. Does admit to having an essential tremor that was better before being on aripiprazole. Does state her macular degeneration has worsened since last appointment which causes an issue with mood. Is unable to sleep while on aripiprazole. Does take Nyquil, melatonin, or Benadryl to help with sleep since being on the medication. Is getting sometimes 8 hours of sleep if she takes Nyquil but otherwise is getting 4 hours of sleep. Does feel she has been less depressed (more content not included)... Normal [facility] Orthopedic Visit Reporton Orthopedic Visit Report [facility] [address] [place], [place] [id number] OFFICE VISIT Date of Service: 06/13/24 MR#: [id number] Acct: [id number] Name: JASMIN TSANG Rep #: [id number] : 1950 Provider: Dr. Javad León so, DO Age/Sex: 73/F Location: [facility] Status: Signed Intake Vital Signs 05/17/24 10:19 Height 5 ft 4 in Weight: 208 lb BMI 35.6 BP 116/83 H Blood Pressure Location Rt brachial Position Sitting Respiration 18 Pulse 72 Pulse Source Monitor Pulse Oximetry (%) 94 Oxygen Delivery Method room air Intake Visit Reasons: BILATERAL KNEES Chief Complaint: 3m fu Allergies rivera pepper (green pepper) Allergy (Mild, Verified 06/13/24 10:02) Swelling cefaclor (From Ceclor) Allergy (Verified 06/13/24 10:02) Rash ropinirole Adverse Reaction (Severe, Verified 06/13/24 10:02) nightmares and nausea erythromycin base Adverse Reaction (Verified 06/13/24 10:02) Vomiting trazodone Adverse Reaction (Verified 06/13/24 10:02) syncope Medications ???Medication ???Instructions ???Recorded ???Confirmed ???Type biotin 2,500 mcg capsule 5,000 mcg PO DAILY 05/26/15 06/13/24 History cholecalciferol (vitamin D3) 25 2,000 unit PO DAILY 08/18/17 06/13/24 History mcg (1,000 unit) tablet aspirin 81 mg tablet,delayed 81 mg PO QDAY 03/14/18 06/13/24 History release acetaminophen 325 mg tablet 650 mg (2 x 325 mg) PO Q6H PRN PRN 09/27/20 06/13/24 Rx Pain Score 1-10/Temp > 100.7 F vit C 250 mg-vit E 90 mg-zinc 40 1 tab PO QAM AND QHS 05/07/22 06/13/24 History mg-copper 1 fs-wjuumj-tcrdhb capsule (PreserVision AREDS-2) Oral sleep appliance #1 ea 05/14/22 06/13/24 Rx cetirizine 5 mg tablet 5 mg PO DAILY PRN 01/12/23 06/13/24 History omeprazole 40 mg capsule,delayed See Rx Instructions .Route 08/19/23 06/13/24 Rx release .COMPLEX #90 caps duloxetine 60 mg capsule,delayed 60 mg PO DAILY #90 caps 10/24/23 06/13/24 Rx release rosuvastatin 10 mg tablet (Crestor) 10 mg PO QDAY #90 tabs 10/24/23 06/13/24 Rx potassium chloride 20 mEq 20 meq PO BID #90 TABLETS 11/28/23 06/13/24 Rx tablet,extended release amlodipine 5 mg tablet 5 mg PO QDAY #90 tabs 03/27/24 06/13/24 Rx levothyroxine 75 mcg tablet 75 mcg PO .QD #90 tabs 03/27/24 06/13/24 Rx (Synthroid) metoprolol succinate 50 mg 50 mg PO QDAY #90 tabs 03/27/24 06/13/24 Rx tablet,extended release 24 hr triamterene 37.5 1 cap PO QAM #90 caps 03/27/24 06/13/24 Rx mg-hydrochlorothiazide 25 mg capsule lorazepam 0.5 mg tablet 0.5 mg PO QHS PRN anxiety #30 tabs 05/10/24 06/13/24 Rx aripiprazole 2 mg tablet 2 mg PO QHS #30 tabs 05/17/24 06/13/24 Rx Have you fallen in the past year?: No PFSH Medical History History of tobacco use Encounter for screening for malignant neoplasm of lung Osteoarthritis Osteopenia Acute bronchitis, unspecified Fatigue Health care maintenance Encounter for screening for COVID-19 Essential tremor Tremor Sleep apnea Anxiety Depression Hypothyroidism GERD (gastroesophageal reflux disease) Hyperlipidemia Hypertension Anemia Seasonal allergies Surgical History H/O breast biopsy H/O hemorrhoidectomy gallbladder removal H/O: hysterectomy Family History Mother Arthritis Hypertension CVA (cerebral vascular accident) Father Heart disease Myocardial infarction Had his first at 50, lived to be 80. Hypertension Kidney disease Grandfather Cancer stomach CA Social History Smoking Status: Former smoker (09/2018) how long ago did patient quit smokin, 1ppd second hand exposure: Yes alcohol intake: never substance use type: does not use what type of physical activity do you participate in: none HPI BILATERAL KNEES Details: This documentation accurately reflects the service provided and the decisions made by me, Dr. Javad Valdez, DO 06/13/24 0802. Part of today???s visit was documented by [ ], acting as scribe. JASMIN TSANG is a 73 year old F here today for her bilateral knee 3rd Euflexxa injection. Patient states that she has had some improvement since starting the injections. She is able to walk her dog with less pain. She denies ay adverse reactions. Ortho Exam General General: Yes no acute distress Neurologic: Yes alert and Yes oriented x3 Psychologic: Yes reasonable and appropriate Right Knee Skin/Wound: No erythema, No ecchymosis and No swelling Homans Sign: No Knee ROM: Yes ROM-Extension -20 to 0 and Yes ROM-Flexion 0-140 (115) Examination: Yes Med jt line tenderness and Yes Crepitus Stabi (more content not included)... Normal [facility] Orthopedic Visit Reporton Orthopedic Visit Report [facility] [address] [place] [address] OFFICE VISIT Date of Service: 06/06/24 MR#: [id number] Acct: [id number] Name: JASMIN TSANG Rep #: [id number] : 1950 Provider: Dr. Javad ragland DO Age/Sex: 73/F Location: [facility] Status: Signed Intake Vital Signs 05/17/24 10:19 Height 5 ft 4 in Weight: 208 lb BMI 35.6 BP 116/83 H Blood Pressure Location Rt brachial Position Sitting Respiration 18 Pulse 72 Pulse Source Monitor Pulse Oximetry (%) 94 Oxygen Delivery Method room air Intake Visit Reasons: BILATERAL KNEES Accompanied by: Self Is patient in pain?: No Allergies rivera pepper (green pepper) Allergy (Mild, Verified 06/06/24 10:05) Swelling cefaclor (From Ceclor) Allergy (Verified 06/06/24 10:05) Rash ropinirole Adverse Reaction (Severe, Verified 06/06/24 10:05) nightmares and nausea erythromycin base Adverse Reaction (Verified 06/06/24 10:05) Vomiting trazodone Adverse Reaction (Verified 06/06/24 10:05) syncope Medications ???Medication ???Instructions ???Recorded ???Confirmed ???Type biotin 2,500 mcg capsule 5,000 mcg PO DAILY 05/26/15 06/06/24 History cholecalciferol (vitamin D3) 25 2,000 unit PO DAILY 08/18/17 06/06/24 History mcg (1,000 unit) tablet aspirin 81 mg tablet,delayed 81 mg PO QDAY 03/14/18 06/06/24 History release acetaminophen 325 mg tablet 650 mg (2 x 325 mg) PO Q6H PRN PRN 09/27/20 06/06/24 Rx Pain Score 1-10/Temp > 100.7 F vit C 250 mg-vit E 90 mg-zinc 40 1 tab PO QAM AND QHS 05/07/22 06/06/24 History mg-copper 1 [id number]-cxfqum capsule (PreserVision AREDS-2) Oral sleep appliance #1 ea 05/14/22 06/06/24 Rx cetirizine 5 mg tablet 5 mg PO DAILY PRN 01/12/23 06/06/24 History omeprazole 40 mg capsule,delayed See Rx Instructions .Route 08/19/23 06/06/24 Rx release .COMPLEX #90 caps duloxetine 60 mg capsule,delayed 60 mg PO DAILY #90 caps 10/24/23 06/06/24 Rx release rosuvastatin 10 mg tablet (Crestor) 10 mg PO QDAY #90 tabs 10/24/23 06/06/24 Rx potassium chloride 20 mEq 20 meq PO BID #90 TABLETS 11/28/23 06/06/24 Rx tablet,extended release amlodipine 5 mg tablet 5 mg PO QDAY #90 tabs 03/27/24 06/06/24 Rx levothyroxine 75 mcg tablet 75 mcg PO .QD #90 tabs 03/27/24 06/06/24 Rx (Synthroid) metoprolol succinate 50 mg 50 mg PO QDAY #90 tabs 03/27/24 06/06/24 Rx tablet,extended release 24 hr triamterene 37.5 1 cap PO QAM #90 caps 03/27/24 06/06/24 Rx mg-hydrochlorothiazide 25 mg capsule lorazepam 0.5 mg tablet 0.5 mg PO QHS PRN anxiety #30 tabs 05/10/24 06/06/24 Rx aripiprazole 2 mg tablet 2 mg PO QHS #30 tabs 05/17/24 06/06/24 Rx Have you fallen in the past year?: No PFSH Medical History History of tobacco use Encounter for screening for malignant neoplasm of lung Osteoarthritis Osteopenia Acute bronchitis, unspecified Fatigue Health care maintenance Encounter for screening for COVID-19 Essential tremor Tremor Sleep apnea Anxiety Depression Hypothyroidism GERD (gastroesophageal reflux disease) Hyperlipidemia Hypertension Anemia Seasonal allergies Surgical History H/O breast biopsy H/O hemorrhoidectomy gallbladder removal H/O: hysterectomy Family History Mother Arthritis Hypertension CVA (cerebral vascular accident) Father Heart disease Myocardial infarction Had his first at 50, lived to be 80. Hypertension Kidney disease Grandfather Cancer stomach CA Social History Smoking Status: Former smoker (09/2018) how long ago did patient quit smokin, 1ppd second hand exposure: Yes alcohol intake: never substance use type: does not use what type of physical activity do you participate in: none HPI BILATERAL KNEES Details: This documentation accurately reflects the service provided and the decisions made by me, Dr. Javad Valdez, DO 06/06/24813. Part of today???s visit was documented by [ ], acting as scribe. JASMIN TSANG is a 73 year old F here today for 2nd Bilateral knee injection Euflexxa. Patient states no issues with the first one. Ortho Exam General General: Yes no acute distress Neurologic: Yes alert and Yes oriented x3 Psychologic: Yes reasonable and appropriate Right Knee Skin/Wound: No erythema, No ecchymosis and No swelling Homans Sign: No Knee ROM: Yes ROM-Extension -20 to 0 and Yes ROM-Flexion 0-140 (115) Examination: Yes Med jt line tenderness and Yes Crepitus Stability: NML: Valgus 30 and NML: Varus 30 Patella Grind: No Left Knee Skin/Wound: No ecchym (more content not included)... Normal [facility] Orthopedic Visit Reporton Orthopedic Visit Report [facility] [address] [place] [address] OFFICE VISIT Date of Service: 05/30/24 MR#: [id number] Acct: [id number] Name: JASMIN TSANG Rep #: [id number] : 1950 Provider: MARY eDe Age/Sex: 73/F Location: [facility] Status: Signed Intake Vital Signs 05/17/24 10:19 Height 5 ft 4 in Weight: 208 lb BMI 35.6 BP 116/83 H Blood Pressure Location Rt brachial Position Sitting Respiration 18 Pulse 72 Pulse Source Monitor Pulse Oximetry (%) 94 Oxygen Delivery Method room air Intake Visit Reasons: BILATERAL KNEES Accompanied by: Self Is patient in pain?: Yes Pain scale (1-10): 3 Allergies rivera pepper (green pepper) Allergy (Mild, Verified 05/30/24 09:37) Swelling cefaclor (From Ceclor) Allergy (Verified 05/30/24 09:37) Rash ropinirole Adverse Reaction (Severe, Verified 05/30/24 09:37) nightmares and nausea erythromycin base Adverse Reaction (Verified 05/30/24 09:37) Vomiting trazodone Adverse Reaction (Verified 05/30/24 09:37) syncope Medications ???Medication ???Instructions ???Recorded ???Confirmed ???Type biotin 2,500 mcg capsule 5,000 mcg PO DAILY 05/26/15 05/30/24 History cholecalciferol (vitamin D3) 25 2,000 unit PO DAILY 08/18/17 05/30/24 History mcg (1,000 unit) tablet aspirin 81 mg tablet,delayed 81 mg PO QDAY 03/14/18 05/30/24 History release acetaminophen 325 mg tablet 650 mg (2 x 325 mg) PO Q6H PRN PRN 09/27/20 05/30/24 Rx Pain Score 1-10/Temp > 100.7 F vit C 250 mg-vit E 90 mg-zinc 40 1 tab PO QAM AND QHS 05/07/22 05/30/24 History mg-copper 1 [id number]-efkjvt capsule (PreserVision AREDS-2) Oral sleep appliance #1 ea 05/14/22 05/30/24 Rx cetirizine 5 mg tablet 5 mg PO DAILY PRN 01/12/23 05/30/24 History omeprazole 40 mg capsule,delayed See Rx Instructions .Route 08/19/23 05/30/24 Rx release .COMPLEX #90 caps duloxetine 60 mg capsule,delayed 60 mg PO DAILY #90 caps 10/24/23 05/30/24 Rx release rosuvastatin 10 mg tablet (Crestor) 10 mg PO QDAY #90 tabs 10/24/23 05/30/24 Rx potassium chloride 20 mEq 20 meq PO BID #90 TABLETS 11/28/23 05/30/24 Rx tablet,extended release amlodipine 5 mg tablet 5 mg PO QDAY #90 tabs 03/27/24 05/30/24 Rx levothyroxine 75 mcg tablet 75 mcg PO .QD #90 tabs 03/27/24 05/30/24 Rx (Synthroid) metoprolol succinate 50 mg 50 mg PO QDAY #90 tabs 03/27/24 05/30/24 Rx tablet,extended release 24 hr triamterene 37.5 1 cap PO QAM #90 caps 03/27/24 05/30/24 Rx mg-hydrochlorothiazide 25 mg capsule lorazepam 0.5 mg tablet 0.5 mg PO QHS PRN anxiety #30 tabs 05/10/24 05/30/24 Rx aripiprazole 2 mg tablet 2 mg PO QHS #30 tabs 05/17/24 05/30/24 Rx Have you fallen in the past year?: No PFSH Medical History History of tobacco use Encounter for screening for malignant neoplasm of lung Osteoarthritis Osteopenia Acute bronchitis, unspecified Fatigue Health care maintenance Encounter for screening for COVID-19 Essential tremor Tremor Sleep apnea Anxiety Depression Hypothyroidism GERD (gastroesophageal reflux disease) Hyperlipidemia Hypertension Anemia Seasonal allergies Surgical History H/O breast biopsy H/O hemorrhoidectomy gallbladder removal H/O: hysterectomy Family History Mother Arthritis Hypertension CVA (cerebral vascular accident) Father Heart disease Myocardial infarction Had his first at 50, lived to be 80. Hypertension Kidney disease Grandfather Cancer stomach CA Social History Smoking Status: Former smoker (09/2018) how long ago did patient quit smokin, 1ppd second hand exposure: Yes alcohol intake: never substance use type: does not use what type of physical activity do you participate in: none HPI BILATERAL KNEES Details: This documentation accurately reflects the service provided and the decisions made by me, MARY Dee 05/30/24 0932. Part of today???s visit was documented by [ ], acting as scribe. JASMIN TSANG is a 73 year old F here today for Bilateral 1st Euflexxa injection. Her last Euflexxa series was finishes in August 2023. Says that this gave her about 4 months of relief. No new injuries or changes to her knees. Ortho Exam General General: Yes no acute distress Neurologic: Yes alert and Yes oriented x3 Psychologic: Yes reasonable and appropriate Right Knee Skin/Wound: No erythema, No ecchymosis and No swelling Homans Sign: No Knee ROM: Yes ROM-Extension -20 to 0 and Yes ROM-Flexion 0-140 (115) Examination: Yes Med jt line tenderness and Yes Cr (more content not included)... Normal [facility] MR/BMS.BPon 05-17-2024 MR/BMS.BP [address], [address] [place] [address] OFFICE VISIT Date of Service: 05/17/24 MR#: [id number] Acct: [id number] Name: JASMIN TSANG Rep #: [id number] : 1950 Provider: JOCELYNN tran Age/Sex: 73/F Location: [facility] Status: Signed Intake Vital Signs 03/27/24 09:35 05/17/24 10:17 05/17/24 10:19 Height 5 ft 4 in 5 ft 4 in 5 ft 4 in Weight: 205 lb 208 lb BMI 35.2 35.6 BP 122/82 H 116/83 H Blood Pressure Location Lt brachial Rt brachial Position Sitting Sitting Respiration 16 18 Pulse 80 72 Pulse Source Monitor Monitor Temp 97.8 F Pulse Oximetry (%) 94 94 Oxygen Delivery Method room air room air BP Intake Visit Reasons: Anxiety Disorder Allergies rivera pepper (green pepper) Allergy (Mild, Verified 05/17/24 10:13) Swelling cefaclor (From Ceclor) Allergy (Verified 05/17/24 10:13) Rash ropinirole Adverse Reaction (Severe, Verified 05/17/24 10:13) nightmares and nausea erythromycin base Adverse Reaction (Verified 05/17/24 10:13) Vomiting trazodone Adverse Reaction (Verified 05/17/24 10:13) syncope Medications ???Medication ???Instructions ???Recorded ???Confirmed ???Type biotin 2,500 mcg capsule 5,000 mcg PO DAILY 05/26/15 05/17/24 History cholecalciferol (vitamin D3) 25 2,000 unit PO DAILY 08/18/17 05/17/24 History mcg (1,000 unit) tablet aspirin 81 mg tablet,delayed 81 mg PO QDAY 03/14/18 05/17/24 History release acetaminophen 325 mg tablet 650 mg (2 x 325 mg) PO Q6H PRN PRN 09/27/20 05/17/24 Rx Pain Score 1-10/Temp > 100.7 F vit C 250 mg-vit E 90 mg-zinc 40 1 tab PO QAM AND QHS 05/07/22 05/17/24 History mg-copper 1 hp-bvjyzq-vbhnky capsule (PreserVision AREDS-2) Oral sleep appliance #1 ea 05/14/22 05/17/24 Rx cetirizine 5 mg tablet 5 mg PO DAILY PRN 01/12/23 05/17/24 History omeprazole 40 mg capsule,delayed See Rx Instructions .Route 08/19/23 05/17/24 Rx release .COMPLEX #90 caps duloxetine 60 mg capsule,delayed 60 mg PO DAILY #90 caps 10/24/23 05/17/24 Rx release rosuvastatin 10 mg tablet (Crestor) 10 mg PO QDAY #90 tabs 10/24/23 05/17/24 Rx potassium chloride 20 mEq 20 meq PO BID #90 TABLETS 11/28/23 05/17/24 Rx tablet,extended release amlodipine 5 mg tablet 5 mg PO QDAY #90 tabs 03/27/24 05/17/24 Rx levothyroxine 75 mcg tablet 75 mcg PO .QD #90 tabs 03/27/24 05/17/24 Rx (Synthroid) metoprolol succinate 50 mg 50 mg PO QDAY #90 tabs 03/27/24 05/17/24 Rx tablet,extended release 24 hr triamterene 37.5 1 cap PO QAM #90 caps 03/27/24 05/17/24 Rx mg-hydrochlorothiazide 25 mg capsule lorazepam 0.5 mg tablet 0.5 mg PO QHS PRN anxiety #30 tabs 05/10/24 05/17/24 Rx aripiprazole 2 mg tablet 2 mg PO QHS #30 tabs 05/17/24 05/17/24 Rx Have you fallen in the past year?: No PFSH Medical History History of tobacco use Encounter for screening for malignant neoplasm of lung Osteoarthritis Osteopenia Acute bronchitis, unspecified Fatigue Health care maintenance Encounter for screening for COVID-19 Essential tremor Tremor Sleep apnea Anxiety Depression Hypothyroidism GERD (gastroesophageal reflux disease) Hyperlipidemia Hypertension Anemia Seasonal allergies Surgical History H/O breast biopsy H/O hemorrhoidectomy gallbladder removal H/O: hysterectomy Family History Mother Arthritis Hypertension CVA (cerebral vascular accident) Father Heart disease Myocardial infarction Had his first at 50, lived to be 80. Hypertension Kidney disease Grandfather Cancer stomach CA Social History Smoking Status: Former smoker (09/2018) how long ago did patient quit smokin, 1ppd second hand exposure: Yes alcohol intake: never substance use type: does not use what type of physical activity do you participate in: none HPI History of Present Illness History provided by: patient Chief complaint: Depression/Anxiety HPI: Jasmin Tsang is a 73 year old female patient presenting today for an intake evaluation. Reports coming into the office as she feels worse all the time. Does report having Covid in 2019 and was hospitalized for days and felt she never snapped back from this afterwards. Feels energy is low, feels more depressed, and feels more anxious. States her is in poor health and has a hx of prostate CA, COPD, cardiac issues, and diabetes and is unable to retire for another 10 months. Sleep: Reports she sleeps a lot. Does report having terrible nightmares. 8-10 hours per night. Naps daily. Interest: Does strugg (more content not included)... Normal [facility] Comprehensive Metabolic Prof ole 03-27-2024 Albumin [Mass/Vol] 3.6 g/dL Normal 3.2-5.0 [facility] Comment on above: Performed By: #### L 501.9520, L503.0105, L500.4050 #### [facility] [address] [place], [address] Albumin/Globulin [Mass ratio] 1.1 {ratio} Normal 0.9-2.4 [facility] Comment on above: Performed By: #### L [id number], L503.0105, [id number] #### [facility] [address] [place], [address] ALK P 83 U/L Normal 45-117 [facility] Comment on above: Performed By: #### L [id number], L503.0105, [id number] #### [facility] [address] [place], [address] ALT [Catalytic activity/Vol] 27 U/L Normal 13-56 [facility] Comment on above: Performed By: #### L [id number], L503.0105, [id number] #### [facility] [address] [place], [address] AST [Catalytic activity/Vol] 23 U/L Normal 15-37 [facility] Comment on above: Performed By: #### L [id number], L503.0105, [id number] #### [facility] [address] [place], [address] Bilirubin [Mass/Vol] 0.40 mg/dL Normal 0.20-1.00 [facility] Comment on above: Result Comment: For patients on eltrombopag therapy, use of Dimension [place] TBIL is not recommended. Performed By: #### L [id number], L503.0105, L500.4050 #### [facility] [address] [place], [address] BUN/CRE 16.5 RATIO Normal 10-20 [facility] Comment on above: Performed By: #### L [id number], L503.0105, [id number] #### [facility] [address] [place], [address] CA,Total 9.8 mg/dL Normal 8.5-10.1 [facility] Comment on above: Performed By: #### L [id number], L503.0105, [id number] #### [facility] [address] [place], [address] Chloride [Moles/Vol] 105 mmol/L Normal 98-107 [facility] Comment on above: Performed By: #### L [id number], L503.0105, [id number] #### [facility] [address] [place], [address] CO2 [Moles/Vol] 26.0 mmol/L Normal 21.0-32.0 [facility] Comment on above: Performed By: #### L [id number], L503.0105, [id number] #### [facility] [address] [place], [address] Creatinine [Mass/Vol] 0.97 mg/dL Normal 0.55-1.02 [facility] Comment on above: Result Comment: The validity of the calculated GFR GFRAA in patients over 70 years has not been determined. Clinical correlation is essential. Performed By: #### L 501.9520, L503.0105, L500.4050 #### [facility] [address] [place], [address] EST GFR - AA 73 mL/min Normal >60 [facility] Comment on above: Result Comment: Afri can Syrian GFR Calc Performed By: #### L [id number], L503.0105, L500.4050 #### [facility] [address] [place], [address] GAP 7 Normal 5-15 [facility] Comment on above: Performed By: #### L [id number], L503.0105, [id number] #### [facility] [address] [place], [address] GFR/1.73 sq M.predicted among non-blacks MDRD (S/P/Bld) [Vol rate/Area] 60 mL/min/{1.73_m2} Normal >60 [facility] Comment on above: Result Comment: Non- GFR Calc Performed By: #### L 501.9520, L503.0105, L500.4050 #### [facility] [address] [place], [address] Globulin (S) [Mass/Vol] 3.4 g/dL Normal 2.2-4.2 [facility] Comment on above: Performed By: #### L [id number], L503.0105, L500.4050 #### [facility] [address] [place], [address] Glucose [Mass/Vol] 91 mg/dL Normal 74-106 [facility] Comment on above: Performed By: #### L [id number], L503.0105, L500.4050 #### [facility] [address] [place], [address] Potassium [Moles/Vol] 4.1 mmol/L Normal 3.5-5.1 [facility] Comment on above: Performed By: #### L [id number], L503.0105, L500.4050 #### [facility] [address] [place], [address] Sodium [Moles/Vol] 138 mmol/L Normal 136-145 [facility] Comment on above: Performed By: #### L [id number], L503.0105, L500.4050 #### [facility] [address] [place], [address] T PROT 7.0 g/dL Normal 6.4-8.2 [facility] Comment on above: Performed By: #### L [id number], L503.0105, L500.4050 #### [facility] [address] [place], [address] Urea nitrogen [Mass/Vol] 16 mg/dL Normal 7-18 [facility] Comment on above: Performed By: #### L [id number], L503.0105, L500.4050 #### [facility] [address] [place], [address] Internal Medicine Office Vis itomarco 03-27-2024 Internal Medicine Office Visit [facility] [address] [place], [place] [address] OFFICE VISIT Date of Service: 03/27/24 MR#: [id number] Acct: [id number] Name: JASMIN TSANG Rep #: [id number] : 1950 Provider: JOCELYNN green Age/Sex: 73/F Location: [facility] Status: Signed Intake Vital Signs 11/21/23 11:12 11/29/23 12:04 03/27/24 09:35 Height 5 ft 4 in 5 ft 4 in 5 ft 4 in Weight: 205 lb BMI 35.2 BP 122/82 H Blood Pressure Location Lt brachial Position Sitting Respiration 16 Pulse 80 Pulse Source Monitor Temp 97.8 F Temp Source Temporal Pulse Oximetry (%) 94 Oxygen Delivery Method room air Intake Visit Reasons: 3 M FU Chief Complaint: 3m fu [employer] Required: No Accompanied by: Self Is patient in pain?: No Allergies rivera pepper (green pepper) Allergy (Mild, Verified 03/27/24 09:31) Swelling cefaclor (From Ceclor) Allergy (Verified 03/27/24 09:31) Rash ropinirole Adverse Reaction (Severe, Verified 03/27/24 09:31) nightmares and nausea erythromycin base Adverse Reaction (Verified 03/27/24 09:31) Vomiting trazodone Adverse Reaction (Verified 03/27/24 09:31) syncope Medications ???Medication ???Instructions ???Recorded ???Confirmed ???Type biotin 2,500 mcg capsule 5,000 mcg PO DAILY 05/26/15 03/27/24 History cholecalciferol (vitamin D3) 25 2,000 unit PO DAILY 08/18/17 03/27/24 History mcg (1,000 unit) tablet aspirin 81 mg tablet,delayed 81 mg PO QDAY 03/14/18 03/27/24 History release acetaminophen 325 mg tablet 650 mg (2 x 325 mg) PO Q6H PRN PRN 09/27/20 03/27/24 Rx Pain Score 1-10/Temp > 100.7 F vit C 250 mg-vit E 90 mg-zinc 40 1 tab PO QAM AND QHS 05/07/22 03/27/24 History mg-copper 1 jg-zdeanb-oyfknd capsule (PreserVision AREDS-2) Oral sleep appliance #1 ea 05/14/22 03/27/24 Rx cetirizine 5 mg tablet 5 mg PO DAILY PRN 01/12/23 03/27/24 History lorazepam 0.5 mg tablet 0.5 mg PO QHS PRN anxiety #30 tabs 07/08/23 03/27/24 Rx omeprazole 40 mg capsule,delayed See Rx Instructions .Route 08/19/23 03/27/24 Rx release .COMPLEX #90 caps duloxetine 60 mg capsule,delayed 60 mg PO DAILY #90 caps 10/24/23 03/27/24 Rx release rosuvastatin 10 mg tablet (Crestor) 10 mg PO QDAY #90 tabs 10/24/23 03/27/24 Rx potassium chloride 20 mEq 20 meq PO BID #90 TABLETS 11/28/23 03/27/24 Rx tablet,extended release amlodipine 5 mg tablet 5 mg PO QDAY #90 tabs 03/27/24 03/27/24 Rx levothyroxine 75 mcg tablet 75 mcg PO .QD #90 tabs 03/27/24 03/27/24 Rx (Synthroid) metoprolol succinate 50 mg 50 mg PO QDAY #90 tabs 03/27/24 03/27/24 Rx tablet,extended release 24 hr triamterene 37.5 1 cap PO QAM #90 caps 03/27/24 03/27/24 Rx mg-hydrochlorothiazide 25 mg capsule Have you fallen in the past year?: No PFSH Medical History History of tobacco use Encounter for screening for malignant neoplasm of lung Osteoarthritis Osteopenia Acute bronchitis, unspecified Fatigue Health care maintenance Encounter for screening for COVID-19 Essential tremor Tremor Sleep apnea Anxiety Depression Hypothyroidism GERD (gastroesophageal reflux disease) Hyperlipidemia Hypertension Anemia Seasonal allergies Surgical History H/O breast biopsy H/O hemorrhoidectomy gallbladder removal H/O: hysterectomy Family History Mother Arthritis Hypertension CVA (cerebral vascular accident) Father Heart disease Myocardial infarction Had his first at 50, lived to be 80. Hypertension Kidney disease Grandfather Cancer stomach CA Social History Smoking Status: Former smoker (09/2018) how long ago did patient quit smokin, 1ppd second hand exposure: Yes alcohol intake: never substance use type: does not use what type of physical activity do you participate in: none HPI HPI Chief Complaint: 3m fu Details: JASMIN TSANG, is a 73 F who presents to the office today for routine f/u for chronic medical conditions. She reports ongoing depression symptoms, lack of motivation, fatigue, all I want to do is sleep. She states she has tried vraylar, trintellix, zoloft, lexapro, wellbutirn, abilify in the past without improvement and with side effects. She has utilzied counseling in the past but this stopped when COVID occurred. She denies SI/HI. She is currently prescribed duloxetine 60 mg and has been taking this for years. HTN: At home: 110/70s 100 % compliance Denies chest pain/pressure/tightnes s/vision changes/headaches. HLD: 100% med compliance Denies muscle aches/pains Hypothyroidism: denies s/s of hypo/hyperthyroidism takes on an (more content not included)... Normal [facility] Thyroid Stim Hormone (TSH)on 03-27-2024 TSH 1.29 uIU/mL Normal 0.358-3.74 [facility] Comment on above: Performed By: #### L 501.9520, L503.0105, L500.4050 #### [facility] [address] [place], [address] Vitamin B12on 03-27-2024 Cobalamin (Vitamin B12) [Mass/Vol] 346 pg/mL Normal 211-911 [facility] Comment on above: Performed By: #### L [id number], L503.0105, L500.4050 #### [facility] [address] [place], [address] Basophil percentageOrdered B y: Shannan Chauhan on 11-21-2023 Chloride [Moles/Vol] 105 mmol/L 98-107 [facility] Glucose [Mass/Vol] 103 mg/dL 74-106 [facility] Comment on above: Fasting Glucose resu lt from 100 to 125 mg/dL suggests IMPAIRED HOMEOSTASIS per A.D.A. criteria. Potassium [Moles/Vol] 4.5 mmol/L 3.5-5.1 [facility] Sodium [Moles/Vol] 140 mmol/L 136-145 [facility] Laboratory - Chemistry and C hemistry - challengeOrdered By: Shannan Chauhan on 11-21-2023 CO2 [Moles/Vol] 30.0 mmol/L 21.0-32.0 [facility] Urea nitrogen/Creatinine [Mass ratio] 18.6 mg/mg 10- [facility] No Panel InformationOrdered By: Shannan Chauhan on 11-21-2023 Estimated GFR (MDRD) Amer 61 mL/min >60 [facility] Comment on above: GFR Calc Estimated GFR (MDRD) Non-Af Amer 50 mL/min >60 [facility] Comment on above: Non- GFR Calc Serum or plasma calcium alysha urement (mass/volume)Ordered By: Shannan Chauhan on 11-21-2023 Calcium [Mass/Vol] 9.9 mg/dL 8.5-10.1 [facility] Serum or plasma creatinine m easurement (mass/volume)Ordered By: Shannan Chauhan on 11-21-2023 Creatinine [Mass/Vol] 1.13 mg/dL 0.55-1.02 [facility] Comment on above: The validity of the calculated GFR & GFRAA in patients over 70 years has not been determined. Clinical correlation is essential. Serum or plasma urea nitroge n measurement (mass/volume)Ordered By: Shannan Chauhan on 11-21-2023 Urea nitrogen [Mass/Vol] 21 mg/dL 7-18 [facility] Thin prep Papanicolaou smear with manual screeningOrdered By: abiodun Chauhan on 11-21-2023 Thin prep Papanicolaou smear with manual screening 5 5-15 [facility] Absolute lymphocyte countOrd ered By: abiodun Chauhan on 07-08-2023 Lymphocytes Auto (Unsp spec) [#/Vol] 2.12 10*3/uL 0.83-4.51 [facility] Basophil percentageOrdered B y: Shannan Tyresearceliahouston on 07-08-2023 Basophils/100 WBC (Bld) 0.7 % 0-1 [facility] Bilirubin [Mass/Vol] 0.40 mg/dL 0.20-1.00 [facility] Comment on above: For patients on eltr ombopag therapy, use of Dimension [place] TBIL is not recommended. Chloride [Moles/Vol] 103 mmol/L 98-107 [facility] Cholesterol [Mass/Vol] 150 mg/dL <200 [facility] Comment on above: <200 mg/dL Desirable 200-240 mg/dL Borderline >240 mg/dL High Risk Eosinophils/100 WBC (Bld) 6.5 % 0-5 [facility] Glucose [Mass/Vol] 90 mg/dL 74-106 [facility] Neutrophils (Bld) [#/Vol] 4.6 10*3/uL 2.0-7.7 [facility] Neutrophils/100 WBC (Bld) 56.3 % 47-70 [facility] Potassium [Moles/Vol] 4.1 mmol/L 3.5-5.1 [facility] Protein [Mass/Vol] 7.1 g/dL 6.4-8.2 [facility] Sodium [Moles/Vol] 137 mmol/L 136-145 [facility] Triglyceride [Mass/Vol] 156 mg/dL <199 [facility] Comment on above: The drugs N-Acetylcy steine and Metamizole may falsely depress this assay.Serum Triglycerides Reference Interval Normal <150 mg/dL Borderline high 150 - 199 mg/dL High 200 - 499 mg/dL Very High > or = 500 mg/dL WBC (Bld) [#/Vol] 8.1 10*3/uL 4.4-11.0 [facility] Blood erythrocytes count (nu mber/volume)Ordered By: Shannan Chauhan on 07-08-2023 RBC (Bld) [#/Vol] 4.94 10*6/uL 4.2-5.4 [facility] Blood hemoglobin measurement (mass/volume)Ordered By: Shannan Chauhan on 07-08-2023 Hemoglobin (Bld) [Mass/Vol] 14.5 g/dL 12.0-15.0 [facility] Blood lymphocytes/100 leukoc ytesOrdered By: Shannan Chauhan on 07-08-2023 Lymphocytes/100 WBC (Bld) 26.1 % 19-41 [facility] Blood monocytes/100 leukocyt esOrdered By: Shannan Chauhan on 07-08-2023 Monocytes/100 WBC (Bld) 10.0 % 0-10 [facility] Blood platelet mean volumeOr dered By: Shannan Chauhan on 07-08-2023 Platelet mean volume (Bld) [Entitic vol] 11.0 fL 6.2-12.0 [facility] Determination of erythrocyte mean corpuscular volume (MCV)Ordered By: Shannan Chauhan on 07-08-2023 MCV (RBC) [Entitic vol] 90.9 fL 81-99 [facility] Hematocrit Auto (Bld) [Volum e fraction]Ordered By: Shannan Chauhan on 07-08-2023 Hematocrit (Bld) [Volume fraction] 44.9 % 37-47 [facility] Laboratory - Chemistry and C hemistry - challengeOrdered By: Shannan Chauhan on 07-08-2023 ALP [Catalytic activity/Vol] 79 U/L 45-117 [facility] ALT [Catalytic activity/Vol] 30 U/L 13-56 [facility] CO2 [Moles/Vol] 26.0 mmol/L 21.0-32.0 [facility] Globulin (S) [Mass/Vol] 3.4 g/dL 2.2-4.2 [facility] Urea nitrogen/Creatinine [Mass ratio] 24.3 mg/mg 10-20 [facility] Laboratory - Hematology and Cell countsOrdered By: charbedfordayan Xionghouston on 07-08-2023 Erythrocyte distribution width (RBC) [Entitic vol] 41.7 fL 35.1-43.9 [facility] Erythrocyte distribution width (RBC) [Ratio] 12.7 % 11.6-14.6 [facility] Immature granulocytes/100 WBC (Bld) 0.400 % 0.0-0.9 [facility] Comment on above: IG% - Immature Granu locytes (promyelocytes, myelocytes and metamyelocytes) > 1% indicates that a LEFT SHIFT is Present. MCH (RBC) [Entitic mass] 29.4 pg 27.0-32.0 [facility] Nucleated RBC/100 WBC (Bld) [Ratio] 0 % 0-5 [facility] MCHC Auto (RBC) [Mass/Vol]Or dered By: Shannan Chauhan on 07-08-2023 MCHC (RBC) [Mass/Vol] 32.3 g/dL 32-36 [facility] No Panel InformationOrdered By: Shannan Chauhan on 07-08-2023 Estimated GFR (MDRD) Amer 68 mL/min >60 [facility] Comment on above: GFR Calc Estimated GFR (MDRD) Non-Af Amer 56 mL/min >60 [facility] Comment on above: Non- GFR Calc Thyroid Stimulating Hormone (TSH) 0.89 uIU/mL 0.358-3.74 [facility] Platelets bldOrdered By: Azam Chauhan on 07-08-2023 Platelets (Bld) [#/Vol] 265 10*3/uL 150-450 [facility] Serum or plasma albumin alysha urement (mass/volume)Ordered By: Jadamahadayan Xiongarceliahouston on 07-08-2023 Albumin [Mass/Vol] 3.7 g/dL 3.2-5.0 [facility] Serum or plasma albumin/glob ulin mass ratioOrdered By: Florcharmahadayan Xiongarceliahouston on 07-08-2023 Albumin/Globulin [Mass ratio] 1.1 {ratio} 0.9-2.4 [facility] Serum or plasma calcium alysha urement (mass/volume)Ordered By: Florcharmahadayan Xiongarceliahouston on 07-08-2023 Calcium [Mass/Vol] 9.5 mg/dL 8.5-10.1 [facility] Serum or plasma cholesterol in HDL measurement (mass/volume)Ordered By: Florcharmahadayan Xiongarceliahouston on 07-08-2023 Cholesterol in HDL [Mass/Vol] 53 mg/dL >40 [facility] Comment on above: The drugs N-Acetylcy steine and Metamizole may falsely depress this assay. Reference Range HDL <40 mg/dL Low HDL Cholesterol HDL >or= 60 mg/dL High HDL Cholesterol Serum or plasma cholesterol in VLDL measurement (mass/volume)Ordered By: Shannan Chauhan on 07-08-2023 Cholesterol in VLDL [Mass/Vol] 31 mg/dL 5-40 [facility] Serum or plasma creatinine m easurement (mass/volume)Ordered By: Florabiodun Chauhan on 07-08-2023 Creatinine [Mass/Vol] 1.03 mg/dL 0.55-1.02 [facility] Comment on above: The validity of the calculated GFR & GFRAA in patients over 70 years has not been determined. Clinical correlation is essential. Serum or plasma low density lipoprotein (LDL) cholesterol measurement (mass/volume)Ordered By: Shannan Chauhan on 07-08-2023 Cholesterol in LDL [Mass/Vol] 66 mg/dL 0-130 [facility] Serum or plasma urea nitroge n measurement (mass/volume)Ordered By: Shannan Chauhan on 07-08-2023 Urea nitrogen [Mass/Vol] 25 mg/dL 7-18 [facility] Thin prep Papanicolaou smear with manual screeningOrdered By: Shannan Chauhan on 07-08-2023 Thin prep Papanicolaou smear with manual screening 22 U/L 15-37 [facility] Thin prep Papanicolaou smear with manual screening 8 5-15 [facility] Absolute lymphocyte countOrd ered By: Dr. Chauhan on 01-12-2023 Lymphocytes Auto (Unsp spec) [#/Vol] 1.91 10*3/uL 0.83-4.51 [facility] Basophil percentageOrdered B y: Dr. Chauhan on 01-12-2023 Basophils/100 WBC (Bld) 0.5 % 0-1 [facility] Bilirubin [Mass/Vol] 0.50 mg/dL 0.20-1.00 [facility] Comment on above: For patients on eltr ombopag therapy, use of Dimension [place] TBIL is not recommended. Chloride [Moles/Vol] 107 mmol/L 98-107 [facility] Eosinophils/100 WBC (Bld) 0.0 % 0-5 [facility] Glucose [Mass/Vol] 91 mg/dL 74-106 [facility] Neutrophils (Bld) [#/Vol] 5.1 10*3/uL 2.0-7.7 [facility] Neutrophils/100 WBC (Bld) 66.0 % 47-70 [facility] Potassium [Moles/Vol] 4.2 mmol/L 3.5-5.1 [facility] Protein [Mass/Vol] 6.8 g/dL 6.4-8.2 [facility] Sodium [Moles/Vol] 140 mmol/L 136-145 [facility] WBC (Bld) [#/Vol] 7.8 10*3/uL 4.4-11.0 [facility] Blood erythrocytes count (nu mber/volume)Ordered By: Dr. Chauhan on 01-12-2023 RBC (Bld) [#/Vol] 4.73 10*6/uL 4.2-5.4 [facility] Blood hemoglobin measurement (mass/volume)Ordered By: Dr. Chauhan on 01-12-2023 Hemoglobin (Bld) [Mass/Vol] 13.8 g/dL 12.0-15.0 [facility] Blood lymphocytes/100 leukoc ytesOrdered By: Dr. Chauhan on 01-12-2023 Lymphocytes/100 WBC (Bld) 24.6 % 19-41 [facility] Blood monocytes/100 leukocyt esOrdered By: Dr. Chauhan on 01-12-2023 Monocytes/100 WBC (Bld) 8.5 % 0-10 [facility] Blood platelet mean volumeOr dered By: Dr. Chauhan on 01-12-2023 Platelet mean volume (Bld) [Entitic vol] 10.1 fL 6.2-12.0 [facility] Determination of erythrocyte mean corpuscular volume (MCV)Ordered By: Dr. Chauhan on 01-12-2023 MCV (RBC) [Entitic vol] 89.0 fL 81-99 [facility] Hematocrit Auto (Bld) [Volum e fraction]Ordered By: Dr. Chauhan on 01-12-2023 Hematocrit (Bld) [Volume fraction] 42.1 % 37-47 [facility] Laboratory - Chemistry and C hemistry - challengeOrdered By: Dr. Chauhan on 01-12-2023 ALP [Catalytic activity/Vol] 83 U/L 45-117 [facility] ALT [Catalytic activity/Vol] 32 U/L 13-56 [facility] CO2 [Moles/Vol] 26.0 mmol/L 21.0-32.0 [facility] Globulin (S) [Mass/Vol] 3.2 g/dL 2.2-4.2 [facility] Urea nitrogen/Creatinine [Mass ratio] 19.8 mg/mg 10-20 [facility] Laboratory - Hematology and Cell countsOrdered By: Dr. Chauhan on 01-12-2023 Erythrocyte distribution width (RBC) [Entitic vol] 41.4 fL 35.1-43.9 [facility] Erythrocyte distribution width (RBC) [Ratio] 12.7 % 11.6-14.6 [facility] Immature granulocytes/100 WBC (Bld) 0.400 % 0.0-0.9 [facility] Comment on above: IG% - Immature Granu locytes (promyelocytes, myelocytes and metamyelocytes) > 1% indicates that a LEFT SHIFT is Present. MCH (RBC) [Entitic mass] 29.2 pg 27.0-32.0 [facility] Nucleated RBC/100 WBC (Bld) [Ratio] 0 % 0-5 [facility] MCHC Auto (RBC) [Mass/Vol]Or dered By: Dr. Chauhan on 01-12-2023 MCHC (RBC) [Mass/Vol] 32.8 g/dL 32-36 [facility] No Panel InformationOrdered By: Dr. Chauhan on 01-12-2023 Estimated GFR (MDRD) Amer 74 mL/min >60 [facility] Comment on above: GFR Calc Estimated GFR (MDRD) Non-Af Amer 61 mL/min >60 [facility] Comment on above: Non- GFR Calc Thyroid Stimulating Hormone (TSH) 0.89 uIU/mL 0.358-3.74 [facility] Vitamin D 25-Hydroxy 53.9 ng/mL [facility] Comment on above: Vitamin D 25(OH) Sta tus Range Deficiency <20 ng/mL (50nmol/L) Insufficiency 20 - 30 ng/mL (50 - 75 nmol/L) Sufficiency 30 - 100 ng/mL (75 - 250 nmol/L) Toxicity >100 ng/mL (>250 nmol/L) Platelets bldOrdered By: Dr. Chauhan on 01-12-2023 Platelets (Bld) [#/Vol] 277 10*3/uL 150-450 [facility] Serum or plasma albumin alysha urement (mass/volume)Ordered By: Dr. Chauhan on 01-12-2023 Albumin [Mass/Vol] 3.6 g/dL 3.2-5.0 [facility] Serum or plasma albumin/glob ulin mass ratioOrdered By: Dr. Chauhan on 01-12-2023 Albumin/Globulin [Mass ratio] 1.1 {ratio} 0.9-2.4 [facility] Serum or plasma calcium alysha urement (mass/volume)Ordered By: Dr. Chauhan on 01-12-2023 Calcium [Mass/Vol] 9.3 mg/dL 8.5-10.1 [facility] Serum or plasma creatinine m easurement (mass/volume)Ordered By: Dr. Chauhan on 01-12-2023 Creatinine [Mass/Vol] 0.96 mg/dL 0.55-1.02 [facility] Comment on above: The validity of the calculated GFR & GFRAA in patients over 70 years has not been determined. Clinical correlation is essential. Serum or plasma urea nitroge n measurement (mass/volume)Ordered By: Dr. Chauhan on 01-12-2023 Urea nitrogen [Mass/Vol] 19 mg/dL 7-18 [facility] Thin prep Papanicolaou smear with manual screeningOrdered By: Dr. Chauhan on 01-12-2023 Thin prep Papanicolaou smear with manual screening 27 U/L 15-37 [facility] Thin prep Papanicolaou smear with manual screening 7 5-15 [facility] Basophil percentageOrdered B y: Dr. Chauhan on 08-09-2022 Bilirubin [Mass/Vol] 0.50 mg/dL 0.20-1.00 [facility] Comment on above: For patients on eltr ombopag therapy, use of Dimension [place] TBIL is not recommended. Chloride [Moles/Vol] 106 mmol/L 98-107 [facility] Cholesterol [Mass/Vol] 158 mg/dL <200 [facility] Comment on above: <200 mg/dL Desirable 200-240 mg/dL Borderline >240 mg/dL High Risk Glucose [Mass/Vol] 90 mg/dL 74-106 [facility] Potassium [Moles/Vol] 4.2 mmol/L 3.5-5.1 [facility] Protein [Mass/Vol] 6.9 g/dL 6.4-8.2 [facility] Sodium [Moles/Vol] 139 mmol/L 136-145 [facility] Triglyceride [Mass/Vol] 157 mg/dL <199 [facility] Comment on above: The drugs N-Acetylcy steine and Metamizole may falsely depress this assay.Serum Triglycerides Reference Interval Normal <150 mg/dL Borderline high 150 - 199 mg/dL High 200 - 499 mg/dL Very High > or = 500 mg/dL Laboratory - Chemistry and C hemistry - challengeOrdered By: Dr. Chauhan on 08-09-2022 ALP [Catalytic activity/Vol] 86 U/L 45-117 [facility] ALT [Catalytic activity/Vol] 30 U/L 13-56 [facility] CO2 [Moles/Vol] 26.0 mmol/L 21.0-32.0 [facility] Globulin (S) [Mass/Vol] 3.2 g/dL 2.2-4.2 [facility] Urea nitrogen/Creatinine [Mass ratio] 17.5 mg/mg 10-20 [facility] No Panel InformationOrdered By: Dr. Chauhan on 08-09-2022 Estimated GFR (MDRD) Amer 73 mL/min >60 [facility] Comment on above: GFR Calc Estimated GFR (MDRD) Non-Af Amer 60 mL/min >60 [facility] Comment on above: Non- GFR Calc Serum or plasma albumin alysha urement (mass/volume)Ordered By: Dr. Chauhan on 08-09-2022 Albumin [Mass/Vol] 3.7 g/dL 3.2-5.0 [facility] Serum or plasma albumin/glob ulin mass ratioOrdered By: Dr. Chauhan on 08-09-2022 Albumin/Globulin [Mass ratio] 1.2 {ratio} 0.9-2.4 [facility] Serum or plasma calcium alysha urement (mass/volume)Ordered By: Dr. Chauhan on 08-09-2022 Calcium [Mass/Vol] 9.5 mg/dL 8.5-10.1 [facility] Serum or plasma cholesterol in HDL measurement (mass/volume)Ordered By: Dr. Chauhan on 08-09-2022 Cholesterol in HDL [Mass/Vol] 60 mg/dL >40 [facility] Comment on above: The drugs N-Acetylcy steine and Metamizole may falsely depress this assay. Reference Range HDL <40 mg/dL Low HDL Cholesterol HDL >or= 60 mg/dL High HDL Cholesterol Serum or plasma cholesterol in VLDL measurement (mass/volume)Ordered By: Dr. Chauhan on 08-09-2022 Cholesterol in VLDL [Mass/Vol] 31 mg/dL 5-40 [facility] Serum or plasma creatinine m easurement (mass/volume)Ordered By: Dr. Chauhan on 08-09-2022 Creatinine [Mass/Vol] 0.97 mg/dL 0.55-1.02 [facility] Comment on above: The validity of the calculated GFR & GFRAA in patients over 70 years has not been determined. Clinical correlation is essential. Serum or plasma low density lipoprotein (LDL) cholesterol measurement (mass/volume)Ordered By: Dr. Chauhan on 08-09-2022 Cholesterol in LDL [Mass/Vol] 67 mg/dL 0-130 [facility] Serum or plasma urea nitroge n measurement (mass/volume)Ordered By: Dr. Chauhan on 08-09-2022 Urea nitrogen [Mass/Vol] 17 mg/dL 7-18 [facility] Thin prep Papanicolaou smear with manual screeningOrdered By: Dr. Chauhan on 08-09-2022 Thin prep Papanicolaou smear with manual screening 22 U/L 15-37 [facility] Thin prep Papanicolaou smear with manual screening 7 5-15 [facility] Office Visit: UC: cough/sancho estionon 07-17-2017 Documentation of current medications (procedure) Done Invalid Interpretation Code [facility] Work Phone: Fall risk assessment No Invalid Interpretation Code [facility] Work Phone: Tobacco smoking status NHIS Never Invalid Interpretation Code [facility] Work Phone: Tobacco use HS Never smoker Invalid Interpretation Code [facility] Work Phone: Lab Report: Differential Com menton 05-26-2015 SMEAR COMMENT . Invalid Interpretation Code [facility] Work Phone: Lab Report: Partial Thrombop last Timeon 05-26-2015 aPTT 33.6 s Invalid Interpretation Code 24.1-36.2 [facility] Work Phone: Lab Report: Prothrombin Time w/INRon 05-26-2015 INR Coag RelTime (PPP) 0.9 {INR} Invalid Interpretation Code [facility] Work Phone: Prothrombin time (PT) Coag time (PPP) 12.5 s Invalid Interpretation Code 11.7-14.9 [facility] Work Phone: Replaced Document: CBC-Compl ete Blood Cnt No Diffon 05-26-2015 Erythrocyte distribution width Auto Ratio (RBC) 15.4 % High 11.6-14.6 [facility] Work Phone: Erythrocytes (RBC) 4.38 10*6/uL Invalid Interpretation Code 4.2-5.4 [facility] Work Phone: [phone] Hematocrit (HCT) 31.4 % Low 37-47 [facility] Work Phone: [phone] Hemoglobin mass conc (Bld) 9.3 g/dL Low 12.0-15.0 [facility] Work Phone: [phone] MCH 21.2 pg Low 27.0-32.0 [facility] Work Phone: [phone] MCHC mass conc (RBC) 29.6 G/GL Low 32-36 [facility] Work Phone: [phone] MCV 71.7 fL Low 81-99 [facility] Work Phone: [phone] Platelets 272 10*3/mm3 Invalid Interpretation Code 150-450 [facility] Work Phone: PMV by Mehul 9.2 fL Invalid Interpretation Code 6.2-12.0 [facility] Work Phone: RDW SD 40.9 fL Invalid Interpretation Code 35.1-43.9 [facility] Work Phone: WBC (Leukocytes) 6.5 10*3/uL Invalid Interpretation Code 4.4-11.0 [facility] Work Phone: Office Visiton 05-21-2015 Smoking cessation education (procedure) yes Invalid Interpretation Code [facility] Work Phone: SURGICAL PATHOLOGY, ELHAM Frey 11-28-1998 FINAL DIAGNOSIS Left Breast, Excisional Biopsy - FIBROADENOMA. - FIBROSIS, DUCT ECTASIA, APOCRINE METAPLASIA, AND SCLEROSING ADENOSIS. - MICROCALCIFICATION NOTED. [facility] SCHWARTFIGURE, /Age: 11 1950 (Age: 48) Collected:11/27/1998 Received: Reported:11/28/1998 SURGICAL PATHOLOGY REPORT * Converted Case * This report may not match the original report format CLINICAL INFORMATION Clinical History: PATIENT IS 48 YEAR OLD WHITE FEMALE WITH HISTORY MASS OF LEFT BREAST, MOBILE, NONTENDER. Additional Clinical Information: Admission #: [id number] Surgeon: ELSA GARCIA Attending Physician(s): SHARON ARNETT; KOJO SANTIAGO Operation and site: EXCISIONAL BIOPSY Pre-Operative Diagnosis: MASS LEFT BREAST Post-Operative Diagnosis: THE SAME SPECIMEN INFORMATION MASS LEFT BREAST Electronically Signed Out By Conversion for GROSS DESCRIPTION Received in formalin labeled mass left breast, the specimen consists of a single fragment of pink-yellow fibrofatty tissue measuring 4 X 3 X 2.5 cm. No needle localization or mammographic x-ray accompanies the specimen. The specimen weighs 16 grams and measures 4 X 3.5 X 3 cm. The specimen is cross sectioned and reveals a pink to whitish, irregular shaped, cut surface. No apparent firm mass is identified. Project Eng sections are submitted in five cassettes. Martina Alexis/glenny / [facility] SURGICAL PATHOLOGY, CONVERTE Don 11-12-1998 FINAL DIAGNOSIS Uterine Endometrium, Curettage - SECRETORY PHASE PATTERN ENDOMETRIUM. COMMENT Some of the fragments demonstrate thickened and prominent blood vessels, suggestive of endometrial polyp. [facility] SCHWSHILOHFIGURE, /Age: 11 1950 (Age: 48) Collected:11/10/1998 Received: Reported:11/12/1998 SURGICAL PATHOLOGY REPORT * Converted Case * This report may not match the original report format CLINICAL INFORMATION Clinical History: 48 YEAR OLD WITH MENORRHAGIA Additional Clinical Information: Admission #: [id number] Surgeon: KOJO SANTIAGO Operation and site: ENDOMETRIAL BIOPSY Pre-Operative Diagnosis: MENORRHAGIA Post-Operative Diagnosis: MENORRHAGIA SPECIMEN INFORMATION ENDOMETRIAL BIOPSY Electronically Signed Out By Conversion for GROSS DESCRIPTION The specimen is received in formalin and consists of multiple, cord-like, soft tissue structures measuring in aggregate 2.5 X 1.9 X 0.2 cm. The specimen is entirely submitted in one cassette. Martina Alexis/glenny / [facility] SURGICAL PATHOLOGY, CONVERTE Don 06-25-1997 FINAL DIAGNOSIS A Sigmoid Colon, Biopsies - FRAGMENTS OF COLONIC MUCOSA, NO SIGNIFICANT PATHOLOGIC CHANGE. B Rectum, Biopsies - FRAGMENTS OF COLONIC MUCOSA WITH HEMORRHAGE IN LAMINA PROPRIA. COMMENT A trichrome stain was used for evaluation in both specimens. [facility] TRINH, /Age: 11 1950 (Age: 46) Collected:06/21/1997 Received: Reported:06/25/1997 SURGICAL PATHOLOGY REPORT * Converted Case * This report may not match the original report format CLINICAL INFORMATION Clinical History: PATIENT WITH HISTORY OF RECTAL BLEEDING (BRIGHT RED), STOOL HEMOCCULT POSITIVE. Additional Clinical Information: Admission #: [id number] Surgeon: ELSA GARCIA Attending Physician(s): SHARON ARNETT Operation and site: COLONOSCOPY WITH BIOPSY Pre-Operative Diagnosis: RECTAL BLEEDING Post-Operative Diagnosis: #1 INTERNAL HEMORRHOIDS #2 SMALL PETECHIAL LESION MUCOSA SPECIMEN INFORMATION #1 BIOPSIES SIGMOID COLON; #2 BIOPSIES RECTUM Electronically Signed Out By Conversion for GROSS DESCRIPTION A Received in [facility] and labeled sigmoid colon biopsy are four fragments of light messina soft tissue that in aggregate measure 0.5 X 0.5 X 0.2 cm. The specimen is entirely submitted in one cassette. B Received in [facility] and labeled rectal biopsies are two fragments of light messina soft tissue that in aggregate measure 0.3 X 0.3 X 0.2 cm. The specimen is entirely submitted in one cassette. Paulino Pressley M.D. Zaynab / [facility] Vital Signs Date Time Vital Sign Value Performing Clinician Facility 11-29-2023 12:04-040 Body height 162.[address] Shannan Chauhan Work Phone: [facility] 11-29-2023 12:04-0400 Body mass index (BMI) [Ratio] 35 kg/m2 Dr. Shannan Chauhan Work Phone: [facility] 11-29-2023 12:04-0400 Body temperature 96.5 [degF] Dr. Shannan Chauhan Work Phone: [facility] 11-29-2023 12:04-0400 Body weight 92.[address] Shannan Chauhan Work Phone: [facility] 11-29-2023 12:04-0400 Diastolic blood pressure 74 mm[Hg] Dr. Shannan Chauhan Work Phone: [facility] 11-29-2023 12:04-0400 Heart rate 72 /min Dr. Shannan Chauhan Work Phone: [facility] 11-29-2023 12:04-0400 Respiratory rate 16 /min Dr. Shannan Chauhan Work Phone: [facility] 11-29-2023 12:04-0400 SaO2% (BldA) [Mass fraction] 94 % Dr. Shannan Chauhan Work Phone: [facility] 11-29-2023 12:04-0400 Systolic blood pressure 125 mm[Hg] Dr. Shannan Chauhan Work Phone: [facility] 11-21-2023 11:12-0400 Body height 162.[address] Shannan Chauhan Work Phone: [facility] 11-21-2023 11:12-0400 Body mass index (BMI) [Ratio] 34.9 kg/m2 Dr. Shannan Chauhan Work Phone: [facility] 11-21-2023 11:12-0400 Body temperature 97.8 [degF] Dr. Shannan Chauhan Work Phone: [facility] 11-21-2023 11:12-0400 Body weight 92.[address] Shannan Chauhan Work Phone: [facility] 11-21-2023 11:12-0400 Diastolic blood pressure 76 mm[Hg] Dr. Shannan Chauhan Work Phone: [facility] 11-21-2023 11:12-0400 Heart rate 70 /min Dr. Shannan Chauhan Work Phone: [facility] 11-21-2023 11:12-0400 Respiratory rate 16 /min Dr. Shannan Chauhan Work Phone: [facility] 11-21-2023 11:12-0400 SaO2% (BldA) [Mass fraction] 99 % Dr. Shannan Chauhan Work Phone: [facility] 11-21-2023 11:12-0400 Systolic blood pressure 124 mm[Hg] Dr. Shannan Chauhan Work Phone: [facility] 07-20-2023 10:38-0500 Body height 162.[address] Shannan Chauhan Work Phone: [facility] 07-20-2023 10:38-0500 Body mass index (BMI) [Ratio] 34.2 kg/m2 Dr. Shannan Chauhan Work Phone: [facility] 07-20-2023 10:38-0500 Body weight 90.[address] Shannan Chauhan Work Phone: [facility] 07-08-2023 11:00-0400 Body mass index (BMI) [Ratio] 34.8 kg/m2 Dr. Shannan Chauhan Work Phone: [facility] 07-08-2023 11:00-0400 Body temperature 97 [degF] Dr. Shannan Chauhan Work Phone: [facility] 07-08-2023 11:00-0400 Body weight 92.[address] Shannan Chauhan Work Phone: [facility] 07-08-2023 11:00-0400 Diastolic blood pressure 86 mm[Hg] Dr. Shannan Chauhan Work Phone: [facility] 07-08-2023 11:00-0400 Heart rate 69 /min Dr. Shannan Chauhan Work Phone: [facility] 07-08-2023 11:00-0400 Respiratory rate 16 /min Dr. Shannan Chauhan Work Phone: [facility] 07-08-2023 11:00-0400 SaO2% (BldA) [Mass fraction] 95 % Dr. Shannan Chauhan Work Phone: [facility] 07-08-2023 11:00-0400 Systolic blood pressure 122 mm[Hg] Dr. Shannan Chauhan Work Phone: [facility] 01-12-2023 10:59-0400 Body height 162.[address] Shannan Chauhan Work Phone: [facility] 01-12-2023 10:59-0400 Body mass index (BMI) [Ratio] 35.7 kg/m2 Dr. Shannan Chauhan Work Phone: [facility] 01-12-2023 10:59-0400 Body temperature 95.5 [degF] Dr. Shannan Cahuhan Work Phone: [facility] 01-12-2023 10:59-0400 Body weight 94.[address] Shannan Chauhan Work Phone: [facility] 01-12-2023 10:59-0400 Diastolic blood pressure 84 mm[Hg] Dr. Shannan Chauhan Work Phone: [facility] 01-12-2023 10:59-0400 Heart rate 74 /min Dr. Shannan Chauhan Work Phone: [facility] 01-12-2023 10:59-0400 Respiratory rate 18 /min Dr. Shannan Chauhan Work Phone: [facility] 01-12-2023 10:59-0400 SaO2% (BldA) [Mass fraction] 96 % Dr. Shannan Chauhan Work Phone: [facility] 01-12-2023 10:59-0400 Systolic blood pressure 122 mm[Hg] Dr. Shannan Chauhan Work Phone: [facility] 11-18-2022 12:44-0500 Body temperature 97.7 [degF] Dr. Shannan Chauhan Work Phone: [facility] 11-18-2022 12:44-0500 Diastolic blood pressure 88 mm[Hg] Dr. Shannan Chauhan Work Phone: [facility] 11-18-2022 12:44-0500 Heart rate 80 /min Dr. Shannan Chauhan Work Phone: [facility] 11-18-2022 12:44-0500 Respiratory rate 16 /min Dr. Shannan Chauhan Work Phone: [facility] 11-18-2022 12:44-0500 SaO2% (BldA) [Mass fraction] 96 % Dr. Shannan Chauhan Work Phone: [facility] 11-18-2022 12:44-0500 Systolic blood pressure 132 mm[Hg] Dr. Shannan Chauhan Work Phone: [facility] 10-13-2022 10:56-0500 Body height 162.[address] Shannan Chauhan Work Phone: [facility] 10-13-2022 10:56-0500 Body mass index (BMI) [Ratio] 35.3 kg/m2 Dr. Shannan Chauhan Work Phone: [facility] 10-13-2022 10:56-0500 Body temperature 96.2 [degF] Dr. Shannan Chauhan Work Phone: [facility] 10-13-2022 10:56-0500 Body weight 93.[address] Shannan Chauhan Work Phone: [facility] 10-13-2022 10:56-0500 Diastolic blood pressure 64 mm[Hg] Dr. Shannan Chauhan Work Phone: [facility] 10-13-2022 10:56-0500 Heart rate 73 /min Dr. Shannan Chauhan Work Phone: [facility] 10-13-2022 10:56-0500 Respiratory rate 16 /min Dr. Shannan Chauhan Work Phone: [facility] 10-13-2022 10:56-0500 SaO2% (BldA) [Mass fraction] 94 % Dr. Shannan Chauhan Work Phone: [facility] 10-13-2022 10:56-0500 Systolic blood pressure 106 mm[Hg] Dr. Shannan Chauhan Work Phone: [facility] 08-09-2022 10:39-0500 Body height 162.[address] Shannan Chauhan Work Phone: [facility] Work Phone: 08-09-2022 10:39-0500 Body mass index (BMI) [Ratio] 35.3 kg/m2 Dr. Shannan Chauhan Work Phone: [facility] 08-09-2022 10:39-0500 Body temperature 96.8 [degF] Dr. Shannan Chauhan Work Phone: [facility] 08-09-2022 10:39-0500 Body weight 93.[address] Shannan Chauhan Work Phone: [facility] 08-09-2022 10:39-0500 Diastolic blood pressure 68 mm[Hg] Dr. Shannan Chauhan Work Phone: [facility] 08-09-2022 10:39-0500 Heart rate 73 /min Dr. Shannan Chauhan Work Phone: [facility] 08-09-2022 10:39-0500 Respiratory rate 16 /min Dr. Shannan Chauhan Work Phone: [facility] 08-09-2022 10:39-0500 SaO2% (BldA) [Mass fraction] 97 % Dr. Shannan Chauhan Work Phone: [facility] 08-09-2022 10:39-0500 Systolic blood pressure 110 mm[Hg] Dr. Shannan Chauhan Work Phone: [facility] 05-07-2022 13:24-0400 Body mass index (BMI) [Ratio] 35 kg/m2 Dr. Shannan Chauhan Work Phone: [facility] Work Phone: 05-07-2022 13:24-0400 Body temperature 97.3 [degF] Dr. Shannan Chauhan Work Phone: [facility] Work Phone: 05-07-2022 13:24-0400 Body weight 92.[address] Shannan Chauhan Work Phone: [facility] Work Phone: 05-07-2022 13:24-0400 Diastolic blood pressure 62 mm[Hg] Dr. Shannan Chauhan Work Phone: [facility] Work Phone: 05-07-2022 13:24-0400 Heart rate 75 /min Dr. Shannan Chauhan Work Phone: [facility] Work Phone: 05-07-2022 13:24-0400 Respiratory rate 16 /min Dr. Shannan Chauhan Work Phone: [facility] Work Phone: 05-07-2022 13:24-0400 SaO2% (BldA) [Mass fraction] 97 % Dr. Shannan Chauhan Work Phone: [facility] Work Phone: 05-07-2022 13:24-0400 Systolic blood pressure 102 mm[Hg] Dr. Shannan Chauhan Work Phone: [facility] Work Phone: 07-17-2017 08:25-0500 BMI (Body Mass Index) 29.05 kg/m2 Vineet HERNANDEZ [facility] Work Phone: 07-17-2017 08:25-0500 Body Temperature 98.6 [degF] Vineet Gordon PA [facility] Work Phone: 07-17-2017 08:25-0500 BP Diastolic 82 mm[Hg] Vineet Gordon PA [facility] Work Phone: 07-17-2017 08:25-0500 BP Systolic 124 mm[Hg] Vineet Gordon PA [facility] Work Phone: 07-17-2017 08:25-0500 Height 167.64 cm Vineet Gordon PA [facility] Work Phone: 07-17-2017 08:25-0500 Pulse (Heart Rate) 72 /min Vineet Gordon [facility] Work Phone: 07-17-2017 08:25-0500 Respiratory Rate 14 /min Vineetfarshad Gordon PA [facility] Work Phone: 07-17-2017 08:25-0500 Weight 81.65 kg Vineet Gordon PA [facility] Work Phone: 05-26-2017 14:29-0400 Body Temperature 98.01 [degF] Vineet Gordon PA [facility] Work Phone: 05-26-2017 14:29-0400 Height 167.64 cm Vineetfarshad Gordon PA [facility] Work Phone: 05-26-2017 14:29-0400 Weight 79.38 kg Vineetfarshad Gordon PA [facility] Work Phone: 05-21-2015 14:33-0400 BSA (Body Surface Area) 1.79 m2 Vineet Gordon PA [facility] Work Phone: Encounters Encounter Date Encounter Type Care Provider Facility Start: 01-07-2025 End: 01-07-2025 ambulatory Shannan hCauhan Facility:[facility] Start: 09-19-2024 End: 09-19-2024 ambulatory Shannan Chauhan Facility:[facility] Start: 09-03-2024 End: 09-03-2024 ambulatory Jadabedfordayan Roquee Facility:[facility] Start: 09-03-2024 End: 09-03-2024 ambulatory Jadabedfordayan Chauhan Facility:[facility] Start: 06-28-2024 End: 06-28-2024 Emergency department patient visit Shannan Chauhan Facility:[facility] Start: 06-27-2024 End: 06-27-2024 ambulatory Shannan Chauhan Facility:[facility] Start: 06-13-2024 End: 06-13-2024 ambulatory [facility] Facility:[facility] Start: 06-06-2024 End: 06-06-2024 ambulatory [facility] Facility:[facility] Start: 05-30-2024 End: 05-30-2024 ambulatory Shannan Chauhan Facility:[facility] Start: 05-17-2024 End: 05-17-2024 ambulatory Ghazal Rivera Facility:[facility] Start: 03-27-2024 End: 03-27-2024 ambulatory Shannan Chauhan Facility:[facility] Start: 03-27-2024 End: 03-27-2024 ambulatory Jadabedfordayan Chauhan Facility:[facility] Start: 01-03-2024 End: 01-03-[address] Shannan Chauhan Work Phone: [facility] Work Phone: Start: 01-03-2024 End: 01-03-[address] Shannan Chauhan Work Phone: [facility]Out[facility]ometry Work Phone: Start: 11-29-2023 End: 11-29-[address] Shannan Chauhan Work Phone: [facility] Work Phone: Start: 11-29-2023 End: 11-29-[address] Shannan Chauhan Work Phone: [facility] Work Phone: Start: 11-21-2023 End: 11-21-[address] Shannan Chauhan Work Phone: [facility] Work Phone: Start: 11-21-2023 End: 11-21-2023 Encounter for general adult medical examination without abnormal findings Dr. Shannan Chauhan Work Phone: [facility] Start: 11-21-2023 End: 11-21-[address] Shannan Chauhan Work Phone: [facility] Work Phone: Start: 08-29-2023 End: 08-29-[address] Shannan Chauhan Work Phone: [facility] Work Phone: Start: 08-29-2023 End: 08-29-[address] Shannan Chauhan Work Phone: [facility]Outpatient Breast Imaging Work Phone: Start: 08-26-2023 End: 08-26-[address] Shannan Chauhan Work Phone: [facility] Work Phone: Start: 08-25-2023 End: 08-25-[address] Shannan Chauhan Work Phone: [facility] Work Phone: Start: 08-25-2023 End: 08-25-[address] Shannan Chauhan Work Phone: [facility]Physical Therapy Work Phone: Start: 08-25-[address] Josue Chauhan Work Phone: [facility] Work Phone: Start: 08-19-2023 End: 08-19-[address] Shannan Chauhan Work Phone: [facility] Work Phone: Start: 08-12-2023 End: 08-12-[address] Shannan Chauhan Work Phone: [facility] Work Phone: Start: 07-20-2023 End: 07-20-[address] Shannan Chauhan Work Phone: [facility] Work Phone: Start: 07-08-2023 End: 07-08-[address] Shannan Chauhan Work Phone: [facility] Start: 07-08-2023 End: 07-08-2023 Encounter for general adult medical examination without abnormal findings Dr. Shannan Chauhan Work Phone: [facility] Start: 07-08-2023 End: 07-08-[address] Shannan Chauhan Work Phone: [facility] Work Phone: Start: 01-12-2023 End: 01-12-[address] Shannan Chauhan Work Phone: [facility] Work Phone: Start: 01-12-2023 End: 01-12-[address] Shannan Chauhan Work Phone: [facility] Start: 11-24-2022 End: 11-24-[address] Shannan Chauhan Work Phone: [facility] Work Phone: Start: 11-24-2022 End: 11-24-[address] Shannan Chauhan Work Phone: [facility] Lab Start: 11-18-2022 End: 11-18-[address] Shannan Chauhan Work Phone: [facility] Start: 10-13-2022 End: 10-13-[address] Shannan Chauhan Work Phone: [facility] Start: 08-26-2022 End: 08-26-[address] Shannan Chauhan Work Phone: [facility] Work Phone: Start: 08-26-2022 End: 08-26-[address] Shannan Chauhan Work Phone: [facility]Outpatient Breast Imaging Start: 08-09-2022 End: 08-09-[address] Shannan Chauhan Work Phone: [facility] Work Phone: Start: 08-09-2022 End: 08-09-2022 Encounter for general adult medical examination without abnormal findings Dr. Shannan Chauhan Work Phone: [facility] Start: 08-09-2022 End: 08-09-[address] Shannan Chauhan Work Phone: [facility] Start: 05-07-2022 End: 05-07-[address] Shannan Chauhan Work Phone: [facility] Start: 06-29-[address] Houston Chauhan Work Phone: [facility] Start: 11-27-1998 End: 10-12-2024 Documentation procedure Provider [facility] Start: 11-27-1998 End: 10-12-2024 Historic EMR Provider [facility] Start: 11-10-1998 End: 10-12-2024 Documentation procedure Provider [facility] Start: 11-10-1998 End: 10-12-2024 Historic EMR Provider [facility] Start: 06-21-1997 End: 10-12-2024 Documentation procedure Provider [facility] Start: 06-21-1997 End: 10-12-2024 Historic EMR Provider [facility] Procedures Date Procedure Procedure Detail Performing Clinician Start: 01-03-2024 Dual energy X-ray absorptiometry Dr. Shannan Chauhan Work Phone: Start: 11-29-[address] Benji Chauhan Work Phone: Start: 08-29-2023 Screening mammography Batsheva Chauhan Work Phone: Start: 07-20-2023 Radiologic examinati on of knee Dr. Shannan Chauhan Work Phone: Start: 11-18-2022 Plain chest X-ray Dr. Houston Chauhan Work Phone: Start: 08-26-2022 Screening mammography Batsheva Chauhan Work Phone: Start: 05-28-2017 End: 05-28-2017 Bx breast w/device 1st lesion ultrasound guid Peter Ortiz MD Work Phone: Start: 11-27-1998 SURGICAL PATHOLOGY, CONVERTED Provider [facility] Start: 11-10-1998 SURGICAL PATHOLOGY, CONVERTED Provider [facility] Start: 06-21-1997 SURGICAL PATHOLOGY, CONVERTED Provider [facility] H/O: hysterectomy H/O: hysterectomy Dr. Houston Chauhan Work Phone: Plan of Treatment Date Care Activity Detail Author Start: 2027 RSV Vaccine (1 - 1-dose 75+ series) RSV Vaccine (1 - 1-dose 75+ series) [facility] Start: 09-12-2024 Advance Directive Discussion Advance Directive Discussion [facility] Start: 05-13-2024 Covid-19 Vaccine ( season) Covid-19 Vaccine ( season) [facility] Start: 05-13-2024 Influenza vaccination Influenza Vaccine (#1) [facility] Start: 07-20-2023 Patient referral [facility] Work Phone: Start: 2017 Screening for osteoporosis Bone Density Screening [facility] Start: 07-17-2017 End: 07-17-2017 Appointment Appointment [facility] Work Phone: Start: 05-04-2017 End: 05-06-2017 Mammogram, one breast Mammogram, Diagnositic Unilateral [facility] Work Phone: Start: 05-04-2017 End: 05-06-2017 Us exam, breast(s) US Breast(s) [facility] Work Phone: Start: 2002 Pneumococcal Vaccine: 50+ (1 of 1 - PCV) Pneumococcal Vaccine: 50+ (1 of 1 - PCV) [facility] Start: 2002 Shingrix Vaccine (1 of 2) Shingrix Vaccine (1 of 2) [facility] Start: 1997 Diabetes Screening Diabetes Screening [facility] Start: 1997 Lipid panel Lipid Screening [facility] Start: 1997 Screening for malignant neoplasm of colon [facility] Start: 1992 Screening for malignant neoplasm of breast Mammogram Screening [facility] Start: 1971 Urine microalbumin profile DTaP,Tdap,Td Vaccine (1 - Tdap) [facility] Start: 1970 Anxiety Screening Anxiety Screening [facility] Start: 1970 Depression Screening Depression Screening [facility] Start: 1970 Hepatitis C screening Hepatitis C Screening [facility] DXA Bone [Mass/Area] Bone density [facility] MG Breast - bilatera l Screening [facility] Work Phone: Patient referral [facility] Work Phone: Immunizations Immunization Date Immunization Notes Care Provider Erin wang 07-08-2023 influenza, injectabl e, quadrivalent, preservative free Dr. Shannan Chauhan Work Phone: [facility] 09-25-2020 influenza, injectabl e, quadrivalent, preservative free Dr. Shannan Chauhan Work Phone: [facility] 09-25-2020 influenza, seasonal, injectable Dr. Shannan Chauhan Work Phone: [facility] 09-25-2019 pneumococcal polysaccharide vaccine, [address] Shannan Chauhan Work Phone: [facility] 06-26-2019 influenza, injectabl e, quadrivalent, preservative free Dr. Shannan Chauhan Work Phone: [facility] 06-26-2019 influenza, seasonal, injectable Dr. Shannan Chauhan Work Phone: [facility] 07-12-2018 pneumococcal conjuga te vaccine, [address] Shannan Chauhan Work Phone: [facility] 05-26-[address] Shannan Chauhan Work Phone: [facility] 07-10-2012 influenza virus vacc ine, unspecified formulation Provider [facility] Payers Date Payer Category Payer Self-pay [id number] 2023 Medicare [id number] 2023 Unknown [id number] 2015 Unknown ANTHEM [id number] Unknown [id number] 2.16.8 [id number] Unknown [id number] 2.16.8 [id number] Unknown [id number] 2.16.8 [id number] Unknown [id number] 2.16.8 [id number] Unknown [id number] 2.16.8 [id number] Unknown [id number] 2.16.8 [id number] Unknown [id number] 2.16.8 [id number] Unknown [id number] 2.16.8 [id number] Unknown [id number] 2.16.8 [id number] Unknown [id number] 2.16.8 [id number] Unknown [id number] 2.16.8 [id number] Unknown [id number] 2.16.8 [id number] Social History Date Type Detail Facility Start: 08-09-2022 End: 11-29-2023 Tobacco smoking status DEIS Unknown if ever smoked [facility] Start: 05-21-2020 Cigarettes [facility] Start: 1950 Sex Assigned At Female [facility] Start: 1950 Sex assigned at Not on file [facility] Gender identity Not on file [facility] Evaluation note Note Date & Type Note Facility Evaluation note Diagnosis Onset Date Depression with anxiety 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 Hypertension chronic Hypothyroidism chronic Health care maintenance acut e Depression with anxiety 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 Hyperlipidemia chronic Hypertension [facility] Work Phone: Evaluation note Note Date & Type Note Facility Evaluation note Diagnosis Onset Date Health care maintenance acut e Depression with anxiety 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 Hyperlipidemia chronic Hypertension chronic Hypersomnolence chronic VIELKA (obstructive sleep apnea) chronic Acute bronchitis, unspecified acute [facility] Work Phone: Evaluation note Note Date & Type Note Facility Evaluation note Diagnosis Onset Date Hypersomnolence chronic VIELKA (obstructive sleep apnea) chronic Acute bronchitis, unspecified acute GERD (gastroesophageal reflux disease) chronic Hypertension chronic Hypothyroidism chronic VIELKA (obstructive sleep apnea) chronic Osteopenia chronic [facility] Work Phone: Evaluation note Note Date & Type Note Facility Evaluation note Diagnosis Onset Date Health care maintenance acut e Fatigue chronic Hypertension chronic Hypothyroidism chronic VIELKA (obstructive sleep apnea) chronic Osteoarthritis chronic Osteoarthritis of both knees acute Osteoarthritis of both knees acute Osteoarthritis of both knees acute Osteoarthritis of both knees acute [facility] Work Phone: Evaluation note Note Date & Type Note Facility Evaluation note Diagnosis Onset Date Osteoarthritis of both knees acute Osteoarthritis of both knees acute Osteoarthritis of both knees acute Health care maintenance acut e Depression with anxiety 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 Hyperlipidemia chronic Hypertension chronic [facility] Work Phone: Evaluation note Note Date & Type Note Facility Evaluation note Diagnosis Onset Date Osteoarthritis of both knees acute Osteoarthritis of both knees acute Osteoarthritis of both knees acute Health care maintenance acut e Depression with anxiety 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 Hyperlipidemia chronic Hypertension chronic Encounter for screening for malignant neoplasm of lung acute History of tobacco use acute [facility] Work Phone: Evaluation note Note Date & Type Note Facility Evaluation note Diagnosis Onset Date Osteoarthritis of both knees acute Health care maintenance acut e Depression with anxiety 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 Hyperlipidemia chronic Hypertension chronic Encounter for screening for malignant neoplasm of lung acute History of tobacco use acute [facility] Work Phone: Evaluation note Note Date & Type Note Facility Evaluation note Diagnosis Onset Date Health care maintenance acut e Depression with anxiety 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 Hyperlipidemia chronic Hypertension chronic Encounter for screening for malignant neoplasm of lung acute History of tobacco use acute [facility] Work Phone: Chief Complaint and Reason for Visit Chief Complaint MED CONCERNS, HEADAC HES 3 M FU Reason for Visit Depression with anxi ety Hypertension Hypothyroidism Health care maintenance Depression with anxiety Hyperlipidemia Hypertension Chief Complaint MED CONCERNS, HEADAC HES 3 M FU SCREENING Reason for Visit Depression with anxi ety Hypertension Hypothyroidism Health care maintenance Depression with anxiety Hyperlipidemia Hypertension Chief Complaint 3 M FU SCREENING face to face for documentation Cough CHEST XRAY VIELKA; *WITHOUT ORAL KIKE TO QUALIFY Reason for Visit [facility] Depression with anxiety Hyperlipidemia Hypertension Hypersomnolence VIELKA (obstructive sleep apnea) Acute bronchitis, unspecified Chief Complaint face to face for doc umentation Cough CHEST XRAY VIELKA; *WITHOUT ORAL KIKE TO QUALIFY 5 m fu Reason for Visit Hypersomnolence VIELKA (obstructive sleep apnea) Acute bronchitis, unspecified GERD (gastroesophageal reflux disease) Hypertension Hypothyroidism VIELKA (obstructive sleep apnea) Osteopenia Chief Complaint 4 M FU BL KNEE RM 1 BI LAT KNEES BI LAT KNEES OA BOTH KNEES RX HERE BI LAT KNEES SCREENING Reason for Visit Health care maintena nce Fatigue Hypertension Hypothyroidism VIELKA (obstructive sleep apnea) Osteoarthritis Osteoarthritis of both knees Osteoarthritis of both knees Osteoarthritis of both knees Osteoarthritis of both knees Chief Complaint BI LAT KNEES BI LAT KNEES OA BOTH KNEES RX HERE BI LAT KNEES SCREENING 3 M FU Reason for Visit Osteoarthritis of luis th knees Osteoarthritis of both knees Osteoarthritis of both knees Health care maintenance Depression with anxiety Hyperlipidemia Hypertension Chief Complaint BI LAT KNEES BI LAT KNEES OA BOTH KNEES RX HERE BI LAT KNEES SCREENING 3 M FU Lung Cancer Screening SMOKER Reason for Visit Osteoarthritis of luis th knees Osteoarthritis of both knees Osteoarthritis of both knees Health care maintenance Depression with anxiety Hyperlipidemia Hypertension Encounter for screening for malignant neoplasm of lung History of tobacco use Chief Complaint OA BOTH KNEES RX HER E BI LAT KNEES SCREENING 3 M FU Lung Cancer Screening SMOKER Reason for Visit Osteoarthritis of luis th knees Health care maintenance Depression with anxiety Hyperlipidemia Hypertension Encounter for screening for malignant neoplasm of lung History of tobacco use Chief Complaint 3 M FU Lung Cancer Screening [facility] Reason for Visit [facility] Depression with anxiety Hyperlipidemia Hypertension Encounter for screening for malignant neoplasm of lung History of tobacco use Family History No Family History Records Found Relationship Condition Age at Onset Recorded Date/T jose mother Arthritis Unknown Hypertension Unknown Cerebrovascular accident (CVA) Unknown father Cardiac disease Unknown Myocardial infarction Unknown Kidney disorder Unknown grandfather Malignant neoplasm Unknown Advance Directives No Advanced Directives Records Found Advance Directive Response Recorded Date/ Time Advance Directives Yes December 30, 021 1:00pm Living Will Yes December 30, 2020 1:00pm Power of Manager Life Sciences Yes December 30 1:00pm Advance Directive Response Recorded Date/ Time Advance Directives Yes December 30, 021 2:00pm Living Will Yes December 30, 2020 2:00pm Power of Manager Life Sciences Yes December 30 2:00pm Summary Purpose Additional Source Comments Goals (unrecognized section and content) Goals may be documented in a n alternate sectionGoals may be documented in an alternate sectionGoals may be documented in an alternate sectionGoals may be documented in an alternate sectionGoals may be documented in an alternate sectionGoals may be documented in an alternate sectionGoals may be documented in an alternate sectionGoals may be documented in an alternate sectionGoals may be documented in an alternate section Care Teams (unrecognized sec tion and content) Team Status: Active Member Role Status Dates Dr. Shannan Chauhan MD Family Provider Active Dr. Shannan Chauhan MD Primary Care Provider Active Team Status: Inactive Member Role Status Dates Dr. Shannan Chauhan MD Primary Care P timothy, Attending Provider, Referring Provider Active Team Status: Inactive Member Role Status Dates Dr. Shannan Chauhan MD Primary Care Provider, Refer ring Provider Active Jose Roberto HERNANDEZ, PA Attending Provider Active Team Status: Inactive Member Role Status Dates Dr. Shannan Chauhan MD Primary Care Provider Active Jose Roberto Lara PA, PA Active Dr. Hussein Cabello MD Attending Provider Active Team Status: Inactive Member Role Status Dates Dr. Shannan Chauhan MD Primary Care Provider, Atten ding Provider Active Team Status: Inactive Member Role Status Dates Dr. Shannan Chauhan MD Primary Care Provider, Refer ring Provider Active Dr. Javad Valdez DO Attending Provider Active Team Status: Inactive Member Role Status Dates Dr. Shannan Chauhan MD Primary Care Provider Active Dr. Hussein Cabello MD Attending Provider Active Team Status: Inactive Member Role Status Dates Dr. Shannan Chauhan MD Primary Care Provider, Refer ring Provider Active Maryam HERNANDEZ, PA Attending Provider Active Team Status: Active Member Role Status Dates Dr. Shannan Chauhan MD Primary Care Provider Active Dr. Javad Valdez DO Attending Provider, Referring Provider Active Team Status: Inactive Member Role Status Dates Dr. Shannan Chauhan MD Primary Care Provider Active Mariluz Villarreal WEB OPERATIONS MANAGER, WEB OPERATIONS MANAGER-C Attending Provider, Referring Provider Active Team Status: Inactive Member Role Status Dates Dr. Shannan Chauhan MD Primary Care Provider Active Dr. Javad Valdez DO Attending Provider, Referring Provider Active Tractor Operator Battery Relationship Specialty Start Date End Date Sushma Ballard DO PCP - General 12/30/06 04/12/16 PachecoRoselia PCP - General 01/01/04 12/29/06 Kojo Duran MD PCP - General Family Medicine 04/13/16 Source Comments (unrecognize d section and content) In the event this informatio n is protected by the Federal Confidentiality of Alcohol and Drug Abuse Patient Records regulations: The Federal rules restrict any use of the information to criminally investigate or prosecute any alcohol or drug abuse patient.[facility] the event this information is protected by the Federal Confidentiality of Alcohol and Drug Abuse Patient Records regulations: The Federal rules restrict any use of the information to criminally investigate or prosecute any alcohol or drug abuse patient.[facility] the event this information is protected by the Federal Confidentiality of Alcohol and Drug Abuse Patient Records regulations: The Federal rules restrict any use of the information to criminally investigate or prosecute any alcohol or drug abuse patient.[facility] INFORMATION SOURCE (unrecogn ized section and content) DATE CREATED AUTHOR 01/08/[address] [facility] FOR RECORDS PERTAINING TO PATIENTS WHO ARE OR HAVE BEEN ENROLLED IN A CHEMICAL DEPENDENCY/SUBSTANCEABUSE PROGRAM, SOME INFORMATION MAY BE OMITTED. This clinical summary was aggregated from multiple sources. Caution should be exercised in using it in the provision of clinical care. This summary normalizes information from multiple sources, and as a consequence, information in this document may materially change the coding, format and clinical context of patient data. In addition, data may be omitted in some cases. CLINICAL DECISIONS SHOULD BE BASED ON THE PRIMARY CLINICAL RECORDS. [facility] [employer] [facility]. provides no warranty or guarantee of the accuracy or completeness of information in this document.
[2025-04-10 15:16] LABS: Ferritin 15 ng/mL (22-378)
[2025-04-10 15:27] LABS: Iron 38 ug/dL (50-170); Iron Binding Capacity,Total 367 ug/dL (250-450); Iron Binding Capacity,Unsat 329 ug/dL (228-428)
== END | disposition home or self-care (01) ==
LOC: BIMLAB 11:50
PROVIDERS: PCP Internal Medicine; Referring Provider Internal Medicine; Visit Provider Internal Medicine
DX: D64.9 Anemia, unspecified (principal); E03.9 Hypothyroidism, unspecified
CPT/HCPCS: 36415; 80053; 82728; 83540; 83550; 84443; 85025; 96360; 96361

== ENCOUNTER 2025-05-03 07:25 | Day surgery (SDC) | payer MEDICARE, OTHER, SELFPAY ==
[2025-05-03] VITALS (7 sets, daily range): BP systolic 96–119; BP diastolic 54–79; PULSE 61–65; RESP 16; TEMP 36.2–36.9; O2SAT 92–100; BMI 34.8
--- OUTSIDE RECORDS SUMMARY | 2025-05-03 07:32 | XMS RPT_ITS | CCD ---
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 [...] Dr. Shannan Chauhan Attending Provider [phone] Cherelle ROTOR COIL TAPER, ROTOR COIL TAPER-C Mariluz Attending Provider Cherelle ROTOR COIL TAPER, ROTOR COIL TAPER-C Mariluz Referring Provider Dr. Shannan Chauhan Primary Care Provider [phone]) Dr. Shannan Chauhan Referring Provider [phone])2 Dr. Javad Valdez Attending Provider 1(330) Dr. Shannan Chauhan Primary Care Provider 1(33 0) Dr. Shannan Chauhan Referring Provider [phone])2 Sushma Ballard DO Primary Care Provider Roselia Bergman Primary Care Provider Unavail Kojo Wilson MD Primary Care Provider Jose Roberto Walden Attending Unavailable Oleghe, Efewongbe Primary Care Unavailable Oleghe, Efewongbe Attending Unavailable Oleghe, Efewongbe Referring Unavailable Oleghe, Efewongbe Primary Care Unavailable Oleghe, Efewongbe Attending Unavailable Oleghe, Efewongbe Referring Unavailable Oleghe, Efewongbe Primary Care Unavailable Oleghe, Efewongbe Attending Unavailable Oleghe, Efewongbe Referring Unavailable Oleghe, Efewongbe Primary Care Unavailable Oleghe, Efewongbe Primary Care Unavailable Alan Walker Attending Unavailable Alan Walker Referring Unavailable Oleghe, Efewongbe Attending Unavailable Oleghe, Efewongbe Referring Unavailable Oleghe, Efewongbe Primary Care Unavailable Oleghe, Efewongbe Attending Unavailable Oleghe, Efewongbe Referring Unavailable Oleghe, Efewongbe Primary Care Unavailable Oleghe, Efewongbe Attending Unavailable Oleghe, Efewongbe Referring Unavailable Oleghe, Efewongbe Primary Care Unavailable Ghazal Rivera Attending Unavailable Oleghe, Efewongbe Primary Care Unavailable Javad Valdez Attending Unavailable Oleghe, Efewongbe Primary Care Unavailable Oleghe, Efewongbe Referring Unavailable Javad Valdez Attending Unavailable Oleghe, Efewongbe Primary Care Unavailable Oleghe, Efewongbe Referring Unavailable Oleghe, Efewongbe Referring Unavailable Oleghe, Efewongbe Primary Care Unavailable Mirna Delatorre Attending Unavailable Ghazal Rivera Attending Unavailable Oleghe, Efewongbe Primary Care Unavailable Jose Roberto Walden Attending Unavailable Oleghe, Efewongbe Referring Unavailable Oleghe, Efewongbe Primary Care Unavailable Allergies Allergy Classification Reported Allergen(s) Allergy Type Date of Onset Reaction(s) Facility (2 sources) atorvastatin Drug Allergy 4 [facility] Work Phone: (2 sources) buPROPion Drug Allergy 4 [facility] Work Phone: (5 sources) erythromycin Drug Allergy 7 Hives [facility] Work Phone: (2 sources) moxifloxacin Drug Allergy 4 [facility] Work Phone: (2 sources) pitavastatin Drug Allergy 4 [facility] Work Phone: (2 sources) rosuvastatin Drug Allergy 4 [facility] Work Phone: (2 sources) simvastatin Drug Allergy 4 [facility] Work Phone: (2 sources) VIBRYD drug allergy 4 [facility] Work Phone: (2 sources) DEPLIN drug allergy 4 [facility] Work Phone: (12 sources) Cefaclor Drug Allergy 6 Rash [facility] (9 sources) Erythromycin Drug Allergy 2 Vomiting [facility] (9 sources) rOPINIRole Drug Allergy 2 nightmares and nausea [facility] (9 sources) traZODone Drug Allergy 2 syncope [facility] (2 sources) green peppers Allergy to substance 2 Swelling [facility] Work Phone: (2 sources) green pepper Allergy to substance 3 Swelling [facility] (6 sources) rivera pepper; Translations: [rivera pepper] Allergy to substance 3 Swelling [facility] (3 sources) Acetaminophen / oxyCODONE Drug Allergy 6 Itching [facility] Work Phone: (3 sources) HMG-CoA reductase inhibitor Drug Allergy 6 Other: See Comments [facility] (1 source) Cefaclor Drug Allergy 5 [facility] (1 source) Erythromycin Drug Allergy 5 [facility] (1 source) rOPINIRole Drug Allergy 5 [facility] (1 source) traZODone Drug Allergy 5 [facility] Medications Current Medications Medication Drug Class(es) [...] TABS One tablet by mouth daily ASPIRIN [id number] Tyshawn Cutler cetirizine hydrochloride 5 mg oral [...] 1 tablet by sanchez th once daily VITAMIN D3 2000 UNIT TABS One tablet by mouth daily CHOLECALCIFEROL [id number] Lucy Morales ROTOR COIL TAPER Start: 05-26-2015 End: 08-18-2017 take 1000 [IU] [...] sanchez th once daily OMEPRAZOLE 20 MG TBEC One tablet by mouth daily OMEPRAZOLE 17715492596 Lucy Morales ROTOR COIL TAPER Start: 06-10-2016 End: 08-18-2017 take 40 mg by mouth once daily Omeprazole Discontinued 40 MG PO DAILY June 10, 2016 12:00am August 18, 2017 2:43pm Oral sleep appliance (9 sources) Start: 05-14-2022 Oral sleep kike liance Active 0 .Route .MEDSUPPLY May 14, 2022 12:00am As directed Start: 05-14-2022 Oral sleep kike liance Active 0 .Route .MEDSUPPLY May 13, 2022 11:00pm As directed Vit C,A-Ez-Jpikx-Lutein-Zeax an (Preservision Areds-2) 250-90-40-1 mg capsule (9 sources) Start: 05-07-2022 Vit C,J-He-Utwmo-Lutein-Zeax an (Preservision Areds-2) 250-90-40-1 mg capsule Active 1 TABLET PO every day in the morning and at bedtime May 07, 2022 12:00am Start: 05-07-2022 Vit C,E-Zn-Board Filler ch-Ujxjwz-Qhufpq (Preservision Areds-2) 250-90-40-1 mg capsule Active 1 [...] mg tablet Discontinued 5 MG PO DAILY 30 Radium 23rd, 2019 12:00am May 28, 2019 9:38am azithromycin [...] 1 pill days 2 through 5 AZITHROMYCIN [id number] Vineet HERNANDEZ benzonatate 200 mg oral capsule [...] 8 hours as needed for cough BENZONATATE 16947630489 Vineet HERNANDEZ biotin 5 mg oral capsule (11 sources) Start: 05-04-2017 take 1 tablet by mouth once daily BIOTIN 5000 5 MG CAPS One tablet by mouth daily BIOTIN 85942726709 Lucy Morales NP Start: 05-26-2015 take 5000 ug by mouth [...] One tablet by mouth daily CALCIUM CITRATE 96067383233 Tyshawn Rai He Compress.Stocking,Knee ,Reg,Med (9 sources) [...] One tablet by mouth daily DULOXETINE HCL 33428314896 Tyshawn Fredi Cutler ferrous gluconate 324 mg oral tablet [...] One tablet by mouth daily FERROUS SULFATE 39007895167 Tyshawn Cutler take 1 tablet by mouth once rashad y IRON 325 (65 Fe) MG TABS One tablet by mouth daily FERROUS SULFATE 55807494511 Tyshawn Cutler fexofenadine hydrochloride 180 mg oral tablet (13 sources) Histamine-1 Receptor Antagonist Start: 05-04-2017 take 1 tablet by mouth once daily DAYLIN ALLERGY 180 MG TABS One tablet by mouth daily FEXOFENADINE HCL 20713499987 Lucy Morales NP Start: 05-29-2015 End: 01-12-2023 take 1 tablet [...] rothiazid Discontinued 1 CAP PO EVERY MORNING 90 April 18, 2023 1:01pm April 18, 2023 1:03pm administer after a meal ipratropium bromide 0.042 mg/actuat metered dose nasal spray (9 sources) Anticholinergic Start: 06-17-2021 End: 01-29-2022 take 1 spray(s) nasal route three times daily Ipratropium Raphine Discontinued 2 SPRAY INTRANASAL THREE TIMES A [...] TABS One tablet by mouth daily LISINOPRIL 53418304712 Lucy Morales ROTOR COIL TAPER Start: 05-26-2015 End: 10-31-2017 take 5 mg by mouth once daily Lisinopril Discontinued 5 MG PO DAILY May 26, 2015 12:00am October 31, 2017 4:13pm take 1 tablet by sanchez th once daily LISINOPRIL 5 MG TABS One tablet by mouth daily LISINOPRIL 46518929546 Tyshawn Cutler LORazepam 0.5 mg oral tablet (20 sources) Benzodiazepine Start: 05-26-2015 End: 07-08-2023 take 0.5 mg by mouth at bedtime Lorazepam Discontinued 0.5 MG PO AT BEDTIME May 07, 2022 2:01pm July 08, 2023 12:16pm ATIVAN 1 MG TABS as needed LORAZEPAM 41012784740 Tyshawn Cutler meclizine hydrochloride 25 mg oral [...] mg tablet Discontinued 10 MG PO daily 90 August 19, 2022 10:25am October 24, 2023 [...] mcg tablet Discontinued 75 MCG PO .QD 90 April 18, 2023 1:01pm April 18, 2023 1:03pm Start: 05-04-2017 take 1 tablet by sanchez th once daily SYNTHROID 75 MCG TABS One tablet by mouth daily LEVOTHYROXINE SODIUM [id number] Lucy Morales ROTOR COIL TAPER Start: 05-26-2015 End: 08-18-2017 take 50 ug [...] August 11, 2018 11:02am Vit A-Vit C-Vit R-Scji-Amebtu (9 sources) Start: 05-25-2021 End: 06-29-2021 Vit A-Vit C-Vit I-Nzwy-Qicutv Discontinued TABLET PO May 25, 2021 12:00am June 29, 2021 9:32am Start: 05-25-2021 End: 06-29-2021 Vit A-Vit C-Vit Q-Ajyg-Pdusw r Discontinued TABLET PO May 24, 2021 11:00pm June 29, 2021 8:32am Vit C,P-Vo-Pymgc-Lutein-Zeax an (Preservision Areds-2) 422-711-75-1 dw-efdf-pc-mg capsule (9 sources) Start: 02-14-2019 End: 05-04-2019 take 1 tablet by mouth twice daily Vit C,R-Yz-Yogof-Lutein-Zeaxan (Preservision Areds-2) 293-839-59-1 ww-feww-dw-mg capsule Discontinued 1 TABLET PO TWICE A DAY February 14, 2019 12:00am May 04, 2019 8:25am Start: 02-14-2019 End: 05-04-2019 take 1 tablet by mouth twice daily Vit C,T-Lh-Ernux-Lutein-Zeaxan (Preservision Areds-2) 533-667-14-1 ut-oohu-nw-mg capsule Discontinued 1 TABLET PO TWICE A DAY February 13, 2019 11:00pm May 04, 2019 7:25am CHOLECALCIFEROL TABS (2 sources) take 1 tablet by mouth once daily VITAMIN D TABS One tablet by mouth daily CHOLECALCIFEROL TABS 09576171224 Tyshawn Marvinpp vitamin e 1000 unt oral tablet (4 sources) End: 05-21-2015 take 1 tablet by mouth once daily VITAMIN E 1000 UNIT CAPS One tablet by mouth daily VITAMIN E 08449880948 Tyshawn Rai He Problems Active Problems Problem Classification Problem Date Documented Da te Episodic/Chronic Acute bronchitis (18 sources) Acute bronchitis; Translations: [Acute bronchitis, unspecified] 11-18-2022 Episodic Anxiety disorders (20 sources) Mixed anxiety and depressive disorder; Translations: [Other specified anxiety disorders] Onset: 4 Chronic Conditions associated with dizziness or vertigo (18 sources) Dizziness; Translations: [Dizziness and giddiness] 09-24-2020 Episodic Deficiency and other anemia (9 sources) Anemia; Translations: [Anemia, unspecified] 09-24-2020 Episodic Deficiency and other anemia (1 source) Anemia, unspecified; Translations: [Anemia, unspecified] Onset: 5 Episodic Disorders of lipid metabolism (20 sources) Hyperlipidemia; Translations: [Hyperlipidemia, unspecified] Chronic Esophageal disorders (10 sources) Gastroesophageal reflux disease; Translations: [Gastro-esophageal reflux disease without esophagitis] 09-24-2020 Chronic Essential hypertension (20 sources) Hypertensive disorder; Translations: [Essential (primary) hypertension] Onset: 5 Chronic Fever of unknown origin (9 sources) Fever; Translations: [Fever, unspecified] 06-04-2021 Episodic Gastrointestinal hemorrhage (4 sources) Blood-tinged feces; Translations: [Melena] Onset: 6 05-25-2016 Episodic Immunizations and screening for infectious disease (9 sources) Patient encounter status; Translations: [Encounter for screening for COVID-19] 06-04-2021 Episodic Malaise and fatigue (10 sources) Fatigue; Translations: [Other fatigue] 10-12-2021 Episodic Mood disorders (10 sources) Depressive disorder; Translations: [Depression] Onset: 4 09-24-2020 Chronic Nonspecific chest pain (18 sources) [...] Translations: [Bilateral primary osteoarthritis of knee] Onset: 07-20-2023 Chronic Other and ill-defined cerebrovascular disease [...] (20 sources) Hypothyroidism; Translations: [Hypothyroidism, unspecified] Onset: Chronic Viral infection (9 sources) Disease caused by 2019-nCoV; Translations: [COVID-19] 09-19-2020 Episodic Past or Other Problems Problem Classification Problem Date Documented Da te Episodic/Chronic Biliary tract disease (2 sources) Biliary calculus; Translations: [Cholelithiasis] Onset: 05-21-2015 05-22-2015 Episodic Chronic obstructive pulmonary disease and bronchiectasis (2 sources) Bronchitis; Translations: [Bronchitis, not specified as acute or chronic] Onset: 07-17-2017 07-17-2017 Episodic Hemorrhoids (5 sources) Internal hemorrhoids; Translations: [...] accident] Onset: 07-23-2024 Episodic Unclassified (9 sources) Mammography abnormal; Translations: [Patient encounter status] Onset: 05-26-2017 05-26-2017 Episodic Unclassified (9 sources) gallbladder removal 04-10-2022 Results Test Name Value Interpretation Reference Range Facility Surgery Visit Reporton 04-12 Surgery Visit Report [facility] [address] [place] [address] OFFICE VISIT Date of Service: 04/12/25 MR#: [id number] Acct: [id number] Name: JASMIN TSANG Rep #: [id number] : 1950 Provider: Dr. 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 Operator Helper Required: No Is patient in pain?: No Allergies rivera pepper (green pepper) Allergy (Mild, Verified 04/12/25 09:40) Swelling cefaclor (From Ceclor) Allergy (Verified 04/12/25 09:40) Rash ropinirole Adverse Reaction (Severe, Verified 04/12/25 09:40) nightmares and nausea erythromycin base Adverse Reaction (Verified 04/12/25 09:40) Vomiting trazodone Adverse Reaction (Verified 04/12/25 09:40) syncope Medications ???Medication ???Instructions ???Recorded ???Confirmed ???Type biotin 2,500 mcg capsule 5,000 mcg PO DAILY 05/26/15 History cholecalciferol (vitamin D3) 25 2,000 unit PO DAILY 08/18/1704/12 History mcg (1,000 unit) tablet aspirin 81 mg tablet,delayed 81 mg PO QDAY 03/14/18 04/12/25 Hi story release acetaminophen 325 mg tablet 650 mg (2 x 325 mg) PO Q6H PRN PRN 09/27/20 04/12/25 Rx Pain Score 1-10/Temp > 100.7 F vit C 250 mg-vit E 90 mg-zinc 40 1 tab PO QAM AND QHS 05/07/2210/06 History mg-copper 1 rm-smtbwv-uhhimb capsule (PreserVision AREDS-2) Oral sleep appliance #1 ea 05/14/22 04/12/25 Rx cetirizine 5 mg tablet 5 mg PO DAILY PRN 01/12/23 5 History omeprazole 40 mg capsule,delayed See Rx Instructions .Route 3 04/12/25 Rx release .COMPLEX #90 caps potassium chloride 20 mEq 20 meq PO BID #180 TABLETS 5 04/12/25 Rx tablet,extended release lorazepam 0.5 mg tablet 0.5 mg PO QHS PRN anxiety #30 tabs 01/07/25 04/12/25 Rx amlodipine 5 mg tablet 5 mg PO QDAY #90 tabs 04/08/2510/06 Rx duloxetine 60 mg capsule,delayed 60 mg PO DAILY #90 caps 04/08/25 0 04/12/25 Rx release levothyroxine 75 mcg tablet 75 mcg PO QDAY #90 tabs 04/08/25 0 04/12/25 Rx (Synthroid) metoprolol succinate 50 mg 50 mg PO QDAY #90 tabs 04/08/25 Rx tablet,extended release 24 hr mirtazapine 7.5 mg tablet 7.5 mg PO QHS #90 tabs 04/08/25 Rx rosuvastatin 10 mg tablet (Crestor) 10 mg PO QDAY #90 tabs 04/08/25 04/12/25 Rx triamterene 37.5 1 cap PO QAM #90 caps 04/08/2510/06 Rx mg-hydrochlorothiazide 25 mg capsule ferrous sulfate 325 mg (65 mg 325 mg PO Q OTHER DAY #90 tabs 04/12/25 Rx iron) tablet,delayed release Have you fallen in the past year?: No PFSH Medical History (Updated 04/08/25 @ 15:[address] Shannan Chauhan MD) Alopecia GI bleed Anxiety and depression Fall Macular degeneration of [...] do you participate in: none HPI HPI HPI: Patient is a 74-year-old female who is being seen today for blood per rectum. It sounds as though this bleeding is noted essentially daily. Some days it may just be a little bit of blood on the toilet tissue after wiping from a bowel movement or it could be enough to discolor the water in the toilet. She states that her stools have actually been quite soft. She typically goes o (more content not included)... Normal [facility] Ferritinon 04-10-2025 Ferritin [Mass/Vol] 15 ng/mL Low 22-378 [facility] Comment on above: Performed By: #### L 503.6550, L503.6030 #### [facility] [address] [place], [address] Iron+Iron Binding Capacityon 04-10-2025 Iron [Mass/Vol] 38 ug/dL Low 50-170 [facility] Comment on above: Performed By: #### L 503.6550, L503.6030 #### [facility] [address] [place], [address] IRON SATURATION 10.0 Low 13-59 [facility] Comment on above: Performed By: #### L 503.6550, L503.6030 #### [facility] [address] [place], [address] TIBC 367 ug/dL Normal 250-450 [facility] Comment on above: Performed By: #### L 503.6550, L503.6030 #### [facility] [address] [place], [address] UIBC 329 ug/dL Normal 228-428 [facility] Comment on above: Performed By: #### L 503.6550, L503.6030 #### [facility] [address] [place], [address] CBC W/Diff, Automatedon 07- Absolute Lymph 1.97 X10 3/uL Normal 0.83-4.51 [facility] Comment on above: Performed By: #### L 501.9520, L100.0100, L500.4050 #### [facility] [address] [place], [address] Absolute Neut 4.9 X10 3/uL Normal 2.0-7.7 [facility] Comment on above: Performed By: #### L 501.9520, L100.0100, [id number] #### [facility] [address] [place], [address] Basophils/100 WBC (Bld) 0.7 % Normal 0-1 [facility] Comment on above: Performed By: #### L 501.9520, L100.0100, [id number] #### [facility] [address] [place], [address] Eosinophils/100 WBC (Bld) 6.8 % High 0-5 [facility] Comment on above: Performed By: #### L 501.9520, L100.0100, [id number] #### [facility] [address] [place], [address] Erythrocyte distribution width (RBC) [Ratio] 13.4 % Normal 11.6-14.6 [facility] Comment on above: Performed By: #### L 501.9520, L100.0100, L500.4050 #### [facility] [address] [place], [address] Hematocrit (Bld) [Volume fraction] 40.9 % Normal 37-47 [facility] Comment on above: Performed By: #### L 501.9520, L100.0100, [id number] #### [facility] [address] [place], [address] Hemoglobin (Bld) [Mass/Vol] 12.8 g/dL Normal 12.0-15.0 [facility] Comment on above: Performed By: #### L 501.9520, L100.0100, L500.4050 #### [facility] [address] [place], [address] IG% 0.400 Normal 0.0-0.9 [facility] Comment on above: Result Comment: IG% - Immature Granulocytes (promyelocytes, myelocytes and metamyelocytes) > 1% indicates that a LEFT SHIFT is Present. Performed By: #### L 501.9520, L100.0100, L500.4050 #### [facility] [address] [place], [address] Lymphocytes/100 WBC (Bld) 23.8 % Normal 19-41 [facility] Comment on above: Performed By: #### L 501.9520, L100.0100, [id number] #### [facility] [address] [place], [address] MCH (RBC) [Entitic mass] 26.8 pg Low 27.0-32.0 [facility] Comment on above: Performed By: #### L 501.9520, L100.0100, L500.4050 #### [facility] [address] [place], [address] MCHC (RBC) [Mass/Vol] 31.3 g/dL Low 32-36 [facility] Comment on above: Performed By: #### L 501.9520, L100.0100, L500.4050 #### [facility] [address] [place], [address] MCV (RBC) [Entitic vol] 85.6 fL Normal 81-99 [facility] Comment on above: Performed By: #### L 501.9520, L100.0100, L500.4050 #### [facility] [address] [place], [address] Monocytes/100 WBC (Bld) 9.3 % Normal 0-10 [facility] Comment on above: Performed By: #### L 501.9520, L100.0100, L500.4050 #### [facility] [address] [place], [address] Neutrophils/100 WBC (Bld) 59.0 % Normal 47-70 [facility] Comment on above: Performed By: #### L 501.9520, L100.0100, L500.4050 #### [facility] [address] [place], [address] Nucleated RBC (Bld) [#/Vol] 0 10*3/uL Normal 0-5 [facility] Comment on above: Performed By: #### L 501.9520, L100.0100, L500.4050 #### [facility] [address] [place], [address] Platelet mean volume (Bld) [Entitic vol] 11.0 fL Normal 6.2-12.0 [facility] Comment on above: Performed By: #### L 501.9520, L100.0100, L500.4050 #### [facility] [address] [place], [address] Platelets (Bld) [#/Vol] 279 10*3/uL Normal 150-450 [facility] Comment on above: Performed By: #### L 501.9520, L100.0100, L500.4050 #### [facility] [address] [place], [address] RBC (Bld) [#/Vol] 4.78 10*6/uL Normal 4.2-5.4 [facility] Comment on above: Performed By: #### L 501.9520, L100.0100, L500.4050 #### [facility] [address] [place], [address] RDW SD 41.8 fl Normal 35.1-43.9 [facility] Comment on above: Performed By: #### L 501.9520, L100.0100, [id number] #### [facility] [address] [place], [address] WBC (Bld) [#/Vol] 8.3 10*3/uL Normal 4.4-11.0 [facility] Comment on above: Performed By: #### L 501.9520, L100.0100, L500.4050 #### [facility] [address] [place], [address] [facility] Albumin [Mass/Vol] 4.3 g/dL Normal 3.4-4.8 [facility] Comment on above: Performed By: #### L 501.9520, L100.0100, L500.4050 #### [facility] [address] [place], [address] Albumin/Globulin [Mass ratio] 1.7 {ratio} Normal 0.9-2.4 [facility] Comment on above: Performed By: #### L 501.9520, L100.0100, L500.4050 #### [facility] [address] [place], [address] ALK PHOS 97 U/L Normal 35-104 [facility] Comment on above: Performed By: #### L 501.9520, L100.0100, [id number] #### [facility] [address] [place], [address] ALT [Catalytic activity/Vol] 20 U/L Normal <=34 [facility] Comment on above: Performed By: #### L 501.9520, L100.0100, [id number] #### [facility] [address] [place], [address] AST [Catalytic activity/Vol] 25 U/L Normal <=31 [facility] Comment on above: Performed By: #### L 501.9520, L100.0100, [id number] #### [facility] [address] [place], [address] Bilirubin [Mass/Vol] 0.28 mg/dL Normal 0.00-1.30 [facility] Comment on above: Performed By: #### L 501.9520, L100.0100, [id number] #### [facility] [address] [place], [address] BUN/CRE 16.1 RATIO Normal 10-20 [facility] Comment on above: Performed By: #### L 501.9520, L100.0100, [id number] #### [facility] [address] [place], [address] Calcium [Mass/Vol] 9.7 mg/dL Normal 7.6-11.0 [facility] Comment on above: Performed By: #### L 501.9520, L100.0100, [id number] #### [facility] [address] [place], [address] Chloride [Moles/Vol] 102 mmol/L Normal 98-108 [facility] Comment on above: Performed By: #### L 501.9520, L100.0100, [id number] #### [facility] [address] [place], [address] CO2 [Moles/Vol] 25.1 mmol/L Normal 21.0-32.0 [facility] Comment on above: Performed By: #### L 501.9520, L100.0100, [id number] #### [facility] [address] [place], [address] Creatinine [Mass/Vol] 1.02 mg/dL Normal 0.70-1.20 [facility] Comment on above: Performed By: #### L 501.9520, L100.0100, [id number] #### [facility] [address] [place], [address] GAP 12 Normal 5-15 [facility] Comment on above: Performed By: #### L 501.9520, L100.0100, L500.4050 #### [facility] [address] [place], [address] GFR/1.73 sq M.predicted among non-blacks MDRD (S/P/Bld) [Vol rate/Area] 58 mL/min/{1.73_m2} Low >60 [facility] Comment on above: Result Comment: mL/m in/1.73m2 CKD-EPI Creatinine Equation (2020) Performed By: #### L 501.9520, L100.0100, L500.4050 #### [facility] [address] [place], [address] Globulin (S) [Mass/Vol] 2.5 g/dL Normal 2.2-4.2 [facility] Comment on above: Performed By: #### L 501.9520, L100.0100, L500.4050 #### [facility] [address] [place], [address] Glucose [Mass/Vol] 92 mg/dL Normal 70-99 [facility] Comment on above: Performed By: #### L 501.9520, L100.0100, L500.4050 #### [facility] [address] [place], [address] Potassium [Moles/Vol] 4.4 mmol/L Normal 3.3-5.1 [facility] Comment on above: Performed By: #### L 501.9520, L100.0100, L500.4050 #### [facility] [address] [place], [address] Sodium [Moles/Vol] 139 mmol/L Normal 133-145 [facility] Comment on above: Performed By: #### L 501.9520, L100.0100, L500.4050 #### [facility] [address] [place], [address] T PROT 6.8 g/dL Normal 5.9-8.4 [facility] Comment on above: Performed By: #### L 501.9520, L100.0100, L500.4050 #### [facility] [address] [place], [address] Urea nitrogen [Mass/Vol] 16 mg/dL Normal 4-19 [facility] Comment on above: Performed By: #### L 501.9520, L100.0100, L500.4050 #### [facility] [address] [place], [address] Internal Medicine Office Vis iton 04-08-2025 Internal Medicine Office Visit [facility] [address] [place] [address] OFFICE VISIT Date of Service: 04/08/25 MR#: [id number] Acct: [id number] Name: JASMIN TSANG Rep #: [id number] : 1950 Provider: Dr. Shannan swan MD Age/Sex: 74/F Location: [facility] Status: Signed Intake Vital Signs 01/07/25 13:54 04/08/25 11:29 Height 5 ft 5 in 5 ft 5 in Weight: 206 lb BMI 34.2 BP 106/60 Blood Pressure Location Lt brachial Position Sitting Respiration 16 Pulse 78 Pulse Source Monitor Temp 97.6 F L Temp Source Temporal Pulse Oximetry (%) 97 Oxygen Delivery Method room air Intake Visit Reasons: 3 m fu Chief Complaint: Follow-up chronic conditions Drier Operator Helper Required: No Is patient in pain?: No Allergies rivera pepper (green pepper) Allergy (Mild, Verified 04/08/25 11:18) Swelling cefaclor (From Ceclor) Allergy (Verified 04/08/25 11:18) Rash ropinirole Adverse Reaction (Severe, Verified 04/08/25 11:18) nightmares and nausea erythromycin base Adverse Reaction (Verified 04/08/25 11:18) Vomiting trazodone Adverse Reaction (Verified 04/08/25 11:18) syncope Medications ???Medication ???Instructions ???Recorded ???Confirmed ???Type biotin 2,500 mcg capsule 5,000 mcg PO DAILY 05/26/15 History cholecalciferol (vitamin D3) 25 2,000 unit PO DAILY 08/18/1704/08 History mcg (1,000 unit) tablet aspirin 81 mg tablet,delayed 81 mg PO QDAY 03/14/18 04/08/25 Hi story release acetaminophen 325 mg tablet 650 mg (2 x 325 mg) PO Q6H PRN PRN 09/27/20 04/08/25 Rx Pain Score 1-10/Temp > 100.7 F vit C 250 mg-vit E 90 mg-zinc 40 1 tab PO QAM AND QHS 05/07/2203/13 History mg-copper 1 mo-nusigw-lktved capsule (PreserVision AREDS-2) Oral sleep appliance #1 ea 05/14/22 04/08/25 Rx cetirizine 5 mg tablet 5 mg PO DAILY PRN 01/12/23 5 History omeprazole 40 mg capsule,delayed See Rx Instructions .Route 3 04/08/25 Rx release .COMPLEX #90 caps potassium chloride 20 mEq 20 meq PO BID #180 TABLETS 5 04/08/25 Rx tablet,extended release lorazepam 0.5 mg tablet 0.5 mg PO QHS PRN anxiety #30 tabs 01/07/25 04/08/25 Rx amlodipine 5 mg tablet 5 mg PO QDAY #90 tabs 04/08/25 Rx duloxetine 60 mg capsule,delayed 60 mg PO DAILY #90 caps 04/08/25 0 04/08/25 Rx release levothyroxine 75 mcg tablet 75 mcg PO QDAY #90 tabs 04/08/25 0 04/08/25 Rx (Synthroid) metoprolol succinate 50 mg 50 mg PO QDAY #90 tabs 04/08/25 Rx tablet,extended release 24 hr mirtazapine 7.5 mg tablet 7.5 mg PO QHS #90 tabs 04/08/25 Rx rosuvastatin 10 mg tablet (Crestor) 10 mg PO QDAY #90 tabs 04/08/25 04/08/25 Rx triamterene 37.5 1 cap PO QAM #90 caps 04/08/25 Rx mg-hydrochlorothiazide 25 mg capsule Have you fallen in the past year?: No PFSH Medical History (Updated 04/08/25 @ 15:[address] Shannan Chauhan MD) Alopecia GI bleed Anxiety and depression Fall Macular degeneration of [...] chronic conditions Details: JASMIN TSANG, is a 74-year-old female for follow-up of her chronic conditions. She also has some concerns. She reports persistent fatigue, attributing it to stress and recent life changes, including her 's recent health issues. She experiences increased bleeding during bowel movements, occurring at least once daily, with blood clots, ongoing for several months, reminiscent of her prior episodes of hemorrhoids. She is status post hemorrhoid surgery. The patient also reports a patch of hair loss, beginni (more content not included)... Normal [facility] Thyroid Stim Hormone (TSH)on 04-08-2025 TSH 1.840 uIU/mL Normal 0.300-4.200 [facility] Comment on above: Performed By: #### L 503.6544, L503.6030 #### [facility] [place], [address] Internal Medicine Office Vis iton 01-07-2025 Internal Medicine Office Visit [facility] [address] [place], [place] [address] OFFICE VISIT Date of Service: 01/07/25 MR#: [id number] Acct: [id number] Name: JASMIN TSANG Rep #: [id number] : 1950 Provider: Dr. 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 Normal [facility] SCRN MAMM (CAD)W/OLGA BILATo n 09-19-2024 SCRN MAMM (CAD)W/OLGA BILAT [facility] Imaging Services [address] [place] [id number] SCRN MAMM (CAD)W/OLGA BILAT MR#: [id number] Acct: [id number] Name: JASMIN TSANG Rep #: [id number] : 1950 F 74 From: Aston chandra MD PCP: Dr. Shannan Chauhan MD Status: REG [facility] Study: SCRN MAMM (CAD)W/OLGA BILAT Date of Exam: 05/06 Exam# [id number] Ordering Dr: Shannan Chauhan MD [id number] MAMMOGRAPHY - BILATERAL SCREENING REASON FOR EXAM: [...] delay biopsy of a clinically suspicious abnormality. [id number] Electronically Signed: Aston Cabezas MD at 10:55 EST , CC: Dr. Shannan Chauhan MD Engineer Automated Equipment: Signed Normal [facility] CBC W/Diff, Automatedon 12-2 Absolute Lymph 2.23 X10 3/uL Normal 0.83-4.51 [facility] Comment on above: Performed By: #### L 100.0100, L500.4050, L501.9520, L506.1000, L500.4100 #### [facility] [address] [place], [address] Absolute Neut 5.1 X10 3/uL Normal 2.0-7.7 [facility] Comment on above: Performed By: #### L 100.0100, L500.4050, L501.9520, L506.1000, L500.4100 #### [facility] [address] [place], [address] Basophils/100 WBC (Bld) 0.6 % Normal 0-1 [facility] Comment on above: Performed By: #### L 100.0100, L500.4050, L501.9520, L506.1000, L500.4100 #### [facility] [address] [place], [address] Eosinophils/100 WBC (Bld) 0.0 % Normal 0-5 [facility] Comment on above: Performed By: #### L 100.0100, L500.4050, L501.9520, L506.1000, L500.4100 #### [facility] [address] [place], [address] Erythrocyte distribution width (RBC) [Ratio] 14.2 % Normal 11.6-14.6 [facility] Comment on above: Performed By: #### L 100.0100, L500.4050, L501.9520, L506.1000, L500.4100 #### [facility] [address] [place], [address] Hematocrit (Bld) [Volume fraction] 40.5 % Normal 37-47 [facility] Comment on above: Performed By: #### L 100.0100, L500.4050, L501.9520, L506.1000, L500.4100 #### [facility] [address] [place], [address] Hemoglobin (Bld) [Mass/Vol] 12.4 g/dL Normal 12.0-15.0 [facility] Comment on above: Performed By: #### L 100.0100, L500.4050, L501.9520, L506.1000, L500.4100 #### [facility] [address] [place], [address] IG% 0.400 Normal 0.0-0.9 [facility] Comment on above: Result Comment: IG% - Immature Granulocytes (promyelocytes, myelocytes and metamyelocytes) > 1% indicates that a LEFT SHIFT is Present. Performed By: #### L 100.0100, L500.4050, L501.9520, L506.1000, L500.4100 #### [facility] [address] [place], [address] Lymphocytes/100 WBC (Bld) 27.3 % Normal 19-41 [facility] Comment on above: Performed By: #### L 100.0100, L500.4050, L501.9520, L506.1000, L500.4100 #### [facility] [address] [place], [address] MCH (RBC) [Entitic mass] 24.4 pg Low 27.0-32.0 [facility] Comment on above: Performed By: #### L 100.0100, L500.4050, L501.9520, L506.1000, L500.4100 #### [facility] [address] [place], [address] MCHC (RBC) [Mass/Vol] 30.6 g/dL Low 32-36 [facility] Comment on above: Performed By: #### L 100.0100, L500.4050, L501.9520, L506.1000, L500.4100 #### [facility] [address] [place], [address] MCV (RBC) [Entitic vol] 79.6 fL Low 81-99 [facility] Comment on above: Performed By: #### L 100.0100, L500.4050, L501.9520, L506.1000, L500.4100 #### [facility] [address] [place], [address] Monocytes/100 WBC (Bld) 9.9 % Normal 0-10 [facility] Comment on above: Performed By: #### L 100.0100, L500.4050, L501.9520, L506.1000, L500.4100 #### [facility] [address] [place], [address] Neutrophils/100 WBC (Bld) 61.8 % Normal 47-70 [facility] Comment on above: Performed By: #### L 100.0100, L500.4050, L501.9520, L506.1000, L500.4100 #### [facility] [address] [place], [address] Nucleated RBC (Bld) [#/Vol] 0 10*3/uL Normal 0-5 [facility] Comment on above: Performed By: #### L 100.0100, L500.4050, L501.9520, L506.1000, L500.4100 #### [facility] [address] [place], [address] Platelet mean volume (Bld) [Entitic vol] 10.4 fL Normal 6.2-12.0 [facility] Comment on above: Performed By: #### L 100.0100, L500.4050, L501.9520, L506.1000, L500.4100 #### [facility] [address] [place], [address] Platelets (Bld) [#/Vol] 283 10*3/uL Normal 150-450 [facility] Comment on above: Performed By: #### L 100.0100, L500.4050, L501.9520, L506.1000, L500.4100 #### [facility] [address] [place], [address] RBC (Bld) [#/Vol] 5.09 10*6/uL Normal 4.2-5.4 [facility] Comment on above: Performed By: #### L 100.0100, L500.4050, L501.9520, L506.1000, L500.4100 #### [facility] [address] [place], [address] RDW SD 40.8 fl Normal 35.1-43.9 [facility] Comment on above: Performed By: #### L 100.0100, L500.4050, L501.9520, L506.1000, L500.4100 #### [facility] [address] [place], [address] WBC (Bld) [#/Vol] 8.2 10*3/uL Normal 4.4-11.0 [facility] Comment on above: Performed By: #### L 100.0100, L500.4050, L501.9520, L506.1000, L500.4100 #### [facility] [address] [place], [address] Comprehensive Metabolic [facility] 09-03-2024 Albumin [Mass/Vol] 3.6 g/dL Normal 3.2-5.0 [facility] Comment on above: Performed By: #### L 100.0100, L500.4050, L501.9520, L506.1000, L500.4100 #### [facility] [address] [place], [address] Albumin/Globulin [Mass ratio] 1.1 {ratio} Normal 0.9-2.4 [facility] Comment on above: Performed By: #### L 100.0100, L500.4050, L501.9520, L506.1000, L500.4100 #### [facility] [address] [place], [address] ALK P 94 U/L Normal 45-117 [facility] Comment on above: Performed By: #### L 100.0100, L500.4050, L501.9520, L506.1000, L500.4100 #### [facility] [address] [place], [address] ALT [Catalytic activity/Vol] 26 U/L Normal 13-56 [facility] Comment on above: Performed By: #### L 100.0100, L500.4050, L501.9520, L506.1000, L500.4100 #### [facility] [address] [place], [address] AST [Catalytic activity/Vol] 21 U/L Normal 15-37 [facility] Comment on above: Performed By: #### L 100.0100, L500.4050, L501.9520, L506.1000, L500.4100 #### [facility] [address] [place], [address] Bilirubin [Mass/Vol] 0.40 mg/dL Normal 0.20-1.00 [facility] Comment on above: Result Comment: For patients on eltrombopag therapy, use of Dimension [place] TBIL is not recommended. Performed By: #### L 100.0100, L500.4050, L501.9520, L506.1000, L500.4100 #### [facility] [address] [place], [address] BUN/CRE 15.7 RATIO Normal 10-20 [facility] Comment on above: Performed By: #### L 100.0100, L500.4050, L501.9520, L506.1000, L500.4100 #### [facility] [address] [place], [address] CA,Total 9.6 mg/dL Normal 8.5-10.1 [facility] Comment on above: Performed By: #### L 100.0100, L500.4050, L501.9520, L506.1000, L500.4100 #### [facility] [address] [place], [address] Chloride [Moles/Vol] 106 mmol/L Normal 98-107 [facility] Comment on above: Performed By: #### L 100.0100, L500.4050, L501.9520, L506.1000, L500.4100 #### [facility] [address] [place], [address] CO2 [Moles/Vol] 26.0 mmol/L Normal 21.0-32.0 [facility] Comment on above: Performed By: #### L 100.0100, L500.4050, L501.9520, L506.1000, L500.4100 #### [facility] [address] [place], [address] Creatinine [Mass/Vol] 0.95 mg/dL Normal 0.55-1.02 [facility] Comment on above: Result Comment: The validity of the calculated GFR GFRAA in patients over 70 years has not been determined. Clinical correlation is essential. Performed By: #### L 100.0100, L500.4050, L501.9520, L506.1000, L500.4100 #### [facility] [address] [place], [address] EST GFR - AA 74 mL/min Normal >60 [facility] Comment on above: Result Comment: Afri can Barbadian GFR Calc Performed By: #### L 100.0100, L500.4050, L501.9520, L506.1000, L500.4100 #### [facility] [address] [place], [address] GAP 5 Normal 5-15 [facility] Comment on above: Performed By: #### L 100.0100, L500.4050, L501.9520, L506.1000, L500.4100 #### [facility] [address] [place], [address] GFR/1.73 sq M.predicted among non-blacks MDRD (S/P/Bld) [Vol rate/Area] 61 mL/min/{1.73_m2} Normal >60 [facility] Comment on above: Result Comment: Non- GFR Calc Performed By: #### L 100.0100, L500.4050, L501.9520, L506.1000, L500.4100 #### [facility] [address] [place], [address] Globulin (S) [Mass/Vol] 3.4 g/dL Normal 2.2-4.2 [facility] Comment on above: Performed By: #### L 100.0100, L500.4050, L501.9520, L506.1000, L500.4100 #### [facility] [address] [place], [address] Glucose [Mass/Vol] 76 mg/dL Normal 74-106 [facility] Comment on above: Performed By: #### L 100.0100, L500.4050, L501.9520, L506.1000, L500.4100 #### [facility] [address] [place], [address] Potassium [Moles/Vol] 4.0 mmol/L Normal 3.5-5.1 [facility] Comment on above: Performed By: #### L 100.0100, L500.4050, L501.9520, L506.1000, L500.4100 #### [facility] [address] [place], [address] Sodium [Moles/Vol] 138 mmol/L Normal 136-145 [facility] Comment on above: Performed By: #### L 100.0100, L500.4050, L501.9520, L506.1000, L500.4100 #### [facility] [address] [place], [address] T PROT 7.0 g/dL Normal 6.4-8.2 [facility] Comment on above: Performed By: #### L 100.0100, L500.4050, L501.9520, L506.1000, L500.4100 #### [facility] [address] [place], [address] Urea nitrogen [Mass/Vol] 15 mg/dL Normal 7-18 [facility] Comment on above: Performed By: #### L 100.0100, L500.4050, L501.9520, L506.1000, L500.4100 #### [facility] [address] [place], [address] Internal Medicine Office Vis camilla 09-03-2024 Internal Medicine Office Visit [facility] [address] [place] [address] [place] [address] OFFICE VISIT Date of Service: 09/03/24 MR#: [id number] Acct: [id number] Name: JASMIN TSANG Rep #: [id number] : 1950 Provider: Dr. Shannan swan MD Age/Sex: 74/F Location: [facility] Status: Signed Intake Vital Signs 06/28/24 16:02 [...] Chief Complaint: Follow-up chronic condition. Follow-up ER. 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 Normal [facility] Lipid Profileon 09-03-2024 Cholesterol [Mass/Vol] 150 mg/dL Normal 200 [facility] Comment on above: Result Comment: <200 mg/dL Desirable 200-240 mg/dL Borderline >240 mg/dL High Risk Performed By: #### L 100.0100, L500.4050, L501.9520, L506.1000, L500.4100 #### [facility] [address] [place], [address] Cholesterol in HDL [Mass/Vol] 56 mg/dL Normal [facility] Comment on above: Result Comment: The drugs N-Acetylcysteine and Metamizole may falsely depress this assay. Reference Range HDL <40 mg/dL Low HDL Cholesterol HDL >or= 60 mg/dL High HDL Cholesterol Performed By: #### L 100.0100, L500.4050, L501.9520, L506.1000, L500.4100 #### [facility] [address] [place], [address] Cholesterol in LDL [Mass/Vol] 54 mg/dL Normal 0-130 [facility] Comment on above: Performed By: #### L 100.0100, L500.4050, L501.9520, L506.1000, L500.4100 #### [facility] [address] [place], [address] Cholesterol in VLDL [Mass/Vol] 40 mg/dL Normal 5-40 [facility] Comment on above: Performed By: #### L 100.0100, L500.4050, L501.9520, L506.1000, L500.4100 #### [facility] [address] [place], [address] Triglyceride [Mass/Vol] 201 mg/dL High [facility] Comment on above: Result Comment: The drugs N-Acetylcysteine and Metamizole may falsely depress this assay. Serum Triglycerides Reference Interval Normal <150 mg/dL Borderline high 150 - 199 mg/dL High 200 - 499 mg/dL Very High > or = 500 mg/dL Performed By: #### L 100.0100, L500.4050, L501.9520, L506.1000, L500.4100 #### [facility] [address] [place], [address] Thyroid Stim Hormone (TSH)on 09-03-2024 TSH 1.900 uIU/mL Normal 0.358-3.740 [facility] Comment on above: Performed By: #### L 100.0100, L500.4050, L501.9520, L506.1000, L500.4100 #### [facility] [address] [facility] [place], [address] Vitamin D,25 Hydroxyon 09-03 Vitamin D 25-OH 63.8 ng/mL Normal [facility] Comment on above: Result Comment: Imelda min D 25(OH) Status Range Deficiency <20 ng/mL (50nmol/L) Insufficiency 20 - 30 ng/mL (50 - 75 nmol/L) Sufficiency 30 - 100 ng/mL (75 - 250 nmol/L) Toxicity >100 ng/mL (>250 nmol/L) Performed By: #### L 100.0100, L500.4050, L501.9520, L506.1000, L500.4100 #### [facility] [address] [place], [address] Elbow min 3 Viewson 06-28- 24 Elbow min 3 Views [facility] Imaging Services [address] [place] [address] Elbow min 3 Views MR#: [id number] Acct: [id number] Name: JASMIN TSANG Rep #: [id number] : 1950 F 73 From: Jasmeet Herman PCP: Dr. Shannan Chauhan MD Status: REG ER Study: Elbow min 3 Views Date of Exam: 06/28/24 Exam# [id number] Ordering Dr: Alan Walker MD [id number] STUDY: X-RAY - LEFT ELBOW REASON FOR [...] Alan Walker MD; Dr. Shannan Chauhan MD Engineer Automated Equipment: Signed Normal [facility] Emergency Department Summary on 06-28-2024 Emergency Department Summary [facility] Medical Records Department [address] [place] [address] Emergency Department Summary 06/28/24 MR#: [id number] Acct: [id number] Name: JASMIN TSANG Rep #: [id number] : 1950 73 From: Alan Walker MD [...] EMS was called to transport her here. [facility] Medical History (Updated 06/28/24 @ 18:36 by [...] AND QHS 05/07/22 Unknown History mg-copper 1 di-ewtazy-ivqjoc capsule (PreserVision AREDS-2) Oral sleep appliance #1 [...] Mild Swelling Verified 06/28/24 16:01 cefaclor (From Ceclor) Allergy Rash Verified 06/28/24 16:01 ropinirole AdvReac [...] Abrasions, lace (more content not included)... Normal [facility] Hand Min 3 Viewson 4 Hand Min 3 Views [facility] Imaging Services [address] [place] [address] Hand Min 3 Views MR#: [id number] Acct: [id number] Name: JASMIN TSANG Rep #: [id number] : 1950 F 73 From: Jasmeet Herman PCP: Dr. Shannan Chauhan MD Status: REG ER Study: Hand Min 3 Views Date of Exam: 06/28/24 Exam# [id number] Ordering Dr: Alan Walker MD [id number] STUDY: X-RAY - RIGHT HAND REASON FOR [...] Alan Walker MD; Dr. Shannan Chauhan MD Engineer Automated Equipment: Signed Normal [facility] Knee 4 or More Viewson 06-28 Knee 4 or More Views [facility] Imaging Services [address] [place] [address] Knee 4 or More Views MR#: [id number] Acct: [id number] Name: JASMIN TSANG Rep #: [id number] : 1950 F 73 From: Jasmeet Herman PCP: Dr. Shannan Chauhan MD Status: REG ER Study: Knee 4 or More Views Date of Exam: 06/28/24 Exam# [id number] Ordering Dr: Alan Walker MD [id number] STUDY: X-RAY - LEFT KNEE REASON FOR [...] Signed: Jasmeet Yuen MD at 17:47 EDT Reading Location ID and State: [facility] / [place] Tel , Service support , CC: Dr. Alan Walker MD; Dr. Shannan Chauhan MD Engineer Automated Equipment: Signed Normal [facility] MR/BMS.BPon 06-27-2024 MR/BMS.BP [address], [address] [place], [place] [address] OFFICE VISIT Date of Service: 06/27/24 MR#: [id number] Acct: [id number] Name: JASMIN TSANG Rep #: [id number] : 1950 Provider: JOCELYNN tran Age/Sex: 73/F Location: [facility].BP Status: Signed Intake Vital Signs 05/17/24 10:19 [...] AND QHS 05/07/22 06/27/24 History mg-copper 1 og-oignnk-yozjsr capsule (PreserVision AREDS-2) Oral sleep appliance #1 [...] past year?: No PFSH Medical History (Updated 06/27/24 @ 11:02 by [...] less depressed (more content not included)... Normal [facility] Orthopedic Visit Reporton Orthopedic Visit Report [facility] [address] [place] [address] OFFICE VISIT Date of Service: 06/13/24 MR#: [id number] Acct: [id number] Name: JASMIN TSANG Rep #: [id number] : 1950 Provider: Dr. Javad ragland DO Age/Sex: 73/F Location: [facility].GELY Status: Signed Intake Vital Signs 05/17/24 10:19 [...] AND QHS 05/07/22 06/13/24 History mg-copper 1 sq-kpkryl-fxecid capsule (PreserVision AREDS-2) Oral sleep appliance #1 [...] Crepitus Stabi (more content not included)... Normal [facility] Orthopedic Visit Reporton Orthopedic Visit Report [facility] [facility] [address] [place] [address] OFFICE VISIT Date of Service: 06/06/24 MR#: [id number] Acct: [id number] Name: JASMIN TSANG Rep #: [id number] : 1950 Provider: Dr. Javad ragland DO Age/Sex: 73/F Location: [facility].GELY Status: Signed Intake Vital Signs 05/17/24 10:19 [...] AND QHS 05/07/22 06/06/24 History mg-copper 1 bx-isxgtw-pwmctb capsule (PreserVision AREDS-2) Oral sleep appliance #1 [...] made by me, Dr. Javad Valdez, DO 06/06/24 0814. Part of today???s visit was documented by [...] No ecchym (more content not included)... Normal [facility] Orthopedic Visit Reporton Orthopedic Visit Report [facility] [address] [place] [address] OFFICE VISIT Date of Service: 05/30/24 MR#: [id number] Acct: [id number] Name: JASMIN TSANG Rep #: [id number] : 1950 Provider: MARY Dee Age/Sex: 73/F Location: [facility].GELY Status: Signed Intake Vital Signs 05/17/24 10:19 [...] AND QHS 05/07/22 05/30/24 History mg-copper 1 zi-wqciap-yfzvlf capsule (PreserVision AREDS-2) Oral sleep appliance #1 [...] Yes Cr (more content not included)... Normal [facility] MR/BMS.BPon 05-17-2024 MR/BMS.BP [address], [address] [place] [address] OFFICE VISIT Date of Service: 05/17/24 MR#: [id number] Acct: [id number] Name: JASMIN TSANG Rep #: [id number] : 1950 Provider: JOCELYNN tran Age/Sex: 73/F Location: [facility].BP Status: Signed Intake Vital Signs 03/27/24 09:35 [...] AND QHS 05/07/22 05/17/24 History mg-copper 1 ct-slpamf-hlrlef capsule (PreserVision AREDS-2) Oral sleep appliance #1 [...] you fallen in the past year?: No [facility] Medical History History of tobacco use Encounter [...] Does strugg (more content not included)... Normal [facility] Basophil percentageOrdered B y: Shannan Chauhan on 11-21-2023 Chloride [Moles/Vol] 105 mmol/L 98-107 [facility] Glucose [Mass/Vol] 103 mg/dL 74-106 [facility] Comment on above: Fasting Glucose resu lt from 100 to 125 mg/dL suggests IMPAIRED HOMEOSTASIS per A.D.A. criteria. Potassium [Moles/Vol] 4.5 mmol/L 3.5-5.1 [facility] Sodium [Moles/Vol] 140 mmol/L 136-145 [facility] Laboratory - Chemistry and C hemistry - challengeOrdered By: Shannan Chauhan on 11-21-2023 CO2 [Moles/Vol] 30.0 mmol/L 21.0-32.0 [facility] Urea nitrogen/Creatinine [Mass ratio] 18.6 mg/mg 10-20 [facility] No Panel InformationOrdered By: Shannan Chauhan on 11-21-2023 Estimated GFR (MDRD) Amer 61 mL/min >60 [facility] Comment on above: GFR Calc Estimated GFR (MDRD) Non-Af Amer 50 mL/min >60 [facility] Comment on above: Non- GFR Calc Serum or plasma calcium alysha urement (mass/volume)Ordered By: Shannan Chauhan on 11-21-2023 Calcium [Mass/Vol] 9.9 mg/dL 8.5-10.1 [facility] Serum or plasma creatinine m easurement (mass/volume)Ordered By: Shannan Chauhan on 11-21-2023 Creatinine [Mass/Vol] 1.13 mg/dL 0.55-1.02 [facility] Comment on above: The validity of the calculated GFR & GFRAA in patients over 70 years has not been determined. Clinical correlation is essential. Serum or plasma urea nitroge n measurement (mass/volume)Ordered By: Shannan Chauhan on 11-21-2023 Urea nitrogen [Mass/Vol] 21 mg/dL 7-18 [facility] Thin prep Papanicolaou smear with manual screeningOrdered By: Shannan Chauhan on 11-21-2023 Thin prep Papanicolaou smear with manual screening 5 5-15 [facility] Absolute lymphocyte countOrd ered By: Shannan Chauhan on 07-08-2023 Lymphocytes Auto (Unsp spec) [#/Vol] 2.12 10*3/uL 0.83-4.51 [facility] Basophil percentageOrdered B y: Shannan Chauhan on 07-08-2023 Basophils/100 WBC (Bld) 0.7 % 0-1 [facility] Bilirubin [Mass/Vol] 0.40 mg/dL 0.20-1.00 [facility] Comment on above: For patients on eltr ombopag therapy, use of Dimension [place] TBIL is not recommended. Chloride [Moles/Vol] 103 mmol/L 98-107 [facility] Cholesterol [Mass/Vol] 150 mg/dL <200 [facility] Comment on above: <200 mg/dL Desirable 200-240 mg/dL Borderline >240 mg/dL High Risk Eosinophils/100 WBC (Bld) 6.5 % 0-5 [facility] Glucose [Mass/Vol] 90 mg/dL 74-106 [facility] Neutrophils (Bld) [#/Vol] 4.6 10*3/uL 2.0-7.7 [facility] Neutrophils/100 WBC (Bld) 56.3 % 47-70 [facility] Potassium [Moles/Vol] 4.1 mmol/L 3.5-5.1 [facility] Protein [Mass/Vol] 7.1 g/dL 6.4-8.2 [facility] Sodium [Moles/Vol] 137 mmol/L 136-145 [facility] Triglyceride [Mass/Vol] 156 mg/dL <199 [facility] Comment on above: The drugs N-Acetylcy steine and Metamizole may falsely depress this assay.Serum Triglycerides Reference Interval Normal <150 mg/dL Borderline high 150 - 199 mg/dL High 200 - 499 mg/dL Very High > or = 500 mg/dL WBC (Bld) [#/Vol] 8.1 10*3/uL 4.4-11.0 [facility] Blood erythrocytes count (nu mber/volume)Ordered By: Shannan Chauhan on 07-08-2023 RBC (Bld) [#/Vol] 4.94 10*6/uL 4.2-5.4 [facility] Blood hemoglobin measurement (mass/volume)Ordered By: Shannan Chauhan on 07-08-2023 Hemoglobin (Bld) [Mass/Vol] 14.5 g/dL 12.0-15.0 [facility] Blood lymphocytes/100 leukoc ytesOrdered By: Shannan Chauhan on 07-08-2023 Lymphocytes/100 WBC (Bld) 26.1 % 19-41 [facility] Blood monocytes/100 leukocyt esOrdered By: [facility] on 07-08-2023 Monocytes/100 WBC (Bld) 10.0 % 0-10 [facility] Blood platelet mean volumeOr dered By: [facility] on 07-08-2023 Platelet mean volume (Bld) [Entitic vol] 11.0 fL 6.2-12.0 [facility] Determination of erythrocyte mean corpuscular volume (MCV)Ordered By: charnew florenceayan Chauhan on 07-08-2023 MCV (RBC) [Entitic vol] 90.9 fL 81-99 [facility] Hematocrit Auto (Bld) [Volum e fraction]Ordered By: [facility] on 07-08-2023 Hematocrit (Bld) [Volume fraction] 44.9 % 37-47 [facility] Laboratory - Chemistry and C hemistry - challengeOrdered By: [facility] on 07-08-2023 ALP [Catalytic activity/Vol] 79 U/L 45-117 [facility] ALT [Catalytic activity/Vol] 30 U/L 13-56 [facility] CO2 [Moles/Vol] 26.0 mmol/L 21.0-32.0 [facility] Globulin (S) [Mass/Vol] 3.4 g/dL 2.2-4.2 [facility] Urea nitrogen/Creatinine [Mass ratio] 24.3 mg/mg 10-20 [facility] Laboratory - Hematology and Cell countsOrdered By: charnew florenceayan Xionghouston on 07-08-2023 Erythrocyte distribution width (RBC) [Entitic vol] 41.7 fL 35.1-43.9 [facility] Erythrocyte distribution width (RBC) [Ratio] 12.7 % 11.6-14.6 [facility] Immature granulocytes/100 WBC (Bld) 0.400 % 0.0-0.9 [facility] Comment on above: IG% - Immature Granu locytes (promyelocytes, myelocytes and metamyelocytes) > 1% indicates that a LEFT SHIFT is Present. MCH (RBC) [Entitic mass] 29.4 pg 27.0-32.0 [facility] Nucleated RBC/100 WBC (Bld) [Ratio] 0 % 0-5 [facility] MCHC Auto (RBC) [Mass/Vol]Or dered By: Shannan Chauhan on 07-08-2023 MCHC (RBC) [Mass/Vol] 32.3 g/dL 32-36 [facility] No Panel InformationOrdered By: Shannan Chauhan on 07-08-2023 Estimated GFR (MDRD) Amer 68 mL/min >60 [facility] Comment on above: GFR Calc Estimated GFR (MDRD) Non-Af Amer 56 mL/min >60 [facility] Comment on above: Non- GFR Calc Thyroid Stimulating Hormone (TSH) 0.89 uIU/mL 0.358-3.74 [facility] Platelets bldOrdered By: Azam Chauhan on 07-08-2023 Platelets (Bld) [#/Vol] 265 10*3/uL 150-450 [facility] Serum or plasma albumin alysha urement (mass/volume)Ordered By: Shannan Chauhan on 07-08-2023 Albumin [Mass/Vol] 3.7 g/dL 3.2-5.0 [facility] Serum or plasma albumin/glob ulin mass ratioOrdered By: Shannan Chauhan on 07-08-2023 Albumin/Globulin [Mass ratio] 1.1 {ratio} 0.9-2.4 [facility] Serum or plasma calcium alysha urement (mass/volume)Ordered By: Shannan Chauhan on 07-08-2023 Calcium [Mass/Vol] 9.5 mg/dL 8.5-10.1 [facility] Serum or plasma cholesterol in HDL measurement (mass/volume)Ordered By: Shannan Chauhan on 07-08-2023 Cholesterol in HDL [Mass/Vol] 53 mg/dL >40 [facility] Comment on above: The drugs N-Acetylcy steine and Metamizole may falsely depress this assay. Reference Range HDL <40 mg/dL Low HDL Cholesterol HDL >or= 60 mg/dL High HDL Cholesterol Serum or plasma cholesterol in VLDL measurement (mass/volume)Ordered By: Shannan Chauhan on 07-08-2023 Cholesterol in VLDL [Mass/Vol] 31 mg/dL 5-40 [facility] Serum or plasma creatinine m easurement (mass/volume)Ordered By: Shannan Chauhan on 07-08-2023 Creatinine [Mass/Vol] 1.03 mg/dL 0.55-1.02 [facility] Comment on above: The validity of the calculated GFR & GFRAA in patients over 70 years has not been determined. Clinical correlation is essential. Serum or plasma low density lipoprotein (LDL) cholesterol measurement (mass/volume)Ordered By: Shannan Chauhan on 07-08-2023 Cholesterol in LDL [Mass/Vol] 66 mg/dL 0-130 [facility] Serum or plasma urea nitroge n measurement (mass/volume)Ordered By: Shannan Chauhan on 07-08-2023 Urea nitrogen [Mass/Vol] 25 mg/dL 7-18 [facility] Thin prep Papanicolaou smear with manual screeningOrdered By: Shannan Chauhan on 07-08-2023 Thin prep Papanicolaou smear with manual screening 22 U/L 15-37 [facility] Thin prep Papanicolaou smear with manual screening 8 5-15 [facility] Absolute lymphocyte countOrd ered By: Dr. Chauhan on 01-12-2023 Lymphocytes Auto (Unsp spec) [#/Vol] 1.91 10*3/uL 0.83-4.51 [facility] Basophil percentageOrdered B y: Dr. Chauhan on 01-12-2023 Basophils/100 WBC (Bld) 0.5 % 0-1 [facility] Bilirubin [Mass/Vol] 0.50 mg/dL 0.20-1.00 [facility] Comment on above: For patients on eltr ombopag therapy, use of Dimension [place] TBIL is not recommended. Chloride [Moles/Vol] 107 mmol/L 98-107 [facility] Eosinophils/100 WBC (Bld) 0.0 % 0-5 [facility] Glucose [Mass/Vol] 91 mg/dL 74-106 [facility] Neutrophils (Bld) [#/Vol] 5.1 10*3/uL 2.0-7.7 [facility] Neutrophils/100 WBC (Bld) 66.0 % 47-70 [facility] Potassium [Moles/Vol] 4.2 mmol/L 3.5-5.1 [facility] Protein [Mass/Vol] 6.8 g/dL 6.4-8.2 [facility] Sodium [Moles/Vol] 140 mmol/L 136-145 [facility] WBC (Bld) [#/Vol] 7.8 10*3/uL 4.4-11.0 [facility] Blood erythrocytes count (nu mber/volume)Ordered By: Dr. Chauhan on 01-12-2023 RBC (Bld) [#/Vol] 4.73 10*6/uL 4.2-5.4 [facility] Blood hemoglobin measurement (mass/volume)Ordered By: Dr. Chauhan on 01-12-2023 Hemoglobin (Bld) [Mass/Vol] 13.8 g/dL 12.0-15.0 [facility] Blood lymphocytes/100 leukoc ytesOrdered By: Dr. Chauhan on 01-12-2023 Lymphocytes/100 WBC (Bld) 24.6 % 19-41 [facility] Blood monocytes/100 leukocyt esOrdered By: Dr. Chauhan on 01-12-2023 Monocytes/100 WBC (Bld) 8.5 % 0-10 [facility] Blood platelet mean volumeOr dered By: Dr. Chauhan on 01-12-2023 Platelet mean volume (Bld) [Entitic vol] 10.1 fL 6.2-12.0 [facility] Determination of erythrocyte mean corpuscular volume (MCV)Ordered By: Dr. Chauhan on 01-12-2023 MCV (RBC) [Entitic vol] 89.0 fL 81-99 [facility] Hematocrit Auto (Bld) [Volum e fraction]Ordered By: Dr. Chauhan on 01-12-2023 Hematocrit (Bld) [Volume fraction] 42.1 % 37-47 [facility] Laboratory - Chemistry and C hemistry - challengeOrdered By: Dr. Chauhan on 01-12-2023 ALP [Catalytic activity/Vol] 83 U/L 45-117 [facility] ALT [Catalytic activity/Vol] 32 U/L 13-56 [facility] CO2 [Moles/Vol] 26.0 mmol/L 21.0-32.0 [facility] Globulin (S) [Mass/Vol] 3.2 g/dL 2.2-4.2 [facility] Urea nitrogen/Creatinine [Mass ratio] 19.8 mg/mg 10-20 [facility] Laboratory - Hematology and Cell countsOrdered By: Dr. Chauhan on 01-12-2023 Erythrocyte distribution width (RBC) [Entitic vol] 41.4 fL 35.1-43.9 [facility] Erythrocyte distribution width (RBC) [Ratio] 12.7 % 11.6-14.6 [facility] Immature granulocytes/100 WBC (Bld) 0.400 % 0.0-0.9 [facility] Comment on above: IG% - Immature Granu locytes (promyelocytes, myelocytes and metamyelocytes) > 1% indicates that a LEFT SHIFT is Present. MCH (RBC) [Entitic mass] 29.2 pg 27.0-32.0 [facility] Nucleated RBC/100 WBC (Bld) [Ratio] 0 % 0-5 [facility] MCHC Auto (RBC) [Mass/Vol]Or dered By: Dr. Chauhan on 01-12-2023 MCHC (RBC) [Mass/Vol] 32.8 g/dL 32-36 [facility] No Panel InformationOrdered By: Dr. Chauhan on 01-12-2023 Estimated GFR (MDRD) Amer 74 mL/min >60 [facility] Comment on above: GFR Calc Estimated GFR (MDRD) Non-Af Amer 61 mL/min >60 [facility] Comment on above: Non- GFR Calc Thyroid Stimulating Hormone (TSH) 0.89 uIU/mL 0.358-3.74 [facility] Vitamin D 25-Hydroxy 53.9 ng/mL [facility] Comment on above: Vitamin D 25(OH) Sta tus Range Deficiency <20 ng/mL (50nmol/L) Insufficiency 20 - 30 ng/mL (50 - 75 nmol/L) Sufficiency 30 - 100 ng/mL (75 - 250 nmol/L) Toxicity >100 ng/mL (>250 nmol/L) Platelets bldOrdered By: Dr. Chauhan on 01-12-2023 Platelets (Bld) [#/Vol] 277 10*3/uL 150-450 [facility] Serum or plasma albumin alysha urement (mass/volume)Ordered By: Dr. Chauhan on 01-12-2023 Albumin [Mass/Vol] 3.6 g/dL 3.2-5.0 [facility] Serum or plasma albumin/glob ulin mass ratioOrdered By: Dr. Chauhan on 01-12-2023 Albumin/Globulin [Mass ratio] 1.1 {ratio} 0.9-2.4 [facility] Serum or plasma calcium alysha urement (mass/volume)Ordered By: Dr. Chauhan on 01-12-2023 Calcium [Mass/Vol] 9.3 mg/dL 8.5-10.1 [facility] Serum or plasma creatinine m easurement (mass/volume)Ordered By: Dr. Chauhan on 01-12-2023 Creatinine [Mass/Vol] 0.96 mg/dL 0.55-1.02 [facility] Comment on above: The validity of the calculated GFR & GFRAA in patients over 70 years has not been determined. Clinical correlation is essential. Serum or plasma urea nitroge n measurement (mass/volume)Ordered By: Dr. Chauhan on 01-12-2023 Urea nitrogen [Mass/Vol] 19 mg/dL 7-18 [facility] Thin prep Papanicolaou smear with manual screeningOrdered By: Dr. Chauhan on 01-12-2023 Thin prep Papanicolaou smear with manual screening 27 U/L 15-37 [facility] Thin prep Papanicolaou smear with manual screening 7 5-15 [facility] Basophil percentageOrdered B y: Dr. Chauhan on 08-09-2022 Bilirubin [Mass/Vol] 0.50 mg/dL 0.20-1.00 [facility] Comment on above: For patients on eltr ombopag therapy, use of Dimension [place] TBIL is not recommended. Chloride [Moles/Vol] 106 mmol/L 98-107 [facility] Cholesterol [Mass/Vol] 158 mg/dL <200 [facility] Comment on above: <200 mg/dL Desirable 200-240 mg/dL Borderline >240 mg/dL High Risk Glucose [Mass/Vol] 90 mg/dL 74-106 [facility] Potassium [Moles/Vol] 4.2 mmol/L 3.5-5.1 [facility] Protein [Mass/Vol] 6.9 g/dL 6.4-8.2 [facility] Sodium [Moles/Vol] 139 mmol/L 136-145 [facility] Triglyceride [Mass/Vol] 157 mg/dL <199 [facility] Comment on above: The drugs N-Acetylcy steine and Metamizole may falsely depress this assay.Serum Triglycerides Reference Interval Normal <150 mg/dL Borderline high 150 - 199 mg/dL High 200 - 499 mg/dL Very High > or = 500 mg/dL Laboratory - Chemistry and C hemistry - challengeOrdered By: Dr. Chauhan on 08-09-2022 ALP [Catalytic activity/Vol] 86 U/L 45-117 [facility] ALT [Catalytic activity/Vol] 30 U/L 13-56 [facility] CO2 [Moles/Vol] 26.0 mmol/L 21.0-32.0 [facility] Globulin (S) [Mass/Vol] 3.2 g/dL 2.2-4.2 [facility] Urea nitrogen/Creatinine [Mass ratio] 17.5 mg/mg 10-20 [facility] No Panel InformationOrdered By: Dr. Chauhan on 08-09-2022 Estimated GFR (MDRD) Amer 73 mL/min >60 [facility] Comment on above: GFR Calc Estimated GFR (MDRD) Non-Af Amer 60 mL/min >60 [facility] Comment on above: Non- GFR Calc Serum or plasma albumin alysha urement (mass/volume)Ordered By: Dr. Chauhan on 08-09-2022 Albumin [Mass/Vol] 3.7 g/dL 3.2-5.0 [facility] Serum or plasma albumin/glob ulin mass ratioOrdered By: Dr. Chauhan on 08-09-2022 Albumin/Globulin [Mass ratio] 1.2 {ratio} 0.9-2.4 [facility] Serum or plasma calcium alysha urement (mass/volume)Ordered By: Dr. Chauhan on 08-09-2022 Calcium [Mass/Vol] 9.5 mg/dL 8.5-10.1 [facility] Serum or plasma cholesterol in HDL measurement (mass/volume)Ordered By: Dr. Chauhan on 08-09-2022 Cholesterol in HDL [Mass/Vol] 60 mg/dL >40 [facility] Comment on above: The drugs N-Acetylcy steine and Metamizole may falsely depress this assay. Reference Range HDL <40 mg/dL Low HDL Cholesterol HDL >or= 60 mg/dL High HDL Cholesterol Serum or plasma cholesterol in VLDL measurement (mass/volume)Ordered By: Dr. Chauhan on 08-09-2022 Cholesterol in VLDL [Mass/Vol] 31 mg/dL 5-40 [facility] Serum or plasma creatinine m easurement (mass/volume)Ordered By: Dr. Chauhan on 08-09-2022 Creatinine [Mass/Vol] 0.97 mg/dL 0.55-1.02 [facility] Comment on above: The validity of the calculated GFR & GFRAA in patients over 70 years has not been determined. Clinical correlation is essential. Serum or plasma low density lipoprotein (LDL) cholesterol measurement (mass/volume)Ordered By: Dr. Chauhan on 08-09-2022 Cholesterol in LDL [Mass/Vol] 67 mg/dL 0-130 [facility] Serum or plasma urea nitroge n measurement (mass/volume)Ordered By: Dr. Chauhan on 08-09-2022 Urea nitrogen [Mass/Vol] 17 mg/dL 7-18 [facility] Thin prep Papanicolaou smear with manual screeningOrdered By: Dr. Chauhan on 08-09-2022 Thin prep Papanicolaou smear with manual screening 22 U/L 15-37 [facility] Thin prep Papanicolaou smear with manual screening 7 5-15 [facility] Office Visit: UC: cough/sancho estionon 07-17-2017 Documentation of current medications (procedure) Done Invalid Interpretation Code [facility] Work Phone: Fall risk assessment No Invalid Interpretation Code [facility] Work Phone: Tobacco smoking status NHIS Never Invalid Interpretation Code [facility] Work Phone: Tobacco use CPHS Never smoker Invalid Interpretation Code [facility] Work Phone: Lab Report: Differential Com menton 05-26-2015 SMEAR COMMENT . Invalid Interpretation Code [facility] Work Phone: Lab Report: Partial Thrombop last Timeon 05-26-2015 aPTT 33.6 s Invalid Interpretation Code 24.1-36.2 [facility] Work Phone: Lab Report: Prothrombin Time w/INRon 05-26-2015 INR Coag RelTime (PPP) 0.9 {INR} Invalid Interpretation Code [facility] Work Phone: Prothrombin time (PT) Coag time (PPP) 12.5 s Invalid Interpretation Code 11.7-14.9 [facility] Work Phone: Replaced Document: CBC-Compl ete Blood Cnt No Diffon 05-26-2015 Erythrocyte distribution width Auto Ratio (RBC) 15.4 % High 11.6-14.6 [facility] Work Phone: Erythrocytes (RBC) 4.38 10*6/uL Invalid Interpretation Code 4.2-5.4 [facility] Work Phone: Hematocrit (HCT) 31.4 % Low 37-47 [facility] Work Phone: Hemoglobin mass conc (Bld) 9.3 g/dL Low 12.0-15.0 [facility] Work Phone: MCH 21.2 pg Low 27.0-32.0 [facility] Work Phone: MCHC mass conc (RBC) 29.6 G/GL Low 32-36 [facility] Work Phone: MCV 71.7 fL Low 81-99 [facility] Work Phone: Platelets 272 10*3/mm3 Invalid Interpretation Code 150-450 [facility] Work Phone: PMV by Mehul 9.2 fL Invalid Interpretation Code 6.2-12.0 [facility] Work Phone: RDW SD 40.9 fL Invalid Interpretation Code 35.1-43.9 [facility] Work Phone: WBC (Leukocytes) 6.5 10*3/uL Invalid Interpretation Code 4.4-11.0 [facility] Work Phone: Office Visiton 05-21-2015 Smoking cessation education (procedure) yes Invalid Interpretation Code [facility] Work Phone: SURGICAL PATHOLOGY, [facility] Tk 11-28-1998 FINAL DIAGNOSIS Left Breast, Excisional Biopsy - FIBROADENOMA. - FIBROSIS, DUCT ECTASIA, APOCRINE METAPLASIA, AND SCLEROSING ADENOSIS. - MICROCALCIFICATION NOTED. [facility], /Age: 11 1950 (Age: 48) Collected:11/27/1998 Received: Reported:11/28/1998 SURGICAL PATHOLOGY REPORT * Converted Case * This report may not match the original report format CLINICAL INFORMATION Clinical History: PATIENT IS 48 YEAR OLD WHITE FEMALE WITH HISTORY MASS OF LEFT BREAST, MOBILE, NONTENDER. Additional Clinical Information: Admission #: [id number] Surgeon: ELSA GARCIA Attending Physician(s): JONH ARNETT PAUL Operation and site: EXCISIONAL BIOPSY Pre-Operative Diagnosis: [...] surface. No apparent firm mass is identified. 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 Paulino Pressley M.D. MIREYA/glenny / [facility] SURGICAL PATHOLOGY, [facility] Tk 11-12-1998 FINAL DIAGNOSIS Uterine Endometrium, Curettage - SECRETORY PHASE PATTERN ENDOMETRIUM. COMMENT Some of the fragments demonstrate thickened and prominent blood vessels, suggestive of endometrial polyp. [facility]: 11 1950 (Age: 48) Collected:11/10/1998 Received: Reported:11/12/1998 SURGICAL PATHOLOGY REPORT * Converted Case * This report may not match the original report format CLINICAL INFORMATION Clinical History: 48 YEAR OLD WITH MENORRHAGIA Additional Clinical Information: Admission #: [id number] Surgeon: KOJO SANTIAGO Operation and site: ENDOMETRIAL BIOPSY Pre-Operative Diagnosis: MENORRHAGIA Post-Operative Diagnosis: MENORRHAGIA SPECIMEN INFORMATION ENDOMETRIAL BIOPSY Electronically Signed Out By Conversion for GROSS DESCRIPTION The specimen is received in formalin and consists of multiple, cord-like, soft tissue structures measuring in aggregate 2.5 X 1.9 X 0.2 cm. The specimen is entirely submitted in one cassette. Martina Alexis/glenny / [facility] SURGICAL PATHOLOGY, [place] Don 06-25-1997 FINAL DIAGNOSIS A Sigmoid Colon, Biopsies - FRAGMENTS OF COLONIC MUCOSA, NO SIGNIFICANT PATHOLOGIC CHANGE. B Rectum, Biopsies - FRAGMENTS OF COLONIC MUCOSA WITH HEMORRHAGE IN LAMINA PROPRIA. COMMENT A trichrome stain was used for evaluation in both specimens. [facility] SCHWLISETTEFIGURE, /Age: 11 1950 (Age: 46) Collected:06/21/1997 Received: Reported:06/25/1997 SURGICAL PATHOLOGY REPORT * Converted Case * This report may not match the original report format CLINICAL INFORMATION Clinical History: PATIENT WITH HISTORY OF RECTAL BLEEDING (BRIGHT RED), STOOL HEMOCCULT POSITIVE. Additional Clinical Information: Admission #: [id number] Surgeon: ELSA GARCIA Attending Physician(s): SHARON ARNETT Operation and site: COLONOSCOPY WITH BIOPSY Pre-Operative Diagnosis: RECTAL BLEEDING Post-Operative Diagnosis: #1 INTERNAL HEMORRHOIDS #2 SMALL PETECHIAL LESION MUCOSA SPECIMEN INFORMATION #1 BIOPSIES SIGMOID COLON; #2 BIOPSIES RECTUM Electronically Signed Out By Conversion for GROSS DESCRIPTION A Received in [facility] and labeled sigmoid colon biopsy are four fragments of light messina soft tissue that in aggregate measure 0.5 X 0.5 X 0.2 cm. The specimen is entirely submitted in one cassette. B Received in [place] and labeled rectal biopsies are two fragments of light messina soft tissue that in aggregate measure 0.3 X 0.3 X 0.2 cm. The specimen is entirely submitted in one cassette. Martina Alexis/quincy / [facility] Vital Signs Date Time Vital Sign Value Performing Clinician Facility 11-29-2023 12:04-0400 Body height 162.[address] Shannan Chauhan Work Phone: [facility] 11-29-2023 12:04-0400 Body mass index (BMI) [Ratio] 35 kg/m2 Dr. Shannan Chauhan Work Phone: [facility] 11-29-2023 12:04-0400 Body temperature 96.5 [degF] Dr. Shannan Chauhan Work Phone: [facility] 11-29-2023 12:04-0400 Body weight 92.[address] Shannan Chauhan Work Phone: [facility] 11-29-2023 12:04-0400 Diastolic blood pressure 74 mm[Hg] Dr. Shannan Chauhan Work Phone: [facility] 11-29-2023 12:04-0400 Heart rate 72 /min Dr. Shannan Chauhan Work Phone: [facility] 11-29-2023 12:04-0400 Respiratory rate 16 /min Dr. Shannan Chauhan Work Phone: [facility] 11-29-2023 12:04-0400 SaO2% (BldA) [Mass fraction] 94 % Dr. Shannan Chauhan Work Phone: [facility] 11-29-2023 12:04-0400 Systolic blood pressure 125 mm[Hg] Dr. Shannan Chauhan Work Phone: [facility] 11-21-2023 11:12-0400 Body height 162.[address] Shannan Chauhan Work Phone: [facility] 11-21-2023 11:12-0400 Body mass index (BMI) [Ratio] 34.9 kg/m2 Dr. Shannan Chauhan Work Phone: [facility] 11-21-2023 11:12-0400 Body temperature 97.8 [degF] Dr. Shannan Chauhan Work Phone: [facility] 11-21-2023 11:12-0400 Body weight 92.[address] Shannan Chauhan Work Phone: [facility] 11-21-2023 11:12-0400 Diastolic blood pressure 76 mm[Hg] Dr. Shannan Chauhan Work Phone: [facility] 11-21-2023 11:12-0400 Heart rate 70 /min Dr. Shannan Chauhan Work Phone: [facility] 11-21-2023 11:12-0400 Respiratory rate 16 /min Dr. Shannan Chauhan Work Phone: [facility] 11-21-2023 11:12-0400 SaO2% (BldA) [Mass fraction] 99 % Dr. Shannan Chauhan Work Phone: [facility] 11-21-2023 11:12-0400 Systolic blood pressure 124 mm[Hg] Dr. Shannan Chauhan Work Phone: [facility] 07-20-2023 10:38-0500 Body height 162.[address] Shannan Chauhan Work Phone: [facility] 07-20-2023 10:38-0500 Body mass index (BMI) [Ratio] 34.2 kg/m2 Dr. Shannan Chauhan Work Phone: [facility] 07-20-2023 10:38-0500 Body weight 90.[address] Shannan Chauhan Work Phone: [facility] 07-08-2023 11:00-0400 Body mass index (BMI) [Ratio] 34.8 kg/m2 Dr. Shannan Chauhan Work Phone: [facility] 07-08-2023 11:00-0400 Body temperature 97 [degF] Dr. Shannan Chauhan Work Phone: [facility] 07-08-2023 11:00-0400 Body weight 92.[address] Shannan Chauhan Work Phone: [facility] 07-08-2023 11:00-0400 Diastolic blood pressure 86 mm[Hg] Dr. Shannan Chauhan Work Phone: [facility] 07-08-2023 11:00-0400 Heart rate 69 /min Dr. Shannan Chauhan Work Phone: [facility] 07-08-2023 11:00-0400 Respiratory rate 16 /min Dr. Shannan Chauhan Work Phone: [facility] 07-08-2023 11:00-0400 SaO2% (BldA) [Mass fraction] 95 % Dr. Shannan Chauhan Work Phone: [facility] 07-08-2023 11:00-0400 Systolic blood pressure 122 mm[Hg] Dr. Shannan Chauhan Work Phone: [facility] 01-12-2023 10:59-0400 Body height 162.[address] Shannan Chauhan Work Phone: [facility] 01-12-2023 10:59-0400 Body mass index (BMI) [Ratio] 35.7 kg/m2 Dr. Shannan Chauhan Work Phone: [facility] 01-12-2023 10:59-0400 Body temperature 95.5 [degF] Dr. Shannan Chauhan Work Phone: [facility] 01-12-2023 10:59-0400 Body weight 94.[address] Shannan Chauhan Work Phone: [facility] 01-12-2023 10:59-0400 Diastolic blood pressure 84 mm[Hg] Dr. Shannan Chauhan Work Phone: [facility] 01-12-2023 10:59-0400 Heart rate 74 /min Dr. Shannan Chauhan Work Phone: [facility] 01-12-2023 10:59-0400 Respiratory rate 18 /min Dr. Shannan Chauhan Work Phone: [facility] 01-12-2023 10:59-0400 SaO2% (BldA) [Mass fraction] 96 % Dr. Shannan Chauhan Work Phone: [facility] 01-12-2023 10:59-0400 Systolic blood pressure 122 mm[Hg] Dr. Shannan Chauhan Work Phone: [facility] 11-18-2022 12:44-0500 Body temperature 97.7 [degF] Dr. Shannan Chauhan Work Phone: [facility] 11-18-2022 12:44-0500 Diastolic blood pressure 88 mm[Hg] Dr. Shannan Chauhan Work Phone: [facility] 11-18-2022 12:44-0500 Heart rate 80 /min Dr. Shannan Chauhan Work Phone: [facility] 11-18-2022 12:44-0500 Respiratory rate 16 /min Dr. Shannan Chauhan Work Phone: [facility] 11-18-2022 12:44-0500 SaO2% (BldA) [Mass fraction] 96 % Dr. Shannan Chauhan Work Phone: [facility] 11-18-2022 12:44-0500 Systolic blood pressure 132 mm[Hg] Dr. Shannan Chauhan Work Phone: [facility] 10-13-2022 10:56-0500 Body height 162.[address] Shannan Chauhan Work Phone: [facility] 10-13-2022 10:56-0500 Body mass index (BMI) [Ratio] 35.3 kg/m2 Dr. Shannan Chauhan Work Phone: [facility] 10-13-2022 10:56-0500 Body temperature 96.2 [degF] Dr. Shannan Chauhan Work Phone: [facility] 10-13-2022 10:56-0500 Body weight 93.[address] Shannan Chauhan Work Phone: [facility] 10-13-2022 10:56-0500 Diastolic blood pressure 64 mm[Hg] Dr. Shannan Chauhan Work Phone: [facility] 10-13-2022 10:56-0500 Heart rate 73 /min Dr. Shannan Chauhan Work Phone: [facility] 10-13-2022 10:56-0500 Respiratory rate 16 /min Dr. Shannan Chauhan Work Phone: [facility] 10-13-2022 10:56-0500 SaO2% (BldA) [Mass fraction] 94 % Dr. Shannan Chauhan Work Phone: [facility] 10-13-2022 10:56-0500 Systolic blood pressure 106 mm[Hg] Dr. Shannan Chauhan Work Phone: [facility] 08-09-2022 10:39-0500 Body height 162.[address] Shannan Chauhan Work Phone: [facility] Work Phone: 08-09-2022 10:39-0500 Body mass index (BMI) [Ratio] 35.3 kg/m2 Dr. Shannan Chauhan Work Phone: [facility] 08-09-2022 10:39-0500 Body temperature 96.8 [degF] Dr. Shannan Chauhan Work Phone: [facility] 08-09-2022 10:39-0500 Body weight 93.[address] Shannan Chauhan Work Phone: [facility] 08-09-2022 10:39-0500 Diastolic blood pressure 68 mm[Hg] Dr. Shannan Chauhan Work Phone: [facility] 08-09-2022 10:39-0500 Heart rate 73 /min Dr. Shannan Chauhan Work Phone: [facility] 08-09-2022 10:39-0500 Respiratory rate 16 /min Dr. Shannan Chauhan Work Phone: [facility] 08-09-2022 10:39-0500 SaO2% (BldA) [Mass fraction] 97 % Dr. Shannan Chauhan Work Phone: [facility] 08-09-2022 10:39-0500 Systolic blood pressure 110 mm[Hg] Dr. Shannan Chauhan Work Phone: [facility] 05-07-2022 13:24-0400 Body mass index (BMI) [Ratio] 35 kg/m2 Dr. Shannan Chauhan Work Phone: [facility] Work Phone: 05-07-2022 13:24-0400 Body temperature 97.3 [degF] Dr. Shannan Chauhan Work Phone: [facility] Work Phone: 05-07-2022 13:24-0400 Body weight 92.[address] Shannan Chauhan Work Phone: [facility] Work Phone: 05-07-2022 13:24-0400 Diastolic blood pressure 62 mm[Hg] Dr. Shannan Chauhan Work Phone: [facility] Work Phone: 05-07-2022 13:24-0400 Heart rate 75 /min Dr. Shannan Chauhan Work Phone: [facility] Work Phone: 05-07-2022 13:24-0400 Respiratory rate 16 /min Dr. Shannan Chauhan Work Phone: [facility] Work Phone: 05-07-2022 13:24-0400 SaO2% (BldA) [Mass fraction] 97 % Dr. Shannan Chauhan Work Phone: [facility] Work Phone: 05-07-2022 13:24-0400 Systolic blood pressure 102 mm[Hg] Dr. Shannan Chauhan Work Phone: [facility] Work Phone: 07-17-2017 08:25-0500 BMI (Body Mass Index) 29.05 kg/m2 [facility] Work Phone: 07-17-2017 08:25-0500 Body Temperature 98.6 [degF] [facility] Work Phone: 07-17-2017 08:25-0500 BP Diastolic 82 mm[Hg] [facility] Work Phone: 07-17-2017 08:25-0500 BP Systolic 124 mm[Hg] [facility] Work Phone: 07-17-2017 08:25-0500 Height 167.64 cm [facility] Work Phone: 07-17-2017 08:25-0500 Pulse (Heart Rate) 72 /min [facility] Work Phone: 07-17-2017 08:25-0500 Respiratory Rate 14 /min [facility] Work Phone: 07-17-2017 08:25-0500 Weight 81.65 kg [facility] Work Phone: 05-26-2017 14:29-0400 Body Temperature 98.01 [degF] [facility] Work Phone: 05-26-2017 14:29-0400 Height 167.64 cm [facility] Work Phone: 05-26-2017 14:29-0400 Weight 79.38 kg [facility] Work Phone: 05-21-2015 14:33-0400 BSA (Body Surface Area) 1.79 m2 [facility] Work Phone: Encounters Encounter Date Encounter Type Care Provider Facility Start: 05-03-2025 ambulatory [facility] Facility :[facility] Start: 04-12-2025 End: 04-12-2025 ambulatory [facility] Start: 04-08-2025 End: 04-08-2025 ambulatory [facility] Facility:[facility] Start: 04-08-2025 End: 04-08-2025 ambulatory [facility] Facility:[facility] Start: 01-07-2025 End: 01-07-2025 ambulatory [facility] Start: 09-19-2024 End: 09-19-2024 ambulatory [facility] Facility:[facility] Start: 09-03-2024 End: 09-03-2024 ambulatory [facility] Start: 09-03-2024 End: 09-03-2024 ambulatory [facility] Facility:[facility] Start: 06-28-2024 End: 06-28-2024 Emergency department patient visit [facility] Facility:[facility] Start: 06-27-2024 End: 06-27-2024 ambulatory [facility] Facility:[facility] Start: 06-13-2024 End: 06-13-2024 ambulatory [facility] Facility:[facility] Start: 06-06-2024 End: 06-06-2024 ambulatory [facility] Facility:[facility] Start: 05-30-2024 End: 05-30-2024 ambulatory Shannan Chauhan Facility:[facility] Start: 05-17-2024 End: 05-17-2024 ambulatory Ghazal Rivera Facility:[facility] Start: 01-03-2024 End: 01-03-[address] Shannan Chauhan Work Phone: [facility] Work Phone: Start: 01-03-2024 End: 01-03-[address] Shannan Chauhan Work Phone: [facility]-Outpatient Bone Densitometry Work Phone: Start: 11-29-2023 End: 11-29-[address] Shannan Chauhan Work Phone: [facility] Work Phone: Start: 11-29-2023 End: 11-29-[address] Shannan Chauhan Work Phone: [facility] Work Phone: Start: 11-21-2023 End: 11-21-[address] Shannan Chauhan Work Phone: [facility] Work Phone: Start: 11-21-2023 End: 11-21-2023 Encounter for general adult medical examination without abnormal findings Dr. Shannan Chauhan Work Phone: [facility] Start: 11-21-2023 End: 11-21-[address] Shannan Chauhan Work Phone: [facility] Internal Medicine Work Phone: Start: 08-29-2023 End: 08-29-[address] Shannan Chauhan Work Phone: [facility] Work Phone: Start: 08-29-2023 End: 08-29-[address] Shannan Chauhan Work Phone: [facility]-Outpatient Breast Imaging Work Phone: Start: 08-26-2023 End: 08-26-[address] Shannan Chauhan Work Phone: [facility] Work Phone: Start: 08-25-2023 End: 08-25-[address] Shannan Chauhan Work Phone: [facility] Work Phone: Start: 08-25-2023 End: 08-25-[address] Shannan Chauhan Work Phone: [facility]-Physical Therapy Work Phone: Start: 08-25-[address] Josue Chauhan Work Phone: [facility]-Physical Therapy Work Phone: Start: 08-19-2023 End: 08-19-[address] Shannan Chauhan Work Phone: [facility] Work Phone: Start: 08-12-2023 End: 08-12-[address] Shannan Chauhan Work Phone: [facility] Work Phone: Start: 07-20-2023 End: 07-20-[address] Shannan Chauhan Work Phone: [facility] Work Phone: Start: 07-08-2023 End: 07-08-[address] Shannan Chauhan Work Phone: [facility]-Laboratory, [facility] Start: 07-08-2023 End: 07-08-2023 Encounter for general adult medical examination without abnormal findings Dr. Shannan Chauhan Work Phone: [facility] Start: 07-08-2023 End: 07-08-[address] Shannan Chauhan Work Phone: [facility] Internal Medicine Work Phone: Start: 01-12-2023 End: 01-12-[address] Shannan Chauhan Work Phone: [facility] Work Phone: Start: 01-12-2023 End: 01-12-[address] Shannan Chauhan Work Phone: [facility] Internal [facility] Start: 11-24-2022 End: 11-24-[address] Shannan Chauhan Work Phone: [facility] Work Phone: Start: 11-24-2022 End: 11-24-[address] Shannan Chauhan Work Phone: [facility]-Sleep Lab Start: 11-18-2022 End: 11-18-[address] Shannan Chauhan Work Phone: [facility] Start: 10-13-2022 End: 10-13-[address] Shannan Chauhan Work Phone: [facility] Internal Medicine Start: 08-26-2022 End: 08-26-[address] Shannan Chauhan Work Phone: [facility] Work Phone: Start: 08-26-2022 End: 08-26-[address] Shannan Chauhan Work Phone: [facility]-Outpatient Breast Imaging Start: 08-09-2022 End: 08-09-[address] Shannan Chauhan Work Phone: [facility] Work Phone: Start: 08-09-2022 End: 08-09-2022 Encounter for general adult medical examination without abnormal findings Dr. Shannan Chauhan Work Phone: [facility] Internal [facility] Start: 08-09-2022 End: 08-09-[address] Shannan Chauhan Work Phone: [facility] Internal [facility] Start: 05-07-2022 End: 05-07-[address] Shannan Chauhan Work Phone: [facility] Start: 06-29-[address] [place] Chauhan Work Phone: [facility] Start: 11-27-1998 End: 10-12-2024 Documentation procedure Provider [facility] Start: 11-27-1998 End: 10-12-2024 Historic EMR Provider [facility] Start: 11-10-1998 End: 10-12-2024 Documentation procedure Provider [facility] Start: 11-10-1998 End: 10-12-2024 Historic EMR Provider [facility] Start: 06-21-1997 End: 10-12-2024 Documentation procedure Provider [facility] Start: 06-21-1997 End: 10-12-2024 Historic EMR Provider [facility] Procedures Date Procedure Procedure Detail [...] Phone: Start: 11-27-1998 SURGICAL PATHOLOGY, CONVERTED Provider [facility] Start: 11-10-1998 SURGICAL PATHOLOGY, CONVERTED Provider [facility] Start: 06-21-1997 SURGICAL PATHOLOGY, CONVERTED Provider [facility] H/O: hysterectomy H/O: hysterectomy Dr. Houston Chauhan Work Phone: Plan of Treatment Date Care Activity Detail Author Start: 2027 RSV Vaccine (1 - 1-dose 75+ series) RSV Vaccine (1 - 1-dose 75+ series) [facility] Start: 09-12-2024 Advance Directive Discussion Advance Directive Discussion [facility] Start: 05-13-2024 Covid-19 Vaccine ( season) Covid-19 Vaccine ( season) [facility] Start: 05-13-2024 Influenza vaccination Influenza Vaccine (#1) [facility] Start: 07-20-2023 Patient referral [facility] Work Phone: Start: 2017 Screening for osteoporosis Bone Density Screening [facility] Start: 07-17-2017 End: 07-17-2017 Appointment Appointment [facility] Work Phone: Start: 05-04-2017 End: 05-06-2017 Mammogram, one breast Mammogram, Diagnositic Unilateral [facility] Work Phone: Start: 05-04-2017 End: 05-06-2017 Us exam, breast(s) US Breast(s) [facility] Work Phone: Start: 2002 Pneumococcal Vaccine: 50+ (1 of 1 - PCV) Pneumococcal Vaccine: 50+ (1 of 1 - PCV) [facility] Start: 2002 Shingrix Vaccine (1 of 2) Shingrix Vaccine (1 of 2) [facility] Start: 1997 Diabetes Screening Diabetes Screening [facility] Start: 1997 Lipid panel Lipid Screening [facility] Start: 1997 Screening for malignant neoplasm of colon [facility] Start: 1992 Screening for malignant neoplasm of breast Mammogram Screening [facility] Start: 1971 Urine microalbumin profile DTaP,Tdap,Td Vaccine (1 - Tdap) [facility] Start: 1970 Anxiety Screening Anxiety Screening [facility] Start: 1970 Depression Screening Depression Screening [facility] Start: 1970 Hepatitis C screening Hepatitis C Screening [facility] DXA Bone [Mass/Area] Bone density [facility] MG Breast - bilatera l Screening [facility] Work Phone: Patient referral [facility] Work Phone: Immunizations Immunization Date Immunization Notes Care Provider [facility] 07-08-2023 influenza, injectabl e, quadrivalent, preservative free Dr. Shannan Chauhan Work Phone: [facility] 09-25-2020 influenza, injectabl e, quadrivalent, preservative free Dr. Shannan Chauhan Work Phone: [facility] 09-25-2020 influenza, seasonal, injectable Dr. Shannan Chauhan Work Phone: [facility] 09-25-2019 pneumococcal polysaccharide vaccine, [address] Shannan Chauhan Work Phone: [facility] 06-26-2019 influenza, injectabl e, quadrivalent, preservative free Dr. Shannan Chauhan Work Phone: [facility] 06-26-2019 influenza, seasonal, injectable Dr. Shannan Chauhan Work Phone: [facility] 07-12-2018 pneumococcal conjuga te vaccine, [address] Shannan Chauhan Work Phone: [facility] 05-26-[address] Shannan Chauhan Work Phone: [facility] 07-10-2012 influenza virus vacc ine, unspecified formulation Provider [facility] Payers Date Payer Category Payer Medicare [id number] 2024 Self-pay [id number] 2024 Unknown [id number] 2015 Unknown ANTHARMEN [id number] Unknown [id number] 2.16.8 [id number] Unknown [id number] 2.16.8 [id number] Unknown [id number] 2.16.8 [id number] Unknown [id number] 2.16.8 [id number] Unknown [id number] 2.16.8 [id number] Unknown [id number] 2.16.8 [id number] Unknown [id number] 2.16.8 [id number] Unknown [id number] 2.16.8 [id number] Unknown [id number] 2.16.8 [id number] Unknown [id number] 2.16.8 [id number] Unknown [id number] 2.16.8 [id number] Unknown [id number] 2.16.8 [id number] Unknown [id number] 2.16.8 [id number] Unknown [id number] 2.16.8 [id number] Social History Date Type Detail Facility Start: 08-09-2022 End: 11-29-2023 Tobacco smoking status NHIS Unknown if ever smoked [facility] Start: 05-21-2020 Cigarettes [facility] Start: 1950 Sex Assigned At Female [facility] Start: 1950 Sex assigned at Not on file [facility] Gender identity Not on file [facility] in Evaluation note Note Date & Type Note Facility Evaluation note Diagnosis Onset Date Depression with anxiety 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 Hypertension chronic Hypothyroidism chronic Health care maintenance acut e Depression with anxiety 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 Hyperlipidemia chronic Hypertension chronic [facility] Work Phone: Evaluation note Note Date & Type Note Facility Evaluation note Diagnosis Onset Date Health care maintenance acut e Depression with anxiety 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 Hyperlipidemia chronic Hypertension chronic Hypersomnolence chronic VIELKA (obstructive sleep apnea) chronic Acute bronchitis, unspecified acute [facility] Work Phone: Evaluation note Note Date & Type Note Facility Evaluation note Diagnosis Onset Date Hypersomnolence chronic VIELKA (obstructive sleep apnea) chronic Acute bronchitis, unspecified acute GERD (gastroesophageal reflux disease) chronic Hypertension chronic Hypothyroidism chronic VIELKA (obstructive sleep apnea) chronic Osteopenia chronic [facility] Work Phone: Evaluation note Note Date & Type Note Facility Evaluation note Diagnosis Onset Date Health care maintenance acut e Fatigue chronic Hypertension chronic Hypothyroidism chronic VIELKA (obstructive sleep apnea) chronic Osteoarthritis chronic Osteoarthritis of both knees acute Osteoarthritis of both knees acute Osteoarthritis of both knees acute Osteoarthritis of both knees acute [facility] Work Phone: Evaluation note Note Date & Type Note Facility Evaluation note Diagnosis Onset Date Osteoarthritis of both knees acute Osteoarthritis of both knees acute Osteoarthritis of both knees acute Health care maintenance acut e Depression with anxiety 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 Hyperlipidemia chronic Hypertension chronic [facility] Work Phone: Evaluation note Note Date & Type Note Facility Evaluation note Diagnosis Onset Date Osteoarthritis of both knees acute Osteoarthritis of both knees acute Osteoarthritis of both knees acute Health care maintenance acut e Depression with anxiety 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 Hyperlipidemia chronic Hypertension chronic Encounter for screening for malignant neoplasm of lung acute History of tobacco use [facility] Work Phone: Evaluation note Note Date & Type Note Facility Evaluation note Diagnosis Onset Date Osteoarthritis of both knees acute Health care maintenance acut e Depression with anxiety 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 Hyperlipidemia chronic Hypertension chronic Encounter for screening for malignant neoplasm of lung acute History of tobacco use [facility] Work Phone: Evaluation note Note Date & Type Note Facility Evaluation note Diagnosis Onset Date Health care maintenance acut e Depression with anxiety 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 Hyperlipidemia chronic Hypertension chronic Encounter for screening for malignant neoplasm of lung acute History of tobacco use [facility] Work Phone: Chief Complaint and Reason for [...] TO QUALIFY Reason for Visit Health care maintena nce Depression with anxiety Hyperlipidemia Hypertension Hypersomnolence [...] POST AMANDA Reason for Visit Health care maintena nce Depression with anxiety Hyperlipidemia Hypertension Encounter for [...] Yes December 30, 2020 1:00pm Power of Wildfire Prevention Specialist Yes December 30 1:00pm Advance Directive Response Recorded Date/ Time Advance Directives Yes December 30, 021 2:00pm Living Will Yes December 30, 2020 2:00pm Power of Wildfire Prevention Specialist Yes December 30 2:00pm Summary Purpose Additional [...] Dates Dr. Shannan Chauhan MD Primary Care Michelle aguirre, Attending Provider, Referring Provider Active Team Status: Inactive Member Role Status Dates Dr. Shannan Chauhan MD Primary Care Provider, Refer ring Provider Active Jose Roberto HERNANDEZ, PA Attending Provider Active Team Status: Inactive Member Role Status Dates Dr. Shannan Chauhan MD Primary Care Provider Active Jose Roberto HERNANDEZ, PA Active Dr. Hussein Cabello MD Attending [...] Primary Care Provider, Refer ring Provider Active MARY Miranda Attending Provider Active Team Status: Active Member Role Status Dates Dr. Shannan Chauhan MD Primary Care Provider Active Dr. Javad Valdez DO Attending Provider, Referring Provider Active Team Status: Inactive Member Role Status Dates Dr. Shannan Chauhan MD Primary Care Provider Active Mariluz Villarreal ROTOR COIL TAPER, ROTOR COIL TAPER-C Attending Provider, Referring Provider Active Team Status: Inactive Member Role Status Dates Dr. Shannan Chauhan MD Primary Care Provider Active Dr. 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 Relationship Specialty Start Date End Date Sushma Ballard DO PCP - General 12/30/06 04/12/16 Roselia Bergman PCP - General 01/01/04 12/29/06 Kojo Duran MD PCP - General Family Medicine 04/13/16 Source Comments (unrecognize d section and content) In the event this informatio n is protected by the Federal Confidentiality of Alcohol and Drug Abuse Patient Records regulations: The Federal rules restrict any use of the information to criminally investigate or prosecute any alcohol or drug abuse patient.[facility] event this information is protected by the Federal Confidentiality of Alcohol and Drug Abuse Patient Records regulations: The Federal rules restrict any use of the information to criminally investigate or prosecute any alcohol or drug abuse patient.[facility] the event this information is protected by the Federal Confidentiality of Alcohol and Drug Abuse Patient Records regulations: The Federal rules restrict any use of the information to criminally investigate or prosecute any alcohol or drug abuse patient.[facility] INFORMATION SOURCE (unrecogn ized section and content) DATE CREATED AUTHOR 04/22/2025 [facility] FOR RECORDS PERTAINING TO PATIENTS WHO [...] BE BASED ON THE PRIMARY CLINICAL RECORDS. [facility]. provides no warranty or guarantee of the accuracy or completeness of information in this document.
[2025-05-03] MEDS: Lactated Ringers 1,000 ML 15 ML IV (08:00)
--- NOTE | 2025-05-03 08:08 | PCM.PRE.AN2 ---
ASA Classification* ASA Classification ASA Classification: 2 Assessment & Plan Anesthesia* Anesthesia Assessment Anesthesia Assessment: Discussed sedation and/or anesthesia options, risks, benefits, and alternatives with patient/parents/legal guardian/POA. Questions invited. The patient/parents/legal guardian/POA seems to understand and agrees to proceed with anesthesia plan. Reviewed the physical assessment, medical history, allergy history and patient home medications list prior to surgery/procedure/anesthetic and documented any changes. Performed airway and anesthesia risk assessments. Anesthesia Type Anesthesia Type: MAC History Source History Obtained from:: Patient and Chart Anesthesia Focused Assessment* Temperature: 98.4 F Pulse Rate: 65 Blood Pressure: 96/54 Respiratory Rate: 16 Pulse Ox: 92 Oxygen Delivery Method: Room Air Airway Assessment Mouth opens: >3 cm Mallampati Score: IV Teeth Condition: Intact Neck Range of motion (ROM): Limited ROM (Slight Decrease) Labs Anesthesia Preop lab: CBC WBC 8.3 K/mm3 (4.4-11.0) 04/08/25 11:50 04/08/25 RBC 4.78 M/mm3 (4.2-5.4) 04/08/25 11:50 04/08/25 Hgb 12.8 g/dL (12.0-15.0) 04/08/25 11:50 04/08/25 Hct 40.9 % (37-47) 04/08/25 11:50 04/08/25 Plt Count 279 K/mm3 (150-450) 04/08/25 11:50 04/08/25 CHEMISTRY Potassium 4.4 mmol/L (3.3-5.1) 04/08/25 11:50 04/08/25 Sodium 139 mmol/L (133-145) 04/08/25 11:50 04/08/25 Magnesium 2.1 mg/dL (1.6-2.6) 09/25/20 05:20 09/25/20 BUN 16 mg/dL (4-19) 04/08/25 11:50 04/08/25 Creatinine 1.02 mg/dL (0.70-1.20) 04/08/25 11:50 04/08/25 Glucose 92 mg/dL (70-99) 04/08/25 11:50 04/08/25 TSH 1.840 uIU/mL (0.300-4.200) 04/08/25 11:50 04/08/25 COAG PT 13.1 SECONDS (11.7-14.9) 09/24/20 13:00 09/24/20 Pre-Assessment Diagnosis/Proposed Procedure Planned Operative Procedure(s): COLONOSCOPY Anesthesia History Anesthesia History - metalizer field operation: Anesthesia History - metalizer field operation Hx Hospitalization No 05/01/25 15:00 Any Problems With Anesthesia No 05/01/25 15:00 Cholinesterase deficiency No 05/01/25 15:00 You/Your Family Experience No 05/01/25 15:00 fever (hyperthermia) with Relationship Recent Exposure to Contagious No 05/03/25 07:51 Disease Does patient have nerve No 05/01/25 15:00 stimulator Patient instructed to have device shut off --Does patient have Pacemaker No 05/03/25 07:51 or ICD? When Was Last Pacemaker Check QUESTION #4 FULL TEXT: You/Your Family Experience fever (hyperthermia) with Anesthesia Last Oral Intake Last Oral intake: Last Oral Intake NPO since 20:00 05/03/25 07:51 Meds taken in AM with sips of Yes 05/03/25 07:51 water? Meds patient instructed to amlodipine, duloxetine, 05/03/25 07:51 take am of surgery levothyroxine Any additional information?: Yes Meds taken in AM with sips of water?: Yes PONV PONV - metalizer field operation: PONV - metalizer field operation Female Yes 05/01/25 15:00 HX of Motion Sickness Yes 05/01/25 15:00 HX of N/V After Surgery No 05/01/25 15:00 Non-Smoker Yes 05/01/25 15:00 Duration of Surgery greater No 05/01/25 15:00 than 60 minutes Number of Risk Factors 3 05/01/25 15:00 PONV Score Moderate Risk 05/01/25 15:00 Height & Weight Height & Weight: Anesthesia: Height & Weight Height 5 ft 4 in 05/03/25 07:51 Weight: 92 kg 05/03/25 07:51 Body Mass Index (BMI) 34.8 05/03/25 07:51 Respiratory Assessment Respiratory Assessment - metalizer field operation: Respiratory Tract Infection Hx - metalizer field operation Hx Respiratory Tract Infection No 05/01/25 15:00 STOP Sleep Apnea STOP Sleep Apnea - metalizer field operation: STOP Sleep Apnea - metalizer field operation Hx Hypertension Yes: CONTROLLED WITH MED 05/01/25 15:00 Hx Sleep Apnea Yes: MOUTH PIECE USED 05/01/25 15:00 CPAP No 05/01/25 15:00 BIPAP No 05/01/25 15:00 Do you snore loudly (louder than talking or can be heard Do you often feel tired/ fatigued/ sleepy during daytime? Has anyone observed you stop breathing during sleep? STOP Results Positive 05/01/25 15:00 QUESTION #5 FULL TEXT : Do you snore loudly (louder than talking or can be heard through closed doors)? 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 Specify any problems Hx of Preganancy in last 3 No 05/01/25 15:00 Months Nurse Filling Out Transfusion DSCHRIBER 05/01/25 15:00 & Questions: Date: 05/01/25 05/01/25 15:00 Time: 15:01 05/01/25 15:00 Patient unable to answer at this time (ie. confused, unrespo /Reproduction History /Reproductive History - metalizer field operation: /Reproductive Hx- metalizer field operation Hx Now No 05/01/25 15:00 Gestational Age (in weeks): EDC: Hx Hx Para Hx Section SAB No 05/01/25 15:00 Active Medications Active Medications: Current Medications Generic Name Dose Route Start Last Admin Trade Name Freq PRN Reason Stop Dose Admin Lactated Ringer's 1,000 mls @ 15 mls/hr 05/03/25 07:30 05/03/25 08:00 IV 15 mls/hr .Q48H MANI Administration PFSH Medical History Wears hearing aid Wears glasses Post-menopausal Alcohol use Arthritis Restless legs Migraine headache Syncope Former smoker History of diverticulitis Sleep apnea Shortness of breath on exertion History of stress test Alopecia Macular degeneration of both eyes Osteoarthritis Osteopenia Essential tremor Anxiety Depression Hypothyroidism GERD (gastroesophageal reflux disease) Hyperlipidemia Hypertension Anemia Home Medications ?Medication ?Instructions ?Recorded ?Last Taken ?Type biotin 2,500 mcg capsule 5,000 mcg PO DAILY 05/26/15 Unknown History cholecalciferol (vitamin D3) 25 2,000 unit PO DAILY 08/18/17 Unknown History mcg (1,000 unit) tablet aspirin 81 mg tablet,delayed 81 mg PO QDAY 03/14/18 04/30/25 History release acetaminophen 325 mg tablet 650 mg (2 x 325 mg) PO Q6H PRN PRN 09/27/20 Unknown Rx Pain Score 1-10/Temp > 100.7 F vit C 250 mg-vit E 90 mg-zinc 40 1 tab PO QAM AND QHS 05/07/22 Unknown History mg-copper 1 [id number] capsule (PreserVision AREDS-2) Oral sleep appliance #1 ea 05/14/22 Unknown Rx cetirizine 5 mg tablet 5 mg PO DAILY PRN allergy symptoms 01/12/23 Unknown History lorazepam 0.5 mg tablet 0.5 mg PO QHS PRN anxiety #30 tabs 01/07/25 Unknown Rx levothyroxine 75 mcg tablet 75 mcg PO QDAY #90 tabs 04/08/25 05/03/25 06:00 Rx (Synthroid) mirtazapine 7.5 mg tablet 7.5 mg PO QHS #90 tabs 04/08/25 Unknown Rx ferrous sulfate 325 mg (65 mg 325 mg PO Q OTHER DAY #90 tabs 04/10/25 04/29/25 Rx iron) tablet,delayed release amlodipine 5 mg tablet 5 mg PO QDAY #90 tabs 04/15/25 05/03/25 06:00 Rx duloxetine 60 mg capsule,delayed 60 mg PO DAILY #90 caps 04/15/25 05/03/25 07:50 Rx release potassium chloride 20 mEq 20 meq PO BID #180 TABLETS 04/15/25 Unknown Rx tablet,extended release triamterene 37.5 1 cap PO QAM #90 caps 04/15/25 Unknown Rx mg-hydrochlorothiazide 25 mg capsule metoprolol succinate 50 mg 50 mg PO QHS 05/01/25 Unknown History tablet,extended release 24 hr rosuvastatin 10 mg tablet (Crestor) 10 mg PO QHS 05/01/25 Unknown History Allergy/AdvReac Type Severity Reaction Status Date / Time baird pepper (green pepper) Allergy Mild Swelling Verified 05/01/25 14:56 cefaclor (From Count Includes [facility]) Allergy Rash Verified 05/01/25 14:56 ropinirole AdvReac Severe nightmares Verified 05/01/25 14:56 and nausea erythromycin base AdvReac Vomiting Verified 05/01/25 14:56 trazodone AdvReac syncope Verified 05/01/25 14:56 Family History Mother Arthritis Hypertension CVA (cerebral vascular accident) Father Heart disease Myocardial infarction Had his first at 50, lived to be 80. Hypertension Kidney disease Grandfather Cancer stomach CA Surgical History Hx of right cataract extraction Hx of left cataract extraction Hx of colonoscopy History of esophagogastroduodenoscopy (EGD) H/O breast biopsy H/O hemorrhoidectomy gallbladder removal H/O: hysterectomy Social History Smoking Status: Former smoker how long ago did patient quit smokin, 1ppd second hand exposure: Yes alcohol intake: never substance use type: does not use what type of physical activity do you participate in: none Review of Systems (Anesthesia) ROS Narrative System reviewed and no additional complaints, except as documented.
--- NOTE | 2025-05-03 08:23 | PCM.HP.STD ---
HPI - General General Date of Admission: 05/03/25 Date of Service: 05/03/25 Chief Complaint: blood per rectum - colonoscopy HPI Narrative Patient is a 74-year-old female who is being seen today for blood per rectum. It sounds as though this bleeding is noted essentially daily. Some days it may just be a little bit of blood on the toilet tissue after wiping from a bowel movement or it could be enough to discolor the water in the toilet. She states that her stools have actually been quite soft. She typically goes once or twice a day. She denies any need for straining or pushing. She does have a history of having a previous external hemorrhoidectomy surgery. She presents today to discuss treatment options [facility] Medical History (Updated 05/03/25 @ 08:[address] Jose Roberto Walden MD) Blood per rectum Wears hearing aid Wears glasses Post-menopausal Alcohol use Arthritis Restless legs Migraine headache Syncope Former smoker History of diverticulitis Sleep apnea Shortness of breath on exertion History of stress test Alopecia Macular degeneration of both eyes Osteoarthritis Osteopenia Essential tremor Anxiety Depression Hypothyroidism GERD (gastroesophageal reflux disease) Hyperlipidemia Hypertension Anemia Home Medications ?Medication ?Instructions ?Recorded ?Last Taken ?Type biotin 2,500 mcg capsule 5,000 mcg PO DAILY 05/26/15 Unknown History cholecalciferol (vitamin D3) 25 2,000 unit PO DAILY 08/18/17 Unknown History mcg (1,000 unit) tablet aspirin 81 mg tablet,delayed 81 mg PO QDAY 03/14/18 04/30/25 History release acetaminophen 325 mg tablet 650 mg (2 x 325 mg) PO Q6H PRN PRN 09/27/20 Unknown Rx Pain Score 1-10/Temp > 100.7 F vit C 250 mg-vit E 90 mg-zinc 40 1 tab PO QAM AND QHS 05/07/22 Unknown History mg-copper 1 [id number] capsule (PreserVision AREDS-2) Oral sleep appliance #1 ea 05/14/22 Unknown Rx cetirizine 5 mg tablet 5 mg PO DAILY PRN allergy symptoms 01/12/23 Unknown History lorazepam 0.5 mg tablet 0.5 mg PO QHS PRN anxiety #30 tabs 01/07/25 Unknown Rx levothyroxine 75 mcg tablet 75 mcg PO QDAY #90 tabs 04/08/25 05/03/25 06:00 Rx (Synthroid) mirtazapine 7.5 mg tablet 7.5 mg PO QHS #90 tabs 04/08/25 Unknown Rx ferrous sulfate 325 mg (65 mg 325 mg PO Q OTHER DAY #90 tabs 04/10/25 04/29/25 Rx iron) tablet,delayed release amlodipine 5 mg tablet 5 mg PO QDAY #90 tabs 04/15/25 05/03/25 06:00 Rx duloxetine 60 mg capsule,delayed 60 mg PO DAILY #90 caps 04/15/25 05/03/25 07:50 Rx release potassium chloride 20 mEq 20 meq PO BID #180 TABLETS 04/15/25 Unknown Rx tablet,extended release triamterene 37.5 1 cap PO QAM #90 caps 04/15/25 Unknown Rx mg-hydrochlorothiazide 25 mg capsule metoprolol succinate 50 mg 50 mg PO QHS 05/01/25 Unknown History tablet,extended release 24 hr rosuvastatin 10 mg tablet (Crestor) 10 mg PO QHS 05/01/25 Unknown History Allergy/AdvReac Type Severity Reaction Status Date / Time baird pepper (green pepper) Allergy Mild Swelling Verified 05/01/25 14:56 cefaclor (From Ceclor) Allergy Rash Verified 05/01/25 14:56 ropinirole AdvReac Severe nightmares Verified 05/01/25 14:56 and nausea erythromycin base AdvReac Vomiting Verified 05/01/25 14:56 trazodone AdvReac syncope Verified 05/01/25 14:56 Family History Mother Arthritis Hypertension CVA (cerebral vascular accident) Father Heart disease Myocardial infarction Had his first at 50, lived to be 80. Hypertension Kidney disease Grandfather Cancer stomach CA Surgical History Hx of right cataract extraction Hx of left cataract extraction Hx of colonoscopy History of esophagogastroduodenoscopy (EGD) H/O breast biopsy H/O hemorrhoidectomy gallbladder removal H/O: hysterectomy Social History Smoking Status: Former smoker how long ago did patient quit smokin, 1ppd second hand exposure: Yes alcohol intake: never substance use type: does not use what type of physical activity do you participate in: none Vital Signs Vital Signs Vital Signs: 05/03/25 07:51 05/03/25 07:51 05/03/25 08:18 Temperature 98.4 F 98.4 F Temperature Source Temporal Pulse Rate 65 65 Respiratory Rate 16 16 Respiratory Pattern Normal Blood Pressure 116/79 96/54 L Blood Pressure Mean 91 Blood Pressure Source Monitor Blood Pressure Position Semi-Fowlers Blood Pressure Location Left Arm Pulse Ox 92 92 Oxygen Delivery Method Room Air Room Air Weight Weight: 202 lb 13.204 oz Body Mass Index (BMI) 34.8 Physical Exam Const alert, oriented x3 and no apparent distress
[2025-05-03] MEDS: Lactated Ringers 500 ML IV (08:39)
[2025-05-03] MEDS: Lidocaine 1% (5 ml sdv) 5 ML Vial IV (08:40)
--- NOTE | 2025-05-03 09:12 | OP.PROVAT_ITS ---
05/03/2025 Shannan Chauhan MD [address] [place] [address] Re : Colonoscopy procedure for Skylar Fields Dear Dr. Chauhan This procedure was performed on Saturday, May 03, 2025. My impressions and recommendations are as follows: Impressions : - Diverticulosis in the sigmoid colon. - Internal hemorrhoids. - The examination was otherwise normal on direct and retroflexion views. - No specimens collected. Recommendations : - Discharge patient to home (ambulatory). - High fiber diet indefinitely. - Repeat colonoscopy in 10 years for screening purposes. - Return to my office PRN. - Continue present medications. My findings are described in the full procedure note, which is enclosed. If I can be of further assistance, please feel free to contact me at . Sincerely, Jose Roberto Walden MD 05/03/2025 9:11:46 AM This report has been signed electronically.
--- NOTE | 2025-05-03 09:12 | OP.COLON_ITS ---
Patient Name: Skylar Fields Procedure Date: 05/03/2025 8:24 AM Date of : 1950 Age: 74 Procedure: Colonoscopy Indications: Rectal bleeding Providers: Jose Roberto Walden MD Referring MD: Jose Roberto Walden MD Medicines: Monitored Anesthesia Care Patient Profile: Refer to note in patient chart for documentation of history and physical. Last Colonoscopy: more than 10 years ago. Complications: No immediate complications. Estimated blood loss: None. Procedure: Pre-Anesthesia Assessment: - Prior to the procedure, a History and Physical was performed, and patient medications and allergies were reviewed. The patient's tolerance of previous anesthesia was also reviewed. The risks and benefits of the procedure and the sedation options and risks were discussed with the patient. All questions were answered, and informed consent was obtained. Prior Anticoagulants: The patient has taken no anticoagulant or antiplatelet agents. ASA Grade Assessment: II - A patient with mild systemic disease. After reviewing the risks and benefits, the patient was deemed in satisfactory condition to undergo the procedure. After I obtained informed consent, the scope was passed under direct vision. Throughout the procedure, the patient's blood pressure, pulse, and oxygen saturations were monitored continuously. The colonoscope was introduced through the anus and advanced to the cecum, identified by the appendiceal orifice, ileocecal valve and palpation. The ileocecal valve, appendiceal orifice, and rectum were photographed. The entire colon was well visualized. The colonoscopy was performed without difficulty. The patient tolerated the procedure well. The quality of the bowel preparation was adequate. Moderate Sedation: See the other procedure note for documentation of moderate sedation with intraservice time. Scope In: 8:43:24 AM Scope Withdrawal Time 0 hours 9 minutes 55 seconds Scope Out: 9:03:38 AM Total Procedure Duration Time 0 hours 20 minutes 14 seconds Findings: The perianal and digital rectal examinations were normal. Many small-mouthed diverticula were found in the sigmoid colon. Internal hemorrhoids were found during retroflexion. The hemorrhoids were moderate. The exam was otherwise without abnormality on direct and retroflexion views. Impression: - Diverticulosis in the sigmoid colon. - Internal hemorrhoids. - The examination was otherwise normal on direct and retroflexion views. - No specimens collected. Recommendation: - Discharge patient to home (ambulatory). - High fiber diet indefinitely. - Repeat colonoscopy in 10 years for screening purposes. - Return to my office PRN. - Continue present medications. Procedure Code(s): --- Professional --- 39326, Colonoscopy, flexible; diagnostic, including collection of specimen(s) by brushing or washing, when performed (separate procedure) Diagnosis Code(s): --- Professional --- K64.8, Other hemorrhoids K57.30, Diverticulosis of large intestine without perforation or abscess without bleeding K62.5, Hemorrhage of anus and rectum CPT copyright 2021 [employer]. All rights reserved. The codes documented in this report are preliminary and upon medical director/head team physician review may be revised to meet current compliance requirements. Jose Roberto Walden MD 05/03/2025 9:11:46 AM This report has been signed electronically. Number of Addenda: 0 Note Initiated On: 05/03/2025 8:24 AM
--- NOTE | 2025-05-03 09:14 | PCM.POST.ANE ---
Anesthesia: Postop Eval I Current Vital Signs Temperature: 97.8 F Pulse Rate: 64 Blood Pressure: 113/78 Respiratory Rate: 16 Pulse Ox: 96 Assessment Airway patent: Yes Spontaneous unlabored respirations: Yes nausea: No Vomiting: No Anesthesia Complication: No Fluid Hydration Crystalloid volume administer (ml): 500 Total IV fluid infused: 500 Progress Note Anesthesia document: Postop Eval 1 completed: Yes
--- NOTE | 2025-05-03 16:09 | POSTOPAN2_ITS ---
Anesthesia Postop Eval I Sum Postop Eval Completion status Anesthesia document: Postop Eval 1 completed: Yes Anesthesia Postop Eval I Summary Anesthesia Postop Eval I Summary: Anesthesia Postop Eval I: Assessment Summary Airway patent Yes 05/03/25 09:14 [email or web address] Spontaneous unlabored Yes 05/03/25 09:14 [email or web address] respirations Mental status nausea No 05/03/25 09:14 [email or web address] Vomiting No 05/03/25 09:14 [email or web address] Anesthesia Postop Eval I: Fluid Summary Crystalloid volume administer 500 05/03/25 09:14 [email or web address] [email or web address] (ml) Colloids volume administered ( ml) Blood Product volume administered (ml) Total IV fluid infused 500 05/03/25 09:14 [email or web address] [email or web address] Anesthesia Postop Eval I: Summary Notes Anesthesia Complication No 05/03/25 09:14 [email or web address] [email or web address] Anesthesia Complication Comment: Post-operative progress note Anesthesia: Postop Eval II Evaluation Mental status: Awake and Calm Pain Level: 0 nausea: No Vomiting: No Complications Anesthesia Complication: No
--- NOTE | 2025-05-03 16:09 | PCM.POSTANE2 ---
Anesthesia Postop Eval I Sum Postop Eval Completion status Anesthesia document: Postop Eval 1 completed: Yes Anesthesia Postop Eval I Summary Anesthesia Postop Eval I Summary: Anesthesia Postop Eval I: Assessment Summary Airway patent Yes 05/03/25 09:14 [email or web address] Spontaneous unlabored Yes 05/03/25 09:14 [email or web address] respirations Mental status nausea No 05/03/25 09:14 [email or web address] Vomiting No 05/03/25 09:14 [email or web address] Anesthesia Postop Eval I: Fluid Summary Crystalloid volume administer 500 05/03/25 09:14 [email or web address] (ml) Colloids volume administered ( ml) Blood Product volume administered (ml) Total IV fluid infused 500 05/03/25 09:14 [email or web address] Anesthesia Postop Eval I: Summary Notes Anesthesia Complication No 05/03/25 09:14 [email or web address] Anesthesia Complication Comment: Post-operative progress note Anesthesia: Postop Eval II Evaluation Mental status: Awake and Calm Pain Level: 0 nausea: No Vomiting: No Complications Anesthesia Complication: No
== END 2025-05-03 09:48 | disposition home or self-care (01) ==
LOC: EN 07:25 → AC 07:29
PROVIDERS: PCP Internal Medicine; Referring Provider Surgery; Visit Provider Surgery
PROC: 0DJD8ZZ Inspection of Lower Intestinal Tract, Via Natural or Artificial Opening Endoscopic (ICD-10-PCS; CPT 45378; principal; 2025-05-03 08:25)
DX: K64.8 Other hemorrhoids (principal); K57.30 Diverticulosis of large intestine without perforation or abscess without bleeding; K21.9 Gastro-esophageal reflux disease without esophagitis; D64.9 Anemia, unspecified; I10 Essential (primary) hypertension; F41.9 Anxiety disorder, unspecified; F32.A Depression, unspecified; E03.9 Hypothyroidism, unspecified; E78.5 Hyperlipidemia, unspecified; G47.30 Sleep apnea, unspecified; Z90.49 Acquired absence of other specified parts of digestive tract; Z87.19 Personal history of other diseases of the digestive system; Z79.82 Long term (current) use of aspirin; Z79.890 Hormone replacement therapy; Z79.899 Other long term (current) drug therapy; Z87.891 Personal history of nicotine dependence
CPT/HCPCS: 45378